=== PATIENT | female | born 1995 | race Caucasian/White ===

== ENCOUNTER 2023-10-21 11:02 | Outpatient (OUT) | payer MEDICAID, SELFPAY ==
[2023-10-21 12:23] LABS: HCG Quantitative 5 mIU/mL
== END 2023-10-21 11:03 | disposition home or self-care (01) ==
LOC: LAB 11:04
PROVIDERS: PCP Family Medicine; Visit Provider Obstetrics & Gynecology
DX: Z78.9 Other specified health status (principal)
CPT/HCPCS: 36415; 84702

== ENCOUNTER 2023-12-29 09:58 | Outpatient (OUT) | payer MEDICAID, SELFPAY ==
--- OUTSIDE RECORDS SUMMARY | 2023-12-29 10:04 | XMS_ITS | CCD ---
Author Name Unknown Address [address] [place] [address] Organization [facility] Care Team Providers Care Manager Transmission Name Role Phone AJAY, PALANI K Unavailable Unavailable AJAY, PALANI K Unavailable Unavailable AJAY, PALANI K Unavailable Unavailable AJAY, PALANI K Unavailable Unavailable AJAY, PALANI K Unavailable Unavailable AJAY, PALANI K Unavailable Unavailable TOURLAS, DANDRE Unavailable Unavailabl e AJAY, PALANI K Unavailable Unavailable AJAY, PALANI K Unavailable Unavailable TOURLAS, DANDRE Unavailable Unavailabl e TOURLAS, DANDRE Unavailable Unavailabl e MAYELA NAPIER Referring Unavailable Tourlas, Dandre Attending Unavailabl e Tourlas, Dandre Primary Care Unavailabl e Re Murphy Attending Unavailable Tourlas, Dandre Primary Care Unavailabl e Re Murphy Admitting Unavailable Tourlas, Dandre Attending Unavailabl e Tourlas, Dandre Primary Care Unavailabl e Re Murphy Admitting Unavailable Re Murphy Attending Unavailable Tourlas, Dandre Primary Care Unavailabl e Tourlas Dandre Attending Unavailabl e Tourlas, Dandre Primary Care Unavailabl e Tourlas, Dandre Admitting Unavailabl e Pedro Keller Admitting Unavailable Pedro Keller Attending Unavailable Tourlas, Dandre Primary Care Unavailabl e Tourlas Dandre Attending Unavailabl e Tourlas, Dandre Primary Care Unavailabl e Yandy Luque Attending Unavailable Tourlas, Dandre Primary Care Unavailabl e Yandy Luque Admitting Unavailable Yandy Luque Admitting Unavailable Yandy Luque Attending Unavailable Tourlas, Dandre Primary Care Unavailabl e Tourlas Dandre Attending Unavailabl e Tourlas, Dandre Primary Care Unavailabl e Tourlas, Dandre Admitting Unavailabl e Tourlas, Dandre Attending Unavailabl e Tourlas, Dandre Primary Care Unavailabl e Tourlas, Dandre Admitting Unavailabl e Tourlas, Dandre Attending Unavailabl e Tourlas, Dandre Primary Care Unavailabl e Tourlas, Dandre Attending Unavailabl e Tourlas, Dandre Primary Care Unavailabl e MD Katarzyna Castañeda Primary Care Provider DO [facility] Emergency Provider [phone] MADDY, DR COLÓN Primary Care Unavailable NISHA, DR LUGO Admitting Unavailable NISHA, DR LUGO Attending Unavailable NISHA, DR LUGO Consulting Unavailable BO, SHU Admitting Unavailable SHU SORIANO Attending Unavailable MADDY, DR COLÓN Primary Care Unavailable BO, SHU Consulting Unavailable Fouzia Maria Unavailable MD Katarzyna Castañeda Primary Care Provider DO Stephanie Edward Attending Provider MD Katarzyna Castañeda Primary Care Provider DO Stephanie Edward Attending Provider MD Katarzyna Castañeda Primary Care Provider [phone] DO Stephanie Edward Attending Provider [phone] DO Stephanie Edward Admit Provider MD [facility] Attending Provider [phone] Juice Johnson Unavailable MD Katarzyna Castañeda Primary Care Provider [phone] MD Juiec Johnson Attending Provider [phone] LUIS MACIAS Attending Unavailable MD Katarzyna Castañeda Primary Care Provider DO Larry Rankin Emergency Provider [phone] MD Rodriguez Nick Admit Provider MD Rodriguez Nick Attending Provider Katarzyna Castañeda Primary Care Unavailable Miguel Jalloh Attending Unavailab Rodriguez Gonsalez Admitting Unavailable Juice Johnson Attending Unavailable Juice Johnson Admitting Unavailable Katarzyna Castañeda Primary Care Unavailable Allergies Allergy Classification Reported Allergen(s) Allergy Type Date of Onset Reaction(s) Facility (1 source) No Known Medication Allergies; Translations: [No Known Medication Allergies] Propensity to adverse reactions to drug (disorder) [facility] Repository (8 sources) Sulfamethoxazole; Translations: [sulfamethoxazole] Drug Allergy 10-10-20 [facility] (8 sources) Trimethoprim; Translations: [trimethoprim] Drug Allergy 10-10-20 [facility] (1 source) Sulfamethoxazole / Trimethoprim Drug Allergy [facility] Repository (4 sources) Sulfamethoxazole / Trimethoprim Drug Allergy [employer] [facility] [employer] Other Medications Current Medications Medication Drug Class(es) Dates Sig (Normalized) Sig (Original) amphetamine aspartate 2.5 mg / amphetamine sulfate 2.5 mg / dextroamphetamine saccharate 2.5 mg / dextroamphetamine sulfate 2.5 mg oral tablet (3 sources) Central Nervous System Stimulant Start: 08-08-2023 take 10 mg by mouth once daily Dextroamphetamine-Am phetamine Active 10 MG PO Daily August 07, 2023 11:00pm cholecalciferol 0.025 mg oral tablet (1 source) Vitamin D Start: 12-11-2023 take 50 ug by mouth once daily Cholecalciferol (Vitamin D3) Active 50 MCG PO Daily December 11, 2023 12:00am doxycycline monohydrate 100 mg oral capsule (1 source) Tetracycline-cl ass Drug Start: 12-05-2021 take 1 capsule by mouth every twelve hours Doxycycline Monohydrate 100 MG 1 capsule Orally every 12 hrs for 10 days Nov, Active escitalopram 10 mg oral tablet (1 source) Serotonin Reuptake Inhibitor Start: 12-11-2023 take 10 mg by mouth once daily in the morning Escitalopram Oxalate Active 10 MG PO Every morning 15 December 11, 2023 12:00am levothyroxine sodium 0.1 mg oral tablet (8 sources) l-Thyroxine Start: 12-09-2023 take 100 ug by mouth once daily Levothyroxine Active 100 MCG PO Daily at 629December 09, 2023 12:00am Start: 11-06-2022 take 1 capsule by mo uth once daily Levothyroxine (Tirosint) 175 mcg capsule Active 175 MCG PO Daily at 629November 06, 2022 12:00am take 1 tablet by giuseppe th once daily in the morning Synthroid 137 MCG 1 tablet on an empty stomach in the morning Orally Once a day for 90 days Active Nasonex 50 MCG/ACT (1 source) Start: 12-05-2021 take 2 spray(s) nasa l route once daily Nasonex 50 MCG/ACT 2 sprays in each nostril Nasally Once a day for 30 day(s) Nov, Active (1 source) Active Completed/Discontinued Medications Medication Drug Class(es) Dates Sig (Normalized) Sig (Original) cephalexin 500 mg oral capsule (7 sources) Cephalosporin Antibacterial Start: 1 End: 2 take 500 mg by mouth twice daily Cephalexin Discontinued 500 MG PO Twice daily 26 05October 10, 2021 12:00am November 06, 2022 8:06pm dextroamphetamine sulfate 10 mg oral tablet (3 sources) Central Nervous System Stimulant take 1 tablet by mouth every twenty-four hours Dextroamphetamine Sulfate 10 MG 1 tablet in the morning Orally Once a day Not-Taking fluticasone propionate 0.05 mg/actuat metered dose nasal spray (4 sources) Corticosteroid Start: 1 take 1 spray(s) nasal route twice daily Fluticasone Propionate 50 MCG/ACT 1 spray in each nostril Nasally Twice a day for 14 days Oct, Not-Taking HYDROmorphone hydrochloride 2 mg oral tablet (4 sources) Opioid Agonist Start: 2 End: 3 take 1 tablet by mouth every six hours Hydromorphone (Dilaudid) 2 mg tablet Discontinued 2 MG PO Q6H 11 06November 09, 2022 August 08, 2023 10:58am ibuprofen 600 mg oral tablet (4 sources) Nonsteroidal Anti-inflammatory Drug Start: 2 End: 3 take 600 mg by mouth every six hours Ibuprofen Discontinued 600 MG PO Q6H 30 November 09, 2022 12:00am August 08, 2023 10:58am Dwsjwvvc-Nlf-Nh-Fa (4 sources) Start: End: 3 take 1 tablet by mouth once daily Cegvlmsy-Wyy-Ei-Fa Discontinued 1 TAB PO Daily November 06, 2022 12:00am August 08, 2023 10:58am Start: 11-06-2022 End: 08-08-2023 take 1 tablet by mouth once daily Ptciilaq-Sqq-Xf-Fa Discontinued 1 TAB PO Daily November 06, 2022 1:00am August 08, 2023 11:58am Start: 11-06-2022 take 1 tablet by giuseppe th once daily Nbhoqzxe-Yka-Ty-Fa Active 1 TAB PO Daily November 06, 2022 12:00am Problems Active Problems Problem Classification Problem Date Documented Da te Episodic/Chronic Anxiety disorders (3 sources) Generalized anxiety disorder; Translations: [Generalized anxiety disorder] Onset: 12-09-2023 12-09-2023 Chronic Attention-deficit, conduct, and disruptive behavior disorders (1 source) Attention deficit hyperactivity disorder; Translations: [Attention-deficit hyperactivity disorder, unspecified type] 12-09-2023 Chronic Attention-deficit, conduct, and disruptive behavior disorders (2 sources) Attention-deficit hyperactivity disorder, unspecified type; Translations: [Attention deficit disorder with hyperactivity] Onset: 12-09-2023 12-08-2023 Chronic Complications of surgical procedures or medical care (4 sources) Postoperative hypothyroidism; Translations: [Postprocedural hypothyroidism] Chronic Complications of surgical procedures or medical care (7 sources) Wound dehiscence; Translations: [Disruption of external operation (surgical) wound, not elsewhere classified, initial encounter] 10-10-2021 Episodic Miscellaneous mental health disorders (1 source) depression; Translations: [ depression] Onset: 12-09-2023 Episodic Mood disorders (5 sources) Depressive disorder; Translations: [Depression] Onset: 12-09-2023 12-08-2023 Chronic Mood disorders (1 source) Mood disorders; Translations: [Depression, unspecified] Onset: 12-09-2023 Nutritional deficiencies (4 sources) Vitamin D deficiency; Translations: [Vitamin D deficiency, unspecified] Chronic Other female genital disorders (3 sources) Abnormal uterine and vaginal bleeding, unspecified; Translations: [ABNORMAL UTERINE VAGINAL BLEED UNS] Onset: 03-02-2022 Chronic Other gastrointestinal disorders (3 sources) Celiac disease; Translations: [Celiac disease] Chronic Other gastrointestinal disorders (2 sources) Celiac disease Chronic Other gastrointestinal disorders (3 sources) Constipation; Translations: [Constipation, unspecified] Episodic Other gastrointestinal disorders (3 sources) Loose stool; Translations: [Other fecal abnormalities] Episodic Other gastrointestinal disorders (2 sources) Constipation, unspecified Episodic Other nutritional; endocrine; and metabolic disorders (4 sources) Overweight; Translations: [Overweight] Episodic Other and delivery including normal (1 source) Encounter for supervision of normal , unspecified, first trimester; Translations: [ENC SUP NORMAL PREG UNS FIRST TRI] Onset: 03-03-2022 Episodic Other skin disorders (1 source) Localized swelling, mass and lump, neck; Translations: [Localized swelling, mass and lump, neck] Onset: 01-14-2019 Episodic Other upper respiratory infections (1 source) Chronic sinusitis, unspecified; Translations: [CHRONIC SINUSITIS UNSPECIFIED] Onset: 11-25-2021 Chronic Residual codes; unclassified (1 source) History of uterine scar from previous surgery; Translations: [Other postprocedural status] 11-09-2022 Episodic Unclassified (3 sources) CONTACT W/AND (SUSP) EXPOS COVID-19; Translations: [CONTACT W/AND (SUSP) EXPOS COVID-19] Onset: 11-25-2021 Unclassified (1 source) COUGH, UNSPECIFIED; Translations: [COUGH, UNSPECIFIED] Onset: 11-25-2021 Past or Other Problems Problem Classification Problem Date Documented Da te Episodic/Chronic Abdominal pain (2 sources) Epigastric pain; Translations: [Epigastric pain] Onset: 07-10-2017 Episodic Immunizations and screening for infectious disease (1 source) Contact with and (suspected) exposure to other viral communicable diseases Onset: 12-05-2021 Resolved: 12-05-2021 Episodic Other gastrointestinal disorders (3 sources) Other fecal abnormalities; Translations: [Other fecal abnormalities] Onset: 08-08-2023 Episodic Other upper respiratory disease (1 source) Nasal congestion; Translations: [NASAL CONGESTION] Onset: 11-25-2021 Episodic Other upper respiratory infections (1 source) Acute maxillary sinusitis, unspecified Onset: 12-05-2021 Resolved: 12-05-2021 Episodic Unclassified (1 source) CONTACT W/AND (SUSP) EXPOS COVID-19; Translations: [CONTACT W/AND (SUSP) EXPOS COVID-19] Onset: 11-19-2021 Results Test Name Value Interpretation Reference Range Facility Dipstick and Microscopicon 0 12-09-2023 Appearance (U) Clear Normal Clear [facility] Comment on above: Order Comment: Name Collection Type:: Clean-Voided Midstream Performed By: #### U HCG, ADDONUAPLUS, URDS #### [facility] [address] [place] [address] Bacteria,Urine None Seen Normal None Seen [facility] Comment on above: Order Comment: Name Collection Type:: Clean-Voided Midstream Performed By: #### U HCG, ADDONUAPLUS, URDS #### [facility] [address] [place] [address] Bilirubin,Urine Negative Normal Negative [facility] Comment on above: Order Comment: Name Collection Type:: Clean-Voided Midstream Performed By: #### U HCG, ADDONUAPLUS, URDS #### [facility] [address] [place] [address] [place] Color (U) Yellow Normal Yellow [facility] Comment on above: Order Comment: Name Collection Type:: Clean-Voided Midstream Performed By: #### U HCG, ADDONUAPLUS, URDS #### [facility] [address] [place] [address] [place] Glucose Ql (U) Normal Normal Normal [facility] Comment on above: Order Comment: Name Collection Type:: Clean-Voided Midstream Performed By: #### U HCG, ADDONUAPLUS, URDS #### [facility] [address] [place] [address] [place] Hyaline Casts,Urine 0-8 Normal 0-8 [facility] Comment on above: Order Comment: Name Collection Type:: Clean-Voided Midstream Performed By: #### U HCG, ADDONUAPLUS, URDS #### [place] [address] [place] Ketones Ql (U) 1+ High Negative [facility] Comment on above: Order Comment: Name Collection Type:: Clean-Voided Midstream Performed By: #### U HCG, ADDONUAPLUS, URDS #### [facility] [address] [place] [address] Leukocyte esterase Test strip Ql (U) Negative Normal Negative [facility] Comment on above: Order Comment: Name Collection Type:: Clean-Voided Midstream Performed By: #### U HCG, ADDONUAPLUS, URDS #### [facility] [address] [place] [address] Nitrite,Urine Negative Normal Negative [facility] Comment on above: Order Comment: Name Collection Type:: Clean-Voided Midstream Performed By: #### U HCG, ADDONUAPLUS, URDS #### [facility] [address] [place] [address] Occult Blood,Urine 2+ High Negative [facility] Comment on above: Order Comment: Name Collection Type:: Clean-Voided Midstream Performed By: #### U HCG, ADDONUAPLUS, URDS #### [facility] [address] [place] [address] pH (U) 6.0 [pH] Normal 5.0-9.0 [facility] Comment on above: Order Comment: Name Collection Type:: Clean-Voided Midstream Performed By: #### U HCG, ADDONUAPLUS, URDS #### [facility] [address] [place] [address] Protein,Urine Negative Normal Negative [facility] Comment on above: Order Comment: Name Collection Type:: Clean-Voided Midstream Performed By: #### U HCG, ADDONUAPLUS, URDS #### [facility] [address] [place] [address] [place] RBC,Urine 5-9 High 0-4 [facility] Comment on above: Order Comment: Name Collection Type:: Clean-Voided Midstream Performed By: #### U HCG, ADDONUAPLUS, URDS #### [facility] [address] [place] [address] [place] Specificy Alpha,Urine 1.022 Normal 1.001-1.030 [facility] Comment on above: Order Comment: Name Collection Type:: Clean-Voided Midstream Performed By: #### U HCG, ADDONUAPLUS, URDS #### [address] Squamous Epithelial Cell,Urine 0-1 Normal 0-2 [facility] Comment on above: Order Comment: Name Collection Type:: Clean-Voided Midstream Performed By: #### U HCG, ADDONUAPLUS, URDS #### [address] Urobilinogen,Urine Normal Normal Normal [facility] Comment on above: Order Comment: Name Collection Type:: Clean-Voided Midstream Performed By: #### U HCG, ADDONUAPLUS, URDS #### [address] WBC LM.HPF (Urine sed) [#/Area] 0 /[HPF] Normal 0-4 [facility] Comment on above: Order Comment: Name Collection Type:: Clean-Voided Midstream Performed By: #### U HCG, ADDONUAPLUS, URDS #### [address] Drug Screen,Urineon 12-09-19 24 Amphetamine Screen,Urine Positive High Negative [facility] Comment on above: Performed By: #### U HCG, ADDONUAPLUS, URDS #### [address] Barbiturate Screen,Urine Negative Normal Negative [facility] Comment on above: Performed By: #### U HCG, ADDONUAPLUS, URDS #### [address] Benzodiazepines Screen,Urine Negative Normal Negative [facility] Comment on above: Performed By: #### U HCG, ADDONUAPLUS, URDS #### [address] Cannabinoid Screen,Urine Negative Normal Negative [facility] Comment on above: Result Comment: Thes e are unconfirmed results and should not be used for legal purposes. Drug Cut-Off Concentration: AMPH 1000 ng/mL KAMRYN 200 ng/mL MIRELA 200 ng/mL COCM 300 ng/mL OP 300 ng/mL PCP 25 ng/mL THC 20 ng/mL PERFORMED BY: [place] [address] PATHOLOGIST FISCAL OFFICER REHAN MARISCAL M.D. Performed By: #### U HCG, ADDONUAPLUS, URDS #### [facility] [address] [place] [address] Cocaine Screen,Urine Negative Normal Negative [facility] Comment on above: Performed By: #### U HCG, ADDONUAPLUS, URDS #### [facility] [address] [place] [address] Opiate Screen,Urine Negative Normal Negative [facility] Comment on above: Performed By: #### U HCG, ADDONUAPLUS, URDS #### [facility] [address] [place] [address] Phencyclidine Screen,Urine Negative Normal Negative [facility] Comment on above: Performed By: #### U HCG, ADDONUAPLUS, URDS #### [facility] [address] [place] [address] ECG 12 lead ECGon 12-09-2023 ECG 12 lead ECG [facility] [place] [address] [place] [address] Electrocardiograph Report Signed Patient: Jen Santamaria MR#: [id number] : 1995 Acct:[id number] Age/Sex: 28 / F ADM Date: 12/08/23 Loc: Room: [address] [place] [address] Type: ADM IN Attending Dr: Rodriguez Nick MD Ordering Provider: Rodriguez Nick MD Date of Service: 12/09/23 ECG/ECG 12 lead ECG: use of antipsychotics Copies to: Test Reason : Blood Pressure : / mmHG Vent. Rate : 096 BPM Atrial Rate : 096 BPM P-R Int : 164 ms QRS Dur : 096 ms QT Int : 350 ms P-R-T Axes : 071 085 056 degrees QTc Int : 442 ms Normal sinus rhythm Septal infarct , age undetermined Abnormal ECG No previous ECGs available Confirmed by Frannie Todd ([id number]) on 12/09/2023 11:36:04 AM Referred By: Electronically Signed By:Frannie Todd Transcribed By: MUS Signed By Devin Beard MD 12/09/[address] [facility] HCG,Urineon 12-09-2023 Beta HCG ( test) Ql (U) Negative Normal [facility] Comment on above: Order Comment: Name Collection Type:: Clean-Voided Midstream Result Comment: PERF ORMED BY: [place] [address] PATHOLOGIST FISCAL OFFICER REHAN MARISCAL M.D. Performed By: #### U HCG, ADDONUAPLUS, URDS #### [facility] [address] [place] [address] Lipid Panelon 12-09-2023 Cholesterol [Mass/Vol] 170 mg/dL Normal 140-200 [facility] Comment on above: Result Comment: Chol less than 200 mg/dl low risk Chol 201-239 mg/dl borderline risk Chol 240 mg/dl and greater high risk Performed By: #### U HCG, ADDONUAPLUS, URDS #### [facility] [address] [place] [address] Cholesterol in HDL [Mass/Vol] 54 mg/dL Normal 23-92 [facility] Comment on above: Result Comment: HDL CHOL ATP-III CLASSIFICATION Cardiovascular Risk HDL > or equal to 60 mg/dL LOW HDL < 40 mg/dL HIGH Performed By: #### U HCG, ADDONUAPLUS, URDS #### [facility] [address] Cholesterol.total/Chol esterol in HDL [Mass ratio] 3.1 {ratio} Normal <5.0 [facility] Comment on above: Performed By: #### U HCG, ADDONUAPLUS, URDS #### [facility] [address] [place] [address] [place] LDL Cholesterol,Calculated 102 mg/dL High 0-100 [facility] Comment on above: Result Comment: LDL ATP III CLASSIFICATION LDL less than 100 mg/dL Optimal LDL 100-129 mg/dL Near or above optimal LDL 130-159 mg/dL Borderline high LDL 160-189 mg/dL High LDL greater than 189 mg/dL Very high Performed By: #### U HCG, ADDONUAPLUS, URDS #### [facility] [address] Triglyceride w/Reflex 71 mg/dL Normal 0-149 [facility] Comment on above: Result Comment: TRIG ATP III CLASSIFICATION TRIG less than 150 mg/dL Normal TRIG 150-199 mg/dL Borderline high TRIG 200-500 mg/dL High TRIG greater than 500 mg/dL Very high Standard traceable to the Center for Disease Conrtrol and Prevention (CDC) test method. Performed By: #### U HCG, ADDONUAPLUS, URDS #### [facility] [address] VLDL CHOLESTEROL 14 mg/dL Normal [facility] Comment on above: Performed By: #### U HCG, ADDONUAPLUS, URDS #### [facility] [address] Thyroid Stim Hormone w/Rflxo n 12-09-2023 Thyroid Stim Hormone w/Rflx 1.67 u[iU]/mL Normal 0.45-5.33 [facility] Comment on above: Performed By: #### U HCG, ADDONUAPLUS, URDS #### [facility] [address] Vitamin D 25 Hydroxy Totalon 12-09-2023 Vitamin D 25 Hydroxy Total 25.6 ng/mL Low 30-100 [facility] Comment on above: Result Comment: JAXON MIN D STATUS 25(OH)VITAMIN D RANGE (ng/mL) Deficient <20 Insufficient 20 to <30 Sufficient 30 to 100 Reference: Yesenia MF,Deangelo DUKES, Jeison WHYTE, et al. Evaluation,treatment, and prevention of vitamin D deficiency; an Endocrine Society clinical practice guideline. JCEM. 2010; 96(7):1911-30. PERFORMED BY: [place] [address] PATHOLOGIST FISCAL OFFICER REHAN MARISCAL M.D. Performed By: #### U HCG, ADDONUAPLUS, URDS #### [address] Alanine aminotransferase [En zymatic activity/volume] in Serum or PlasmaOrdered By: Larry Rankin on 12-08-2023 ALT [Catalytic activity/Vol] 12 U/L 7-52 [facility] Albumin [Mass/volume] in Ser um or Plasma by Bromocresol green (BCG) dye binding methoOrdered By: Larry Rankin on 12-08-2023 Albumin BCG dye [Mass/Vol] 4.6 g/dL 3.5-5.7 [facility] Alkaline phosphatase [Enzyma tic activity/volume] in Serum or PlasmaOrdered By: Larry Rankin on 12-08-2023 ALP [Catalytic activity/Vol] 59 U/L 34-104 [facility] Amphetamine Screen Ql (U)Ord ered By: Larry Rankin on 12-08-2023 Amphetamines Ql (U) Positive Negative [facility] Aspartate aminotransferase [ Enzymatic activity/volume] in Serum or PlasmaOrdered By: Larry Rankin on 12-08-2023 AST [Catalytic activity/Vol] 19 U/L 13-39 [facility] Automated erythrocytes count in urine sediment (number/area)Ordered By: Larry Rankin on 12-08-2023 RBC Auto (Urine sed) [#/Area] 5-9 [HPF] 0-4 [facility] Automated leukocytes count i n urine sediment (number/area)Ordered By: Larry Rankin on 12-08-2023 WBC Auto (Urine sed) [#/Area] 0-1 [HPF] 0-4 [facility] Barbiturates [Presence] in U rine by Screen methodOrdered By: Larry Rankin on 12-08-2023 Barbiturates Screen Ql (U) Negative Negative [facility] Basophils Auto (Bld) [#/Vol] Ordered By: Larry Rankin on 12-08-2023 Basophils (Bld) [#/Vol] 0.1 10*3/uL 0.0-0.2 [facility] Basophils/100 WBC Auto (Bld) Ordered By: Larry Rankin on 12-08-2023 Basophils/100 WBC (Bld) 0.7 % . [facility] Benzodiazepines Screen Ql (U )Ordered By: Larry Rankin on 12-08-2023 Benzodiazepines Ql (U) Negative Negative [facility] Benzoylecgonine [Presence] i n Urine by Screen methodOrdered By: Larry Rankin on 12-08-2023 Benzoylecgonine Screen Ql (U) Negative Negative [facility] Bilirubin Test strip Ql (U)O rdered By: Larry Rankin on 12-08-2023 Bilirubin Ql (U) Negative Negative [facility] Bilirubin.total [Mass/volume ] in Serum or PlasmaOrdered By: Larry Rankin on 12-08-2023 Bilirubin [Mass/Vol] 0.4 mg/dL 0.3-1.0 [facility] Calcium [Mass/volume] in Ser um or PlasmaOrdered By: Larry Rankin on 12-08-2023 Calcium [Mass/Vol] 9.8 mg/dL 8.6-10.3 [facility] Cannabinoids [Presence] in U rine by Screen methodOrdered By: Larry Rankin on 12-08-2023 Cannabinoids Screen Ql (U) Negative Negative [facility] Comment on above: These are unconfirme d results and should not be used for legal purposes. Drug Cut-Off Concentration: AMPH 1000 ng/mL KAMRYN 200 ng/mL MIRELA 200 ng/mL COCM 300 ng/mL OP 300 ng/mL PCP 25 ng/mL THC 20 ng/mL Carbon dioxide, total [Moles /volume] in Serum or PlasmaOrdered By: Larry Rankin on 12-08-2023 CO2 [Moles/Vol] 24.0 mmol/L 21.0-31.0 [facility] Chloride [Moles/volume] in S ridge or PlasmaOrdered By: Larry Rankin on 12-08-2023 Chloride [Moles/Vol] 106 mmol/L 98-107 [facility] Color Auto (U)Ordered By: Chuck Rankin on 12-08-2023 Color (U) Yellow Yellow [facility] Complete Blood Count Auto Di ffon 12-08-2023 Basophils (Bld) [#/Vol] 0.1 10*3/uL Normal 0.0-0.2 [facility] Comment on above: Result Comment: PERF ORMED BY: [place] [address] PATHOLOGIST FISCAL OFFICER REHAN MARISCAL M.D. Performed By: #### U HCG, ADDONUAPLUS, URDS #### [facility] [address] [place] [address] Basophils/100 WBC (Bld) 0.7 % Normal . [facility] Comment on above: Performed By: #### U HCG, ADDONUAPLUS, URDS #### [facility] [address] [place] [address] Eosinophils (Bld) [#/Vol] 0.2 10*3/uL Normal 0.0-0.45 [facility] Comment on above: Performed By: #### U HCG, ADDONUAPLUS, URDS #### [facility] [address] [place] [address] Eosinophils/100 WBC (Bld) 2.2 % Normal . [facility] Comment on above: Performed By: #### U HCG, ADDONUAPLUS, URDS #### [facility] [address] [place] [address] Erythrocyte distribution width (RBC) [Ratio] 14.5 % Normal 11.9-15.3 [facility] Comment on above: Performed By: #### U HCG, ADDONUAPLUS, URDS #### [facility] [address] [place] [address] Hematocrit (Bld) [Volume fraction] 40.7 % Normal 34.0-46.4 [facility] Comment on above: Performed By: #### U HCG, ADDONUAPLUS, URDS #### [facility] [address] [place] [address] Hemoglobin (Bld) [Mass/Vol] 13.9 g/dL Normal 11.8-15.4 [facility] Comment on above: Performed By: #### U HCG, ADDONUAPLUS, URDS #### [address] Lymphocytes (Bld) [#/Vol] 2.7 10*3/uL Normal 1.00-4.8 [facility] Comment on above: Performed By: #### U HCG, ADDONUAPLUS, URDS #### [address] Lymphocytes/100 WBC (Bld) 36.8 % Normal . [facility] Comment on above: Performed By: #### U HCG, ADDONUAPLUS, URDS #### [address] MCH (RBC) [Entitic mass] 30.3 pg Normal 24.7-34.3 [facility] Comment on above: Performed By: #### U HCG, ADDONUAPLUS, URDS #### [address] MCV (RBC) [Entitic vol] 88.6 fL Normal 80-100 [facility] Comment on above: Performed By: #### U HCG, ADDONUAPLUS, URDS #### [address] Mean Corpuscular HGB Conc 34.2 g/dL Normal 32.0-35.0 [facility] Comment on above: Performed By: #### U HCG, ADDONUAPLUS, URDS #### [address] Monocytes (Bld) [#/Vol] 0.5 10*3/uL Normal 0.0-0.8 [facility] Comment on above: Performed By: #### U HCG, ADDONUAPLUS, URDS #### [address] Monocytes/100 WBC (Bld) 16.63 % Normal 0.00-20.00 [facility] Comment on above: Performed By: #### U HCG, ADDONUAPLUS, URDS #### [facility] [address] [place] [address] [place] Monocytes/100 WBC (Bld) 6.4 % Normal . [facility] Comment on above: Performed By: #### U HCG, ADDONUAPLUS, URDS #### [facility] [address] Neutrophils (Bld) [#/Vol] 4.0 10*3/uL Normal 1.8-7.7 [facility] Comment on above: Performed By: #### U HCG, ADDONUAPLUS, URDS #### [facility] [address] [place] [address] Neutrophils/100 WBC (Bld) 53.9 % Normal . [facility] Comment on above: Performed By: #### U HCG, ADDONUAPLUS, URDS #### [facility] [address] [place] [address] NRBC% 0.1 /100{WBC} Normal 0-0.5 [facility] Comment on above: Performed By: #### U HCG, ADDONUAPLUS, URDS #### [facility] [address] [place] [address] Platelet mean volume (Bld) [Entitic vol] 7.4 fL Normal 6.3-10.7 [facility] Comment on above: Performed By: #### U HCG, ADDONUAPLUS, URDS #### [facility] [address] [place] [address] [place] Platelets (Bld) [#/Vol] 384 10*3/uL Normal 150-450 [facility] Comment on above: Performed By: #### U HCG, ADDONUAPLUS, URDS #### [facility] [address] [place] [address] [place] RBC (Bld) [#/Vol] 4.59 10*6/uL Normal 3.60-5.00 [facility] Comment on above: Performed By: #### U HCG, ADDONUAPLUS, URDS #### [facility] [address] [place] [address] [place] WBC (Bld) [#/Vol] 7.4 10*3/uL Normal 3.8-11.6 [facility] Comment on above: Performed By: #### U HCG, ADDONUAPLUS, URDS #### [facility] [address] Comprehensive Metabolic Pane chris 12-08-2023 Albumin [Mass/Vol] 4.6 g/dL Normal 3.5-5.7 [facility] Comment on above: Performed By: #### U HCG, ADDONUAPLUS, URDS #### [facility] [address] Albumin/Globulin [Mass ratio] 1.5 {ratio} Normal [facility] Comment on above: Performed By: #### U HCG, ADDONUAPLUS, URDS #### [facility] [address] ALP [Catalytic activity/Vol] 59 U/L Normal 34-104 [facility] Comment on above: Performed By: #### U HCG, ADDONUAPLUS, URDS #### [facility] [address] [place] [address] ALT [Catalytic activity/Vol] 12 U/L Normal 7-52 [facility] Comment on above: Performed By: #### U HCG, ADDONUAPLUS, URDS #### [facility] [address] [place] [address] Anion gap [Moles/Vol] 11.7 mmol/L Normal 6.0-15.0 [facility] Comment on above: Performed By: #### U HCG, ADDONUAPLUS, URDS #### [facility] [address] [place] [address] AST [Catalytic activity/Vol] 19 U/L Normal 13-39 [facility] Comment on above: Performed By: #### U HCG, ADDONUAPLUS, URDS #### [facility] [address] Bilirubin [Mass/Vol] 0.4 mg/dL Normal 0.3-1.0 [facility] Comment on above: Performed By: #### U HCG, ADDONUAPLUS, URDS #### [facility] [address] [place] [address] [place] Calcium [Mass/Vol] 9.8 mg/dL Normal 8.6-10.3 [facility] Comment on above: Performed By: #### U HCG, ADDONUAPLUS, URDS #### [facility] [address] [place] [address] [place] Chloride [Moles/Vol] 106 mmol/L Normal 98-107 [facility] Comment on above: Performed By: #### U HCG, ADDONUAPLUS, URDS #### [facility] [address] CO2 [Moles/Vol] 24.0 mmol/L Normal 21.0-31.0 [facility] Comment on above: Performed By: #### U HCG, ADDONUAPLUS, URDS #### [facility] [address] Creatinine [Mass/Vol] 0.82 mg/dL Normal 0.60-1.20 [facility] Comment on above: Performed By: #### U HCG, ADDONUAPLUS, URDS #### [facility] [address] [place] [address] [place] Creatinine Clr Calc Pharmacy 90.10 [facility] Comment on above: Result Comment: PERF ORMED BY: [place] [address] PATHOLOGIST FISCAL OFFICER REHAN MARISCAL M.D. Performed By: #### U HCG, ADDONUAPLUS, URDS #### [facility] [address] [place] [address] [place] GFR/1.73 sq M.predicted MDRD (S/P/Bld) [Vol rate/Area] mL/min/{1.73_m2} [facility] Comment on above: Performed By: #### U HCG, ADDONUAPLUS, URDS #### [facility] [address] [place] [address] [place] Globulin (S) [Mass/Vol] 3.1 g/dL [facility] Comment on above: Performed By: #### U HCG, ADDONUAPLUS, URDS #### [facility] [address] [place] [address] [place] Glucose [Mass/Vol] 79 mg/dL Normal 70-100 [facility] Comment on above: Result Comment: [place] Glucose Reference Range is dependent on time and content of last meal. Glucose of more than 200 mg/dL in a nonstressed, ambulatory subject supports the diagnosis of Diabetes Mellitus. ADA recommended reference range Performed By: #### U HCG, ADDONUAPLUS, URDS #### [facility] [address] [place] [address] [place] Potassium [Moles/Vol] 3.7 mmol/L Normal 3.5-5.1 [facility] Comment on above: Performed By: #### U HCG, ADDONUAPLUS, URDS #### [facility] [address] [place] [address] [place] Protein [Mass/Vol] 7.7 g/dL Normal 6.4-8.9 [facility] Comment on above: Performed By: #### U HCG, ADDONUAPLUS, URDS #### [facility] [address] [place] [address] [place] Sodium [Moles/Vol] 138 mmol/L Normal 136-145 [facility] Comment on above: Performed By: #### U HCG, ADDONUAPLUS, URDS #### [facility] [address] [place] [address] [place] Urea nitrogen [Mass/Vol] 8 mg/dL Normal 7-25 [facility] Comment on above: Performed By: #### U HCG, ADDONUAPLUS, URDS #### [facility] [address] [place] [address] [place] Creatinine [Mass/volume] in Serum or PlasmaOrdered By: Larry Rankin on 12-08-2023 Creatinine [Mass/Vol] 0.82 mg/dL 0.60-1.20 [facility] Eosinophils Auto (Bld) [#/Vo l]Ordered By: Larry Rankin on 12-08-2023 Eosinophils (Bld) [#/Vol] 0.2 10*3/uL 0.0-0.45 [facility] Eosinophils/100 WBC Auto (Bl d)Ordered By: Larry Rankin on 12-08-2023 Eosinophils/100 WBC (Bld) 2.2 % . [facility] Erythrocyte distribution wid th Auto (RBC) [Ratio]Ordered By: Larry Rankin on 12-08-2023 Erythrocyte distribution width (RBC) [Ratio] 14.5 % 11.9-15.3 [facility] Ethanol [Mass/volume] in Ser um or PlasmaOrdered By: Larry Rankin on 12-08-2023 Ethanol [Mass/Vol] mg/dL [facility] Ethanol [Mass/Vol] TNP [facility] Comment on above: Test not performed Ethyl Alcohol Profileon 11-14 Ethanol [Mass/Vol] mg/dL Normal [facility] Comment on above: Performed By: #### U HCG, ADDONUAPLUS, URDS #### [facility] [address] Percent Ethanol Not performed Normal [facility] Comment on above: Result Comment: PERF ORMED BY: [place] [address] PATHOLOGIST FISCAL OFFICER REHAN MARISCAL M.D. Performed By: #### U HCG, ADDONUAPLUS, URDS #### [facility] [address] Globulin Calc (S) [Mass/Vol] Ordered By: Larry Rankin on 12-08-2023 Globulin (S) [Mass/Vol] 3.1 g/dL [facility] Glucose [Mass/volume] in Ser um or PlasmaOrdered By: Larry Rankin on 12-08-2023 Glucose [Mass/Vol] 79 mg/dL 70-100 [facility] Comment on above: ADA recommended refe rence rangeRandom Glucose Reference Range is dependent on time and content of last meal. Glucose of more than 200 mg/dL in a nonstressed, ambulatory subject supports the diagnosis of Diabetes Mellitus. HCG ( test) IA.rapi d Ql (U)Ordered By: Larry Rankin on 12-08-2023 HCG ( test) Ql (U) Negative [facility] Hematocrit Auto (Bld) [Volum e fraction]Ordered By: Larry Rankin on 12-08-2023 Hematocrit (Bld) [Volume fraction] 40.7 % 34.0-46.4 [facility] Hemoglobin [Mass/volume] in BloodOrdered By: Larry Rankin on 12-08-2023 Hemoglobin (Bld) [Mass/Vol] 13.9 g/dL 11.8-15.4 [facility] Ketones Auto test strip (U) [Mass/Vol]Ordered By: Larry Rankin on 12-08-2023 Ketones (U) [Mass/Vol] 1+ Negative [facility] - UrinalysisOrder ed By: Larry Rankin on 12-08-2023 Hyaline casts LM Ql (Urine sed) 0-8 [LPF] 0-8 [facility] Leukocytes [#/volume] correc chema for nucleated erythrocytes in Blood by Automated counOrdered By: Larry Rankin on 12-08-2023 WBC corrected for nucl RBC Auto (Bld) [#/Vol] 7.4 10*3/uL 3.8-11.6 [facility] Lymphocytes Auto (Bld) [#/Vo l]Ordered By: Larry Rankin on 12-08-2023 Lymphocytes (Bld) [#/Vol] 2.7 10*3/uL 1.00-4.8 [facility] Lymphocytes/100 WBC Auto (Bl d)Ordered By: Larry Rankin on 12-08-2023 Lymphocytes/100 WBC (Bld) 36.8 % . [facility] MCH Auto (RBC) [Entitic mass ]Ordered By: Larry Rankin on 12-08-2023 MCH (RBC) [Entitic mass] 30.3 pg 24.7-34.3 [facility] MCHC Auto (RBC) [Mass/Vol]Or dered By: Larry Rankin on 12-08-2023 MCHC (RBC) [Mass/Vol] 34.2 g/dL 32.0-35.0 [facility] MCV Auto (RBC) [Entitic vol] Ordered By: Larry Rankin on 12-08-2023 MCV (RBC) [Entitic vol] 88.6 fL 80-100 [facility] Monocyte distribution width [Entitic volume] in Blood by AutomatedOrdered By: Larry Rankin on 12-08-2023 Monocyte distribution width Auto (Bld) [Entitic vol] 16.63 % 0.00-20.00 [facility] Monocytes Auto (Bld) [#/Vol] Ordered By: Larry Rankin on 12-08-2023 Monocytes (Bld) [#/Vol] 0.5 10*3/uL 0.0-0.8 [facility] Monocytes/100 WBC Auto (Bld) Ordered By: Larry Rankin on 12-08-2023 Monocytes/100 WBC (Bld) 6.4 % . [facility] Neutrophils Auto (Bld) [#/Vo l]Ordered By: Larry Rankin on 12-08-2023 Neutrophils (Bld) [#/Vol] 4.0 10*3/uL 1.8-7.7 [facility] Neutrophils/100 WBC Auto (Bl d)Ordered By: Larry Rankin on 12-08-2023 Neutrophils/100 WBC (Bld) 53.9 % . [facility] Nitrite Test strip Ql (U)Ord ered By: Larry Rankin on 12-08-2023 Nitrite Ql (U) Negative Negative [facility] No Panel InformationOrdered By: Larry Rankin on 12-08-2023 Estimated GFR (CKD-EPI) > 60.0 mL/Min [facility] Creatinine Clearance (Chem 90.10 [facility] Nucleated erythrocytes [Pres ence] in Blood by Automated countOrdered By: Larry Rankin on 12-08-2023 Nucleated RBC Auto Ql (Bld) 0.1 /100{WBC} 0-0.5 [facility] Opiates [Presence] in Urine by Screen methodOrdered By: Larry Rankin on 12-08-2023 Opiates Screen Ql (U) Negative Negative [facility] Phencyclidine Screen Ql (U)O rdered By: Larry Rankin on 12-08-2023 Phencyclidine Ql (U) Negative Negative [facility] Platelet mean volume Auto (B ld) [Entitic vol]Ordered By: Larry Rankin on 12-08-2023 Platelet mean volume (Bld) [Entitic vol] 7.4 fL 6.3-10.7 [facility] Platelets Auto (Bld) [#/Vol] Ordered By: Larry Rankin on 12-08-2023 Platelets (Bld) [#/Vol] 384 10*3/uL 150-450 [facility] Potassium [Moles/volume] in Serum or PlasmaOrdered By: Larry Rankni on 12-08-2023 Potassium [Moles/Vol] 3.7 mmol/L 3.5-5.1 [facility] Protein Auto test strip (U) [Mass/Vol]Ordered By: Larry Rankin on 12-08-2023 Protein (U) [Mass/Vol] Negative Negative Fi [facility] Protein [Mass/volume] in Ser um or PlasmaOrdered By: Larry Rankin on 12-08-2023 Protein [Mass/Vol] 7.7 g/dL 6.4-8.9 [facility] RBC Auto (Bld) [#/Vol]Ordere d By: Larry Rankin on 12-08-2023 RBC (Bld) [#/Vol] 4.59 10*6/uL 3.60-5.00 [facility] Serum or plasma albumin/glob ulin mass ratioOrdered By: Larry Rankin on 12-08-2023 Albumin/Globulin [Mass ratio] 1.5 {ratio} [facility] Serum or plasma anion gap de terminationOrdered By: Larry Rankin on 12-08-2023 Anion gap [Moles/Vol] 11.7 mmol/L 6.0-15.0 [facility] Sodium [Moles/volume] in Ser um or PlasmaOrdered By: Larry Rankin on 12-08-2023 Sodium [Moles/Vol] 138 mmol/L 136-145 [facility] Specific gravity Auto test s trip (U) [Rel density]Ordered By: Larry Rankin on 12-08-2023 Specific gravity (U) [Rel density] 1.022 1.001-1.030 [facility] Squamous epithelial cells de tection in urine sediment by light microscopyOrdered By: Larry Rankin on 12-08-2023 Epithelial cells.squamous LM Ql (Urine sed) 0-1 [HPF] 0-2 [facility] Urea nitrogen [Mass/volume] in Serum or PlasmaOrdered By: Larry Rankin on 12-08-2023 Urea nitrogen [Mass/Vol] 8 mg/dL 7-25 [facility] Urine bacteria detection by automated methodOrdered By: Larry Rankin on 12-08-2023 Bacteria Auto Ql (U) None seen None Seen [facility] Urine clarity by refractomet ry automatedOrdered By: Larry Rankin on 12-08-2023 Clarity Refractometry automated (U) Clear Clear [facility] Urine glucose measurement by automated test strip (mass/volume)Ordered By: Larry Rankin on 12-08-2023 Glucose Auto test strip (U) [Mass/Vol] Normal mg/dL Normal [facility] Urine hemoglobin detection b y automated test stripOrdered By: Larry Rankin on 12-08-2023 Hemoglobin Auto test strip Ql (U) 2+ Negative [facility] Urine leukocyte esterase det ection by automated test stripOrdered By: Larry Rankin on 12-08-2023 Leukocyte esterase Auto test strip Ql (U) Negative Negative [facility] Urobilinogen Auto test strip (U) [Mass/Vol]Ordered By: Larry Rankin on 12-08-2023 Urobilinogen (U) [Mass/Vol] Normal mg/dL Normal [facility] WBC Auto (Bld) [#/Vol]Ordere d By: Larry Rankin on 12-08-2023 WBC (Bld) [#/Vol] 7.4 10*3/uL 3.8-11.6 [facility] pH Auto test strip (U)Ordere d By: Larry Rankin on 12-08-2023 pH (U) 6.0 [pH] 5.0-9.0 [facility] Celiacon 08-08-2023 Deamidated Gliadin Abs, IgA 18 Normal 0-19 [facility] Comment on above: Result Comment: Nega tive 0 - 19 Weak Positive 20 - 30 Moderate to Strong Positive >30 Performed By: #### C ELIAC GEN, CELIAC #### [facility] , #### CMP, TSH3, CBC #### [facility] [address] Deamidated Gliadin Abs, IgG 4 Normal 0-19 [facility] Comment on above: Result Comment: Nega tive 0 - 19 Weak Positive 20 - 30 Moderate to Strong Positive >30 Performed By: #### C ELIAC GEN, CELIAC #### [facility] , #### CMP, TSH3, CBC #### [facility] [address] [place] [address] Endomysial Antibody IgA Negative Normal Negative [facility] Comment on above: Performed By: #### C ELIAC GEN, CELIAC #### [facility] , #### CMP, TSH3, CBC #### [facility] [address] [place] [address] [place] Immunoglobulin A, Qn, Serum 289 mg/dL Normal 87-352 [facility] Comment on above: Result Comment: Perf ormed at: - [facility] [place] [id number] Biomedical Specialist: Zelalem Hatch PhD, Phone: [phone] Performed By: #### C ELIAC GEN, CELIAC #### [facility] , #### CMP, TSH3, CBC #### [facility] [address] [place] [address] T-Transglutaminase (tTG) IgA 3 Normal 0-3 [facility] Comment on above: Result Comment: Nega tive 0 - 3 Weak Positive 4 - 10 Positive >10 Tissue Transglutaminase (tTG) has been identified as the endomysial antigen. Studies have demonstr- ated that endomysial IgA antibodies have over 99% specificity for gluten sensitive enteropathy. Performed By: #### C ELIAC GEN, CELIAC #### [facility] , #### CMP, TSH3, CBC #### [facility] [address] T-Transglutaminase (tTG) IgG 3 Normal 0-5 [facility] Comment on above: Result Comment: Nega tive 0 - 5 Weak Positive 6 - 9 Positive >9 Performed By: #### C ELIAC GEN, CELIAC #### [facility] , #### CMP, TSH3, CBC #### [facility] [address] Celiac Disease Genetics HLA DQon 08-08-2023 CDDQ2 Additional Information Normal . [facility] Comment on above: Result Comment: Refe rences: 1. Dain HANNAH and Malvin Mcmahan. Celiac Disease. N Eng J Med 2007; 357:1836-8184. 2. Mita F, Kim B, Hitesh M et al. HLA-DQ and risk gradient for celiac disease. Hum Immunol 2009; 70:55-59. 3. Talia MM, Darrell TC, Kimberly FM et al. Stratifying risk for celiac disease in a large at-risk [facility] population by using HLA alleles. Clin Gastroenterol Hepatol 2009; 7:966-971. 4. Nash ELLSWORTH and Jeremiah BA. (2005). Celiac Disease Genetics: Current Concepts and Practical Applications. Clin Gastroenterol and Hepat 3:843-851. 5. Torin CL, Ady DO, Dain HANNAH, et al. Celiac Disease. In: Will RA, Siddhartha TC, Aidan CR, Maria M K, editors. [employer]), [facility] [place], May 15, 2008:1-27. http://www.ncbi.nlm.nih.gov/bookshelf/br.fcgi?book=genepart=harry iac PMID [id number] (PubMed) 6. Mark Zuniga. Emerging concepts in celiac disease. Curr Opin Pediatr 2004;16:552-559. Performed at: [address] [place] [id number] Biomedical Specialist: Cynthia Kurtz PhD, Phone: [phone] PERFORMED BY: [facility] [address] [facility] [place] [address] PATHOLOGIST FISCAL OFFICER REHAN MARISCAL M.D. Performed By: #### C ELIAC GEN, CELIAC #### [facility] , #### CMP, TSH3, CBC #### [address] Comment: Normal . [facility] Comment on above: Result Comment: This test was performed using Polymerase Chain Reaction (PCR) and Sequence Specific Oligonucleotide Probes (SSOP) ([employer]) technique. Sequence Based Typing (SBT) may be used as a supplemental method when necessary. If you have questions, please call HLA customer service at or email at [email or web address]. Performed By: #### C ELIAC GEN, CELIAC #### [facility] , #### CMP, TSH3, CBC #### [address] Dq2 (Dqa1 0501/0505,Dqb1 02Xx) Positive Normal . [facility] Comment on above: Performed By: #### C ELIAC GEN, CELIAC #### [facility] , #### CMP, TSH3, CBC #### [address] Dq8 (Dqa1 03Xx, Dqb1 0302) Positive Normal . [facility] Comment on above: Result Comment: Elvira sanders Results: DQB1*02:EEMARLENA,03:EGYSB DQA1*03:EERAMIRO,05:EEMXY Code Translation: EEMXY 05:11/17:15N/05:18:19:23/:27/05:33 /05:35/05:38/05:40/05:41/05:47/05:49/:52 /05:54Q/05:55/:56/05:57/05:61 CHANDA 03:11/15:04/15:1203:15/:18/:22/:25 /:27/:30/03:36 EECHINTAND 02:11/14:03/02:04/02:05/02:07/02:08/02:09 :1302:14:15:16:17:18N :19:03/01:04/01:23:24:25::28:29:30:31:32:3302:34 /02:3502:36:37:38:3902:4002:41 02:4202:43:4402:4502:4602:4702:49 /02:52/02:53Q/02:5502:5602:58N/02:59 /02:60/02:6102:63/02:64/02:66/02:67N /02:68/02:69/02:70/02:72/02:73/02:74/02:76 /02:77/02:78/02:79/02:83/02:85/02:86/02:87 /02:88/02:90/02:91/02:92/02:93/02:96N /02:98/02:99/02:100/02:101/02:102/02:103 /02:104/02:105/02:106/02:107/02:108/02:109 /02:111/02:112/02:114/02:115/02:118/02:119 /02:123/02:125/02:128/02:129N/02:130 /02:132N/02:133/02:134N/02:135/02:136 /02:140/02:144/02:148/02:149/02:151/02:152 /02:154/02:155/02:157/02:158/02:159/02:160 /02:163N/02:164/02:168/02:169/02:170 /02:173/02:174/02:177N/02:178/02:181 /02:182/02:184/02:185/02:186/02:188/02:189 /02:190/02:191/02:192/02:193/02:195/02:196 /02:197/02:198/02:202 EGYSB 03:02/03:07/03:32/03:37/03:40/03:41/03:62 /03:63/03:64/03:66N/03:68/03:70/03:81 /03:85/03:90N/03:106/03:110/03:141/03:146 /03:153/03:155/03:161/03:174/03:175/03:178 /03:179/03:185/03:189/03:190/03:199/03:203 /03:204/03:205/03:211/03:213N/03:214 /03:220/03:223/03:224/03:229/03:233 /03:237N/03:239/03:240/03:245/03:247 /03:251/03:261/03:265/03:269N/03:273 /03:274/03:278/03:279/03:287/03:289/03:295 /03:296/03:298/03:299/03:300/03:301/03:308 /03:310N/03:315/03:320/03:321/03:322 /03:323/03:324/03:333/03:334N/03:337 /03:339N/03:343/03:344/03:345/03:348 /03:349/03:352/03:359/03:362/03:364/03:367 /03:368/03:369/03:379/03:383/03:386/03:392 /03:403N/03:409/03:410/03:412/03:415 /03:416/03:422N/03:429/03:433/03:437 /03:440N/03:441/03:442/03:444/03:446 /:452/:456/03:457/03:459/03:462/03:463 /03:464/03:466/03:471/03:479/03:481/03:484 /03:490/03:493 The patient is positive for both DQ2 and DQ8. Celiac Disease risk from the HLA DQA/DQB genotype is approximately 1:7 (14.3%) Allele interpretation for all loci based on IMGT/HLA database version 3.49.0 HLA Lab CLIA ID Number [id number] Greater than 95% of celiac patients are positive for either DQ2 or DQ8 (John, (1993) Gastroenterology [phone]). However these antigens may also be present in patients who do not have Celiac disease. Performed By: #### C ELIAC GEN, CELIAC #### [facility] , #### CMP, TSH3, CBC #### [address] Complete Blood Count Auto Di ffon 08-08-2023 Basophils (Bld) [#/Vol] 0.0 10*3/uL Normal 0.0-0.2 [facility] Comment on above: Result Comment: PERF ORMED BY: [place] [address] PATHOLOGIST FISCAL OFFICER REHAN MARISCAL M.D. Performed By: #### C ELIAC GEN, CELIAC #### [facility] , #### CMP, TSH3, CBC #### [facility] [address] [place] [address] Basophils/100 WBC (Bld) 0.6 % Normal . [facility] Comment on above: Performed By: #### C ELIAC GEN, CELIAC #### [facility] , #### CMP, TSH3, CBC #### [address] Eosinophils (Bld) [#/Vol] 0.1 10*3/uL Normal 0.0-0.45 [facility] Comment on above: Performed By: #### C ELIAC GEN, CELIAC #### [facility] , #### CMP, TSH3, CBC #### [address] Eosinophils/100 WBC (Bld) 1.5 % Normal . [facility] Comment on above: Performed By: #### C ELIAC GEN, CELIAC #### [facility] , #### CMP, TSH3, CBC #### [address] Erythrocyte distribution width (RBC) [Ratio] 14.6 % Normal 11.9-15.3 [facility] Comment on above: Performed By: #### C ELIAC GEN, CELIAC #### [facility] , #### CMP, TSH3, CBC #### [address] Hematocrit (Bld) [Volume fraction] 42.6 % Normal 34.0-46.4 [facility] Comment on above: Performed By: #### C ELIAC GEN, CELIAC #### [facility] , #### CMP, TSH3, CBC #### [address] Hemoglobin (Bld) [Mass/Vol] 14.2 g/dL Normal 11.8-15.4 [facility] Comment on above: Performed By: #### C ELIAC GEN, CELIAC #### [facility] , #### CMP, TSH3, CBC #### [address] Lymphocytes (Bld) [#/Vol] 2.1 10*3/uL Normal 1.00-4.8 [facility] Comment on above: Performed By: #### C ELIAC GEN, CELIAC #### [facility] , #### CMP, TSH3, CBC #### [place] [address] [place] Lymphocytes/100 WBC (Bld) 34.7 % Normal . [facility] Comment on above: Performed By: #### C ELIAC GEN, CELIAC #### [facility] , #### CMP, TSH3, CBC #### [address] MCH (RBC) [Entitic mass] 29.1 pg Normal 24.7-34.3 [facility] Comment on above: Performed By: #### C ELIAC GEN, CELIAC #### [facility] , #### CMP, TSH3, CBC #### [address] MCV (RBC) [Entitic vol] 87.1 fL Normal 80-100 [facility] Comment on above: Performed By: #### C ELIAC GEN, CELIAC #### [facility] , #### CMP, TSH3, CBC #### [address] Mean Corpuscular HGB Conc 33.4 g/dL Normal 32.0-35.0 [facility] Comment on above: Performed By: #### C ELIAC GEN, CELIAC #### [facility] , #### CMP, TSH3, CBC #### [address] Monocytes (Bld) [#/Vol] 0.5 10*3/uL Normal 0.0-0.8 [facility] Comment on above: Performed By: #### C ELIAC GEN, CELIAC #### [facility] , #### CMP, TSH3, CBC #### [address] Monocytes/100 WBC (Bld) 8.1 % Normal . [facility] Comment on above: Performed By: #### C ELIAC GEN, CELIAC #### [facility] , #### CMP, TSH3, CBC #### [address] [address] [place] Neutrophils (Bld) [#/Vol] 3.3 10*3/uL Normal 1.8-7.7 [facility] Comment on above: Performed By: #### C ELIAC GEN, CELIAC #### [facility] , #### CMP, TSH3, CBC #### [facility] [address] [place] [address] [place] Neutrophils/100 WBC (Bld) 55.1 % Normal . [facility] Comment on above: Performed By: #### C ELIAC GEN, CELIAC #### [facility] , #### CMP, TSH3, CBC #### [address] NRBC% 0.1 /100{WBC} Normal 0-0.5 [facility] Comment on above: Performed By: #### C ELIAC GEN, CELIAC #### [facility] , #### CMP, TSH3, CBC #### [address] Platelet mean volume (Bld) [Entitic vol] 7.1 fL Normal 6.3-10.7 [facility] Comment on above: Performed By: #### C ELIAC GEN, CELIAC #### [facility] , #### CMP, TSH3, CBC #### [facility] [address] [place] [address] [place] Platelets (Bld) [#/Vol] 326 10*3/uL Normal 150-450 [facility] Comment on above: Performed By: #### C ELIAC GEN, CELIAC #### [facility] , #### CMP, TSH3, CBC #### [facility] [address] [place] [address] [place] RBC (Bld) [#/Vol] 4.89 10*6/uL Normal 3.60-5.00 [facility] Comment on above: Performed By: #### C ELIAC GEN, CELIAC #### [facility] , #### CMP, TSH3, CBC #### [facility] [address] [place] [address] WBC (Bld) [#/Vol] 5.9 10*3/uL Normal 3.8-11.6 [facility] Comment on above: Performed By: #### C ELIAC GEN, CELIAC #### [facility] , #### CMP, TSH3, CBC #### [address] Comprehensive Metabolic Pane chris 08-08-2023 Albumin [Mass/Vol] 4.3 g/dL Normal 3.5-5.7 [facility] Comment on above: Performed By: #### C ELIAC GEN, CELIAC #### [facility] , #### CMP, TSH3, CBC #### [address] Albumin/Globulin [Mass ratio] 1.3 {ratio} Normal [facility] Comment on above: Performed By: #### C ELIAC GEN, CELIAC #### [facility] , #### CMP, TSH3, CBC #### [address] ALP [Catalytic activity/Vol] 81 U/L Normal 34-104 [facility] Comment on above: Performed By: #### C ELIAC GEN, CELIAC #### [facility] , #### CMP, TSH3, CBC #### [address] ALT [Catalytic activity/Vol] 11 U/L Normal 7-52 [facility] Comment on above: Performed By: #### C ELIAC GEN, CELIAC #### [facility] , #### CMP, TSH3, CBC #### [address] Anion gap [Moles/Vol] 10.2 mmol/L Normal 6.0-15.0 [facility] Comment on above: Performed By: #### C ELIAC GEN, CELIAC #### [facility] , #### CMP, TSH3, CBC #### [facility] [address] AST [Catalytic activity/Vol] 16 U/L Normal 13-39 [facility] Comment on above: Performed By: #### C ELIAC GEN, CELIAC #### [facility] , #### CMP, TSH3, CBC #### [facility] [address] Bilirubin [Mass/Vol] 0.6 mg/dL Normal 0.3-1.0 [facility] Comment on above: Performed By: #### C ELIAC GEN, CELIAC #### [facility] , #### CMP, TSH3, CBC #### [facility] [address] Calcium [Mass/Vol] 9.3 mg/dL Normal 8.6-10.3 [facility] Comment on above: Performed By: #### C ELIAC GEN, CELIAC #### [facility] , #### CMP, TSH3, CBC #### [facility] [address] [place] [address] [place] Chloride [Moles/Vol] 106 mmol/L Normal 98-107 [facility] Comment on above: Performed By: #### C ELIAC GEN, CELIAC #### [facility] , #### CMP, TSH3, CBC #### [facility] [address] [place] [address] [place] CO2 [Moles/Vol] 25.6 mmol/L Normal 21.0-31.0 [facility] Comment on above: Performed By: #### C ELIAC GEN, CELIAC #### [facility] , #### CMP, TSH3, CBC #### [facility] [address] [place] [address] [place] Creatinine [Mass/Vol] 0.73 mg/dL Normal 0.60-1.20 [facility] Comment on above: Performed By: #### C ELIAC GEN, CELIAC #### [facility] , #### CMP, TSH3, CBC #### [facility] [address] [place] [address] [place] Creatinine Clr Calc Pharmacy 103.85 [facility] Comment on above: Performed By: #### C ELIAC GEN, CELIAC #### [facility] , #### CMP, TSH3, CBC #### [facility] [address] [place] [address] [place] GFR/1.73 sq M.predicted MDRD (S/P/Bld) [Vol rate/Area] mL/min/{1.73_m2} [facility] Comment on above: Performed By: #### C ELIAC GEN, CELIAC #### [facility] , #### CMP, TSH3, CBC #### [facility] [address] Globulin (S) [Mass/Vol] 3.3 g/dL [facility] Comment on above: Performed By: #### C ELIAC GEN, CELIAC #### [facility] , #### CMP, TSH3, CBC #### [facility] [address] Glucose [Mass/Vol] 80 mg/dL Normal 70-100 [facility] Comment on above: Result Comment: [facility] Glucose Reference Range is dependent on time and content of last meal. Glucose of more than 200 mg/dL in a nonstressed, ambulatory subject supports the diagnosis of Diabetes Mellitus. ADA recommended reference range Performed By: #### C ELIAC GEN, CELIAC #### [facility] , #### CMP, TSH3, CBC #### [facility] [address] [place] [address] [place] Potassium [Moles/Vol] 3.8 mmol/L Normal 3.5-5.1 [facility] Comment on above: Performed By: #### C ELIAC GEN, CELIAC #### [facility] , #### CMP, TSH3, CBC #### [facility] [address] [place] [address] Protein [Mass/Vol] 7.6 g/dL Normal 6.4-8.9 [facility] Comment on above: Performed By: #### C ELIAC GEN, CELIAC #### [facility] , #### CMP, TSH3, CBC #### [address] Sodium [Moles/Vol] 138 mmol/L Normal 136-145 [facility] Comment on above: Performed By: #### C ELIAC GEN, CELIAC #### [facility] , #### CMP, TSH3, CBC #### [facility] [address] [place] [address] Urea nitrogen [Mass/Vol] 10 mg/dL Normal 7-25 [facility] Comment on above: Performed By: #### C ELIAC GEN, CELIAC #### [facility] , #### CMP, TSH3, CBC #### [address] HCG ( test) [place].rapi d Ql (U)Ordered By: Juice Johnson on 08-08-2023 HCG ( test) Ql (U) Negative [facility] HCG,Urineon 08-08-2023 Beta HCG ( test) Ql (U) Negative Normal [facility] Comment on above: Result Comment: PERF ORMED BY: [place] [address] PATHOLOGIST FISCAL OFFICER REHAN MARISCAL M.D. Performed By: #### U HCG, ADDONUAPLUS, URDS #### [place] [address] [place] Chris 08-08-2023 L ---- Specimen: [id number] Received: 08/08/23 Status: TAMELA Fam Num: [id number] Spec Type: Surgical Subm Dr: Juice Johnson MD Tissues: A Small Intestine - Biopsy/Polyp (SMALL BOWEL BX) Procedures: HE/2, Gross/Micro L4 Age/ Patient Sex Location Account Attending Physician Jen Santamaria 27/F [id number] Juice Johnson MD SPEC NUM: [id number] RECD: 08/08/23 STATUS: TAMELA FAM NUM: [id number] ROSA: 08/08/23- [facility] DR: Juice Johnson MD ENTERED: 08/08/23 [facility] DR: SPEC TYPE: Surgical DEPT: S ORDERED: HE/2, Gross/Micro L4 ORDERED: HE2, Gross/Micro L4 Pathological Diagnosis Small bowel biopsy: - Small bowel mucosa with some noted villous structures in both fragments without erosion, any significant stromal chronic inflammation, or any significant lymphocytic exocytosis observable, therefore also no obvious feature or effect of gluten hypersensitivity observed or suspected Clinical Information Celiac, rule out celiac Gross Description Received in formalin labeled with the patient's name, date of and small bowel biopsy are two navarro tissues averaging 0.5 x 0.2 x 0.2 cm. Entirely submitted in one cassette labeled A1. Microscopic Description Two H E slides reviewed. The microscopic examination confirms the diagnosis. Specimen: [id number] Received: 08/08/23 Status: TAMELA Fam Num: [id number] Spec Type: Surgical Subm Dr: Juice Johnson MD Tissues: A Small Intestine - Biopsy/Polyp (SMALL BOWEL BX) Procedures: /2, Gross/Micro L4 Patient: Jen Santamaria [id number] (Continued) Specimen: Received: 08/08/23 (Continued) Signed (signature on file) Arlene Hernandez MD 08/10/23 1353 Specimen: Received: 08/08/23 Status: TAMELA Harrissara Num: [id number] Spec Type: Surgical Subm Dr: Juice Johnson MD Tissues: A Small Intestine - Biopsy/Polyp (SMALL BOWEL BX) Procedures: HE/2, Gross/Micro L4 Patient: Jen Santamaria [id number] (Continued) Specimen: Received: 08/08/23 (Continued) CPT Codes 72951 Specimen: [id number] Received: 08/08/23 Status: TAMELA [place] Num: [id number] Spec Type: Surgical Subm Dr: Juice Johnson MD Tissues: A Small Intestine - Biopsy/Polyp (SMALL BOWEL BX) Procedures: Tom JAIMES/Thuan L4 Patient: Jen Santamaria [id number] (Continued) Signed (signature on file) Arlene Hernandez MD 08/10/23 0545 [facility] Thyroid Stimulating Hormoneo n 08-08-2023 TSH Qn 0.01 m[IU]/L Low 0.45-5.33 [facility] Comment on above: Result Comment: PERF ORMED BY: [facility] [address] [place] [address] PATHOLOGIST FISCAL OFFICER REHAN MARISCAL M.D. Performed By: #### C ELIAC GEN, CELIAC #### [facility] , #### CMP, TSH3, CBC #### [address] Basophils Auto (Bld) [#/Vol] Ordered By: Stephanie Edward on 11-08-2022 Basophils (Bld) [#/Vol] 0.0 10*3/uL 0.0-0.2 [facility] Basophils/100 WBC Auto (Bld) Ordered By: Stephanie Edward on 11-08-2022 Basophils/100 WBC (Bld) 0.1 % . [facility] Eosinophils Auto (Bld) [#/Vo l]Ordered By: Stephanie Edward on 11-08-2022 Eosinophils (Bld) [#/Vol] 0.0 10*3/uL 0.0-0.45 [facility] Eosinophils/100 WBC Auto (Bl d)Ordered By: Stephanie Edward on 11-08-2022 Eosinophils/100 WBC (Bld) 0.1 % . [facility] Erythrocyte distribution wid th Auto (RBC) [Ratio]Ordered By: Stephanie Edward on 11-08-2022 Erythrocyte distribution width (RBC) [Ratio] 14.8 % 11.9-15.3 [facility] Hematocrit Auto (Bld) [Volum e fraction]Ordered By: Stephanie Edward on 11-08-2022 Hematocrit (Bld) [Volume fraction] 24.3 % 34.0-46.4 [facility] Comment on above: Delta: 34.3 on 11/06-2014 Hemoglobin [Mass/volume] in BloodOrdered By: Stephanie Edward on 11-08-2022 Hemoglobin (Bld) [Mass/Vol] 8.2 g/dL 11.8-15.4 [facility] Leukocytes [#/volume] correc chema for nucleated erythrocytes in Blood by Automated counOrdered By: Stephanie Edward on 11-08-2022 WBC corrected for nucl RBC Auto (Bld) [#/Vol] 14.2 10*3/uL 3.8-11.6 [facility] Lymphocytes Auto (Bld) [#/Vo l]Ordered By: Stephanie Edward on 11-08-2022 Lymphocytes (Bld) [#/Vol] 2.5 10*3/uL 1.00-4.8 [facility] Lymphocytes/100 WBC Auto (Bl d)Ordered By: Stephanie Edward on 11-08-2022 Lymphocytes/100 WBC (Bld) 17.8 % . [facility] MCH Auto (RBC) [Entitic mass ]Ordered By: Stephanie Edward on 11-08-2022 MCH (RBC) [Entitic mass] 29.8 pg 24.7-34.3 [facility] MCHC Auto (RBC) [Mass/Vol]Or dered By: Stephanie Edward on 11-08-2022 MCHC (RBC) [Mass/Vol] 33.5 g/dL 32.0-35.0 [facility] MCV Auto (RBC) [Entitic vol] Ordered By: Stephanie Edward on 11-08-2022 MCV (RBC) [Entitic vol] 89.0 fL 80-100 [facility] Monocytes Auto (Bld) [#/Vol] Ordered By: Stephanie Edward on 11-08-2022 Monocytes (Bld) [#/Vol] 0.5 10*3/uL 0.0-0.8 [facility] Monocytes/100 WBC Auto (Bld) Ordered By: Stephanie Edward on 11-08-2022 Monocytes/100 WBC (Bld) 3.6 % . [facility] Neutrophils Auto (Bld) [#/Vo l]Ordered By: Stephanie Edward on 11-08-2022 Neutrophils (Bld) [#/Vol] 11.1 10*3/uL 1.8-7.7 [facility] Neutrophils/100 WBC Auto (Bl d)Ordered By: Stephanie Edward on 11-08-2022 Neutrophils/100 WBC (Bld) 78.4 % . [facility] Nucleated erythrocytes [Pres ence] in Blood by Automated countOrdered By: Stephanie Edward on 11-08-2022 Nucleated RBC Auto Ql (Bld) 0.0 /100{WBC} 0-0.5 [facility] Platelet mean volume Auto (B ld) [Entitic vol]Ordered By: Stephanie Edward on 11-08-2022 Platelet mean volume (Bld) [Entitic vol] 8.0 fL 6.3-10.7 [facility] Platelets Auto (Bld) [#/Vol] Ordered By: Stephanie Edward on 11-08-2022 Platelets (Bld) [#/Vol] 217 10*3/uL 150-450 [facility] RBC Auto (Bld) [#/Vol]Ordere d By: Stephanie Edward on 11-08-2022 RBC (Bld) [#/Vol] 2.73 10*6/uL 3.60-5.00 [facility] WBC Auto (Bld) [#/Vol]Ordere d By: Stephanie Edward on 11-08-2022 WBC (Bld) [#/Vol] 14.2 10*3/uL 3.8-11.6 [facility] Amphetamine Screen Ql (U)Ord ered By: Stephanie Edward on 11-06-2022 Amphetamines Ql (U) Negative Negative [facility] Automated erythrocytes count in urine sediment (number/area)Ordered By: Stephanie Edward on 11-06-2022 RBC Auto (Urine sed) [#/Area] 5-9 [HPF] 0-4 [facility] Automated leukocytes count i n urine sediment (number/area)Ordered By: Stephanie Edward on 11-06-2022 WBC Auto (Urine sed) [#/Area] 5-9 [HPF] 0-4 [facility] Barbiturates [Presence] in U rineOrdered By: Stephanie Edward on 11-06-2022 Barbiturates Ql (U) Negative Negative [facility] Benzodiazepines [Presence] i n UrineOrdered By: Stephanie Edward on 11-06-2022 Benzodiazepines Ql (U) Negative Negative [facility] Bilirubin Test strip Ql (U)O rdered By: Stephanie Edward on 11-06-2022 Bilirubin Ql (U) Negative Negative [facility] Color Auto (U)Ordered By: Adelaida Edward on 11-06-2022 Color (U) Yellow Yellow [facility] Ketones Auto test strip (U) [Mass/Vol]Ordered By: Stephanie Edward on 11-06-2022 Ketones (U) [Mass/Vol] Negative Negative [facility] - Drug toxicology Ordered By: Stephanie Edward on 11-06-2022 Opiates Ql (U) Negative Negative [facility] - UrinalysisOrder ed By: Stephanie Edward on 11-06-2022 Hyaline casts LM Ql (Urine sed) 0-8 [LPF] 0-8 [facility] Nitrite Test strip Ql (U)Ord ered By: Stephanie Edward on 11-06-2022 Nitrite Ql (U) Negative Negative [facility] Phencyclidine Screen Ql (U)O rdered By: Stephanie Edward on 11-06-2022 Phencyclidine Ql (U) Negative Negative [facility] Comment on above: These are unconfirme d results and should not be used for legal purposes. Drug Cut-Off Concentration: AMPH 1000 ng/mL KAMRYN 200 ng/mL MIRELA 200 ng/mL COCM 300 ng/mL OP 300 ng/mL PCP 25 ng/mL Protein Auto test strip (U) [Mass/Vol]Ordered By: Stephanie Edward on 11-06-2022 Protein (U) [Mass/Vol] Negative Negative [facility] Reagin Ab [Presence] in Seru m by RPROrdered By: Stephanie Edward on 11-06-2022 Reagin Ab RPR Ql (S) Non-Reactive Non Reactive [facility] Comment on above: Performed at: [address] [id number] Director: Zelalem Hatch PhD, Phone: [phone] Specific gravity Auto test s trip (U) [Rel density]Ordered By: Stephanie Edward on 11-06-2022 Specific gravity (U) [Rel density] 1.017 1.001-1.030 [facility] Squamous epithelial cells de tection in urine sediment by light microscopyOrdered By: Stephanie Edward on 11-06-2022 Epithelial cells.squamous LM Ql (Urine sed) 3-4 [HPF] 0-2 [facility] Urine bacteria detection by automated methodOrdered By: Stephanie Edward on 11-06-2022 Bacteria Auto Ql (U) 1+ None Seen [facility] Urine clarity by refractomet ry automatedOrdered By: Stephanie Edward on 11-06-2022 Clarity Refractometry automated (U) Clear Clear [facility] Urine cocaine detectionOrder ed By: Stephanie Edward on 11-06-2022 Cocaine Ql (U) Negative Negative [facility] Urine glucose measurement by automated test strip (mass/volume)Ordered By: Stephanie Edward on 11-06-2022 Glucose Auto test strip (U) [Mass/Vol] Normal mg/dL Normal [facility] Urine hemoglobin detection b y automated test stripOrdered By: Stephanie Edward on 11-06-2022 Hemoglobin Auto test strip Ql (U) Trace Negative [facility] Urine leukocyte esterase det ection by automated test stripOrdered By: Stephanie Edward on 11-06-2022 Leukocyte esterase Auto test strip Ql (U) Negative Negative [facility] Urobilinogen Auto test strip (U) [Mass/Vol]Ordered By: Stephanie Edward on 11-06-2022 Urobilinogen (U) [Mass/Vol] Normal mg/dL Normal [facility] pH Auto test strip (U)Ordere d By: Stephanie Edward on 11-06-2022 pH (U) 6.5 [pH] 5.0-9.0 [facility] B Streptococcus cultur eOrdered By: Stephanie Edward on 10-04-2022 S. agalactiae Org specific cx Ql (Unsp spec) [facility] Serum or plasma glucose tole katelyn 3 hours panelOrdered By: Stephanie Edward on 08-11-2022 Glucose tolerance 3 hours panel See comment [facility] Comment on above: FASTING 88 Col: 07/15 08/04 0830 1HR GLU 157 Col: 08/11/22 1022 2HR GLU 125 Col: 08/11/22 1123 3HR GLU 133 Col: 08/11/22 1225 Free T4on 04-21-2022 Free T4 [Mass/Vol] 1.01 ng/dL Normal 0.80-1.80 [facility] Comment on above: Performed By: #### T SH reflex FT4, FT4 #### [facility] [address] [place], [place] [id number] TSH w/ Reflex to Free T4on 0 04-21-2022 FT4 reflex Free T4 Normal [facility] Comment on above: Performed By: #### T SH reflex FT4, FT4 #### [facility] [address] [place], [place] [id number] TSH 31.780 uIU/mL High 0.400-4.500 [facility] Specialist Comment on above: Performed By: #### T SH reflex FT4, FT4 #### [facility] [address] [place], [place] [id number] CBC AUTO DIFFon 03-02-2022 BASO # 0.0 103/ul Normal 0.0-0.1 [facility] Comment on above: Performed By: #### C BC #### [facility] [address] [place] [address] Dr. Briana Hernandez Basophils/100 WBC (Bld) 0.2 % Normal 0.2-2.0 [facility] Comment on above: Performed By: #### C BC #### [facility] [address] [place] [address] Dr. Briana Hernandez EO # 0.0 103/ul Normal 0.0-0.7 [facility] Comment on above: Performed By: #### C BC #### [facility] [address] [address] [address] Briana Hernandez Eosinophils/100 WBC (Bld) 0.5 % Critically low 0.9-7.0 [facility] Comment on above: Performed By: #### C BC #### [facility] [address] [address] [address] Briana Hernandez Erythrocyte distribution width (RBC) [Ratio] 13.3 % Normal 11.0-15.0 [facility] Comment on above: Performed By: #### C BC #### [facility] [address] [place] [address] Dr. Briana Hernandez Hematocrit (Bld) [Volume fraction] 37.4 % Normal 36.0-48.0 [facility] Comment on above: Performed By: #### C BC #### [facility] [address] [place] [address] Dr. Briana Hernandez Hemoglobin (Bld) [Mass/Vol] 12.6 g/dL Normal 12.0-16.0 [facility] Comment on above: Performed By: #### C BC #### [facility] [address] [place] [address] Dr. Briana Hernandez IG # 0.02 10e3/ul Normal 0.00-0.03 [facility] Comment on above: Performed By: #### C BC #### [facility] [address] [place] [address] Dr. Briana Hernandez IG % 0.2 % Normal 0.0-0.5 [facility] Comment on above: Performed By: #### C BC #### [facility] [address] [place] [address] Dr. Briana Hernandez LYMPH # 1.6 103/ul Normal 1.2-3.8 [facility] Comment on above: Performed By: #### C BC #### [facility] [address] [place] [address] Dr. Brinaa Hernandez Lymphocytes/100 WBC (Bld) 19.3 % Critically low 20.5-60.0 [facility] Comment on above: Performed By: #### C BC #### [facility] [address] [place] [address] Dr. Briana Hernandez MANUAL DIFF REQ NO Normal [facility] Comment on above: Performed By: #### C BC #### [facility] [address] [place] [address] Dr. Briana Hernandez MCH (RBC) [Entitic mass] 31.0 pg Normal 26.7-34.0 [facility] Comment on above: Performed By: #### C BC #### [facility] [address] [place] [address] Dr. Briana Hernandez MCHC (RBC) [Mass/Vol] 33.7 g/dL Normal 29.9-35.2 [facility] Comment on above: Performed By: #### C BC #### [facility] [address] [place] [address] Dr. Briana Hernandez MCV (RBC) [Entitic vol] 91.9 fL Normal 81.0-99.0 [facility] Comment on above: Performed By: #### C BC #### [facility] [address] [place] [address] Dr. Briana Hernandez MONO # 0.6 103/ul Normal 0.3-0.8 [facility] Comment on above: Performed By: #### C BC #### [facility] [address] [place] [address] Dr. Briana Hernandez Monocytes/100 WBC (Bld) 6.8 % Normal 1.7-12.0 [facility] Comment on above: Performed By: #### C BC #### [facility] [address] [place] [address] Dr. Briana Hernandez NEUT # 5.9 103/ul Normal 1.4-6.5 [facility] Comment on above: Performed By: #### C BC #### [facility] [address] [place] [address] Dr. Briana Hernandez Neutrophils/100 WBC (Bld) 73.0 % Normal 43.0-75.0 [facility] Comment on above: Performed By: #### C BC #### [facility] [address] [place] [address] Dr. Briana Hernandez Platelet mean volume (Bld) [Entitic vol] 8.9 fL Critically low 9.5-13.5 [facility] Comment on above: Performed By: #### C BC #### [facility] [address] [place] [address] Dr. Briana Hernandez PLT 331 103/ul Normal 150-450 [facility] Comment on above: Performed By: #### C BC #### [facility] [address] [address] [address] Briana Hernandez RBC 4.07 106/ul Critically low 4.20-5.40 [facility] Comment on above: Performed By: #### C BC #### [facility] [address] [address] [address] Briana Hernandez WBC 8.0 103/ul Normal 4.0-11.0 [facility] Comment on above: Performed By: #### C BC #### [facility] [address] [address] [address] Briana Hernandez PREG QUANT HCGon 03-02-2022 HCG QUANT 577 mIU/mL Normal [facility] Comment on above: Performed By: #### P REGQNT #### [facility] [address] [address] [address] Briana Hernandez HCG RANGE SEE BELOW Normal [facility] Comment on above: Result Comment: 5-50 0-1 WEEK 40-300 1-2 WEEKS 100-1,000 2-3 WEEKS 500-6,000 3-4 WEEKS 5,000-200,000 1-2 MONTHS 10,000-100,000 2-3 MONTHS 3,000-50,000 2ND TRIMESTER 1,000-50,000 3RD TRIMESTER Performed By: #### P REGQNT #### [facility] [address] [address] [address] Briana Hernandez COVID Quick Testingon 2021 Result Negative [facility] Other Covid-19 PCR (CVDTB)on SARS-CoV-2 (COVID-19) RNA NELY+probe Ql (Unsp spec) Not detected Normal NOT DETECTED [facility] Comment on above: Result Comment: This test is not yet approved or cleared by the [place] FDA. When there are no FDA-approved or cleared tests available, and other criteria are met, FDA can make tests available under an emergency access mechanism called an Emergency Use Authorization (EUA). The EUA for this test is supported by the Forging Operator of Health and Human Service's (HHS's) declaration that circumstances exist to justify the emergency use of in vitro diagnostics for the detection and/or diagnosis of the virus that causes COVID-19. This EUA will remain in effect (meaning this test can be used) for the duration of the COVID-19 declaration justifying emergency of IVDs, unless it is terminated or revoked by FDA (after which the test may no longer be used). When diagnostic testing is negative, the possibility of a false negative should be considered in the context of a patient's recent exposures and the presence of clinical signs and symptoms consistent with SARS-CoV-2. Performed By: #### C [facility] #### [facility] [address] [place] [address] Dr. Briana Hernandez OBSOLETEon 10-22-2021 OBSOLETE Refill (ENDMED) -------- JEN SANTAMARIA ([id number]) 1995 F Date Time Provider Department 10/22/21 MAYELA NAPIER During your visit today, we recorded the following information about you: Gricel Amor MA 10/22/2021 10:41 AM Signed Requester: Pharmacy Last Visit in Endocrinology: Provider name: Mayela Napier DO , Date 12/25/2018 Next Scheduled Appt in Endo: Visit date not found Last Refill: 11/17/2020 Number of Refills given: 0 Pending Prescriptions Disp Refills TIROSINT 175 MCG CAPSULE 30 capsule 11 Sig: TAKE 1 CAPSULE BY MOUTH EVERY DAY JULIUS: Yes Please review and advise. 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 - L-Norgest and E Estradiol-E Estrad (CAMRESE) 0.15 mg-30 mcg (84)/10 mcg (7) 3MPk Take by mouth. Problem List As Of Date 10/22/2021 Noted Resolved Postablative hypothyroidism [E89.0] 04/17/2017 Bloating [R14.0] 04/17/2017 Celiac disease [K90.0] 07/31/2017 Encounter Status:Closed by GRICEL AMOR MA on 10/22/21 Normal [facility] US THYROID/PARATHYROIDon US THYROID/PARATHYROID * * *Final Report * * * DATE OF EXAM: Jan 14 2019 8:26AM MDU 1048 - US THYROID/PARATHYROID / PROCEDURE REASON: R22.1-Neck swelling * * * * Physician Interpretation * * * * THYROID ULTRASOUND CLINICAL HISTORY: Neck swelling, history of Graves' disease COMPARISON: None. TECHNIQUE: Sonography and Doppler imaging of the thyroid was performed. Images were obtained and stored in a permanent archive. RESULT: RIGHT LOBE: Size: 0.5x 0.7x 2.6 cm Echotexture: Homogeneous Nodules: No discrete nodule is demonstrated. LEFT LOBE: Size: 0.4x 0.8x 2.5 cm Echotexture: Homogeneous Nodules: No discrete nodule is demonstrated. ISTHMUS: AP diameter: 1 mm Nodules: None. IMPRESSION: Small thyroid gland bilaterally. No discrete thyroid nodule is demonstrated. Director [employer] Medical Affairs: PSCB Transcribe Date/Time: Jan 14 2019 8:36A Dictated by : NAJMA NAVARRO MD This examination was interpreted and the report reviewed and electronically signed by: NAJMA NAVARRO MD on Jan 14 2019 4:08PM EST [id number] Normal [facility] Miscellaneouson 11-26-19 Status See Ref Lab Report Normal [facility] Comment on above: Performed By: #### 1 [id number] #### [place] [address] Status See Ref Lab Report Normal [facility] Comment on above: Performed By: #### 1 [id number] #### ADDISON [employer] Out[employer] Subsection [address] [place] [address] Auto Diffon 11-22-2018 Basophils #/vol (Bld) 0.0 E3/mcL Normal 0.0-0.2 [facility] Comment on above: Order Comment: Order Added by Discern Expert. Performed By: #### 2 [id number] #### ADDISON RemHemo [address] [place] [address] Basophils/100 WBC (Bld) 0.5 % Normal 0.0-2.0 [facility] Comment on above: Order Comment: Order Added by Discern Expert. Performed By: #### 2 [id number] #### ADDISON RemHemo [address] [place] [address] Eos Absolute 0.0 E3/mcL Normal 0.0-0.7 [facility] Comment on above: Order Comment: Order Added by Discern Expert. Performed By: #### 2 [id number] #### ADDISON RemHemo [address] [place] [address] Eosinophils/100 WBC (Bld) 0.8 % Normal 0.0-11.0 [facility] Comment on above: Order Comment: Order Added by Discern Expert. Performed By: #### 2 [id number] #### ADDISON RemHemo [address] [place] [address] Lymphocytes #/vol (Bld) 1.6 E3/mcL Normal 1.2-3.4 [facility] Comment on above: Order Comment: Order Added by Discern Expert. Performed By: #### 2 [id number] #### ADDISON RemHemo [address] [place] [address] Lymphocytes/100 WBC (Bld) 24.7 % Normal 20.0-55.0 [facility] Comment on above: Order Comment: Order Added by Discern Expert. Performed By: #### 2 [id number] #### ADDISON RemHemo [address] [place] [address] [place] Absolute 0.3 E3/mcL Normal 0.0-0.7 [facility] Comment on above: Order Comment: Order Added by Discern Expert. Performed By: #### 2 [id number] #### ADDISON RemHemo [address] [place] [address] Monocytes/100 WBC (Bld) 4.9 % Normal 0.0-10.0 [facility] Comment on above: Order Comment: Order Added by Discern Expert. Performed By: #### 2 [id number] #### ADDISON SmithHemo [address] [place] [address] Neutro Absolute 4.4 E3/mcL Normal 1.4-6.5 [facility] Comment on above: Order Comment: Order Added by Discern Expert. Performed By: #### 2 [id number] #### ADDISON RemHemo [address] [place] [address] Neutro Auto 69.1 % Normal 37.0-75.0 [facility] Comment on above: Order Comment: Order Added by Discern Expert. Performed By: #### 2 775102 #### ADDISON SmithHemo [address] [place] [address] CBC w/ Auto Diffon 9 Erythrocyte distribution width Ratio (RBC) 14.1 % Normal 11.5-14.5 [facility] Comment on above: Performed By: #### 2 488167 #### ADDISON SmithHemo [address] [place] [address] Hematocrit Volume Fraction (Bld) 40.0 % Normal 36.0-48.0 [facility] Comment on above: Performed By: #### 2 588000 #### ADDISON SmithHemo [address] [place] [address] Hemoglobin mass conc (Bld) 13.2 g/dL Normal 12.0-16.0 [facility] Comment on above: Performed By: #### 2 [id number] #### ADDISON RemHemo [address] [place] [address] MCH Entitic mass (RBC) 30.8 pg Normal 27.0-31.0 [facility] Comment on above: Performed By: #### 2 206229 #### ADDISON RemHemo [address] [place] [address] MCHC mass conc (RBC) 33.0 g/dL Normal 33.0-37.[address] [facility] Comment on above: Performed By: #### 2 839687 #### ADDISON RemHemo [address] [place] [address] MCV Entitic volume (RBC) 93.3 fL Normal 78.0-100.0 [facility] Comment on above: Performed By: #### 2 479524 #### ADDISON RemHemo [address] [place] [address] Platelet mean volume Entitic volume (Bld) 7.8 fL Normal 7.4-11.0 [facility] Comment on above: Performed By: #### 2 973050 #### ADDISON RemHemo [address] [place] [address] Platelets #/vol (Bld) 368 E3/mcL Normal 130-400 [facility] Comment on above: Performed By: #### 2 [id number] #### ADDISON RemHemo [address] [place] [address] RBC #/vol (Bld) 4.28 E6/mcL Normal 3.90-5.40 [facility] Comment on above: Performed By: #### 2 203699 #### ADDISON RemHemo [address] [place] [address] WBC #/vol (Bld) 6.3 E3/mcL Normal 3.6-11.0 [facility] Comment on above: Performed By: #### 2 291294 #### ADDISON RemHemo [address] [place] [address] CMPon 11-22-2018 Albumin mass conc 4.2 g/dL Normal 3.4-5.0 [facility] Comment on above: Performed By: #### 2 202517 #### ADDISON [employer] [address] [place] [address] Albumin/Globulin mass ratio 1.4 {ratio} Normal 1.1-1.9 [facility] Comment on above: Performed By: #### 2 706892 #### ADDISON Datalink [facility] [place] [address] Alk Phos 53 Int._Unit/L Normal 33-110 [facility] Comment on above: Performed By: #### 2 692262 #### ADDISON Datalink [address] [place] [address] ALT enzyme act/vol 15 Int._Unit/L Normal 7-45 [facility] Comment on above: Performed By: #### 2 611381 #### ADDISON [employer] [address] [place] [address] Anion gap molar conc 13 mmol/L Normal 10-[address] [facility] Comment on above: Performed By: #### 2 844833 #### ADDISON [employer] [address] [place] [address] AST enzyme act/vol 19 Int._Unit/L Normal 9-39 [facility] Comment on above: Performed By: #### 2 748672 #### ADDISON [employer] [address] [place] [address] Bili Total 0.40 mg/dL Normal 0.00-1.20 [facility] Comment on above: Performed By: #### 2 116065 #### ADDISON [employer] [address] [place] [address] Calcium mass conc 10.1 mg/dL Normal 8.6-10.3 [facility] Comment on above: Performed By: #### 2 163743 #### ADDISON [employer] [address] [place] [address] Chloride molar conc 106 mmol/L Normal 98-107 [facility] Comment on above: Performed By: #### 2 007480 #### ADDISON [employer] [address] [place] [address] CO2 molar conc 23.0 mmol/L Normal 21.0-32.0 [facility] Comment on above: Performed By: #### 2 907042 #### ADDISON [employer] [address] [place] [address] Creatinine mass conc 1.0 mg/dL Normal 0.5-1.[address] [facility] Comment on above: Performed By: #### 2 531655 #### ADDISON [employer] [address] [place] [address] Globulin mass conc (S) 3.0 g/dL Normal 2.0-4.0 [facility] Comment on above: Performed By: #### 2 204882 #### ADDISON [employer] [address] [place] [address] Glucose mass conc 80 mg/dL Normal 70-99 [facility] Comment on above: Performed By: #### 2 812975 #### ADDISON [employer] [address] [place] [address] Potassium molar conc 3.9 mmol/L Normal 3.5-5.[address] [facility] Comment on above: Performed By: #### 2 673555 #### ADDISON [employer] [address] [place] [address] Protein mass conc 7.2 g/dL Normal 6.4-8.2 [facility] Comment on above: Performed By: #### 2 520403 #### ADDISON [employer] [address] [place], [place] [address] Sodium molar conc 138 mmol/L Normal 136-145 [facility] Comment on above: Performed By: #### 2 629885 #### ADDISON [employer] [address] [place] [address] Urea nitrogen mass conc 14 mg/dL Normal 6-23 [facility] Comment on above: Performed By: #### 2 112916 #### ADDISON [employer] [address] [place] [address] Urea nitrogen/Creatinine mass ratio 14.0 ratio Normal 5.4-30.0 [facility] Comment on above: Performed By: #### 2 836100 #### ADDISON [employer] [address] [place] [address] Free T3on 11-22-2018 T3 free mass conc 2.6 pg/mL Normal 2.5-3.9 [facility] Comment on above: Performed By: #### 1 [id number] #### ADDISON [employer] Subsection [address] [place] [address] Free T4on 11-22-2018 T4 free mass conc 0.64 ng/dL Normal 0.58-1.64 [facility] Comment on above: Performed By: #### 1 [id number] #### ADDISON [employer] Subsection [address] [place] [address] Lab Miscellaneouson 11-22-19 19 Test Name LC [id number] Normal [facility] Comment on above: Performed By: #### 1 [id number] #### ADDISON Send Outs Subsection [facility] [place] [address] Test Name LC [id number] Normal [facility] Comment on above: Performed By: #### 1 [id number] #### ADDISON Send Outs Subsection [facility] [place] [address] TSHon 11-22-2018 Thyrotropin Qn 199.00 mcIU/mL High 0.30-5.60 [facility] Comment on above: Performed By: #### 1 [id number] #### ADDISON Send Out[employer] Subsection [address] [place], [place] [address] eGFRon 11-22-2018 GFR/1.73 sq M predicted among non-blacks MDRD vol rate/area (S/P/Bld) mL/min/{1.73_m2} Normal [facility] Comment on above: Order Comment: Order added by Discern Expert. Performed By: #### 1 [id number] #### ADDISON [employer] [address] [place] [address] Auto Diffon 08-31-2018 Basophils #/vol (Bld) 0.1 E3/mcL Normal 0.0-0.2 [facility] Comment on above: Order Comment: Order Added by Discern Expert. Performed By: #### 2 485911 #### ADDISON RemHemo [address] [place], [place] [address] Basophils/100 WBC (Bld) 1.0 % Normal 0.0-2.0 [facility] Comment on above: Order Comment: Order Added by Discern Expert. Performed By: #### 2 635585 #### ADDISON RemHemo [address] [place] [address] Eos Absolute 0.1 E3/mcL Normal 0.0-0.7 [facility] Comment on above: Order Comment: Order Added by Discern Expert. Performed By: #### 2 978548 #### ADDISON RemHemo [address] [place], [place] [address] Eosinophils/100 WBC (Bld) 1.6 % Normal 0.0-11.0 [facility] Comment on above: Order Comment: Order Added by Discern Expert. Performed By: #### 2 358003 #### ADDISON RemHemo [address] [place] [address] Lymphocytes #/vol (Bld) 1.8 E3/mcL Normal 1.2-3.4 [facility] Comment on above: Order Comment: Order Added by Discern Expert. Performed By: #### 2 483591 #### ADDISON RemHemo [address] [place] [address] Lymphocytes/100 WBC (Bld) 32.2 % Normal 20.0-55.0 [facility] Comment on above: Order Comment: Order Added by Discern Expert. Performed By: #### 2 264760 #### ADDISON RemHemo [address] [place] [address] [place] Absolute 0.4 E3/mcL Normal 0.0-0.7 [facility] Comment on above: Order Comment: Order Added by Discern Expert. Performed By: #### 2 183931 #### ADDISON RemHemo [address] [place] [address] Monocytes/100 WBC (Bld) 7.0 % Normal 0.0-10.0 [facility] Comment on above: Order Comment: Order Added by Discern Expert. Performed By: #### 2 704440 #### ADDISON RemHemo [address] [place] [address] Neutro Absolute 3.2 E3/mcL Normal 1.4-6.5 [facility] Comment on above: Order Comment: Order Added by Discern Expert. Performed By: #### 2 736018 #### ADDISON RemHemo [address] [place] [address] Neutro Auto 58.2 % Normal 37.0-75.0 [facility] Comment on above: Order Comment: Order Added by Discern Expert. Performed By: #### 2 866217 #### ADDISON RemHemo [address] [place] [address] CBC w/ Auto Diffon 8 Erythrocyte distribution width Ratio (RBC) 14.2 % Normal 11.5-14.5 [facility] Comment on above: Performed By: #### 2 067618 #### ADDISON RemHemo [address] [place] [address] Hematocrit Volume Fraction (Bld) 41.2 % Normal 36.0-48.0 [facility] Comment on above: Performed By: #### 2 028119 #### ADDISON SmithHemo [address] [place] [address] Hemoglobin mass conc (Bld) 13.8 g/dL Normal 12.0-16.0 [facility] Comment on above: Performed By: #### 2 251165 #### ADDISON SmithHemo [address] [address] MCH Entitic mass (RBC) 31.6 pg High 27.0-31.0 [facility] Comment on above: Performed By: #### 2 571004 #### ADDISON SmithHemo [address] [address] MCHC mass conc (RBC) 33.4 g/dL Normal 33.0-37.[address] [facility] Comment on above: Performed By: #### 2 252197 #### ADDISON SmithHemo [facility] [address] MCV Entitic volume (RBC) 94.6 fL Normal 78.0-100.0 [facility] Comment on above: Performed By: #### 2 358133 #### ADDISON SmithHemo [address] [place] [address] Platelet mean volume Entitic volume (Bld) 7.6 fL Normal 7.4-11.0 [facility] Comment on above: Performed By: #### 2 955880 #### ADDISON RemHemo [address] [place] [address] Platelets #/vol (Bld) 334 E3/mcL Normal 130-400 [facility] Comment on above: Performed By: #### 2 342021 #### ADDISON RemHemo [address] [place] [address] RBC #/vol (Bld) 4.36 E6/mcL Normal 3.90-5.40 [facility] Comment on above: Performed By: #### 2 995391 #### ADDISON RemHemo [address] [place] [address] WBC #/vol (Bld) 5.6 E3/mcL Normal 3.6-11.0 [facility] Comment on above: Performed By: #### 2 487723 #### ADDISON RemHemo [address] [address] TSHon 08-31-2018 Thyrotropin Qn 82.00 mIU/m High 0.30-5.60 [facility] Comment on above: Performed By: #### 2 443921 #### ADDISON [employer]ink [address] [place], [place] [address] Lab Miscellaneouson 08-01-20 18 Status See Ref Lab Report Normal [facility] Comment on above: Performed By: #### 1 [id number] #### ADDISON Send Out[employer] Subsection [address] [place] [address] Lab Miscellaneouson 07-27-20 18 Test Name allergen Normal [facility] Comment on above: Performed By: #### 1 [id number] #### ADDISON Send Out[employer] Subsection [address] [place] [address] IGP W/hpv Rfx [id number] 03-16 Diagnosis: See Ref Lab Report Normal [facility] Comment on above: Performed By: #### 1 [id number] #### ADDISON Send Out[employer] Subsection [address] [place] [address] Chlamydia GC by PCRon 2017 Chlamydia by PCR. Not Detected Normal Not Detected [facility] Comment on above: Result Comment: Xper t CT/NG Assay performance has not been evaluated in patients less than 14 years of age. Performed By: #### 3 [id number] #### ADDISON Shankar Micro SubSection , Gonorrhoeae by PCR Not Detected Normal Not Detected [facility] Comment on above: Result Comment: Xper t CT/NG Assay performance has not been evaluated in patients less than 14 years of age. Performed By: #### 3 [id number] #### ADDISON Sykesc Micro SubSection , Pathology ([facility])on 03-12-2018 Pathology ([facility]) FINAL GYNECOLOGIC CYTOLOGY [id number] ADEQUACYSatisfactory for Evaluation. Endocervical cells/transformation zone componentpresent.GENERAL CATEGORIZATIONNegative for Intraepithelial Lesion or MalignancyCLINICAL HISTORYComment: No LMP provided.SPECIMEN(A) SCREENING CERVICAL/ENDOCERVICAL THIN PREP VIALPerformed at [facility], [address], [place] [address]Nkybnugd by: Signed Out by: ORLIN TALLEY, Cylinder Machine Operator Reported: 03/15/2018 Normal [facility] Comment on above: Performed By: #### G YN ####[facility] [address] [place] [address] US ABDOMEN COMPLETEon 2016 US ABDOMEN COMPLETE EXAMINATION: Abdomin al ultrasound.CLINICAL INFORMATION: Epigastric pain.COMPARISON: None.FINDINGS: The pancreas is within normal limits. The tail is not completely visualized due to overlying bowel gas.The liver is suboptimally visualized due to sonographic windows. Within the limitations, no focal liver abnormality is noted.The gallbladder is normal in appearance, without evidence of stones or sludge. There is no gallbladder wall thickening or pericholecystic fluid. No sonographic Zheng sign was noted. The common duct is within normal limits measuring 0.2 cm in diameter. The right kidney measures 10.5 x 4.5 x 4.4 cm. The left kidney measures 10.2 x 3.9 x 3.5 cm. No hydronephrosis is present. The superior aspect of the left kidney is not well-visualized.The spleen is within normal limits, measuring up to 10.2 cm.The aorta and IVC are patent to the extent that they are visualized.IMPRESSION: No focal abnormality identified in the abdomen. Limited visualization of the liver and left kidney as above. Normal [facility] *RFLX-O+John 07-14-2017 RESULT 1 Comment Normal [facility] Comment on above: Result Comment: No o va, cysts, or parasites seen.PERFORMED AT [facility] Performed By: #### L OP ####Testing performed at [facility] [place], [place] [address]Fmfrxgv performed at [facility] [place] [address]#### ZOP ####Testing performed at [facility] [place] [address] OVA+PARASITESon 07-14-2017 OVA+PARASITES Final report Normal [facility] Comment on above: Result Comment: (NOT E)These results were obtained using wet preparation(s) and trichromestained smear. This test does not include testing forCryptosporidium parvum, Cyclospora, or Microsporidia.PERFORMED AT [facility] Performed By: #### L OP ####Testing performed at [address] [address]Rvhuden performed at [address] [place] [address]#### ZOP ####Testing performed at [address] [place] [address] Addendumon 07-10-2017 [facility] NOTES Normal [facility] Anes Post-opon 07-10-2017 [facility] NOTES Normal [facility] Anes Pre-opon 07-10-2017 [facility] NOTES Normal [facility] NURSING NOTEon 07-10-2017 [facility] NOTES Normal [facility] [place] NURSINGon 07-10-2017 [facility] NOTES Normal [facility] HIM CAC NOTES Normal [facility] CAC NOTES Normal [facility] OVA+PARASITESon 07-10-2017 SPECIMEN DESCRIPTION STOOL Normal [facility] Comment on above: Performed By: #### L OP ####Testing performed at [address] [address]Qryxngi performed at [address] [place] [address]#### ZOP ####Testing performed at [address] [place] [address] CBCon 06-26-2017 Basophils/100 WBC Auto (Bld) 4 % High 0.0-2.0 [facility] Comment on above: Performed By: #### A CBC, ESR ####Testing performed at [address] [address] BLAST 3 % Normal [facility] Comment on above: Performed By: #### A CBC, ESR ####Testing performed at [address] [place] [address] DTYPE AUTO DIFF Normal [facility] Comment on above: Performed By: #### A CBC, ESR ####Testing performed at [address] [address] Lymphocytes/100 leukocytes 29 % Normal 20.0-55.0 [facility] Comment on above: Performed By: #### A CBC, ESR ####Testing performed at [address] [address] Monocytes/100 leukocytes 3 % Normal 0.0-10.0 [facility] Comment on above: Performed By: #### A CBC, ESR ####Testing performed at [address] [address] Neutrophils/100 leukocytes 61 % Normal 37.0-75.0 [facility] Comment on above: Performed By: #### A CBC, ESR ####Testing performed at [address] [address] Erythrocyte distribution width Auto Ratio (RBC) 13.5 % Normal 11.5-14.5 [facility] Comment on above: Performed By: #### A CBC, ESR ####Testing performed at [address] [address] Erythrocytes (RBC) 4.45 /cmm Normal 4.0-5.4 [facility] Comment on above: Performed By: #### A CBC, ESR ####Testing performed at [address] [address] Hematocrit (HCT) 40.2 % Normal 36.0-48.0 [facility] Comment on above: Performed By: #### A CBC, ESR ####Testing performed at [address] [address] Hemoglobin mass conc (Bld) 13.4 g/dL Normal 12.0-16.0 [facility] Comment on above: Performed By: #### A CBC, ESR ####Testing performed at [address] [address] MCH 30.2 pg Normal 26.0-35.0 [facility] Comment on above: Performed By: #### A CBC, ESR ####Testing performed at [address] [address] MCHC mass conc (RBC) 33.4 g/dL Normal 27.0-37.0 [facility] Comment on above: Performed By: #### A CBC, ESR ####Testing performed at [address] [address] MCV 90.3 fL Normal 80.0-100.0 [facility] Comment on above: Performed By: #### A CBC, ESR ####Testing performed at [address] [address] Platelet mean volume (PMV) 6.8 fL Low 7.4-11.0 [facility] Comment on above: Performed By: #### A CBC, ESR ####Testing performed at [address] [address] Platelets 323 /cmm Normal 130.0-400.0 [facility] Comment on above: Performed By: #### A CBC, ESR ####Testing performed at [address] [address] WBC (Leukocytes) 6.0 /cmm Normal 3.6-11.0 [facility] Comment on above: Performed By: #### A CBC, ESR ####Testing performed at [address] [address] ESRon 06-26-2017 Erythrocyte sedimentation rate 11 mm/h Normal 0-20 [facility] Comment on above: Performed By: #### A CBC, ESR ####Testing performed at [address] [address] Vital Signs Date Time Vital Sign Value Performing Clinician Facility 12-11-2023 09:00-0500 Body weight 70.3 kg [facility] 12-11-2023 07:30-0500 Body temperature 97.3 [degF] [facility] 12-11-2023 07:30-0500 Diastolic blood pressure 70 mm[Hg] [facility] 12-11-2023 07:30-0500 Heart rate 69 /min [facility] 12-11-2023 07:30-0500 Respiratory rate 18 /min [facility] 12-11-2023 07:30-0500 SaO2% (BldA) [Mass fraction] 98 % [facility] 12-11-2023 07:30-0500 Systolic blood pressure 104 mm[Hg] [facility] 12-09-2023 01:13-0500 Body height 147.32 cm [facility] 12-08-2023 21:40-0500 Body height 147.32 cm MD Katarzyna Castañeda Work Phone: [facility] 12-08-2023 21:40-0500 Body temperature 98.1 [degF] MD Katarzyna Castañeda Work Phone: [facility] 12-08-2023 21:40-0500 Body weight 70.2 kg MD Katarzyna Castañeda Work Phone: [facility] 12-08-2023 21:40-0500 Diastolic blood pressure 85 mm[Hg] MD Katarzyna Castañeda Work Phone: [facility] 12-08-2023 21:40-0500 Heart rate 110 /min MD Katarzyna Castañeda Work Phone: [facility] 12-08-2023 21:40-0500 Respiratory rate 18 /min MD Katarzyna Castañeda Work Phone: [facility] 12-08-2023 21:40-0500 SaO2% (BldA) [Mass fraction] 97 % MD Katarzyna Castañeda Work Phone: [facility] 12-08-2023 21:40-0500 Systolic blood pressure 121 mm[Hg] MD Katarzyna Castañeda Work Phone: [facility] 10-19-2023 14:30-0500 Body height 147.32 cm Juice Johnson Other [facility] [employer] Other 10-19-2023 14:30-0500 Body mass index (BMI) [Ratio] 34 kg/m2 Juice Johnson Other [facility] [employer] Other 10-19-2023 14:30-0500 Body weight 73.8 kg Juice Johnson Other [facility] [employer] Other 10-19-2023 14:30-0500 Diastolic blood pressure 83 mm[Hg] Juice Johnson Other [facility] Other 10-19-2023 14:30-0500 Systolic blood pressure 134 mm[Hg] Juice Ditty Other [facility] Other 08-08-2023 13:17-0400 Diastolic blood pressure 67 mm[Hg] MD Katarzyna Castañeda Work Phone: [facility] 08-08-2023 13:17-0400 Heart rate 90 /min MD Katarzyna Castañeda Work Phone: [facility] 08-08-2023 13:17-0400 Respiratory rate 16 /min MD Katarzyna Castañeda Work Phone: [facility] 08-08-2023 13:17-0400 SaO2% (BldA) [Mass fraction] 95 % MD Katarzyna Castañeda Work Phone: [facility] 08-08-2023 13:17-0400 Systolic blood pressure 109 mm[Hg] MD Katarzyna Castañeda Work Phone: [facility] 08-08-2023 11:56-0400 Body height 149.86 cm MD Katarzyna Castañeda Work Phone: [facility] 08-08-2023 11:56-0400 Body temperature 98.2 [degF] MD Katarzyna Castañeda Work Phone: [facility] 08-08-2023 11:56-0400 Body weight 72.57 kg MD Katarzyna Castañeda Work Phone: [facility] 07-11-2023 09:15-0400 Body height 147.32 cm Juice Johnson Other [facility] Other 07-11-2023 09:15-0400 Body mass index (BMI) [Ratio] 31.97 kg/m2 Juice Johnson Other [facility] [employer] Other 07-11-2023 09:15-0400 Body weight 69.4 kg Juice Johnson Other [facility] [employer] Other 07-11-2023 09:15-0400 Diastolic blood pressure 81 mm[Hg] Juice Johnson Other [facility] [employer] Other 07-11-2023 09:15-0400 Systolic blood pressure 124 mm[Hg] Juice Johnson Other [facility] [employer] Other 11-09-2022 16:00-0500 Body temperature 98.2 [degF] MD Katarzyna Castañeda Work Phone: [facility] 11-09-2022 16:00-0500 Diastolic blood pressure 84 mm[Hg] MD Katarzyna Castañeda Work Phone: [facility] 11-09-2022 16:00-0500 Heart rate 83 /min MD Katarzyna Castañeda Work Phone: [facility] 11-09-2022 16:00-0500 Respiratory rate 16 /min MD Katarzyna Castañeda Work Phone: [facility] 11-09-2022 16:00-0500 SaO2% (BldA) [Mass fraction] 99 % MD Katarzyna Castañeda Work Phone: [facility] 11-09-2022 16:00-0500 Systolic blood pressure 138 mm[Hg] MD Katarzyna Castañeda Work Phone: [facility] 11-06-2022 20:07-0500 Body height 147.32 cm MD Katarzyna Castañeda Work Phone: [facility] 11-06-2022 20:07-0500 Body weight 83.91 kg MD Katarzyna Castañeda Work Phone: [facility] 12-05-2021 14:30-0500 Body height 147.32 cm Fouzia Maria Other [facility] Other 12-05-2021 14:30-0500 Body mass index (BMI) [Ratio] 30.3 kg/m2 Fouzia Maria Other [facility] Other 12-05-2021 14:30-0500 Body temperature 97.6 [degF] Fouzia Maria Other [facility] Other 12-05-2021 14:30-0500 Body weight 65.77 kg Fouzia Maria Other [facility] Other 12-05-2021 14:30-0500 Respiratory rate 18 /min Fouzia Maria Other [facility] Other 12-05-2021 14:30-0500 SaO2% (BldA) [Mass fraction] 99 % Fouzia Maria Other [facility] Other 10-10-2021 22:06-0500 Body height 147.32 cm MD Katarzyna Castañeda Work Phone: [facility] 10-10-2021 22:06-0500 Body mass index (BMI) [Ratio] 33 kg/m2 MD Katarzyna Castañeda Work Phone: [facility] 10-10-2021 22:06-0500 Body temperature 98.5 [degF] MD Katarzyna Castañeda Work Phone: [facility] 10-10-2021 22:06-0500 Body weight 71.6 kg MD Katarzyna Castañeda Work Phone: [facility] 10-10-2021 22:06-0500 Diastolic blood pressure 69 mm[Hg] MD Katarzyna Castañeda Work Phone: [facility] 10-10-2021 22:06-0500 Heart rate 99 /min MD Katarzyna Castañeda Work Phone: [facility] 10-10-2021 22:06-0500 Respiratory rate 18 /min MD Katarzyna Castañeda Work Phone: [facility] 10-10-2021 22:06-0500 SaO2% (BldA) [Mass fraction] 97 % MD Katarzyna Castañeda Work Phone: [facility] 10-10-2021 22:06-0500 Systolic blood pressure 137 mm[Hg] MD Katarzyna Castañeda Work Phone: [facility] Encounters Encounter Date Encounter Type Care Provider Facility Start: 12-09-2023 End: 12-11-2023 Evaluation and management of inpatient Katarzyna Castañeda Facility:[facility] Start: 12-08-2023 Evaluation and management of inpatient MD Katarzyna Castañeda Work Phone: [facility] Work Phone: Start: 12-08-2023 [facility] Work Phone: Start: 10-19-2023 End: 10-19-2023 ambulatory Juice Johnson Other [facility] Other Start: 10-19-2023 Patient encounter procedure Juice Johnson [facility] Start: 10-19-2023 End: 10-19-2023 Patient encounter procedure MD Katarzyna Castañeda Work Phone: [facility] Work Phone: Start: 10-09-2023 End: 10-09-2023 ambulatory LUIS MACIAS Not Available Start: 08-17-2023 End: 08-17-2023 ambulatory Juice Johnson Other [facility] Other Start: 08-17-2023 Telephone encounter Juice OSBORNE [facility] Start: 08-08-2023 End: 08-08-2023 ambulatory Juice Johnson Facility:[facility] Start: 08-08-2023 End: 08-08-2023 Admission to same day surgery center MD Katarzyna Castañeda Work Phone: [facility] Work Phone: Start: 08-08-2023 End: 08-08-2023 ambulatory MD Katarzyna Castañeda Work Phone: [facility] Work Phone: Start: 07-11-2023 End: 07-11-2023 ambulatory Juice Bateslitoallyssa Other [facility] [employer] Other Start: 07-11-2023 [facility] visit new patient Juice SKINNER [facility] Start: 11-11-2022 End: 11-11-2022 ambulatory MD Katarzyna Castañeda Work Phone: [facility] Work Phone: Start: 11-11-2022 End: 11-11-2022 Patient encounter procedure MD Katarzyna Castañeda Work Phone: [facility]- [facility] Work Phone: Start: 11-06-2022 End: 11-09-2022 Evaluation and management of inpatient MD Katarzyna Castañeda Work Phone: [facility] [place] Work Phone: Start: 10-04-2022 End: 10-04-2022 ambulatory MD Katarzyna Castañeda Work Phone: [facility] Work Phone: Start: 10-04-2022 End: 10-04-2022 Departed Referred MD Katarzyna Castañeda Work Phone: [facility] [place] Start: 08-11-2022 End: 08-11-2022 ambulatory MD Katarzyna Castañeda Work Phone: [facility] Work Phone: Start: 08-11-2022 End: 08-11-2022 Patient encounter procedure MD Katarzyna Castañeda Work Phone: [facility] [place] Start: 03-02-2022 End: 03-02-[address] KATARZYNA CASTAÑEDA Facility:[facility] Start: 12-05-2021 End: 12-05-2021 ambulatory Fouzia Maria Other [facility] Other Start: 12-05-2021 Office outpatient visit 15 minutes Fouzia Maria [facility] Start: 11-19-2021 End: 11-19-2021 ambulatory SHU SORIANO Facility:[facility] Start: 10-10-2021 End: 10-10-2021 Emergency department patient visit MD Katarzyna Castañeda Work Phone: [facility] Start: 01-31-2019 Patient encounter procedure Dandre Tourlas Facility:[facility] Start: 01-14-2019 Patient encounter procedure [facility] Start: 11-22-2018 End: 11-23-2018 Patient encounter procedure Dandre Tourlas Facility:[facility] Start: 11-22-2018 Patient encounter procedure Facility:[id number] Start: 08-31-2018 End: 09-01-2018 Patient encounter procedure Yandy Luque Facility:[facility] Start: 08-31-2018 End: 09-01-2018 Patient encounter procedure Yandy L Ene Facility:[facility] Start: 08-31-2018 Patient encounter procedure Facility:[id number] Start: 08-30-2018 Patient encounter procedure Dandre Tourlas Facility:[facility] Start: 08-28-2018 End: 08-28-2018 Patient encounter procedure Dandre Tourlas Facility:[facility] Start: 07-27-2018 End: 07-28-2018 Patient encounter procedure Pedro Keller Facility:[facility] Start: 07-27-2018 Patient encounter procedure Facility:[id number] Start: 07-19-2018 End: 07-20-2018 Patient encounter procedure Dandre Travis Facility:[facility] Start: 03-12-2018 End: 03-13-2018 Patient encounter procedure Re Murphy Facility:[facility] Start: 02-26-2018 End: 02-27-2018 Patient encounter procedure Dandre Robles Facility:[facility] Start: 08-09-2017 Ambulatory PALANI Rocio AJAY [facility] Start: 07-11-2017 Ambulatory DANDRE DANIELLAS [facility] Start: 07-10-2017 Ambulatory PALANI K AJAY [facility] Start: 07-10-2017 End: 07-10-2017 Ambulatory PALANI Rocio AJAY [facility] Start: 06-26-2017 Ambulatory PALANI K AJAY [facility] Procedures Date Procedure Procedure Detail Performing Clinician Start: 08-08-2023 Esophagogastroduodenoscopy MD Katarzyna Castañeda Work Phone: Start: 10-04-2022 Streptococcus agalactiae culture MD Tania Castañeda Work Phone: H/O: section Status pos t section MD Katarzyna Castañeda Work Phone: Plan of Treatment Date Care Activity Detail Author Start: 12-11-2023 [facility] Start: 12-08-[address] [facility] Start: 08-08-2023 End: 08-08-2023 [facility] Start: 11-09-2022 [facility] Start: 11-08-2022 [facility] Start: 11-07-[address] [facility] Start: 11-06-[address] [facility] Albumin/Globulin ratio [facility] Anion gap measurement [facility] Basophils [#/volume] in Blood by Automated count [facility] Basophils/100 leukoc ytes in Blood by Automated count [facility] Endomysial antibody IgA level [facility] Eosinophils [#/volum e] in Blood [facility] Eosinophils/100 leuk ocytes in Blood by Automated count [facility] Erythrocyte distribu tion width [Ratio] by Automated count [facility] Erythrocytes [#/volu me] in Blood [facility] Gliadin peptide IgA Ab [Units/volume] in Serum [facility] Gliadin peptide IgG Ab [Units/volume] in Serum [facility] Globulin [Mass/volum e] in Serum [facility] Group B Streptococcu s Culture Group B Streptococcus Culture [facility] Hematocrit [Volume Fraction] of Blood [facility] Hemoglobin [Mass/vol ume] in Blood [facility] HLA DQ antigen typing [facility] IgA [Mass/volume] in Serum or Plasma [facility] Leukocytes [#/volume ] corrected for nucleated erythrocytes in Blood by Automated coun [facility] Leukocytes [#/volume ] in Blood [facility] Lymphocytes [#/volum e] in Blood by Automated count [facility] Lymphocytes/100 leuk ocytes in Blood by Automated count [facility] MCH [Entitic mass] b y Automated count [facility] MCHC [Mass/volume] b y Automated count [facility] MCV [Entitic volume] by Automated count [facility] Monocytes [#/volume] in Blood by Automated count [facility] Monocytes/100 leukoc ytes in Blood by Automated count [facility] Neutrophils [#/volum e] in Blood by Automated count [facility] Neutrophils/100 leuk ocytes in Blood by Automated count [facility] Nucleated erythrocyt es [Presence] in Blood by Automated count [facility] Patient Education [facility] Work Phone: Patient referral [facility] Platelet mean volume [Entitic volume] in Blood by Automated count [facility] Platelets [#/volume] in Blood [facility] Tissue transglutamin ase IgA Ab [Units/volume] in Serum [facility] Tissue transglutamin ase IgG Ab [Units/volume] in Serum [facility] Immunizations Immunization Date Immunization Notes Care Provider Fa cility 11-09-2022 tetanus toxoid, redu chet diphtheria toxoid, and acellular pertussis vaccine, adsorbed MD Katarzyna Castañeda Work Phone: [facility] Payers Date Payer Category Payer Self-pay [id number] 2023 Medicaid [id number] 2017 Unknown 1996 Unknown [id number] 2.16. [id number] 1996 Unknown [id number] 2.16. 840.1.653221.3.579.2.356 1996 Unknown [id number] 2.16. 840.1.337826.3.579.2.356 1996 Unknown [id number] 2.16.84 0.1.935012.3.579.2.717 1996 Unknown [id number] 2.16.84 0.1.170820.3.579.2. 1996 Unknown [id number] 2.16.84 0.1.727395.3.579.2. 1996 Unknown [id number] 2.16.84 0.1.707666.3.579.2. 1996 Unknown [id number] 2.16.84 0.1.259828.3.579.2.7 1996 Unknown [id number] 2.16.84 0.1.746162.3.579.2. 1996 Unknown [id number] 2.16.84 0.1.432382.3.579.2. 1996 Unknown [id number] 2.16.84 0.1.219579.3.579.2. 1996 Unknown [id number] 2.16.84 0.1.286479.3.579.2. 1996 Unknown [id number] 2.16.84 0.1.157980.3.579.2. 1996 Unknown [id number] 2.16.84 0.1.634896.3.579.2.717 1996 Unknown [id number] 2.16.84 0.1.732770.3.579.2.717 1996 Unknown [id number] 2.16.84 0.1.743101.3.579.2.717 1996 Unknown [id number] 2.16.84 0.1.632742.3.579.2.593 1996 Unknown [id number] 2.16.84 0.1.433698.3.579.2.593 1996 Unknown [id number] 2.16.840 .1.559437.3.579.2.1259 1959 Unknown [id number] Unknown [id number] 2.16.8 40.1.648415.3.579.2.531 Unknown [id number] 2.16.8 40.1.025753.3.579.2.531 Social History Date Type Detail Facility Start: 10-10-2021 End: 12-09-2023 Tobacco smoking status NHIS Never smoked tobacco (finding) [facility] Start: 1995 Sex Assigned At Female F [facility] Sex Assigned At Sex Assigned At Bir th [facility] [employer] Other Goals Date Patient Goal Desired Activity /State Functional Status Date Assessment Result Facility 11-09-2022 Functional status Patient at Baseline [facility] Work Phone: Mental Status Date Assessment Result Facility 11-09-2022 Cognitive function Cognitive Sta tus Patient at Baseline [facility] Work Phone: Clinical Notes 12-05-2021 to 12-11-2023 Note Date & Type Note Facility 12-11-2023 Hospital Discharg e instructions Additional Instructions Important Contact Information You can call [facility] Health at [phone] any time day or night if you have emergent questions or question regarding discharge instructions. If at any time you are feeling an increase in your psychiatric symptoms, call your physician or behavioral healthcare provider. If any time you have thoughts of harming yourself or others contact one of the following: Call 8-8 (available 05/06) Crisis Text Line (available 05/06) text 4HOPE to [phone] [facility] Hope Line (available 8 a.m. Midnight) call [phone] ([phone]) [facility] Work Phone: 10-19-2023 Evaluation note Encounter Date Diagnosis Assessment Notes Oct, Loose stools (ICD-10 - R19.5) Pt is still having loose stools. Oct, Constipation (ICD-10 - K59.00) Pt is still dealing with constipation . Oct, Celiac disease (ICD-10 - K90.0) Pt RTO in 3 months [facility] Other [facility]* Encounter Date Diagnosis Assessment Notes Treatment Notes Treatment Clinical Notes Jun, Loose stools (ICD-10 - R19.5) patient has been having loose stools to liquid stools for several months. Will Jun, Constipation (ICD-10 - K59.00) Jun, Celiac disease (ICD-10 - K90.0) Patient was diagnosed about 6 years ago with EGD. Has maintained a gluten free diet since then. [facility] Other 12-26-2022 History general Narrative - Reported* Type Description Date Medical History graves disease Medical History celiac disease Surgical History breast reduction Surgical History C section 11/07/22 Hospitalization History HYPOTHROIDISM [facility] [employer] Other 01-23-2022 Evaluation note* Encounter Date Diagnosis Assessment Notes Treatment Notes Treatment Clinical Notes Nov, Contact with and (suspected) exposure to other viral communicable diseases (ICD-10 - Z20.828) covid test neg, see above tx plan. Nov, Acute non-recurrent maxillary sinusitis (ICD-10 - J01.00) Pt is to take abx as prescribed with food. Use nasal spray as directed. Push fluids and rest. Pt denied work note today. Pt is to take otc antipyretic prn for fever and aches. Pt is to take otc cough suppressant prn for cough. Pt is to be re-evaluated after tx if sx worsen or don''t improve by pcp or UC. Pt is to call the office with any questions or concerns regarding dx and tx. Pt understood and agreed to tx plan. Nov, Other Additional time spent conducting pre-visit phone call, screening for symptoms, instructions on social distancing, application and removal of PPE, and cleaning of examination room, equipment and supplies was preformed. Patient education given for testing methodology and results. Patient care instructions given in writting by [facility] Care At Home document. [facility] [employer] Other Evaluation noteNo assessment information available [facility] Diagnosis Onset Date Resolution Status Status post section acute [facility] Work Phone: [facility] [employer] Other Evaluation note* Diagnosis Onset Date Resolution Status Depression acute [facility] Work Phone: Evaluation note* Diagnosis Onset Date Resolution Status ADHD acute Depression acute Generalized anxiety disorder acute [facility] Work Phone: History general Narrative - Reported* Type Description Date Medical History graves disease Surgical History breast reduction Hospitalization History HYPOTHROIDISM [facility] [employer] Other Hospital Discharge instructions Additional Instructions Please call your plastic surgeon tomorrow for follow-up appointment Take the antibiotics as prescribed to cover for any potential infection Return for fevers, discharge, bleeding from your wound, redness, nausea or [facility] Dis[facility] instructions Additional Instructions DISCHARGE INSTRUCTIONS FOR UPPER ENDOSCOPY WHAT TO EXPECT: - You may feel full, gassy or cramping after your procedure. In some cases, this may be from a few hours to a day. Walking may help relieve the discomfort. - Your throat may feel sore today from the scope that the doctor passed through your throat to visualize your stomach. Take a throat lozenge or suck on ice to ease the discomfort. - You may notice some streaks of blood in your sputum if the doctor has taken a biopsy. - You should begin to recover from anesthesia within 1 hour of the procedure, however may feel groggy for the next 24 hours. DO's AND DON'Ts: - Call your doctor right away if you have a hard abdomen, severe pain, vomiting or if you cough up large amounts of blood. - Call your doctor if you develop any rashes, hives or difficulty breathing. - If you take 81 mg aspirin for your heart it is safe to resume this medication. - If you take other blood thinner medications your doctor will instruct you when these can safely be resumed. - Do NOT drive for 24 hours. - Do NOT operate machinery such as power tools, [employer] mowers, snow blowers, sewing machines, etc. for 24 hours. - Avoid alcoholic beverages and drugs for allergies, nerves, or sleep. - Do NOT stay alone. Do NOT leave your child unattended. - Do NOT make important personal or business decisions or sign any legal documents. - Eat solid foods and drink liquids in smaller amounts than usual until normal appetite returns. If you should experience an upset stomach, liquids high in sugar content (soda, Richard-Aid, non-acid juices) are recommended. - Do NOT smoke. - Do take it easy today. You need not stay in bed, but avoid strenuous activities such as jogging or working out. FOLLOW UP & RECOMMENDATIONS: -GI office will contact you regarding your pathology results and your follow-up appointment -Notify the doctor if you have any problems. -Follow up with PCP. -Office number [phone].[facility] Work Phone: Summary Purpose Family History No Family History Records Found Relationship Condition Age at Onset Recorded Date/T sanaz brother Diabetes mellitus Unknown grandchild Malignant neoplasm Unknown Advance Directives No Advanced Directives Records Found Advance Directive Response Recorded Date/ Time Advance Directives No September 10:19pm Advance Directive Response Recorded Date/ Time Advance Directives No September 11:19pm Chief Complaint and Reason for Visit Chief Complaint incision open Chief Complaint z3a.27 o99.810 Chief Complaint z3a.27 o99.810 35 weeks gestation of ; screenin Chief Complaint Z3A.35 Z36.85 IUP (Intrauterine ) z39.1 Reason for Visit Status post cable lacer Complaint Celiac Disease Chief Complaint Follow Up After Egd MHP Reason for Visit Depression Chief Complaint Follow Up After Egd [facility]HP Reason for Visit ADHD Depression Generalized anxiety disorder Additional Source Comments INFORMATION SOURCE (unrecogn ized section and content) DATE CREATED AUTHOR 05/03/2018 [facility] DATE CREATED AUTHOR AUTHOR'S ORGANIZ ATION 05/08/2018 [facility] DATE CREATED AUTHOR AUTHOR'S ORGANIZ ATION 05/09/2018 [facility] DATE CREATED AUTHOR AUTHOR'S ORGANIZ ATION 11/27/2018 [facility] DATE CREATED AUTHOR AUTHOR'S ORGANIZ ATION 01/16/2019 [facility] DATE CREATED AUTHOR AUTHOR'S ORGANIZ ATION 02/01/2019 [facility] DATE CREATED AUTHOR AUTHOR'S ORGANIZ ATION 12/14/2021 [facility] DATE CREATED AUTHOR AUTHOR'S ORGANIZ ATION 03/08/2022 [facility] DATE CREATED AUTHOR AUTHOR'S ORGANIZ ATION 04/22/2022 [facility] DATE CREATED AUTHOR AUTHOR'S ORGANIZ ATION 10/09/2023 [facility] DATE CREATED AUTHOR AUTHOR'S ORGANIZ ATION 12/20/2023 [facility] Goals (unrecognized section and content) Goals may be documented in a n alternate sectionNo InformationGoals may be documented in an alternate sectionGoals may be documented in an alternate sectionNo InformationNo InformationNo InformationGoals may be documented in an alternate sectionGoals may be documented in an alternate section REASON FOR VISIT (unrecogniz ed section and content) #19 WHITE BUICK - NASAL NIESHA ESTION, COUGHCELIAC DISEASETHYROIDfollow up after EGD Care Teams (unrecognized sec tion and content) Team Status: Inactive Member Role Status Nikolay Castañeda MD Primary Care Provider Active Stephanie Edward DO Attending Provider Active Team Status: Active Member Role Status Nikolay Castañeda MD Primary Care Provider Active Team Status: Inactive Member Role Status Nikolay Castañeda MD Primary Care Provider Active Trisha Cm MD Attending Provider Active Team Status: Inactive Member Role Status Nikolay Castañeda MD Primary Care Provider Active Stephanie Edward DO Admit Provider, Attending Provide r Active Team Status: Inactive Member Role Status Nikolay Castañeda MD Primary Care Provider Active Juice Johnson MD Attending Provider Active Team Status: Inactive Member Role Status Dates Juice Johnson MD Attending Provider Active S tart: October 19, 2023 End: October 19, 2023 Team Status: Active Member Role Status Dates Katarzyna Castañeda MD Primary Care Provider Active S tart: December 08, 2023 Larry Rankin DO Emergency Provider Active Sta rt: December 08, 2023 Rodriguez Nick MD Admit Provider, Atte nding Provider Active Start: December 08, 2023 Team Status: Active Member Role Status Dates Katarzyna Castañeda MD Primary Care Provider Active S tart: December 08, 2023 Larry Rankin , Emergency Provider Active Sta rt: December 08, 2023 Rodriguez Nick MD Admit Provider, Atte nding Provider, Other Provider Active Start: December 08, 2023 FOR RECORDS PERTAINING TO PATIENTS WHO ARE OR HAVE BEEN ENROLLED IN A CHEMICAL DEPENDENCY/SUBSTANCEABUSE PROGRAM, SOME INFORMATION MAY BE OMITTED. This clinical summary was aggregated from multiple sources. Caution should be exercised in using it in the provision of clinical care. This summary normalizes information from multiple sources, and as a consequence, information in this document may materially change the coding, format and clinical context of patient data. In addition, data may be omitted in some cases. CLINICAL DECISIONS SHOULD BE BASED ON THE PRIMARY CLINICAL RECORDS. [facility] [employer] provides no warranty or guarantee of the accuracy or completeness of information in this document.
[2023-12-29 11:31] LABS: Basophils Percent Auto 0.6 % (0.2-2.0); Eosinophils Absolute Auto 0.2 10^3/uL (0.0-0.7); Eosinophils Percent Auto 3.3 % (0.9-7.0); Hematocrit 42.5 % (36.0-48.0); Hemoglobin 13.9 g/dL (12.0-16.0); Immature Granulocytes Abs Auto 0.01 10^3/uL (0.00-0.03); Immature Granulocytes Pct Auto 0.2 % (0.0-0.5); Lymphocytes Absolute Auto 1.7 10^3/uL (1.2-3.8); Lymphocytes Percent Auto 32.8 % (20.5-60.0); Mean Corpuscular HGB Conc 32.7 g/dL (29.9-35.2); Mean Corpuscular Hemoglobin 29.6 pg (26.7-34.0); Mean Corpuscular Volume 90.6 fL (81.0-99.0); Mean Platelet Volume 9.8 fL (9.5-13.5); Monocytes Absolute Auto 0.4 10^3/uL (0.3-0.8); Monocytes Percent Auto 8.1 % (1.7-12.0); Neutrophils Absolute Auto 2.9 10^3/uL (1.4-6.5); Platelet Count 354 10^3/uL (150-450); Red Blood Count 4.69 10^6/uL (4.20-5.40); Red Cell Distribution Width 13.5 % (11.0-15.0); White Blood Count 5.2 10^3/uL (4.0-11.0)
[2023-12-29 11:45] LABS: INR 0.95; Prothrombin Time 10.1 sec (9.0-11.6)
[2023-12-29 11:52] LABS: Estimated Average Glucose 100 mg/dL; Glycohemoglobin A1C 5.1 % (4.5-6.2)
[2023-12-29 13:21] LABS: Alanine Aminotransferase 17 U/L (14-59); Alkaline Phosphatase 73 U/L (46-116); Anion Gap 14.3; Aspartate Amino Transferase 15 U/L (15-37); BUN Creatinine Ratio 16.9; Bilirubin Direct 0.1 mg/dL (0.0-0.2); Bilirubin Total 0.6 mg/dL (0.2-1.0); Calcium 9.7 mg/dL (8.5-10.1); Carbon Dioxide 25.8 mmol/L (21.0-32.0); Chloride 101 mmol/L (98-107); Chol HDL Ratio 2.6; Cholesterol 211 mg/dL (<=200); Estimated GFR (African America >60 (>=60); Estimated GFR (Non-African Ame >60 (>=60); Globulin 4.2 g/dL; Glucose 99 mg/dL (74-106); HDL Cholesterol 80 mg/dL (40-60); Potassium 4.1 mmol/L (3.5-5.1); Sodium 137 mmol/L (136-145); Thyroid Stimulating Hormone 0.085 uIU/mL (0.358-3.740); Total Protein 8.2 g/dL (6.4-8.2); Triglycerides 64 mg/dL (<=150); VLDL CHOLESTEROL 12.8 mg/dL
== END 2023-12-29 09:59 | disposition home or self-care (01) ==
LOC: LAB 10:00
PROVIDERS: PCP Family Medicine
DX: E55.9 Vitamin D deficiency, unspecified (principal)
CPT/HCPCS: 36415; 80053; 80061; 82248; 82306; 83036; 84443; 85025; 85610

== ENCOUNTER 2024-02-04 17:05 | Emergency (ER) | payer MEDICAID, SELFPAY ==
[2024-02-04 17:09] VITALS: BP 144/85; PULSE 119; RESP 16; TEMP 36.4; O2SAT 98; BMI 29.3
--- OUTSIDE RECORDS SUMMARY | 2024-02-04 17:12 | XMS_ITS | CCD ---
Author Organization [facility] Care Team Providers Care Office Manager Receptionist Name Role Phone AJAY, PALANI K Unavailable Unavailable AJAY, PALANI K Unavailable Unavailable AJAY, PALANI K Unavailable Unavailable AJAY, PALANI K Unavailable Unavailable AJAY, PALANI K Unavailable Unavailable AJAY, PALANI K Unavailable Unavailable TOURLAS, DANDRE Unavailable Unavailabl e AJAY, PALANI K Unavailable Unavailable AJAY, PALANI K Unavailable Unavailable TOURLAS, DANDRE Unavailable Unavailabl e TOURLAS, DANDRE Unavailable Unavailabl e MAYELA NAPIER Referring Unavailable Touresther Dandre Attending Unavailabl e Tourlas, Dandre Primary Care Unavailabl e Re Murphy Attending Unavailable Tourlas, Dandre Primary Care Unavailabl e Re Murphy Admitting Unavailable Tourlas Dandre Attending Unavailabl e Tourlas, Dandre Primary Care Unavailabl e Re Murphy Admitting Unavailable Re Murphy Attending Unavailable Tourlas, Dandre Primary Care Unavailabl e Travis Dandre Attending Unavailabl e Tourlas, Dandre Primary Care Unavailabl e Travis Dandre Admitting Unavailabl e Pedro Keller Admitting Unavailable Pedro Keller Attending Unavailable Tourlas, Dandre Primary Care Unavailabl e Mayank Roblesstantinos Attending Unavailabl e Tourlas, Dandre Primary Care Unavailabl e Yandy Luque Attending Unavailable Tourlas, Dandre Primary Care Unavailabl e Yandy Luque Admitting Unavailable Yandy Luque Admitting Unavailable Yandy Luque Attending Unavailable Tourlas, Dandre Primary Care Unavailabl e Travis Dandre Attending Unavailabl e Tourlas, Dandre Primary Care Unavailabl e Pallavilas, Dandre Admitting Unavailabl e Tourlas, Dandre Attending Unavailabl e Tourlas, Dandre Primary Care Unavailabl e Tourlas, Dandre Admitting Unavailabl e Tourlas, Dandre Attending Unavailabl e Tourlas, Dandre Primary Care Unavailabl e Tourlas, Dandre Attending Unavailabl e Tourlas, Dandre Primary Care Unavailabl e MD Katarzyna Castañeda Primary Care Provider DO Tal Soto Emergency Provider DR KATARZYNA CASTAÑEDA Primary Care Unavailable NISHA, DR LUGO Admitting Unavailable NISHA, DR LUGO Attending Unavailable NISHA, DR LUGO Consulting Unavailable SHU SORIANO Admitting Unavailable SHU SORIANO Attending Unavailable MADDY, DR COLÓN Primary Care Unavailable SHU SORIANO Consulting Unavailable Fouzia Maria Unavailable MD Katarzyna Castañeda Primary Care Provider DO Stephanie Edward Attending Provider MD Katarzyna Castañeda Primary Care Provider [phone] DO Stephanie Edward Attending Provider [phone] MD Katarzyna Castañeda Primary Care Provider [phone] DO Stephanie Edward Attending Provider DO Stephanie Edward Admit Provider MD Toi [facility] Attending Provider [phone] Juice Johnson Unavailable MD Katarzyna Castañeda Primary Care Provider MD Juice Johnson Attending Provider [phone] LUIS MACIAS Attending Unavailable MD Katarzyna Castañeda Primary Care Provider DO Larry Rankin Emergency Provider MD Rodriguez Nick Admit Provider MD Rodriguez Nick Attending Provider Katarzyna Castañeda Primary Care Unavailable Rodriguez Nick Admitting Unavailable Miguel Jalloh Attending UnavailJuice Sam Admitting Unavailable Juice Johnson Attending Unavailable Katarzyna Castañeda Primary Care Unavailable Miguel Jalloh Admitting Unavailab Miguel Sawant Attending Unavailab Katarzyna Kunz Primary Care Unavailable Allergies Allergy Classification Reported Allergen(s) Allergy Type Date of Onset Reaction(s) Facility (1 source) No Known Medication Allergies; Translations: [No Known Medication Allergies] Propensity to adverse reactions to drug (disorder) [facility]ository (8 sources) Sulfamethoxazole; Translations: [sulfamethoxazole] Drug Allergy 10-10-20 [facility] (8 sources) Trimethoprim; Translations: [trimethoprim] Drug Allergy 10-10-20 [facility] (1 source) Sulfamethoxazole / Trimethoprim Drug Allergy [facility] Repository (4 sources) Sulfamethoxazole / Trimethoprim Drug Allergy [employer] Other Medications Current Medications Medication Drug Class(es) [...] 09, 2022 12:00am August 08, 2023 10:58am Upcjljus-Icf-Fd-Fa (4 sources) Start: 2 End: 3 take 1 tablet by mouth once daily Xcaiopwo-Fid-Pb-Fa Discontinued 1 TAB PO Daily November 06, 2022 12:00am August 08, 2023 10:58am Start: 11-06-2022 End: 08-08-2023 take 1 tablet by mouth once daily Aabjjpqz-Dmi-Ga-Fa Discontinued 1 TAB PO Daily November 06, 2022 1:00am August 08, 2023 11:58am Start: 11-06-2022 take 1 tablet by giuseppe th once daily Xjgrbpln-Efj-Rf-Fa Active 1 TAB PO Daily November 06, [...] By: #### U HCG, ADDONUAPLUS, URDS #### [facility] [address] [place] [address] [place] Bacteria,Urine None Seen Normal None Seen [facility] Comment on above: Order Comment: Name Collection Type:: Clean-Voided Midstream Performed By: #### U HCG, ADDONUAPLUS, URDS #### [facility] [address] [place] [address] [place] Bilirubin,Urine Negative Normal Negative [facility] Comment on above: Order Comment: Name Collection Type:: Clean-Voided Midstream Performed By: #### U HCG, ADDONUAPLUS, URDS #### [facility] [address] [place] [address] [place] Color (U) Yellow Normal Yellow [facility] Comment on above: Order Comment: Name Collection Type:: Clean-Voided Midstream Performed By: #### U HCG, ADDONUAPLUS, URDS #### [facility] [address] [place] [address] [place] Glucose Ql (U) Normal Normal Normal [facility] Comment on above: Order Comment: Name Collection Type:: Clean-Voided Midstream Performed By: #### U HCG, ADDONUAPLUS, URDS #### [facility] [address] [place] [address] [place] Hyaline Casts,Urine 0-8 Normal 0-8 [facility] Comment on above: Order Comment: Name Collection Type:: Clean-Voided Midstream Performed By: #### U HCG, ADDONUAPLUS, URDS #### [facility] [address] [place] [address] Ketones Ql (U) 1+ High Negative [facility] Comment on above: Order Comment: Name Collection Type:: Clean-Voided Midstream Performed By: #### U HCG, ADDONUAPLUS, URDS #### [facility] [address] [place] [address] Leukocyte esterase Test strip Ql (U) Negative Normal Negative [facility] Comment on above: Order Comment: Name Collection Type:: Clean-Voided Midstream Performed By: #### U HCG, ADDONUAPLUS, URDS #### [facility] [address] [place] [address] Nitrite,Urine Negative Normal Negative [facility] Comment on above: Order Comment: Name Collection Type:: Clean-Voided Midstream Performed By: #### U HCG, ADDONUAPLUS, URDS #### [facility] [address] [place] [address] Occult Blood,Urine 2+ High Negative [facility] Comment on above: Order Comment: Name Collection Type:: Clean-Voided Midstream Performed By: #### U HCG, ADDONUAPLUS, URDS #### [facility] [address] [place] [address] pH (U) 6.0 [pH] Normal 5.0-9.0 [facility] Comment on above: Order Comment: Name Collection Type:: Clean-Voided Midstream Performed By: #### U HCG, ADDONUAPLUS, URDS #### [facility] [address] [place] [address] Protein,Urine Negative Normal Negative [facility] Comment on above: Order Comment: Name Collection Type:: Clean-Voided Midstream Performed By: #### U HCG, ADDONUAPLUS, URDS #### [facility] [address] [place] [address] [place] RBC,Urine 5-9 High 0-4 [facility] Comment on above: Order Comment: Name Collection Type:: Clean-Voided Midstream Performed By: #### U HCG, ADDONUAPLUS, URDS #### [address] [place],Urine 1.022 Normal 1.001-1.030 [facility] Comment on above: Order Comment: Name Collection Type:: Clean-Voided Midstream Performed By: #### U HCG, ADDONUAPLUS, URDS #### [address] Squamous Epithelial Cell,Urine 0-1 Normal 0-2 [facility] Comment on above: Order Comment: Name Collection Type:: Clean-Voided Midstream Performed By: #### U HCG, ADDONUAPLUS, URDS #### [address] Urobilinogen,Urine Normal Normal Normal [facility] Comment on above: Order Comment: Name Collection Type:: Clean-Voided Midstream Performed By: #### U HCG, ADDONUAPLUS, URDS #### [address] WBC LM.HPF (Urine sed) [#/Area] 0 /[HPF] Normal 0-4 [facility] Comment on above: Order Comment: Name Collection Type:: Clean-Voided Midstream Performed By: #### U HCG, ADDONUAPLUS, URDS #### [address] Drug Screen,Urineon 12-09-19 Amphetamine Screen,Urine Positive High Negative [facility] Comment on above: Performed By: #### U HCG, ADDONUAPLUS, URDS #### [address] Barbiturate Screen,Urine Negative Normal Negative [facility] Comment on above: Performed By: #### U HCG, ADDONUAPLUS, URDS #### [address] Benzodiazepines Screen,Urine Negative Normal Negative [facility] Comment on above: Performed By: #### U HCG, ADDONUAPLUS, URDS #### [address] Cannabinoid Screen,Urine Negative Normal Negative [facility] Comment on above: Result Comment: Thes e are unconfirmed results and should not be used for legal purposes. Drug Cut-Off Concentration: AMPH 1000 ng/mL KAMRYN 200 ng/mL MIRELA 200 ng/mL COCM 300 ng/mL OP 300 ng/mL PCP 25 ng/mL THC 20 ng/mL PERFORMED BY: [place] [address] PATHOLOGIST [employer] LOCKSTITCH REHAN MARISCAL M.D. Performed By: #### U HCG, ADDONUAPLUS, URDS #### [facility] [address] [place] [address] [place] Cocaine Screen,Urine Negative Normal Negative [facility] Comment on above: Performed By: #### U HCG, ADDONUAPLUS, URDS #### [facility] [address] [place] [address] [place] Opiate Screen,Urine Negative Normal Negative [facility] Comment on above: Performed By: #### U HCG, ADDONUAPLUS, URDS #### [facility] [address] [place] [address] [place] Phencyclidine Screen,Urine Negative Normal Negative [facility] Comment on above: Performed By: #### U HCG, ADDONUAPLUS, URDS #### [facility] [address] [place] [address] [place] ECG 12 lead ECGon 12-09-2023 ECG 12 lead ECG [facility] [place] [address] [place] [address] Electrocardiograph Report Signed Patient: Jen Santamaria MR#: [id number] : 1995 Acct:[id number] Age/Sex: 28 / F ADM Date: 12/08/23 Loc: Room: [address] [place] [address] Type: DIS IN Attending Dr: Miguel Jalloh MD Ordering Provider: Rodriguez Nick MD Date [...] previous ECGs available Confirmed by Frannie Todd ([id number]) on 12/09/2023 11:36:04 AM Referred By: Electronically Signed By:Frannie Todd REVISED DOCUMENT/01/03/2024/cha (corrected prov sig) Transcribed By: MUS Signed By Frannie Todd MD [address] [facility] HCG,Urineon 12-09-2023 Beta HCG ( test) Ql (U) Negative [facility] Comment on above: Order Comment: Name Collection Type:: Clean-Voided Midstream Result Comment: PERF ORMED BY: [place] [address] PATHOLOGIST [employer] LOCKSTITCH REHAN MARISCAL M.D. Performed By: #### U HCG, ADDONUAPLUS, URDS #### [facility] [address] [place] [id number] [facility] Lipid Panelon 12-09-2023 Cholesterol [Mass/Vol] 170 mg/dL Normal 140-200 [facility] Comment on above: Result Comment: Chol less than 200 mg/dl low risk Chol 201-239 mg/dl borderline risk Chol 240 mg/dl and greater high risk Performed By: #### U HCG, ADDONUAPLUS, URDS #### [facility] [address] [place], [place] [id number] [place] Cholesterol in HDL [Mass/Vol] 54 mg/dL Normal 23-92 [facility] Comment on above: Result Comment: HDL CHOL ATP-III CLASSIFICATION Cardiovascular Risk HDL > or equal to 60 mg/dL LOW HDL < 40 mg/dL HIGH Performed By: #### U HCG, ADDONUAPLUS, URDS #### [facility] [address] [place] [id number] [facility] Cholesterol.total/Chol esterol in HDL [Mass ratio] 3.1 {ratio} Normal <5.0 [facility] Comment on above: Performed By: #### U HCG, ADDONUAPLUS, URDS #### [facility] [address] LDL Cholesterol,Calculated 102 mg/dL High 0-100 [facility] Comment on above: Result Comment: LDL ATP III CLASSIFICATION LDL less than 100 mg/dL Optimal LDL 100-129 mg/dL Near or above optimal LDL 130-159 mg/dL Borderline high LDL 160-189 mg/dL High LDL greater than 189 mg/dL Very high Performed By: #### U HCG, ADDONUAPLUS, URDS #### [facility] [address] Triglyceride w/Reflex 71 mg/dL Normal 0-149 [facility] Comment on above: Result Comment: TRIG ATP III CLASSIFICATION TRIG less than 150 mg/dL Normal TRIG 150-199 mg/dL Borderline high TRIG 200-500 mg/dL High TRIG greater than 500 mg/dL Very high Standard traceable to the Center for Disease Conrtrol and Prevention (CDC) test method. Performed By: #### U HCG, ADDONUAPLUS, URDS #### [facility] [address] [place] [address] VLDL CHOLESTEROL 14 mg/dL Normal [facility] Comment on above: Performed By: #### U HCG, QUINNONUAPLUS, URDS #### [facility] [address] [place] [address] Thyroid Stim Hormone w/Rflxo n 12-09-2023 Thyroid Stim Hormone w/Rflx 1.67 u[iU]/mL Normal 0.45-5.33 [facility] Comment on above: Performed By: #### U HCG, ADDONUAPLUS, URDS #### [facility] [address] [place] [address] Vitamin D 25 Hydroxy Totalon 12-09-2023 Vitamin D 25 Hydroxy Total 25.6 ng/mL Low 30-100 [facility] Comment on above: Result Comment: JAXON MIN D STATUS 25(OH)VITAMIN D RANGE (ng/mL) Deficient <20 Insufficient 20 to <30 Sufficient 30 to 100 Reference: Yesenia MF,Deangelo NC, Jeison WHYTE, et al. Evaluation,treatment, and prevention of vitamin D deficiency; an Endocrine Society clinical practice guideline. JCEM. 2010; 96(7):1911-30. PERFORMED BY: [facility] [address] [place] [address] PATHOLOGIST [employer] LOCKSTITCH REHAN MARISCAL M.D. Performed By: #### U HCG, ADDONUAPLUS, URDS #### [facility] [address] [place], [place] [id number] [facility] Alanine aminotransferase [En zymatic activity/volume] in Serum [...] on 12-08-2023 Amphetamines Ql (U) Positive Negative [facility] Aspartate aminotransferase [ Enzymatic activity/volume] in Serum [...] on 12-08-2023 Benzodiazepines Ql (U) Negative Negative [facility] Benzoylecgonine [Presence] i n Urine by Screen methodOrdered By: Larry Rankin on 12-08-2023 Benzoylecgonine Screen Ql (U) Negative Negative [facility] Bilirubin Test strip Ql (U)O rdered By: Larry Rankin on 12-08-2023 Bilirubin Ql (U) Negative Negative [facility] Bilirubin.total [Mass/volume ] in Serum or PlasmaOrdered By: Larry Rankin on 12-08-2023 Bilirubin [Mass/Vol] 0.4 mg/dL 0.3-1.0 [facility] Calcium [Mass/volume] in Ser um or PlasmaOrdered By: Larry Rankin on 12-08-2023 Calcium [Mass/Vol] 9.8 mg/dL 8.6-10.3 [facility] Cannabinoids [Presence] in U rine by Screen [...] on 12-08-2023 CO2 [Moles/Vol] 24.0 mmol/L 21.0-31.0 [facility] Chloride [Moles/volume] in S ridge or PlasmaOrdered By: Larry Rankin on 01-26-2024 Chloride [Moles/Vol] 106 mmol/L 98-107 [facility] Color Auto (U)Ordered By: Chuck Hoffmanzi on 12-08-2023 Color (U) Yellow Yellow [facility] Complete Blood Count Auto Di ffon 12-08-2023 Basophils (Bld) [#/Vol] 0.1 10*3/uL Normal 0.0-0.2 [facility] Comment on above: Result Comment: PERF ORMED BY: [place] [address] PATHOLOGIST [employer]OCKST[employer] REHAN MARISCAL M.D. Performed By: #### U HCG, ADDONUAPLUS, URDS #### [address] Basophils/100 WBC (Bld) 0.7 % Normal . [facility] Comment on above: Performed By: #### U HCG, ADDONUAPLUS, URDS #### [facility] [address] [place] [address] Eosinophils (Bld) [#/Vol] 0.2 10*3/uL Normal 0.0-0.45 [facility] Comment on above: Performed By: #### U HCG, ADDONUAPLUS, URDS #### [address] Eosinophils/100 WBC (Bld) 2.2 % Normal . [facility] Comment on above: Performed By: #### U HCG, ADDONUAPLUS, URDS #### [facility] [address] [place] [address] Erythrocyte distribution width (RBC) [Ratio] 14.5 % Normal 11.9-15.3 [facility] Comment on above: Performed By: #### U HCG, ADDONUAPLUS, URDS #### [facility] [address] [place] [address] Hematocrit (Bld) [Volume fraction] 40.7 % Normal 34.0-46.4 [facility] Comment on above: Performed By: #### U HCG, ADDONUAPLUS, URDS #### [place] [address] [place] Hemoglobin (Bld) [Mass/Vol] 13.9 g/dL Normal 11.8-15.4 [facility] Comment on above: Performed By: #### U HCG, ADDONUAPLUS, URDS #### [facility] [address] Lymphocytes (Bld) [#/Vol] 2.7 10*3/uL Normal 1.00-4.8 [facility] Comment on above: Performed By: #### U HCG, ADDONUAPLUS, URDS #### [facility] [address] [place] [address] Lymphocytes/100 WBC (Bld) 36.8 % Normal . [facility] Comment on above: Performed By: #### U HCG, ADDONUAPLUS, URDS #### [facility] [address] [place] [address] MCH (RBC) [Entitic mass] 30.3 pg Normal 24.7-34.3 [facility] Comment on above: Performed By: #### U HCG, ADDONUAPLUS, URDS #### [address] MCV (RBC) [Entitic vol] 88.6 fL Normal 80-100 [facility] Comment on above: Performed By: #### U HCG, ADDONUAPLUS, URDS #### [facility] [address] [place] [address] Mean Corpuscular HGB Conc 34.2 g/dL Normal 32.0-35.0 [facility] Comment on above: Performed By: #### U HCG, ADDONUAPLUS, URDS #### [facility] [address] [place] [address] [place] Monocytes (Bld) [#/Vol] 0.5 10*3/uL Normal 0.0-0.8 [facility] Comment on above: Performed By: #### U HCG, ADDONUAPLUS, URDS #### [facility] [address] [place] [address] [place] Monocytes/100 WBC (Bld) 16.63 % Normal 0.00-20.00 [facility] Comment on above: Performed By: #### U HCG, ADDONUAPLUS, URDS #### [facility] [address] [place] [address] Monocytes/100 WBC (Bld) 6.4 % Normal . [facility] Comment on above: Performed By: #### U HCG, ADDONUAPLUS, URDS #### [facility] [address] [place] [address] Neutrophils (Bld) [#/Vol] 4.0 10*3/uL Normal 1.8-7.7 [facility] Comment on above: Performed By: #### U HCG, ADDONUAPLUS, URDS #### [address] Neutrophils/100 WBC (Bld) 53.9 % Normal . [facility] Comment on above: Performed By: #### U HCG, ADDONUAPLUS, URDS #### [facility] [address] [place] [address] NRBC% 0.1 /100{WBC} Normal 0-0.5 [facility] Comment on above: Performed By: #### U HCG, ADDONUAPLUS, URDS #### [address] Platelet mean volume (Bld) [Entitic vol] 7.4 fL Normal 6.3-10.7 [facility] Comment on above: Performed By: #### U HCG, ADDONUAPLUS, URDS #### [address] Platelets (Bld) [#/Vol] 384 10*3/uL Normal 150-450 [facility] Comment on above: Performed By: #### U HCG, ADDONUAPLUS, URDS #### [facility] [address] [place] [address] RBC (Bld) [#/Vol] 4.59 10*6/uL Normal 3.60-5.00 [facility] Comment on above: Performed By: #### U HCG, ADDONUAPLUS, URDS #### [facility] [address] WBC (Bld) [#/Vol] 7.4 10*3/uL Normal 3.8-11.6 [facility] Comment on above: Performed By: #### U HCG, ADDONUAPLUS, URDS #### [facility] [address] [place] [address] Comprehensive Metabolic Pane becca 12-08-2023 Albumin [Mass/Vol] 4.6 g/dL Normal 3.5-5.7 [facility] Comment on above: Performed By: #### U HCG, ADDONUAPLUS, URDS #### [facility] [address] [place] [address] Albumin/Globulin [Mass ratio] 1.5 {ratio} Normal [facility] Comment on above: Performed By: #### U HCG, ADDONUAPLUS, URDS #### [facility] [address] [place] [address] ALP [Catalytic activity/Vol] 59 U/L Normal 34-104 [facility] Comment on above: Performed By: #### U HCG, ADDONUAPLUS, URDS #### [facility] [address] [place] [address] ALT [Catalytic activity/Vol] 12 U/L Normal 7-52 [facility] Comment on above: Performed By: #### U HCG, ADDONUAPLUS, URDS #### [facility] [address] [place] [address] Anion gap [Moles/Vol] 11.7 mmol/L Normal 6.0-15.0 [facility] Comment on above: Performed By: #### U HCG, ADDONUAPLUS, URDS #### [facility] [address] [place] [address] AST [Catalytic activity/Vol] 19 U/L Normal 13-39 [facility] Comment on above: Performed By: #### U HCG, ADDONUAPLUS, URDS #### [facility] [address] [place] [address] Bilirubin [Mass/Vol] 0.4 mg/dL Normal 0.3-1.0 [facility] Comment on above: Performed By: #### U HCG, ADDONUAPLUS, URDS #### [facility] [address] [place] [address] Calcium [Mass/Vol] 9.8 mg/dL Normal 8.6-10.3 [facility] Comment on above: Performed By: #### U HCG, ADDONUAPLUS, URDS #### [address] Chloride [Moles/Vol] 106 mmol/L Normal 98-107 [facility] Comment on above: Performed By: #### U HCG, ADDONUAPLUS, URDS #### [address] CO2 [Moles/Vol] 24.0 mmol/L Normal 21.0-31.0 [facility] Comment on above: Performed By: #### U HCG, ADDONUAPLUS, URDS #### [address] Creatinine [Mass/Vol] 0.82 mg/dL Normal 0.60-1.20 [facility] Comment on above: Performed By: #### U HCG, ADDONUAPLUS, URDS #### [address] Creatinine Clr Calc Pharmacy 90.10 [facility] Comment on above: Result Comment: PERF ORMED BY: [place] [address] PATHOLOGIST [employer]OCKSTITCH REHAN MARISCAL M.D. Performed By: #### U HCG, ADDONUAPLUS, URDS #### [place] [address] [place] GFR/1.73 sq M.predicted MDRD (S/P/Bld) [Vol rate/Area] mL/min/{1.73_m2} [facility] Comment on above: Performed By: #### U HCG, ADDONUAPLUS, URDS #### [address] [place] [address] [place] Globulin (S) [Mass/Vol] 3.1 g/dL Normal [facility] Comment on above: Performed By: #### U HCGQUINNONREID URDS #### [facility] [address] [place] [address] [place] Glucose [Mass/Vol] 79 mg/dL Normal 70-100 [facility] Comment on above: Result Comment: [place] Glucose Reference Range is dependent on time and content of last meal. Glucose of more than 200 mg/dL in a nonstressed, ambulatory subject supports the diagnosis of Diabetes Mellitus. ADA recommended reference range Performed By: #### U HCGQUINNONREID URDS #### [facility] [address] Potassium [Moles/Vol] 3.7 mmol/L Normal 3.5-5.1 [facility] Comment on above: Performed By: #### U HCGQUINNONREID URDS #### [facility] [address] Protein [Mass/Vol] 7.7 g/dL Normal 6.4-8.9 [facility] Comment on above: Performed By: #### U HCGQUINNONREID URDS #### [facility] [address] [place] [address] [place] Sodium [Moles/Vol] 138 mmol/L Normal 136-145 [facility] Comment on above: Performed By: #### U HCGQUINNONUACHELSIE URDS #### [facility] [address] [place] [address] [place] Urea nitrogen [Mass/Vol] 8 mg/dL Normal 7-25 [facility] Comment on above: Performed By: #### U HCG ADDONUAPLUS URDS #### [facility] [address] [place] [address] [place] Creatinine [Mass/volume] in Serum or PlasmaOrdered By: Larry Rankin on 12-08-2023 Creatinine [Mass/Vol] 0.82 mg/dL 0.60-1.20 [facility] Eosinophils Auto (Bld) [#/Vo l]Ordered By: Larry [...] Larry Rankin on 12-08-2023 Ethanol [Mass/Vol] mg/dL [facility] [facility] Ethanol [Mass/Vol] TNP [facility] Comment on above: Test not performed Ethyl Alcohol Profileon 11-14 Ethanol [Mass/Vol] mg/dL Normal [facility] Comment on above: Performed By: #### U HCG, ADDONUAPLUS, URDS #### [facility] [address] Percent Ethanol Not performed Normal [facility] Comment on above: Result Comment: PERF ORMED BY: [address] [place] [address] PATHOLOGIST COLLAR CLOSER LOCKSTITCH REHAN MARISCAL M.D. Performed By: #### U HCG, ADDONUAPLUS, URDS #### [facility] [address] [place] [address] [place] Globulin Calc (S) [Mass/Vol] Ordered By: Larry Rankin on 12-08-2023 Globulin (S) [Mass/Vol] 3.1 g/dL [facility] Glucose [Mass/volume] in Ser um or PlasmaOrdered By: Larry Rankin on 12-08-2023 Glucose [Mass/Vol] 79 mg/dL 70-100 [facility] Comment on above: ADA recommended refe rence [...] on 12-08-2023 Ketones (U) [Mass/Vol] 1+ Negative [facility] Laboratory - UrinalysisOrder ed By: Larry Rankin on 12-08-2023 Hyaline casts LM Ql (Urine sed) 0-8 [LPF] 0-8 [facility] Leukocytes [#/volume] correc chema for nucleated erythrocytes in Blood by Automated counOrdered By: Larry Rankin on 12-08-2023 WBC corrected for nucl RBC Auto (Bld) [#/Vol] 7.4 10*3/uL 3.8-11.6 [facility] Lymphocytes Auto (Bld) [#/Vo l]Ordered By: Larry aRnkin on 12-08-2023 Lymphocytes (Bld) [#/Vol] 2.7 10*3/uL [...] 12-08-2023 MCHC (RBC) [Mass/Vol] 34.2 g/dL 32.0-35.0 [facility] MCV Auto (RBC) [Entitic vol] Ordered By: [...] 12-08-2023 Opiates Screen Ql (U) Negative Negative [facility] Phencyclidine Screen Ql (U)O rdered By: Larry Rankin on 12-08-2023 Phencyclidine Ql (U) Negative Negative [facility] Platelet mean volume Auto (B ld) [Entitic vol]Ordered By: Larry Rankin on 12-08-2023 Platelet mean volume (Bld) [Entitic vol] 7.4 fL 6.3-10.7 [facility] Platelets Auto (Bld) [#/Vol] Ordered By: Larry Rankin on 12-08-2023 Platelets (Bld) [#/Vol] 384 10*3/uL 150-450 [facility] Potassium [Moles/volume] in Serum or PlasmaOrdered By: Larry Rankin on 12-08-2023 Potassium [Moles/Vol] 3.7 mmol/L 3.5-5.1 [facility] Protein Auto test strip (U) [Mass/Vol]Ordered By: Larry Rankin on 12-08-2023 Protein (U) [Mass/Vol] Negative Negative [facility] Protein [Mass/volume] in Ser um or PlasmaOrdered By: Larry Rankin on 12-08-2023 Protein [Mass/Vol] 7.7 g/dL 6.4-8.9 [facility] RBC Auto (Bld) [#/Vol]Ordere d By: Larry Rankin on 12-08-2023 RBC (Bld) [#/Vol] 4.59 10*6/uL 3.60-5.00 [facility] Serum or plasma albumin/glob ulin mass ratioOrdered By: Larry Rankin on 12-08-2023 Albumin/Globulin [Mass ratio] 1.5 {ratio} [facility] Serum or plasma anion gap de terminationOrdered By: Larry Rankin on 12-08-2023 Anion gap [Moles/Vol] 11.7 mmol/L 6.0-15.0 [facility] Sodium [Moles/volume] in Ser um or PlasmaOrdered By: Larry Rankin on 12-08-2023 Sodium [Moles/Vol] 138 mmol/L 136-145 [facility] Specific gravity Auto test s trip (U) [...] Auto Ql (U) None seen None Seen [facility] Urine clarity by refractomet ry automatedOrdered By: [...] 12-08-2023 WBC (Bld) [#/Vol] 7.4 10*3/uL 3.8-11.6 [facility] pH Auto test strip (U)Ordere d [...] [facility] , #### CMP, TSH3, CBC #### [facility] [address] [place] [address] [place] Deamidated Gliadin Abs, IgG 4 Normal 0-19 [facility] Comment on above: Result Comment: Nega tive 0 - 19 Weak Positive 20 - 30 Moderate to Strong Positive >30 Performed By: #### C ELIAC GEN, CELIAC #### [facility] , #### CMP, TSH3, CBC #### [facility] [address] [place] [address] [place] Endomysial Antibody IgA Negative Normal Negative [facility] Comment on above: Performed By: #### C ELIAC GEN, CELIAC #### [facility] , #### CMP, TSH3, CBC #### [facility] [address] [place] [address] [place] Immunoglobulin A, Qn, Serum 289 mg/dL Normal 87-352 [facility] Comment on above: Result Comment: Perf ormed at: - [facility] [place] [id number] Pest Control Worker Helper: Zelalem Hatch PhD, Phone: [phone] Performed By: #### C ELIAC GEN, CELIAC #### [facility] , #### CMP, TSH3, CBC #### [facility] [address] [place] [address] [place] T-Transglutaminase (tTG) IgA 3 Normal 0-3 St. [...] [facility] , #### CMP, TSH3, CBC #### [facility] [address] T-Transglutaminase (tTG) IgG 3 Normal 0-5 [facility] Comment on above: Result Comment: Nega tive 0 - 5 Weak Positive 6 - 9 Positive >9 Performed By: #### C ELIAC GEN, CELIAC #### [facility] , #### CMP, TSH3, CBC #### [facility] [address] Celiac Disease Genetics HLA DQon 08-08-2023 CDDQ2 Additional Information Normal . [facility] Comment on above: Result Comment: Refe rences: 1. Dain HANNAH and Malvin Mcmahan. Celiac Disease. N Eng J Med 2007; 357:8332-1695. 2. Megiorni F, Alvarez B, Bonarileyo M et al. HLA-DQ and risk gradient for celiac disease. Hum Immunol 2009; 70:55-59. 3. Talia MM, Darrell TC, Kimberly FM et al. Stratifying risk for celiac disease in a large at-risk [facility] population by using HLA alleles. Clin Gastroenterol Hepatol 2009; 7:966-971. 4. Nash ELLSWORTH and Jeremiah BA. (2005). Celiac Disease Genetics: Current Concepts and Practical Applications. Clin Gastroenterol and Hepat 3:843-851. 5. Torin CL, Ady DO, Dain HANNAH, et al. Celiac Disease. In: Will RA, Siddhartha TC, Aidan CR, Maria M K, editors. [employer]), [facility], [place], May 15, 2008:1-27. http://www.ncbi.nlm.nih.gov/lucio/br.fcgi?book=genepart=harry iac PMID 28629006 (PubMed) 6. Mark Zuniga. Emerging concepts in celiac disease. Curr Opin Pediatr 2004;16:552-559. Performed at: [address] [place] [id number] Pest Control Worker Helper: Cynthia Kurtz PhD, Phone: [phone] PERFORMED BY: [place] [address] PATHOLOGIST COLLAR CLOSER LOCKSTITCH REHAN MARISCAL M.D. Performed By: #### C ELIAC GEN, CELIAC #### [facility] , #### CMP, TSH3, CBC #### [address] Comment: Normal . [facility] Comment on above: Result Comment: This test was performed using Polymerase Chain Reaction (PCR) and Sequence Specific Oligonucleotide Probes (SSOP) (Not iT) technique. Sequence Based Typing (SBT) may be used as a supplemental method when necessary. If you have questions, please call HLA [employer] service at or email at [email or web address]. Performed By: #### C ELIAC GEN, CELIAC #### [facility] , #### CMP, TSH3, CBC #### [address] Dq2 (Dqa1 0501/0505,Dqb1 02Xx) Positive Normal . [facility] Comment on above: Performed By: #### C ELIAC GEN, CELIAC #### [facility] , #### CMP, TSH3, CBC #### [address] Dq8 (Dqa1 03Xx, Dqb1 0302) Positive Normal . [facility] Comment on above: Result Comment: Elvira sanders Results: DQB1*02:EESDD,03:EGYSB DQA1*03:EENWN,05:EEMXY Code Translation: EEMXY 05:11/17:/:18:19:23:27:33 :35/05:38/05:40/05:41:47/:49/:52 /05:54Q/05:55:56:5705:61 EENWN 03:11/15:04/15:10/15:15/03:18/03:2203:25 03:27N/03:30/03:36 EESDD 02:0102:0302:0402:03/14:05/14:06/14::26/12:14:15:16:17:18N /02:19:03/01:04/01:05/01:06/01:07/01::10/01::::32:33:34 :35:36:37:38:3902:40:41 :42:43:44:4502:4602:4702:49 02:5202:53Q/02:55/02:56/02:58N/02:59 /02:60/02:6102:6302:6402:66/02:67N /02:68/02:69/02:70/02:72/02:73/02:74/02:76 /02:77/02:78/02:79/02:83/02:85/02:86/02:87 /02:88/02:90/02:91/02:92/02:93/02:96N /02:98/02:99/02:100/02:101/02:102/02:103 /02:104/02:105/02:106/02:107/02:108/02:109 /02:111/02:112/02:114/02:115/02:118/02:119 /02:123/02:125/02:128/02:129N/02:130 /02:132N/02:133/02:134N/02:135/02:136 /02:140/02:144/02:148/02:149/02:151/02:152 /02:154/02:155/02:157/02:158/02:159/02:160 /02:163N/02:164/02:168/02:169/02:170 /02:173/02:174/02:177N/02:178/02:181 /02:182/02:184/02:185/02:186/02:188/02:189 /02:190/02:191/02:192/02:193/02:195/02:196 /02:197/02:198/02:202 EGYSB 03:02/03:07/03:32/03:37/03:40/03:41/03:62 /03:63/03:64/03:66N/03:68/03:70/03:81 /03:85/03:90N/03:106/03:110/03:141/03:146 /03:153/03:155/03:161/03:174/03:175/03:178 /03:179/03:185/03:189/03:190/03:199/03:203 /03:204/03:205/03:211/03:213N/03:214 /03:220/03:223/03:224/03:229/03:233 /03:237N/03:239/03:240/03:245/03:247 /03:251/03:261/03:265/03:269N/03:273 /03:274/03:278/03:279/03:287/03:289/03:295 /03:296/03:298/03:299/03:300/03:301/03:308 /03:310N/03:315/03:320/03:321/03:322 /03:323/03:324/03:333/03:334N/03:337 /03:339N/03:343/03:344/03:345/03:348 /03:349/03:352/03:359/03:362/03:364/03:367 /03:368/03:369/03:379/03:383/03:386/03:392 /03:403N/03:409/03:410/03:412/03:415 /03:416/03:422N/03:429/03:433/03:437 /03:440N/03:441/03:442/03:444/03:446 /03:452/03:456/03:457/03:459/03:462/03:463 /03:464/03:466/03:471/03:479/03:481/03:484 /03:490/03:493 The patient is positive for both DQ2 and DQ8. Celiac Disease risk from the HLA DQA/DQB genotype is approximately 1:7 (14.3%) Allele interpretation for all loci based on IMGT/HLA database version 3.49.0 HLA Lab CLIA ID Number [id number] Greater than 95% of celiac patients are positive for either DQ2 or DQ8 (Nash and Sahra, (1993) Gastroenterology 105:910-922). However these antigens may also be present in patients who do not have Celiac disease. Performed By: #### C ELIAC GEN, CELIAC #### [facility] , #### CMP, TSH3, CBC #### [address] Complete Blood Count Auto Di ffon 08-08-2023 Basophils (Bld) [#/Vol] 0.0 10*3/uL Normal 0.0-0.2 [facility] Comment on above: Result Comment: PERF ORMED BY: [place] [address] PATHOLOGIST COLLAR CLOSER LOCKSTITCH REHAN MARISCAL M.D. Performed By: #### C ELIAC GEN, CELIAC #### [facility] , #### CMP, TSH3, CBC #### [place] [address] [place] Basophils/100 WBC (Bld) 0.6 % Normal . [facility] Comment on above: Performed By: #### C ELIAC GEN, CELIAC #### [facility] , #### CMP, TSH3, CBC #### [place] [address] [place] Eosinophils (Bld) [#/Vol] 0.1 10*3/uL Normal 0.0-0.45 [facility] Comment on above: Performed By: #### C ELIAC GEN, CELIAC #### [facility] , #### CMP, TSH3, CBC #### [address] Eosinophils/100 WBC (Bld) 1.5 % Normal . [facility] Comment on above: Performed By: #### C ELIAC GEN, CELIAC #### [facility] , #### CMP, TSH3, CBC #### [address] Erythrocyte distribution width (RBC) [Ratio] 14.6 % Normal 11.9-15.3 [facility] Comment on above: Performed By: #### C ELIAC GEN, CELIAC #### [facility] , #### CMP, TSH3, CBC #### [address] Hematocrit (Bld) [Volume fraction] 42.6 % Normal 34.0-46.4 [facility] Comment on above: Performed By: #### C ELIAC GEN, CELIAC #### [facility] , #### CMP, TSH3, CBC #### [address] Hemoglobin (Bld) [Mass/Vol] 14.2 g/dL Normal 11.8-15.4 [facility] Comment on above: Performed By: #### C ELIAC GEN, CELIAC #### [facility] , #### CMP, TSH3, CBC #### [address] Lymphocytes (Bld) [#/Vol] 2.1 10*3/uL Normal 1.00-4.8 [facility] Comment on above: Performed By: #### C ELIAC GEN, CELIAC #### [facility] , #### CMP, TSH3, CBC #### [address] Lymphocytes/100 WBC (Bld) 34.7 % Normal . [facility] Comment on above: Performed By: #### C ELIAC GEN, CELIAC #### [facility] , #### CMP, TSH3, CBC #### [address] MCH (RBC) [Entitic mass] 29.1 pg Normal 24.7-34.3 [facility] Comment on above: Performed By: #### C ELIAC GEN, CELIAC #### [facility] , #### CMP, TSH3, CBC #### [address] MCV (RBC) [Entitic vol] 87.1 fL Normal 80-100 [facility] Comment on above: Performed By: #### C ELIAC GEN, CELIAC #### [facility] , #### CMP, TSH3, CBC #### [address] Mean Corpuscular HGB Conc 33.4 g/dL Normal 32.0-35.0 [facility] Comment on above: Performed By: #### C ELIAC GEN, CELIAC #### [facility] , #### CMP, TSH3, CBC #### [address] Monocytes (Bld) [#/Vol] 0.5 10*3/uL Normal 0.0-0.8 [facility] Comment on above: Performed By: #### C ELIAC GEN, CELIAC #### [facility] , #### CMP, TSH3, CBC #### [address] Monocytes/100 WBC (Bld) 8.1 % Normal . [facility] Comment on above: Performed By: #### C ELIAC GEN, CELIAC #### [facility] , #### CMP, TSH3, CBC #### [place] [address] [place] Neutrophils (Bld) [#/Vol] 3.3 10*3/uL Normal 1.8-7.7 [facility] Comment on above: Performed By: #### C ELIAC GEN, CELIAC #### [facility] , #### CMP, TSH3, CBC #### [address] Neutrophils/100 WBC (Bld) 55.1 % Normal . [facility] Comment on above: Performed By: #### C ELIAC GEN, CELIAC #### [facility] , #### CMP, TSH3, CBC #### [address] NRBC% 0.1 /100{WBC} Normal 0-0.5 [facility] Comment on above: Performed By: #### C ELIAC GEN, CELIAC #### [facility] , #### CMP, TSH3, CBC #### [address] Platelet mean volume (Bld) [Entitic vol] 7.1 fL Normal 6.3-10.7 [facility] Comment on above: Performed By: #### C ELIAC GEN, CELIAC #### [facility] , #### CMP, TSH3, CBC #### [place] [address] [place] Platelets (Bld) [#/Vol] 326 10*3/uL Normal 150-450 [facility] Comment on above: Performed By: #### C ELIAC GEN, CELIAC #### [facility] , #### CMP, TSH3, CBC #### [place] [address] [place] RBC (Bld) [#/Vol] 4.89 10*6/uL Normal 3.60-5.00 [facility] Comment on above: Performed By: #### C ELIAC GEN, CELIAC #### [facility] , #### CMP, TSH3, CBC #### [facility] [address] WBC (Bld) [#/Vol] 5.9 10*3/uL Normal 3.8-11.6 [facility] Comment on above: Performed By: #### C ELIAC GEN, CELIAC #### [facility] , #### CMP, TSH3, CBC #### [address] Comprehensive Metabolic Pane becca 08-08-2023 Albumin [Mass/Vol] 4.3 g/dL Normal 3.5-5.7 [facility] Comment on above: Performed By: #### C ELIAC GEN, CELIAC #### [facility] , #### CMP, TSH3, CBC #### [address] Albumin/Globulin [Mass ratio] 1.3 {ratio} Normal [facility] Comment on above: Performed By: #### C ELIAC GEN, CELIAC #### [facility] , #### CMP, TSH3, CBC #### [facility] [address] [place] [address] ALP [Catalytic activity/Vol] 81 U/L Normal 34-104 [facility] Comment on above: Performed By: #### C ELIAC GEN, CELIAC #### [facility] , #### CMP, TSH3, CBC #### [facility] [address] [place] [address] ALT [Catalytic activity/Vol] 11 U/L Normal 7-52 [facility] Comment on above: Performed By: #### C ELIAC GEN, CELIAC #### [facility] , #### CMP, TSH3, CBC #### [facility] [address] Anion gap [Moles/Vol] 10.2 mmol/L Normal 6.0-15.0 [facility] Comment on above: Performed By: #### C ELIAC GEN, CELIAC #### [facility] , #### CMP, TSH3, CBC #### [facility] [address] AST [Catalytic activity/Vol] 16 U/L Normal 13-39 [facility] Comment on above: Performed By: #### C ELIAC GEN, CELIAC #### [facility] , #### CMP, TSH3, CBC #### [facility] [address] Bilirubin [Mass/Vol] 0.6 mg/dL Normal 0.3-1.0 [facility] Comment on above: Performed By: #### C ELIAC GEN, CELIAC #### [facility] , #### CMP, TSH3, CBC #### [address] Calcium [Mass/Vol] 9.3 mg/dL Normal 8.6-10.3 [facility] Comment on above: Performed By: #### C ELIAC GEN, CELIAC #### [facility] , #### CMP, TSH3, CBC #### [facility] [address] [place] [address] [place] Chloride [Moles/Vol] 106 mmol/L Normal 98-107 [facility] Comment on above: Performed By: #### C ELIAC GEN, CELIAC #### [facility] , #### CMP, TSH3, CBC #### [facility] [address] [place] [address] [place] CO2 [Moles/Vol] 25.6 mmol/L Normal 21.0-31.0 [facility] Comment on above: Performed By: #### C ELIAC GEN, CELIAC #### [facility] , #### CMP, TSH3, CBC #### [address] Creatinine [Mass/Vol] 0.73 mg/dL Normal 0.60-1.20 [facility] Comment on above: Performed By: #### C ELIAC GEN, CELIAC #### [facility] , #### CMP, TSH3, CBC #### [facility] [address] [place] [address] [place] Creatinine Clr Calc Pharmacy 103.85 [facility] Comment on above: Performed By: #### C ELIAC GEN, CELIAC #### [facility] , #### CMP, TSH3, CBC #### [place] [address] [place] GFR/1.73 sq M.predicted MDRD (S/P/Bld) [Vol rate/Area] mL/min/{1.73_m2} [facility] Comment on above: Performed By: #### C ELIAC GEN, CELIAC #### [facility] , #### CMP, TSH3, CBC #### [address] Globulin (S) [Mass/Vol] 3.3 g/dL [facility] Comment on above: Performed By: #### C ELIAC GEN, CELIAC #### [facility] , #### CMP, TSH3, CBC #### [address] Glucose [Mass/Vol] 80 mg/dL Normal 70-100 [facility] Comment on above: Result Comment: [place] Glucose Reference Range is dependent on time and content of last meal. Glucose of more than 200 mg/dL in a nonstressed, ambulatory subject supports the diagnosis of Diabetes Mellitus. ADA recommended reference range Performed By: #### C ELIAC GEN, CELIAC #### [facility] , #### CMP, TSH3, CBC #### [address] Potassium [Moles/Vol] 3.8 mmol/L Normal 3.5-5.1 [facility] Comment on above: Performed By: #### C ELIAC GEN, CELIAC #### [facility] , #### CMP, TSH3, CBC #### [address] Protein [Mass/Vol] 7.6 g/dL Normal 6.4-8.9 [facility] Comment on above: Performed By: #### C ELIAC GEN, CELIAC #### [facility] , #### CMP, TSH3, CBC #### [address] Sodium [Moles/Vol] 138 mmol/L Normal 136-145 [facility] Comment on above: Performed By: #### C ELIAC GEN, CELIAC #### [facility] , #### CMP, TSH3, CBC #### [address] Urea nitrogen [Mass/Vol] 10 mg/dL Normal 7-25 [facility] Comment on above: Performed By: #### C ELIAC GEN, CELIAC #### [facility] , #### CMP, TSH3, CBC #### [address] HCG ( test) [place].rapi d Ql (U)Ordered By: Juice Johnson on 08-08-2023 HCG ( test) Ql (U) Negative [facility] HCG,Urineon 08-08-2023 Beta HCG ( test) Ql (U) Negative Normal [facility] Comment on above: Result Comment: PERF ORMED BY: [place] [address] PATHOLOGIST COLLAR CLOSER LOCKSTITCH REHAN MARISCAL M.D. Performed By: #### U HCG, ADDONUAPLUS, URDS #### [address] [place] [address] [facility] 08-08-2023 L ---- Specimen: [id number] Received: 08/08/23 Status: TAMELA Fam Num: [id number] Spec Type: Surgical Subm Dr: Juice Johnson MD Tissues: A Small Intestine - Biopsy/Polyp (SMALL BOWEL BX) Procedures: RAMONITA/Mirella Gross/Micro L4 Age/ Patient Sex Location Account Attending Physician Jen Santamaria 27/F [id number] Juice Johnson MD SPEC NUM: [id number] RECD: 08/08/23 STATUS: TAMELA FAM NUM: [id number] ROSA: 08/08/23 DR: Juice Johnson MD ENTERED: 08/08/[address] [facility] [address]: SPEC TYPE: Surgical DEPT: S ORDERED: HE/2, Gross/Micro L4 ORDERED: HE/2, Gross/Micro L4 Pathological Diagnosis Small bowel biopsy: [...] The microscopic examination confirms the diagnosis. Specimen: [id number] Received: 08/08/23 Status: TAMELA Fam Num: [id number] Spec Type: Surgical Subm Dr: Juice Johnson MD Tissues: A Small Intestine - Biopsy/Polyp (SMALL BOWEL BX) Procedures: HE/2, Gross/Micro L4 Patient: Jen Santamaria [id number] (Continued) Specimen: Received: 08/08/23 (Continued) Signed (signature on file) Arlene Hernandez MD 08/10/23 1353 Specimen: Received: 08/08/23 Status: TAMELA Fam Num: [id number] Spec Type: Surgical Subm Dr: Juice Johnson MD Tissues: A Small Intestine - Biopsy/Polyp (SMALL BOWEL BX) Procedures: FIONA, Tom/Thuan L4 Patient: Jen Santamaria [id number] (Continued) Specimen: Received: 08/08/23 (Continued) CPT Codes 59863 Specimen: [id number] Received: 08/08/23 Status: TAMELA Fam Num: [id number] Spec Type: Surgical Subm Dr: Juice Johnson MD Tissues: A Small Intestine - Biopsy/Polyp (SMALL BOWEL BX) Procedures: RAMONITA/Mirella, Gross/Micro L4 Patient: Jen Santamaria [id number] (Continued) Signed (signature on file) Kavitha Hernandez MD 08/10/[address] [facility] Thyroid Stimulating Hormoneo n 08-08-2023 TSH Qn 0.01 m[IU]/L Low 0.45-5.33 [facility] Comment on above: Result Comment: PERF ORMED BY: [facility] [address] [place] [address] PATHOLOGIST COLLAR CLOSER LOCKSTITCH REHAN MARISCAL M.D. Performed By: #### C ELIAC GEN, CELIAC #### [facility] , #### CMP, TSH3, CBC #### [facility] [address] Basophils Auto (Bld) [#/Vol] Ordered By: [...] 11-08-2022 MCHC (RBC) [Mass/Vol] 33.5 g/dL 32.0-35.0 [facility] MCV Auto (RBC) [Entitic vol] Ordered By: [...] 11-08-2022 RBC (Bld) [#/Vol] 2.73 10*6/uL 3.60-5.00 [facility] WBC Auto (Bld) [#/Vol]Ordere d By: Stephanie Edward on 11-08-2022 WBC (Bld) [#/Vol] 14.2 10*3/uL 3.8-11.6 [facility] Amphetamine Screen Ql (U)Ord ered By: Stephanie Edward on 11-06-2022 Amphetamines Ql (U) Negative Negative [facility] Automated erythrocytes count in urine sediment (number/area)Ordered By: Stephanie Edward on 11-06-2022 RBC Auto (Urine sed) [#/Area] 5-9 [HPF] 0-4 [facility] Automated leukocytes count i n urine sediment (number/area)Ordered By: Stephanie Edward on 11-06-2022 WBC Auto (Urine sed) [#/Area] 5-9 [HPF] 0-4 [facility] Barbiturates [Presence] in U rineOrdered By: Stephanie Edward on 11-06-2022 Barbiturates Ql (U) Negative Negative [facility] Benzodiazepines [Presence] i n UrineOrdered By: Stephanie Edward on 11-06-2022 Benzodiazepines Ql (U) Negative Negative [facility] Bilirubin Test strip Ql (U)O rdered By: Stephanie Edward on 11-06-2022 Bilirubin Ql (U) Negative Negative [facility] Color Auto (U)Ordered By: Adelaida heidibeto Edward on 11-06-2022 Color (U) Yellow Yellow [facility] Ketones Auto test strip (U) [Mass/Vol]Ordered By: Stephanie Edward on 11-06-2022 Ketones (U) [Mass/Vol] Negative Negative [facility] Laboratory - Drug toxicology Ordered By: Stephanie [...] on 11-06-2022 Phencyclidine Ql (U) Negative Negative [facility] Comment on above: These are unconfirme d results and should not be used for legal purposes. Drug Cut-Off Concentration: AMPH 1000 ng/mL KAMRYN 200 ng/mL MIRELA 200 ng/mL COCM 300 ng/mL OP 300 ng/mL PCP 25 ng/mL Protein Auto test strip (U) [Mass/Vol]Ordered By: Stephanie Edward on 11-06-2022 Protein (U) [Mass/Vol] Negative Negative [facility] Reagin Ab [Presence] in Seru m by RPROrdered By: Stephanie Edward on 11-06-2022 Reagin Ab RPR Ql (S) Non-Reactive Non Reactive [facility] Comment on above: Performed at: [address] [id number] Director: Zelalem Hatch PhD, Phone: [phone] Specific gravity Auto test s trip (U) [...] Bacteria Auto Ql (U) 1+ None Seen [facility] Urine clarity by refractomet ry automatedOrdered By: [...] Free T4 [Mass/Vol] 1.01 ng/dL Normal 0.80-1.80 [facility] [employer] Comment on above: Performed By: #### T SH reflex FT4, FT4 #### [facility] [address] [place], [place] [id number] TSH w/ Reflex to Free T4on 0 04-21-2022 FT4 reflex Free T4 Normal [facility] Comment on above: Performed By: #### T SH reflex FT4, FT4 #### [facility] [address], [place] [id number] TSH 31.780 uIU/mL High 0.400-4.500 [facility] Specialist Comment on above: Performed By: #### T SH reflex FT4, FT4 #### [facility] [address], [place] [id number] CBC AUTO DIFFon 03-02-2022 BASO # 0.0 103/ul Normal 0.0-0.1 [facility] Comment on above: Performed By: #### C BC #### [facility] [address] [address] [address] Briana Hernandez Basophils/100 WBC (Bld) 0.2 % Normal 0.2-2.0 [facility] Comment on above: Performed By: #### C BC #### [facility] [address] [address] [address] Briana Hernandez EO # 0.0 103/ul Normal 0.0-0.7 [facility] Comment on above: Performed By: #### C BC #### [facility] [address] [address] [address] Briana Hernandez Eosinophils/100 WBC (Bld) 0.5 % Critically low 0.9-7.0 [facility] Comment on above: Performed By: #### C BC #### [facility] [address] [place] [address] Dr. Briana Hernandez Erythrocyte distribution width (RBC) [Ratio] 13.3 % Normal 11.0-15.0 [facility] Comment on above: Performed By: #### C BC #### [facility] [address] [place] [address] Dr. Briana Hernandez Hematocrit (Bld) [Volume fraction] 37.4 % Normal 36.0-48.0 [facility] Comment on above: Performed By: #### C BC #### [facility] [address] [place] [address] Dr. Briana Hernandez Hemoglobin (Bld) [Mass/Vol] 12.6 g/dL Normal 12.0-16.0 [facility] Comment on above: Performed By: #### C BC #### [facility] [address] [place] [address] Dr. Briana Hernandez IG # 0.02 10e3/ul Normal 0.00-0.03 [facility] Comment on above: Performed By: #### C BC #### [facility] [address] [place] [address] Dr. Briana Hernandez IG % 0.2 % Normal 0.0-0.5 [facility] Comment on above: Performed By: #### C BC #### [facility] [address] [place] [address] Dr. Briana Hernandez LYMPH # 1.6 103/ul Normal 1.2-3.8 [facility] Comment on above: Performed By: #### C BC #### [facility] [address] [place] [address] Dr. Briana Hernandez Lymphocytes/100 WBC (Bld) 19.3 % Critically low 20.5-60.0 [facility] Comment on above: Performed By: #### C BC #### [facility] [address] [place] [address] Dr. Briana Hernandez MANUAL DIFF REQ NO Normal [facility] Comment on above: Performed By: #### C BC #### [facility] [address] [place] [address] Dr. Briana Hernandez MCH (RBC) [Entitic mass] 31.0 pg Normal 26.7-34.0 [facility] Comment on above: Performed By: #### C BC #### [facility] [address] [place] [address] Dr. Briana Hernandez MCHC (RBC) [Mass/Vol] 33.7 g/dL Normal 29.9-35.2 [facility] Comment on above: Performed By: #### C BC #### [facility] [address] [place] [address] Dr. Briana Hernandez MCV (RBC) [Entitic vol] 91.9 fL Normal 81.0-99.0 [facility] Comment on above: Performed By: #### C BC #### [facility] [address] [place] [address] Dr. Briana Hernandez MONO # 0.6 103/ul Normal 0.3-0.8 [facility] Comment on above: Performed By: #### C BC #### [facility] [address] [place] [address] Dr. Briana Hernandez Monocytes/100 WBC (Bld) 6.8 % Normal 1.7-12.0 [facility] Comment on above: Performed By: #### C BC #### [facility] [address] [place] [address] Dr. Briana Hernandez NEUT # 5.9 103/ul Normal 1.4-6.5 [facility] Comment on above: Performed By: #### C BC #### [facility] [address] [place] [address] Dr. Briana Hernandez Neutrophils/100 WBC (Bld) 73.0 % Normal 43.0-75.0 [facility] Comment on above: Performed By: #### C BC #### [facility] [address] [place] [address] Dr. Briana Hernandez Platelet mean volume (Bld) [Entitic vol] 8.9 fL Critically low 9.5-13.5 [facility] Comment on above: Performed By: #### C BC #### [facility] [id number] Briana Hernandez PLT 331 103/ul Normal 150-450 [facility] Comment on above: Performed By: #### C BC #### [facility] [id number] Briana Hernandez RBC 4.07 106/ul Critically low 4.20-5.40 [facility] Comment on above: Performed By: #### C BC #### [facility] [address] [address] [address] Briana Hernandez WBC 8.0 103/ul Normal 4.0-11.0 [facility] Comment on above: Performed By: #### C BC #### [facility] [address] [place] [address] Dr. Briana Hernandez PREG QUANT HCGon 03-02-2022 HCG QUANT 577 mIU/mL Normal [facility] Comment on above: Performed By: #### P REGQNT #### [facility] [address] [place] [address] Dr. Briana Hernandez HCG RANGE SEE BELOW Normal [facility] Comment on above: Result Comment: 5-50 0-1 WEEK 40-300 1-2 WEEKS 100-1,000 2-3 WEEKS 500-6,000 3-4 WEEKS 5,000-200,000 1-2 MONTHS 10,000-100,000 2-3 MONTHS 3,000-50,000 2ND TRIMESTER 1,000-50,000 3RD TRIMESTER Performed By: #### P REGQNT #### [facility] [address] [place] [address] Dr. Briana Hernandez COVID Quick Testingon 2021 Result Negative [facility] Other Covid-19 PCR ([facility])on SARS-CoV-2 (COVID-19) RNA NELY+probe Ql (Unsp spec) Not detected Normal NOT DETECTED [facility] Comment on above: Result Comment: This test is not yet approved or cleared by the [place] FDA. When there are no FDA-approved or cleared tests available, and other criteria are met, FDA can make tests available under an emergency access mechanism called an Emergency Use Authorization (EUA). The EUA for this test is supported by the [place] of Health and Human Service's (HHS's) declaration [...] consistent with SARS-CoV-2. Performed By: #### C VDTB #### [facility] [address] [place] [address] Dr. Briana HERRERAOLETEon 10-22-2021 OBSOLETE Refill (ENDMED) -------- JEN SANTAMARIA ([id number]) 1995 F Date Time Provider Department 10/22/21 [...] Upset Date Reviewed: 11/29/2019 Reviewed by: Loree (Rn) TRAVON Payan - Fully Assessed Reason for [...] by GRICEL AMOR MA on 10/22/21 Normal [facility] US THYROID/PARATHYROIDon US THYROID/PARATHYROID * * *Final [...] bilaterally. No discrete thyroid nodule is demonstrated. Furnace Brazer: PSCB Transcribe Date/Time: Jan 14 2019 8:36A Dictated by : NAJMA NAVARRO MD This examination was interpreted and the report reviewed and electronically signed by: NAJMA NAVARRO MD on Jan 14 2019 4:08PM EST [id number] Normal [facility] Lab Miscellaneouson 11-26-19 Status See Ref Lab Report Normal [facility] Comment on above: Performed By: #### 1 [id number] #### ADDISON Send Outs Subsection [address] [place] [address] Status See Ref Lab Report Normal [facility] Comment on above: Performed By: #### 1 [id number] #### [facility] Send Outs Subsection [address] [place] [address] Auto Diffon 11-22-2018 Basophils #/vol (Bld) 0.0 E3/mcL Normal 0.0-0.2 [facility] Comment on above: Order Comment: Order Added by Discern Expert. Performed By: #### 2 [id number] #### AD[facility]ON Rem[employer]emo [address] [place] [address] Basophils/100 WBC (Bld) 0.5 % Normal 0.0-2.0 [facility] Comment on above: Order Comment: Order Added by Discern Expert. Performed By: #### 2 [id number] #### AD[facility]ON RemHemo [address] [place] [address] Eos Absolute 0.0 E3/mcL Normal 0.0-0.7 [facility] Comment on above: Order Comment: Order Added by Discern Expert. Performed By: #### 2 [id number] #### [facility] RemHemo [address] [place] [address] Eosinophils/100 WBC (Bld) 0.8 % Normal 0.0-11.0 [facility] Comment on above: Order Comment: Order Added by Discern Expert. Performed By: #### 2 [id number] #### ADDISON RemHemo [facility] [place] [address] Lymphocytes #/vol (Bld) 1.6 E3/mcL Normal 1.2-3.4 [facility] Comment on above: Order Comment: Order Added by Discern Expert. Performed By: #### 2 [id number] #### ADDISON RemHemo [address] [place] [address] Lymphocytes/100 WBC (Bld) 24.7 % Normal 20.0-55.0 [facility] Comment on above: Order Comment: Order Added by Discern Expert. Performed By: #### 2 [id number] #### ADDISON RemHemo [address] [place] [address] Kimble Absolute 0.3 E3/mcL Normal 0.0-0.7 [facility] Comment on above: Order Comment: Order Added by Discern Expert. Performed By: #### 2 [id number] #### ADDISON SmithHemo [address] [place] [address] Monocytes/100 WBC (Bld) 4.9 % Normal 0.0-10.0 [facility] Comment on above: Order Comment: Order Added by Discern Expert. Performed By: #### 2 [id number] #### AD[facility]ON RemHemo [address] [id number] Neutro Absolute 4.4 E3/mcL Normal 1.4-6.5 [facility] Comment on above: Order Comment: Order Added by Discern Expert. Performed By: #### 2 [id number] #### ADDISON SmithHemo [address] [place] [address] Neutro Auto 69.1 % Normal 37.0-75.0 [facility] Comment on above: Order Comment: Order Added by Discern Expert. Performed By: #### 2 [id number] #### ADDISON SmithHemo [address] [place] [address]16 CBC w/ Auto Diffon 9 Erythrocyte distribution width Ratio (RBC) 14.1 % Normal 11.5-14.5 [facility] Comment on above: Performed By: #### 2 [id number] #### ADDISON SmithHemo [address] [place] [address] 16292 Hematocrit Volume Fraction (Bld) 40.0 % Normal 36.0-48.0 [facility] Comment on above: Performed By: #### 2 [id number] #### AD[facility]ON RemHemo [address] [place] [address] Hemoglobin mass conc (Bld) 13.2 g/dL Normal 12.0-16.0 [facility] Comment on above: Performed By: #### 2 [id number] #### ADDISON RemHemo [address] [place] [address] MCH Entitic mass (RBC) 30.8 pg Normal 27.0-31.0 [facility] Comment on above: Performed By: #### 2 [id number] #### ADDISON SmithHemo [address] [id number] MCHC mass conc (RBC) 33.0 g/dL Normal 33.0-37.0 [facility] Comment on above: Performed By: #### 2 484388 #### ADIDSON SmithHemo [facility] [phone] MCV Entitic volume (RBC) 93.3 fL Normal 78.0-100.0 [facility] Comment on above: Performed By: #### 2 [id number] #### ADDISON SmithHemo [address] [place], [place] [address] Platelet mean volume Entitic volume (Bld) 7.8 fL Normal 7.4-11.0 [facility] Comment on above: Performed By: #### 2 [id number] #### ADDISONMarya SmithHemo [address] [place], [place] [address] Platelets #/vol (Bld) 368 E3/mcL Normal 130-400 [facility] Comment on above: Performed By: #### 2 [id number] #### ADDISONMarya SmithHemo [address] [place], [place] [address] RBC #/vol (Bld) 4.28 E6/mcL Normal 3.90-5.40 [facility] Comment on above: Performed By: #### 2 135295 #### ADDISONMarya SmithHemo [address] [place], [place] [address] WBC #/vol (Bld) 6.3 E3/mcL Normal 3.6-11.0 [facility] Comment on above: Performed By: #### 2 [id number] #### ADDISON SmithHemo [address] [place], [place] [address] CMPon 11-22-2018 Albumin mass conc 4.2 g/dL Normal 3.4-5.0 [facility] Comment on above: Performed By: #### 2 [id number] #### ADDISON [employer] [address] [place], [place] [address] Albumin/Globulin mass ratio 1.4 {ratio} Normal 1.1-1.9 [facility] Comment on above: Performed By: #### 2 [id number] #### AD[facility]ON [employer] [address] [place] [address] Alk Phos 53 Int._Unit/L Normal 33-110 [facility] Comment on above: Performed By: #### 2 650342 #### AD[facility]ON [employer] [address] [place] [address] 98595 ALT enzyme act/vol 15 Int._Unit/L Normal 7-45 [facility] Comment on above: Performed By: #### 2 167227 #### [facility]ON [employer] [address] [place] [address]99[address] Anion gap molar conc 13 mmol/L Normal 10-20 [facility] Comment on above: Performed By: #### 2 909131 #### [facility]ON [employer] [address] [place] [address] 39129 AST enzyme act/vol 19 Int._Unit/L Normal 9-39 [facility] Comment on above: Performed By: #### 2 [id number] #### [facility] [employer] [address] [place] [address] 06324 Bili Total 0.40 mg/dL Normal 0.00-1.20 [facility] Comment on above: Performed By: #### 2 356629 #### [facility] [employer] [address] [place] [address] 13465 Calcium mass conc 10.1 mg/dL Normal 8.6-10.3 [facility] Comment on above: Performed By: #### 2 382540 #### [facility] [employer] [address] [place] [address] 51584 Chloride molar conc 106 mmol/L Normal 98-107 [facility] Comment on above: Performed By: #### 2 150460 #### [facility]ON [employer] [address] [place] [address] 72914 CO2 molar conc 23.0 mmol/L Normal 21.0-32.0 [facility] Comment on above: Performed By: #### 2 479110 #### [facility] [employer] [address] [place] [address] 84665 Creatinine mass conc 1.0 mg/dL Normal 0.5-1.1 [facility] Comment on above: Performed By: #### 2 [id number] #### [facility] [employer] [address] [place] [address] 30020 Globulin mass conc (S) 3.0 g/dL Normal 2.0-4.0 [facility] Comment on above: Performed By: #### 2 [id number] #### [facility] [employer] [address] [place] [address] 97051 Glucose mass conc 80 mg/dL Normal 70-99 [facility] Comment on above: Performed By: #### 2 122394 #### [facility] [employer] [address] [place] [address] 26134 Potassium molar conc 3.9 mmol/L Normal 3.5-5.3 [facility] Comment on above: Performed By: #### 2 780496 #### [facility] [employer] [address] [place], [place] [address] Protein mass conc 7.2 g/dL Normal 6.4-8.2 [facility] Comment on above: Performed By: #### 2 300132 #### [facility] [employer] [address] [place] [address] Sodium molar conc 138 mmol/L Normal 136-145 [facility] Comment on above: Performed By: #### 2 245571 #### [facility] [employer] [address] [place], [place] [address] Urea nitrogen mass conc 14 mg/dL Normal 6-23 [facility] Comment on above: Performed By: #### 2 132045 #### [facility] [employer] [address] [place] [address] Urea nitrogen/Creatinine mass ratio 14.0 ratio Normal 5.4-30.0 [facility] Comment on above: Performed By: #### 2 123132 #### [facility] [employer] [address] [place] [address] 99884 Free T3on 11-22-2018 T3 free mass conc 2.6 pg/mL Normal 2.5-3.9 [facility] Comment on above: Performed By: #### 1 [id number] #### AD[facility]ON [employer] [address] [place] [address] 69011 Free T4on 11-22-2018 T4 free mass conc 0.64 ng/dL Normal 0.58-1.64 [facility] Comment on above: Performed By: #### 1 [id number] #### AD[facility]ON Send Outs [employer]section [address] [place] [address] Lab Miscellaneouson 11-22-19 Test Name LC [id number] Normal [facility] Comment on above: Performed By: #### 1 [id number] #### [facility]ON [employer] [address] [place] [address] Test Name LC [id number] Normal [facility] Comment on above: Performed By: #### 1 [id number] #### [facility]ON [employer] [address] [place] [address] TSHon 11-22-2018 Thyrotropin Qn 199.00 mcIU/mL High 0.30-5.60 [facility] Comment on above: Performed By: #### 1 [id number] #### ADDISON [employer] [address] [place] [address] eGFRon 11-22-2018 GFR/1.73 sq M predicted among non-blacks MDRD vol rate/area (S/P/Bld) mL/min/{1.73_m2} Normal [facility] Comment on above: Order Comment: Order added by Discern Expert. Performed By: #### 1 [id number] #### ADDISON [employer] [address] [place] [address] Auto Diffon 08-31-2018 Basophils #/vol (Bld) 0.1 E3/mcL Normal 0.0-0.2 [facility] Comment on above: Order Comment: Order Added by Discern Expert. Performed By: #### 2 354389 #### ADDISON RemHemo [address] [place] [address] Basophils/100 WBC (Bld) 1.0 % Normal 0.0-2.0 [facility] Comment on above: Order Comment: Order Added by Discern Expert. Performed By: #### 2 [id number] #### ADDISON RemHemo [address] [place], [place] [address] Eos Absolute 0.1 E3/mcL Normal 0.0-0.7 [facility] Comment on above: Order Comment: Order Added by Discern Expert. Performed By: #### 2 278182 #### ADDISON RemHemo [address] [place], [place] [address] Eosinophils/100 WBC (Bld) 1.6 % Normal 0.0-11.0 [facility] Comment on above: Order Comment: Order Added by Discern Expert. Performed By: #### 2 [id number] #### ADDISON RemHemo [address] [place] [address] Lymphocytes #/vol (Bld) 1.8 E3/mcL Normal 1.2-3.4 [facility] Comment on above: Order Comment: Order Added by Discern Expert. Performed By: #### 2 269084 #### ADDISON SmithHemo [address] [place] [address] 09679 Lymphocytes/100 WBC (Bld) 32.2 % Normal 20.0-55.0 [facility] Comment on above: Order Comment: Order Added by Discern Expert. Performed By: #### 2 911005 #### ADDISON SmithHemo [address] [place] [address] Kimble Absolute 0.4 E3/mcL Normal 0.0-0.7 [facility] Comment on above: Order Comment: Order Added by Discern Expert. Performed By: #### 2 977726 #### ADDISON SmithHemo [address] [place] [address] 68460 Monocytes/100 WBC (Bld) 7.0 % Normal 0.0-10.0 [facility] Comment on above: Order Comment: Order Added by Discern Expert. Performed By: #### 2 810695 #### ADDISON SmithHemo [address] [place] [address] 74878 Neutro Absolute 3.2 E3/mcL Normal 1.4-6.5 [facility] Comment on above: Order Comment: Order Added by Discern Expert. Performed By: #### 2 511220 #### ADDISON RemHemo [address] [place] [address] 14544 Neutro Auto 58.2 % Normal 37.0-75.0 [facility] Comment on above: Order Comment: Order Added by Discern Expert. Performed By: #### 2 [id number] #### ADDISON RemHemo [address] [place] [address] CBC w/ Auto Diffon 201 8 Erythrocyte distribution width Ratio (RBC) 14.2 % Normal 11.5-14.5 [facility] Comment on above: Performed By: #### 2 074133 #### ADDISON RemHemo [address] [place] [address] Hematocrit Volume Fraction (Bld) 41.2 % Normal 36.0-48.0 [facility] Comment on above: Performed By: #### 2 922894 #### ADDISON RemHemo [address] [place] [address] Hemoglobin mass conc (Bld) 13.8 g/dL Normal 12.0-16.0 [facility] Comment on above: Performed By: #### 2 443577 #### ADDISON RemHemo [address] [place] [address] MCH Entitic mass (RBC) 31.6 pg High 27.0-31.0 [facility] Comment on above: Performed By: #### 2 288203 #### ADDISON RemHemo [address] [phone] MCHC mass conc (RBC) 33.4 g/dL Normal 33.0-37.0 [facility] Comment on above: Performed By: #### 2 317323 #### ADDISON RemHemo [address] [place] [address] MCV Entitic volume (RBC) 94.6 fL Normal 78.0-100.0 [facility] Comment on above: Performed By: #### 2 759504 #### ADDISON RemHemo [address] [place] [address] Platelet mean volume Entitic volume (Bld) 7.6 fL Normal 7.4-11.0 [facility] Comment on above: Performed By: #### 2 110300 #### ADDISON RemHemo [address] [place] [address] Platelets #/vol (Bld) 334 E3/mcL Normal 130-400 [facility] Comment on above: Performed By: #### 2 [id number] #### ADDISON RemHemo [address] [place] [address] RBC #/vol (Bld) 4.36 E6/mcL Normal 3.90-5.40 [facility] Comment on above: Performed By: #### 2 728815 #### ADDISON RemHemo [address] [place] [address] WBC #/vol (Bld) 5.6 E3/mcL Normal 3.6-11.0 [facility] Comment on above: Performed By: #### 2 511775 #### ADDISON RemHemo [address] [place] [address] TSHon 08-31-2018 Thyrotropin Qn 82.00 mIU/m High 0.30-5.60 [facility] Comment on above: Performed By: #### 2 [id number] #### ADDISON [employer] [address] [place] [address] Lab Miscellaneouson 08-01-20 18 Status See Ref Lab Report Normal [facility] Comment on above: Performed By: #### 1 [id number] #### ADDISON Send Outs [employer]section [address] [place] [address] Lab Miscellaneouson 07-27-20 18 Test Name allergen Normal [facility] Comment on above: Performed By: #### 1 [id number] #### ADDISON Send Outs [employer]section [address] [place] [address] IGP W/hpv Rfx [id number] 03-16 Diagnosis: See Ref Lab Report Normal [facility] Comment on above: Performed By: #### 1 [id number] #### ADDISON Send [employer]s [employer]section [address] [place] [address] Chlamydia GC by PCRon 2017 Chlamydia by PCR. Not Detected Normal Not Detected [facility] Comment on above: Result Comment: Xper t CT/NG Assay performance has not been evaluated in patients less than 14 years of age. Performed By: #### 3 [id number] #### ADDISON Misc Micro SubSection , Gonorrhoeae by PCR Not Detected Normal Not Detected [facility] Comment on above: Result Comment: Xper t CT/NG Assay performance has not been evaluated in patients less than 14 years of age. Performed By: #### 3 [id number] #### ADDISON Misc Micro SubSection , Pathology ([facility])on 03-12-2018 Pathology ([facility]) FINAL GYNECOLOGIC CYTOLOGY [id number] ADEQUACYSatisfactory for Evaluation. Endocervical cells/transformation zone componentpresent.GENERAL CATEGORIZATIONNegative for Intraepithelial Lesion or MalignancyCLINICAL HISTORYComment: No LMP provided.SPECIMEN(A) SCREENING CERVICAL/ENDOCERVICAL THIN PREP VIALPerformed at [facility], [address] [place], [place] [address]Mejtycid by: Signed Out by: ORLIN TALLEY [employer] Reported: 03/15/2018 Normal [facility] Comment on above: Performed By: #### G YN ####[facility] [address] [place] [address] US ABDOMEN COMPLETEon 2016 US ABDOMEN COMPLETE [...] liver and left kidney as above. Normal [facility] *RFLX-O+John 07-14-2017 RESULT [address] [facility] Comment on above: Result Comment: No o va, cysts, or parasites seen.PERFORMED AT [facility] Performed By: #### L OP ####Testing performed at [facility] [place], [place] [address]Jdpstap performed at [facility] [place] [address]#### ZOP ####Testing performed at [facility] [place] [address] OVA+PARASITESon 07-14-2017 OVA+PARASITES Final report Normal [facility] Comment on above: Result Comment: (NOT E)These results were obtained using wet preparation(s) and trichromestained smear. This test does not include testing forCryptosporidium parvum, Cyclospora, or Microsporidia.PERFORMED AT [facility] Performed By: #### L OP ####Testing performed at [address] [address]Rcafojr performed at [address] [address]#### ZOP ####Testing performed at [address] [place] [address] Addendumon 07-10-2017 [facility] NOTES Normal [facility] Anes Post-opon 07-10-2017 [facility] NOTES Normal [facility] Anes Pre-opon 07-10-2017 [facility] NOTES Normal [facility] NURSING NOTEon 07-10-[address] [facility] [place] NURSINGon 07-10-2017 [facility] NOTES Normal [facility] NOTES Normal [facility] NOTES Normal [facility] OVA+PARASITESon 07-10-2017 SPECIMEN DESCRIPTION STOOL Normal [facility] Comment on above: Performed By: #### L OP ####Testing performed at [address] [address]Nswnycc performed at [address] [place] [address]#### ZOP ####Testing performed at [address] [place] [address] CBCon 06-26-2017 Basophils/100 WBC Auto (Bld) 4 % High 0.0-2.0 [facility] Comment on above: Performed By: #### A CBC, ESR ####Testing performed at [address] [place] [address] BLAST 3 % Normal [facility] Comment on above: Performed By: #### A CBC, ESR ####Testing performed at [address] [address] DTYPE AUTO DIFF Normal [facility] Comment on above: Performed By: #### A CBC, ESR ####Testing performed at [address] [address] Lymphocytes/100 leukocytes 29 % Normal 20.0-55.0 [facility] Comment on above: Performed By: #### A CBC, ESR ####Testing performed at [address] [address] Monocytes/100 leukocytes 3 % Normal 0.0-10.0 [facility] Comment on above: Performed By: #### A CBC, ESR ####Testing performed at [address] [address] Neutrophils/100 leukocytes 61 % Normal 37.0-75.0 [facility] Comment on above: Performed By: #### A CBC, ESR ####Testing performed at [address] [address] Erythrocyte distribution width Auto Ratio (RBC) 13.5 % Normal 11.5-14.5 [facility] Comment on above: Performed By: #### A CBC, ESR ####Testing performed at [address] [address] Erythrocytes (RBC) 4.45 /cmm Normal 4.0-5.4 [facility] Comment on above: Performed By: #### A CBC, ESR ####Testing performed at [address] [address] Hematocrit (HCT) 40.2 % Normal 36.0-48.0 [facility] Comment on above: Performed By: #### A CBC, ESR ####Testing performed at [address] [address] Hemoglobin mass conc (Bld) 13.4 g/dL Normal 12.0-16.0 [facility] Comment on above: Performed By: #### A CBC, ESR ####Testing performed at [address] [address] MCH 30.2 pg Normal 26.0-35.0 [facility] Comment on above: Performed By: #### A CBC, ESR ####Testing performed at [address] [address] MCHC mass conc (RBC) 33.4 g/dL Normal 27.0-37.0 [facility] Comment on above: Performed By: #### A CBC, ESR ####Testing performed at [address] [address] MCV 90.3 fL Normal 80.0-100.0 [facility] Comment on above: Performed By: #### A CBC, ESR ####Testing performed at [address] [address] Platelet mean volume (PMV) 6.8 fL Low 7.4-11.0 [facility] Comment on above: Performed By: #### A CBC, ESR ####Testing performed at [address] [address] Platelets 323 /cmm Normal 130.0-400.0 [facility] Comment on above: Performed By: #### A CBC, ESR ####Testing performed at [address] [address] WBC (Leukocytes) 6.0 /cmm Normal 3.6-11.0 [facility] Comment on above: Performed By: #### A CBC, ESR ####Testing performed at [address] [address] ESRon 06-26-2017 Erythrocyte sedimentation rate 11 mm/h Normal 0-20 [facility] Comment on above: Performed By: #### A CBC, ESR ####Testing performed at [address] [address] Vital Signs Date Time Vital Sign Value Performing Clinician Facility 12-11-2023 09:00-0500 Body weight 70.3 kg [facility] 12-11-2023 07:30-0500 Body temperature 97.3 [degF] [facility] 12-11-2023 07:30-0500 Diastolic blood pressure 70 mm[Hg] [facility] 12-11-2023 07:30-0500 Heart rate 69 /min [facility] 12-11-2023 07:30-0500 Respiratory rate 18 /min [facility] 12-11-2023 07:30-0500 SaO2% (BldA) [Mass fraction] 98 % [facility] 12-11-2023 07:30-0500 Systolic blood pressure 104 mm[Hg] [facility] 12-09-2023 01:13-0500 Body height 147.32 cm [facility] 12-08-2023 21:40-0500 Body height 147.32 cm MD [...] Body height 147.32 cm Juice Johnson Other [facility] Other 10-19-2023 14:30-0500 Body mass index (BMI) [Ratio] 34 kg/m2 Juice Johnson Other [facility] Other 10-19-2023 14:30-0500 Body weight 73.8 kg Juice Johnson Other [facility] Other 10-19-2023 14:30-0500 Diastolic blood pressure 83 mm[Hg] Juice Johnson Other [facility] Other 10-19-2023 14:30-0500 Systolic blood pressure 134 mm[Hg] Juice Johnson Other [facility] Other 08-08-2023 13:17-0400 Diastolic blood pressure 67 [...] Body height 147.32 cm Juice Johnson Other [facility] Other 07-11-2023 09:15-0400 Body mass index (BMI) [Ratio] 31.97 kg/m2 Juice Johnson Other [facility] Other 07-11-2023 09:15-0400 Body weight 69.4 kg Juice Johnson Other [facility] Other 07-11-2023 09:15-0400 Diastolic blood pressure 81 mm[Hg] Juice Johnson Other [facility] Other 07-11-2023 09:15-0400 Systolic blood pressure 124 mm[Hg] Juice Johnson Other [facility] Other 11-09-2022 16:00-0500 Body temperature 98.2 [degF] [...] Body height 147.32 cm Fouzia Maria Other [facility] Other 12-05-2021 14:30-0500 Body mass index (BMI) [Ratio] 30.3 kg/m2 Fouzia Maria Other [facility] Other 12-05-2021 14:30-0500 Body temperature 97.6 [degF] Fouzia Maria Other [facility] Other 12-05-2021 14:30-0500 Body weight 65.77 kg Fouzia Maria Other [facility] Other 12-05-2021 14:30-0500 Respiratory rate 18 /min Fouzia Maria Other [facility] Other 12-05-2021 14:30-0500 SaO2% (BldA) [Mass fraction] 99 % Fouzia Maria Other [facility] Other 10-10-2021 22:06-0500 Body height 147.32 cm MD Katarzyna Castañeda Work Phone: [facility] 10-10-2021 22:06-0500 Body mass index (BMI) [Ratio] 33 kg/m2 MD Katarzyna Castañeda Work Phone: [facility] 10-10-2021 22:06-0500 Body temperature 98.5 [degF] MD Katarzyna Castañeda Work Phone: [facility] 10-10-2021 22:06-0500 Body weight 71.6 kg MD Katarzyna Castañeda Work Phone: [facility] 10-10-2021 22:06-0500 Diastolic blood pressure 69 mm[Hg] MD Katarzyna Castañeda Work Phone: [facility] 10-10-2021 22:06-0500 Heart rate 99 /min MD Katarzyna Castañeda Work Phone: [facility] 10-10-2021 22:06-0500 Respiratory rate 18 /min MD Katarzyna Castañeda Work Phone: [facility] 10-10-2021 22:06-0500 SaO2% (BldA) [Mass fraction] 97 % MD Katarzyna Castañeda Work Phone: [facility] 10-10-2021 22:06-0500 Systolic blood pressure 137 mm[Hg] MD Katarzyna Castañeda Work Phone: [facility] Encounters Encounter Date Encounter Type Care Provider Facility Start: 12-09-2023 End: 12-11-2023 Evaluation and management of inpatient Katarzyna Castañeda Facility:[facility] Start: 12-08-2023 Evaluation and management of inpatient MD Katarzyna Castañeda Work Phone: [address] Work Phone: Start: 12-08-2023 Non-patient / Non-visit [facility] Work Phone: Start: 12-08-2023 ambulatory Miguel Walker acility:[facility] Start: 10-19-2023 End: 10-19-2023 ambulatory Juice Johnson Other [facility] Other Start: 10-19-2023 Patient encounter procedure Juice Johnson [facility] Start: 10-19-2023 End: 10-19-2023 Patient encounter procedure MD Katarzyna Castañeda Work Phone: [facility] Work Phone: Start: 10-09-2023 End: 10-09-2023 ambulatory LUIS MACIAS Not Available Start: 08-17-2023 End: 08-17-2023 ambulatory Juice Johnson Other [facility] Other Start: 08-17-2023 Telephone encounter Juice Digera [facility] Start: 08-08-2023 End: 08-08-2023 ambulatory Juice Catrina Johnson Facility:[facility] Start: 08-08-2023 End: 08-08-2023 Admission to same day surgery center MD Katarzyna Castañeda Work Phone: [facility] Work Phone: Start: 08-08-2023 End: 08-08-2023 ambulatory MD Katarzyna Castañeda Work Phone: [facility] Work Phone: Start: 07-11-2023 End: 07-11-2023 ambulatory Juice Johnson Other [facility] Other Start: 07-11-2023 [facility] visit new patient Juice Johnson [facility] Start: 11-11-2022 End: 11-11-2022 ambulatory MD Katarzyna Castañeda Work Phone: [facility] Work Phone: Start: 11-11-2022 End: 11-11-2022 Patient encounter procedure MD Katarzyna Castañeda Work Phone: [facility]- [facility] Work Phone: Start: 11-06-2022 End: 11-09-2022 Evaluation and management of inpatient MD Katarzyna Castañeda Work Phone: [facility] Work Phone: Start: 10-04-2022 End: 10-04-2022 ambulatory MD Katarzyna Castañeda Work Phone: [facility] Work Phone: Start: 10-04-2022 End: 10-04-2022 Departed Referred MD Katarzyna Castañeda Work Phone: [facility] [place] Start: 08-11-2022 End: 08-11-2022 ambulatory MD Katarzyna Castañeda Work Phone: [facility] Work Phone: Start: 08-11-2022 End: 08-11-2022 Patient encounter procedure MD Katarzyna Castañeda Work Phone: [facility] [place] Start: 03-02-2022 End: 03-02-[address] KATARZYNA CASTAÑEDA Facility:[facility] Start: 12-05-2021 End: 12-05-2021 ambulatory Fouzia Maria Other [facility] Other Start: 12-05-2021 Office outpatient visit 15 minutes Fouzia Maria [facility] Start: 11-19-2021 End: 11-19-2021 ambulatory SHU SORIANO Facility:[facility] Start: 10-10-2021 End: 10-10-2021 Emergency department patient visit MD Katarzyna Castañeda Work Phone: [facility] Start: 01-31-2019 Patient encounter procedure Dandre Tourlas Facility:[facility] Start: 01-14-2019 Patient encounter procedure [facility] Start: 11-22-2018 End: 11-23-2018 Patient encounter procedure Dandre Tourlas Facility:[facility] Start: 11-22-2018 Patient encounter procedure Facility:[id number] Start: 08-31-2018 End: 09-01-2018 Patient encounter procedure Yandy Luque Facility:[facility] Start: 08-31-2018 End: 09-01-2018 Patient encounter procedure Yandy Luque Facility:[facility] Start: 08-31-2018 Patient encounter procedure Facility:[id number] Start: 08-30-2018 Patient encounter procedure Dandre Tourlas Facility:[facility] Start: 08-28-2018 End: 08-28-2018 Patient encounter procedure Dandre Tourlas Facility:[facility] Start: 07-27-2018 End: 07-28-2018 Patient encounter procedure Pedro Keller Facility:[facility] Start: 07-27-2018 Patient encounter procedure Facility:[id number] Start: 07-19-2018 End: 07-20-2018 Patient encounter procedure Dandre Tourlas Facility:[facility] Start: 03-12-2018 End: 03-13-2018 Patient encounter procedure Re Murphy Facility:[facility] Start: 02-26-2018 End: 02-27-2018 Patient encounter procedure Dandre Tourlas Facility:[facility] Start: 08-09-2017 Ambulatory [facility] Start: 07-11-2017 Ambulatory [facility] Start: 07-10-2017 Ambulatory [facility] Start: 07-10-2017 End: 07-10-2017 Ambulatory [facility] Start: 06-26-2017 Ambulatory [facility] Procedures Date Procedure Procedure Detail Performing Clinician [...] Hospital admission [facility] Albumin/Globulin ratio [facility] Anion gap measurement [facility] Basophils [#/volume] in Blood by Automated count [...] [facility] HLA DQ antigen typing [facility] IgA [Mass/volume] in Serum or Plasma St. [...] Automated count [facility] Patient Education [facility] Work Phone: Patient referral [facility] Platelet mean volume [Entitic volume] [...] Hospital Payers Date Payer Category Payer Self-pay [id number] 2023 Medicaid [id number] 2017 Unknown 1996 Unknown [id number] 2.16. [id number] 1996 Unknown [id number] 2.16. [id number] 1996 Unknown [id number] 2.16. 840.1.881481.3.579.2.356 1996 Unknown [id number] 2.16.84 0.1.736419.3.579.2.717 1996 Unknown [id number] 2.16.84 0.1.102368.3.579.2.7 1996 Unknown [id number] 2.16.84 0.1.071776.3.579.2.717 1996 Unknown [id number] 2.16.84 0.1.401776.3.579.2.717 1996 Unknown [id number] 2.16.84 0.1.252894.3.579.2.717 1996 Unknown [id number] 2.16.84 0.1.337424.3.579.2.717 1996 Unknown [id number] 2.16.84 0.1.991542.3.579.2.717 1996 Unknown [id number] 2.16.84 0.1.236873.3.579.2.717 1996 Unknown [id number] 2.16.84 0.1.496830.3.579.2.717 1996 Unknown [id number] 2.16.84 0.1.759105.3.579.2.717 1996 Unknown [id number] 2.16.84 0.1.599099.3.579.2.717 1996 Unknown [id number] 2.16.84 0.1.143397.3.579.2.717 1996 Unknown [id number] 2.16.84 0.1.196662.3.579.2.717 1996 Unknown [id number] 2.16.84 0.1.845885.3.579.2.593 1996 Unknown [id number] 2.16.84 0.1.055626.3.579.2.593 1996 Unknown [id number] 2.16.840 .1.389380.3.579.2.1259 1959 Unknown [id number] Unknown [id number] 2.16.8 40.1.105776.3.579.2.531 Unknown [id number] 2.16.8 40.1.703530.3.579.2.531 Unknown [id number] 2.16.8 40.1.987665.3.579.2.531 Social History Date Type Detail Facility Start: 10-10-2021 End: 12-09-2023 Tobacco smoking status NHIS Never smoked tobacco (finding) [facility] Start: 1995 Sex Assigned At Female F [facility] Sex Assigned At Sex Assigned At Bir th [place] [facility] Other Goals Date Patient Goal Desired Activity /State Functional Status Date Assessment Result Facility 11-09-2022 Functional status Patient at Baseline [facility] Work Phone: Mental Status Date Assessment Result Facility 11-09-2022 Cognitive function Cognitive Sta tus Patient at Baseline [facility] Work Phone: Clinical Notes 12-05-2021 to 12-11-2023 Note Date & Type Note Facility 12-11-2023 Hospital Discharg e instructions Additional Instructions Important Contact Information You can call [facility] at [phone] any time day or night if you have emergent questions or question regarding discharge instructions. If at any time you are feeling an increase in your psychiatric symptoms, call your physician or behavioral healthcare provider. If any time you have thoughts of harming yourself or others contact one of the following: Call 8 (available 05/06) Crisis Text Line (available 05/06) text 4HOPE to [phone] [facility] Hope Line (available 8 a.m. Midnight) call [phone] ([phone]) [facility] Work Phone: 10-19-2023 Evaluation note Encounter Date Diagnosis Assessment Notes Oct, Loose stools (ICD-10 - R19.5) Pt is still having loose stools. Oct, Constipation (ICD-10 - K59.00) Pt is still dealing with constipation . Oct, Celiac disease (ICD-10 - K90.0) Pt RTO in 3 months [facility] Other [facility] [...] maintained a gluten free diet since then. [facility] Other 12-26-2022 History general Narrative - Reported* Type Description Date Medical History graves disease Medical History celiac disease Surgical History breast reduction Surgical History C section 11/07/22 Hospitalization History HYPOTHROIDISM [facility] Other 01-23-2022 Evaluation note* Encounter Date Diagnosis [...] Patient care instructions given in writting by [facility] Care At Home document. [facility] Other Evaluation noteNo assessment information available [facility] Diagnosis Onset Date Resolution Status Status post section acute [facility] Work Phone: Evaluation noteNo InformationNort [facility] Other Evaluation note* Diagnosis Onset Date Resolution Status Depression acute [facility] Work Phone: Evaluation note* Diagnosis Onset Date Resolution Status ADHD acute Depression acute Generalized anxiety disorder [facility] Work Phone: History general Narrative - Reported* Type Description Date Medical History graves disease Surgical History breast reduction Hospitalization History HYPOTHROIDISM [facility] Other Hospital Discharge instructions Additional Instructions Please call your plastic surgeon tomorrow for follow-up appointment Take the antibiotics as prescribed to cover for any potential infection Return for fevers, discharge, bleeding from your wound, redness, nausea or vomiting[facility] instructions Additional Instructions DISCHARGE INSTRUCTIONS [...] NOT operate machinery such as power tools, [place] mowers, snow blowers, sewing machines, etc. for [...] problems. -Follow up with PCP. 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 Celiac Disease Chief Complaint Follow Up After Egd [facility] Reason for Visit Depression Chief Complaint Follow Up After Egd [facility] Reason for Visit ADHD Depression Generalized anxiety disorder Additional Source Comments INFORMATION SOURCE (unrecogn ized section and content) DATE CREATED AUTHOR 05/03/2018 [facility] DATE CREATED AUTHOR AUTHOR'S ORGANIZ ATION 05/08/2018 [facility] DATE CREATED AUTHOR AUTHOR'S ORGANIZ ATION 05/09/2018 [facility] DATE CREATED AUTHOR AUTHOR'S ORGANIZ ATION 11/27/2018 [facility] DATE CREATED AUTHOR AUTHOR'S ORGANIZ ATION 01/16/2019 [facility] DATE CREATED AUTHOR AUTHOR'S ORGANIZ ATION 02/01/2019 [facility] DATE CREATED AUTHOR AUTHOR'S ORGANIZ ATION 12/14/2021 [facility] DATE CREATED AUTHOR AUTHOR'S ORGANIZ ATION 03/08/2022 [facility] DATE CREATED AUTHOR AUTHOR'S ORGANIZ ATION 04/22/2022 [facility] d[facility] Special[facility] DATE CREATED AUTHOR AUTHOR'S ORGANIZ ATION 10/09/2023 [facility] d[facility] Specialists [facility] DATE CREATED AUTHOR AUTHOR'S ORGANIZ ATION 01/28/2024 [facility] Goals (unrecognized section and content) Goals may [...] content) Team Status: Inactive Member Role Status Dates Katarzyna Castañeda MD Primary Care Provider Active Stephanie Edward DO Attending Provider Active Team Status: Active Member Role Status Dates Katarzyna Castañeda MD Primary Care Provider Active Team Status: Inactive Member Role Status Dates Katarzyna Persaud Maddy , MD Primary Care Provider Active Trisha Cm MD Attending Provider Active Team Status: Inactive Member Role Status Nikolay Castañeda MD Primary Care Provider Active Stephanie Edward DO Admit Provider, Attending Provide r Active Team Status: Inactive Member Role Status Nikolay Castañeda MD Primary Care Provider Active Juice Johnson MD Attending Provider Active Team Status: Inactive Member Role Status Nikolay Johnson MD Attending Provider Active S tart: October 19, 2023 End: October 19, 2023 Team Status: Active Member Role Status Nikolya Castañeda MD Primary Care Provider Active S tart: December 08, 2023 Larry Rankin DO Emergency Provider Active Sta rt: December 08, 2023 Rodriguez Nick MD Admit Provider, Atte nding Provider Active Start: December 08, 2023 Team Status: Active Member Role Status Nikolay Castañeda MD Primary Care Provider Active S [...] BE BASED ON THE PRIMARY CLINICAL RECORDS. [facility] whoactually [facility]. provides no warranty or guarantee of the accuracy or completeness of information in this document.
--- NOTE | 2024-02-04 17:22 | ED_ITS ---
HPI - General Adult General Chief complaint: Abdominal Pain Stated complaint: ABDOMINAL PAIN Time Seen by Provider: 02/04/24 17:06 Source: patient Mode of arrival: walk-in History of Present Illness HPI narrative: Patient is a 28-year-old female presents to the ER with concerns of UTI, reports symptoms for 1 week of urgency frequency and burning with urination. Patient is A1 with a 8 to 9-week miscarriage approximately 2 months ago. She reports light bleeding since, has been sexually active since her miscarriage but denies dyspareunia. She denies any fever or vomiting. She has not taken any [id number] medications. Patient denies any abnormal vaginal discharge stating slight white discharge noted. She is actively preventing for recurrent . Patient appears in no distress. Notes that her heart rate typically runs at 90 bpm. She has not yet had a normal menstrual cycle since her miscarriage. Denies diarrhea, chest pain or shortness of breath. pelvic pain is low and mild. Related Data Previous Rx's ?Medication ?Instructions ?Recorded doxycycline hyclate 100 mg capsule 100 mg PO BID 10 days #20 caps 02/04/24 ibuprofen 600 mg tablet 600 mg PO TID PRN pain #30 tabs 02/04/24 Allergies Allergy/AdvReac Type Severity Reaction Status Date / Time sulfamethoxazole AdvReac Hives Verified 02/04/24 17:14 [From Bactrim] trimethoprim [From Bactrim] AdvReac Hives Verified 02/04/24 17:14 Review of Systems ROS Constitutional Denies: fever, chills or change in weight Eyes Denies: change in vision Ears, nose, mouth, and throat Reports: throat pain (+ post nasal drainage. ) and post nasal drip; Denies: neck pain or throat swelling Cardiovascular Denies: chest pain, palpitations or edema Respiratory Denies: shortness of breath or cough Gastrointestinal Denies: abdominal pain, nausea, vomiting, change in bowel habits or blood in stool Genitourinary Reports: painful urination, urinary frequency, urinary urgency, blood in urine, pelvic pain and vaginal discharge (white/ yellow pt feels is normal); Denies: pain during intercourse Musculoskeletal Denies: back pain, neck pain or extremity pain Integumentary/Breast Denies: rash, itching or redness Neurological Denies: headache Psychiatric Denies: anxiety or mood swings Endocrine Denies: excessive urination Exam Narrative Exam Narrative: Nurses notes and vital signs reviewed and patient is not hypoxic. General: The patient appears well and in no apparent distress. Patient is resting comfortably on cart. Skin: Warm, dry, no pallor noted. Head: Normocephalic, atraumatic Neck: Supple, trachea mid-line, no tenderness, no lymphadenopathy Eye: Pupils are equal, round and reactive to light, EOMI Ears, Nose, Mouth, and Throat: TM are clear, normal light reflex, oral mucosa is moist, no posterior oropharynx erythema or hypertrophy, Positive postnasal drip noteduvula is mid-line Cardiovascular: Regular Rate and Rhythm Respiratory: Patient is in no distress, no accessory muscle use, lungs are clear to auscultation, no wheezing, rales or rhonchi. Chest Wall: no tenderness Back: non-tender, no CVA tenderness, Denies low back pain. Musculoskeletal: normal ROM, no tenderness, no swelling GI: Normal bowel sounds, no tenderness to palpation, no masses appreciated. No rebound, guarding, or rigidity noted. Mild- mod suprapubic tenderness noted Pelvic Exam: TRAVON Magana at bedside: Minimal drainage from cervical os, trace bleeding. + Cervical motion tenderness and left adenxal tenderness. no external lesions or external drainage Neurological: A&O x4 Psychiatric: Cooperative Constitutional Vital Signs, click to edit/add: Last Vital Signs Temp 97.5 F L 02/04/24 17:09 Pulse 119 H 02/04/24 17:09 Resp 16 02/04/24 17:09 BP 144/85 H 02/04/24 17:09 Pulse Ox 98 02/04/24 17:09 O2 Del Method Room Air 02/04/24 17:09 Course Vital Signs Vital signs: Vital Signs Temperature 97.5 F L 02/04/24 17:09 Pulse Rate 119 H 02/04/24 17:09 Respiratory Rate 16 02/04/24 17:09 Blood Pressure 144/85 H 02/04/24 17:09 Pulse Oximetry 98 02/04/24 17:09 Oxygen Delivery Method Room Air 02/04/24 17:09 Temperature 97.5 F L 02/04/24 17:09 Pulse Rate 119 H 02/04/24 17:09 Respiratory Rate 16 02/04/24 17:09 Blood Pressure 144/85 H 02/04/24 17:09 Pulse Oximetry 98 02/04/24 17:09 Oxygen Delivery Method Room Air 02/04/24 17:09 Medical Decision Making MDM Narrative Medical decision making narrative: Patient does not appear ill, notes symptoms of UTI for the past week, presenting today with development of lower pelvic pain. Abdomen appears nonsurgical, urinalysis obtained. Patient has no fever or CVA tenderness. OBGYN is Dr. Urbina. >Urine test was negative, urinalysis without evidence of infection, patient remains tachycardic with observation, we discussed her pelvic pain on exam and recommend a pelvic exam in light of her negative urinalysis, patient feels she would be very low risk for potential sexually transmitted disease, with risk stratification discussed at bedside. Patient consenting to vaginal exam for further evaluation Laboratory studies unremarkable, Ultrasound without evidence of torsion or retained products of conception, we discussed her moderate to significant cervical motion tenderness and recommend empiric antibiotics pending cultures. Patient agreeable, will follow-up with her CL[facility]ICAL SAF[facility]Y SPECIALIST in 2 to 3 days for reevaluation may return to the ER if symptoms worsen or new symptoms develop. Patient aware that we are treating for likely PID which is mild as she does not have leukocytosis or shift. Vital signs rechecked improved, pt anxious about Pending cultures. Lab Data Lab results reviewed: Yes I reviewed the patient's lab results Labs: Lab Results 02/04/24 02/04/24 Range/Units 17:20 18:13 WBC 8.0 (4.0-11.0) 10^3/uL RBC 4.39 (4.20-5.40) 10^6/uL Hgb 13.2 (12.0-16.0) g/dL Hct 40.5 (36.0-48.0) % MCV 92.3 (81.0-99.0) fL MCH 30.1 (26.7-34.0) pg MCHC 32.6 (29.9-35.2) g/dL RDW 14.3 (11.0-15.0) % Plt Count 401 (150-450) 10^3/uL MPV 8.7 L (9.5-13.5) fL Neut % (Auto) 53.6 (43.0-75.0) % Lymph % (Auto) 31.8 (20.5-60.0) % [place] % (Auto) 9.7 (1.7-12.0) % Eos % (Auto) 3.6 (0.9-7.0) % Baso % (Auto) 0.9 (0.2-2.0) % Neut # (Auto) 4.3 (1.4-6.5) 10^3/uL Lymph # (Auto) 2.5 (1.2-3.8) 10^3/uL [place] # (Auto) 0.8 (0.3-0.8) 10^3/uL Eos # (Auto) 0.3 (0.0-0.7) 10^3/uL Baso # (Auto) 0.1 (0.0-0.1) 10^3/uL Abs Immat Gran (auto) 0.03 (0.00-0.03) 10^3/uL Imm/Tot Granulo (auto) 0.4 (0.0-0.5) % Sodium 138 (136-145) mmol/L Potassium 3.9 (3.5-5.1) mmol/L Chloride 102 (98-107) mmol/L Carbon Dioxide 25.6 (21.0-32.0) mmol/L Anion Gap 14.3 BUN 10.0 (7.0-18.0) mg/dL Creatinine 0.86 (0.55-1.02) mg/dL Est GFR ( Amer) >60 (>=60) Est GFR (Non-Af Amer) >60 (>=60) BUN/Creatinine Ratio 11.6 Glucose 101 (74-106) mg/dL Lactate 1.2 (0.4-2.0) mmol/L Calcium 9.3 (8.5-10.1) mg/dL Total Bilirubin 0.3 (0.2-1.0) mg/dL AST 15 (15-37) U/L ALT 16 (14-59) U/L Alkaline Phosphatase 81 (46-116) U/L Total Protein 7.4 (6.4-8.2) g/dL Albumin 3.6 (3.4-5.0) g/dL Globulin 3.8 g/dL Albumin/Globulin Ratio 0.9 Lipase 28.0 (16.0-77.0) U/L Urine Color Yellow (YELLOW) Urine Clarity Clear (CLEAR) Urine pH 5.5 (5.0-9.0) Ur Specific [place] 1.025 (1.005-1.025) Urine Protein Negative (NEG/TRACE) mg/dL Urine Glucose (UA) Negative (NEGATIVE) mg/dL Urine Ketones Negative (NEGATIVE) mg/dL Urine Occult Blood Negative (NEGATIVE) Urine Nitrite Negative (NEGATIVE) Urine Bilirubin Negative (NEGATIVE) Urine Urobilinogen 0.2 (0.2-1.0) EU/dL Ur Leukocyte Esterase Negative (NEGATIVE) Urine HCG, Qual Negative (NEGATIVE) Imaging Data US pelvis: Radiologist's impression: ITS Impressions Transvaginal US 02/04/24 18:22 IMPRESSION: 1. Normal morphology of the uterus and endometrial cavity, no sign of retained products of conception 2. Subcentimeter nabothian paracervical cyst 3. Normal right ovarian sonographic morphology 4. Mild enlarged left ovarian volume with increased number of subcentimeter peripherally distributed follicles. Polycystic ovarian morphology is a consideration in the appropriate clinical setting. 5. No sonographic sign of adnexal torsion 6. Mild pelvic free fluid in the cul-de-sac and adjacent the left ovary. Electronically authenticated by: NICK WRIGHT Date: 02/04/2024 19:46 Single Organ Ultrasound 02/04/24 19:02 IMPRESSION: 1. Normal morphology of the uterus and endometrial cavity, no sign of retained products of conception 2. Subcentimeter nabothian paracervical cyst 3. Normal right ovarian sonographic morphology 4. Mild enlarged left ovarian volume with increased number of subcentimeter peripherally distributed follicles. Polycystic ovarian morphology is a consideration in the appropriate clinical setting. 5. No sonographic sign of adnexal torsion 6. Mild pelvic free fluid in the cul-de-sac and adjacent the left ovary. Electronically authenticated by: NICK WRIGHT Date: 02/04/2024 19:46 Discharge Plan Discharge Stand Alone Forms: Portal Instructions Chief Complaint: Abdominal Pain Clinical Impression: Vaginal discharge, Pelvic pain, Dysuria Patient Disposition: Home, Self-Care Time of Disposition Decision: 19:52 Condition: Good Prescriptions / Home Meds: New doxycycline hyclate 100 mg capsule 100 mg PO BID 10 Days Qty: 20 0RF ibuprofen 600 mg tablet 600 mg PO TID PRN (Reason: pain) Qty: 30 0RF Print Language: [place]an Instructions: Pelvic Pain (ED), Vaginal Discharge (ED) Additional Instructions: No intercourse ( sex) pending antibiotic treatment completion and culture results (gonorrhea/ chylamdia pending, vaginal culture pending) - Do not drink alcohol with antibiotic. Contact Dr. Urbina's office for follow up in 2-3 days ( return to ER if symptoms worsen) Referrals: SILVIA URBINA [Physician] - As soon as possible KATARZYNA CASTAÑEDA [Primary Care Provider] - 1 week
[2024-02-04 17:31] LABS: Bilirubin Urine NEGATIVE (NEGATIVE); Blood Urine NEGATIVE (NEGATIVE); Clarity Urine CLEAR (CLEAR); Color Urine YELLOW (YELLOW); Glucose Urine UA NEGATIVE (NEGATIVE); Ketones Urine NEGATIVE (NEGATIVE); Leukocyte Esterase Urine NEGATIVE (NEGATIVE); Nitrite Urine NEGATIVE (NEGATIVE); Protein Urine NEGATIVE (NEG/TRACE); Specific Gravity Urine 1.025 (1.005-1.025); Urobilinogen Urine 0.2 EU/dL (0.2-1.0); pH Urine 5.5 (5.0-9.0)
[2024-02-04 17:32] LABS: HCG Qualitative Urine* NEGATIVE (NEGATIVE)
[2024-02-04 17:33] LABS: Urine Microscopic Indicated NO
--- NOTE | 2024-02-04 18:22 | US_ITS ---
The [address] [address] Patient Name: TRE SANTAMARIA MRN: [id number] date: 1995 Sex: F Assigned Patient Location: ER Current Patient Location: ER Accession/Order Number: [id number] Exam Date: 02/04/2024 19:05 Report Date: 02/04/2024 19:46 At the request of: SCOT HURST Procedure: US pelvis transvaginal PROCEDURE: US vas organ single comp, US pelvis transvaginal, 02/04/2024 7:05 PM EDT CLINICAL INDICATIONS: Pelvic pain for 5 days, evaluation for adnexal torsion, retained products of conception, prior section 2 para 1 AB 1 COMPARISON: None TECHNIQUE: Transvaginal pelvic sonogram, grayscale color and spectral vascular evaluation. FINDINGS: Uterus: 8.8 x 5.5 x 4.4 cm. Endometrial echo complex 0.6 cm. Subcentimeter nabothian paracervical cysts are seen. There is normal uterine sonographic morphology. Focal abnormality is not evident. Right ovary: 3.1 x 1.6 x 1.7 cm, volume 4 mL. Subcentimeter follicles identified, normal sonographic morphology. Left ovary: 3.6 x 2.7 x 2.2 cm, volume 11 mL. Increased number of subcentimeter follicles identified, mild peripheral distribution. DUPLEX PELVIC VASCULATURE: There is intact flow within the ovarian tissue bilaterally by color-flow assessment. Arterial and venous spectral tracing is identified from within. Right resistive index 0.48, left 0.55. There is mild pelvic free fluid in the cul-de-sac and adjacent to the left ovary. US/US pelvis transvaginal IMPRESSION: 1. Normal morphology of the uterus and endometrial cavity, no sign of retained products of conception 2. Subcentimeter nabothian paracervical cyst 3. Normal right ovarian sonographic morphology 4. Mild enlarged left ovarian volume with increased number of subcentimeter peripherally distributed follicles. Polycystic ovarian morphology is a consideration in the appropriate clinical setting. 5. No sonographic sign of adnexal torsion 6. Mild pelvic free fluid in the cul-de-sac and adjacent the left ovary. Electronically authenticated by: NICK WRIGHT Date: 02/04/2024 19:46
[2024-02-04 18:25] LABS: Basophils Absolute Auto 0.1 10^3/uL (0.0-0.1); Basophils Percent Auto 0.9 % (0.2-2.0); Eosinophils Absolute Auto 0.3 10^3/uL (0.0-0.7); Eosinophils Percent Auto 3.6 % (0.9-7.0); Hematocrit 40.5 % (36.0-48.0); Hemoglobin 13.2 g/dL (12.0-16.0); Immature Granulocytes Abs Auto 0.03 10^3/uL (0.00-0.03); Immature Granulocytes Pct Auto 0.4 % (0.0-0.5); Lymphocytes Absolute Auto 2.5 10^3/uL (1.2-3.8); Lymphocytes Percent Auto 31.8 % (20.5-60.0); Mean Corpuscular HGB Conc 32.6 g/dL (29.9-35.2); Mean Corpuscular Hemoglobin 30.1 pg (26.7-34.0); Mean Corpuscular Volume 92.3 fL (81.0-99.0); Mean Platelet Volume 8.7 fL (9.5-13.5); Monocytes Absolute Auto 0.8 10^3/uL (0.3-0.8); Monocytes Percent Auto 9.7 % (1.7-12.0); Neutrophils Absolute Auto 4.3 10^3/uL (1.4-6.5); Neutrophils Percent Auto 53.6 % (43.0-75.0); Platelet Count 401 10^3/uL (150-450); Red Blood Count 4.39 10^6/uL (4.20-5.40); Red Cell Distribution Width 14.3 % (11.0-15.0)
[2024-02-04] MEDS: 0.9 % SODIUM CHLORIDE 1,000 ML 999 ML IV (18:40)
[2024-02-04] MEDS: KETOROLAC TROMETHAMINE 30 MG/ML VIAL IVP (18:40)
[2024-02-04] MEDS: ACETAMINOPHEN 500 MG TABLET 1000 MG PO (18:40)
[2024-02-04 18:43] LABS: Alanine Aminotransferase 16 U/L (14-59); Albumin Globulin Ratio 0.9; Albumin Level 3.6 g/dL (3.4-5.0); Alkaline Phosphatase 81 U/L (46-116); Anion Gap 14.3; Aspartate Amino Transferase 15 U/L (15-37); BUN Creatinine Ratio 11.6; Bilirubin Total 0.3 mg/dL (0.2-1.0); Calcium 9.3 mg/dL (8.5-10.1); Carbon Dioxide 25.6 mmol/L (21.0-32.0); Chloride 102 mmol/L (98-107); Estimated GFR (African America >60 (>=60); Estimated GFR (Non-African Ame >60 (>=60); Globulin 3.8 g/dL; Glucose 101 mg/dL (74-106); Potassium 3.9 mmol/L (3.5-5.1); Sodium 138 mmol/L (136-145); Total Protein 7.4 g/dL (6.4-8.2)
[2024-02-04 18:47] LABS: Lactate/Lactic Acid 1.2 mmol/L (0.4-2.0)
--- NOTE | 2024-02-04 18:53 | PC.NURSE ---
1830 - THIS RN AND OTHER RN ASSISTED PA WITH VAGINAL EXAM AT THIS TIME. VAGINAL SWABS OBTAINED. PT C/O A LOT OF PAIN DURING EXAM. ASSISTED BACK IN BED, WARM BLANKET GIVEN.
--- NOTE | 2024-02-04 19:02 | US_ITS ---
[address] [address] Patient Name: TRE SANTAMARIA MRN: [id number] date: 1995 Sex: F Assigned Patient Location: ER Current Patient Location: ER Accession/Order Number: [id number] Exam Date: 02/04/2024 19:05 Report Date: 02/04/2024 19:46 At the request of: FELISHA MENARD Procedure: US vas organ single comp PROCEDURE: US vas organ single comp, US pelvis transvaginal, 02/04/2024 7:05 PM EDT CLINICAL INDICATIONS: Pelvic pain for 5 days, evaluation for adnexal torsion, retained products of conception, prior section 2 para 1 AB 1 COMPARISON: None TECHNIQUE: Transvaginal pelvic sonogram, grayscale color and spectral vascular evaluation. FINDINGS: Uterus: 8.8 x 5.5 x 4.4 cm. Endometrial echo complex 0.6 cm. Subcentimeter nabothian paracervical cysts are seen. There is normal uterine sonographic morphology. Focal abnormality is not evident. Right ovary: 3.1 x 1.6 x 1.7 cm, volume 4 mL. Subcentimeter follicles identified, normal sonographic morphology. Left ovary: 3.6 x 2.7 x 2.2 cm, volume 11 mL. Increased number of subcentimeter follicles identified, mild peripheral distribution. DUPLEX PELVIC VASCULATURE: There is intact flow within the ovarian tissue bilaterally by color-flow assessment. Arterial and venous spectral tracing is identified from within. Right resistive index 0.48, left 0.55. There is mild pelvic free fluid in the cul-de-sac and adjacent to the left ovary. US/US vas organ single comp IMPRESSION: 1. Normal morphology of the uterus and endometrial cavity, no sign of retained products of conception 2. Subcentimeter nabothian paracervical cyst 3. Normal right ovarian sonographic morphology 4. Mild enlarged left ovarian volume with increased number of subcentimeter peripherally distributed follicles. Polycystic ovarian morphology is a consideration in the appropriate clinical setting. 5. No sonographic sign of adnexal torsion 6. Mild pelvic free fluid in the cul-de-sac and adjacent the left ovary. Electronically authenticated by: NICK WRIGHT Date: 02/04/2024 19:46
[2024-02-04] MEDS: CEFTRIAXONE 1,000 MG in 0.9 % SODIUM CHLORIDE 50 ML 100 MG IV (19:58)
[2024-02-04] MEDS: DOXYCYCLINE MONOHYDRATE 100 MG CAPSULE PO (19:59)
[2024-02-04] MEDS: METRONIDAZOLE 250 MG TABLET 2000 MG PO (20:00)
[2024-02-04 20:03] VITALS: BP 131/90; PULSE 114; RESP 18; O2SAT 99
[2024-02-04 20:26] VITALS: PULSE 110
[2024-02-07 06:11] LABS: Neisseria gonorrhoeae, NAA Negative (Negative)
== END 2024-02-04 20:29 | disposition home or self-care (01) ==
PROVIDERS: Personal Emergency Response Attendant; Emergency Provider Emergency Medicine; PCP Family Medicine
DX: R10.9 Unspecified abdominal pain (principal); R30.0 Dysuria; N89.8 Other specified noninflammatory disorders of vagina
CPT/HCPCS: 36415; 76830; 80053; 81003; 83605; 83690; 84703; 85025; 87070; 87150; 87186; 87210; 87491; 87591; 93975; 96374; 96375; 99285

== ENCOUNTER 2024-09-16 13:29 | Outpatient (OUT) | payer MEDICAID, SELFPAY ==
--- NOTE | 2024-09-16 13:40 | XR_ITS ---
[address] [address] Patient Name: TRE SANTAMARIA MRN: [id number] date: 1995 Sex: F Assigned Patient Location: [facility] Current Patient Location: Accession/Order Number: [id number] Exam Date: 09/16/2024 13:45 Report Date: 09/17/2024 15:11 At the request of: LUIS MACIAS Procedure: XR knee RT 3V PROCEDURE: XR knee RT 3V COMPARISON: None. HISTORY: Acute Pain Of Right Knee FINDINGS: BONES:No fracture, acute abnormality, or significant arthropathy. SOFT TISSUES:Negative. No visible soft tissue swelling. EFFUSION:None visible. OTHER: Negative. XR/XR knee RT 3V IMPRESSION: No acute abnormality Electronically authenticated by: MARCY SANDERS Date: 09/17/2024 15:11
== END 2024-09-16 13:30 | disposition home or self-care (01) ==
LOC: RAD 13:30
PROVIDERS: PCP Family Medicine; Visit Provider Physician Assistant
DX: M25.561 Pain in right knee (principal)
CPT/HCPCS: 73562

== ENCOUNTER 2024-10-25 08:39 | Outpatient (OUT) | payer MEDICAID, SELFPAY ==
--- NOTE | 2024-10-25 08:47 | MR_ITS ---
[place] [id number] Patient Name: TRE SANTAMARIA MRN: [id number] date: 1995 Sex: F Assigned Patient Location: MRI Current Patient Location: MRI Accession/Order Number: [id number] Exam Date: 10/25/2024 08:53 Report Date: 10/26/2024 15:45 At the request of: LUIS MACIAS Procedure: MR knee RT wo con EXAM: MR knee RT wo con HISTORY: Acute internal derangement of right knee anterior right knee pain after injury 09/14/2024. Pain inferior to the patella after wrestling. COMPARISON: Right knee x-rays 09/16/2024. TECHNIQUE: Multiplanar multisequence MRI of the knee was performed without contrast. This included axial STIR, coronal and sagittal PD fat-sat, sagittal T2 and sagittal T1 imaging. FINDINGS: MENISCI: The menisci appear intact. No parameniscal cyst is seen. LIGAMENTS: The cruciate and collateral ligaments appear intact. TENDONS: Full-thickness tear of the proximal ACL. PCL and collateral ligaments are intact. TIBIOFEMORAL JOINT: Articular cartilage appears intact. No osteochondral lesion is seen. PATELLOFEMORAL JOINT: Low-grade chondral loss at the trochlear groove. The patella is normally located in the trochlear groove. The tibial tubercle to trochlear groove interval appears within normal limits. SOFT TISSUES: Small knee joint effusion. Popliteal cyst measures 5 x 3 mm. The visualized musculature appears of normal signal intensity. BONES: Incomplete fracture along the posterior lateral aspect of the lateral tibial plateau measuring 1.7 x 1.1 cm, transverse x AP dimension with mild adjacent bone marrow edema. Mild osteochondral impaction at the lateral femoral sulcus. MR/MR knee RT wo con IMPRESSION: 1. Acute/subacute stress fracture along the posterior lateral aspect of the lateral tibial plateau measuring up to 1.7 cm, with mild osteochondral impaction at the lateral femoral sulcus related to full-thickness ACL tear. 2. Intact menisci. PCL and collateral ligaments are intact. 3. Mild chondral loss at the trochlear groove. Electronically authenticated by: SCOT ALBERT Date: 10/26/2024 15:45
--- OUTSIDE RECORDS SUMMARY | 2024-10-25 08:48 | XMS_ITS | CCD ---
Author Organization [facility] Care Team Providers Care 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 Name Role Phone AJAY, PALANI K Unavailable [...] Unavailable Tourlas, Dandre Primary Care Unavailabl e Tourlas, Dandre Attending Unavailabl e Tourlas, Dandre Primary Care Unavailabl e Tourlas, Dandre Admitting Unavailabl e Pedro Keller Admitting Unavailable Pedro Keller Attending Unavailable Tourlas, Dandre Primary Care Unavailabl e Tourlas, Dandre Attending Unavailabl e Tourlas, Dandre Primary Care Unavailabl e Yandy Luque Attending Unavailable Tourlas, Dandre Primary Care Unavailabl e Yandy Luque Admitting Unavailable Yandy Luque Admitting Unavailable Yandy Luque Attending Unavailable Tourlas, Dandre Primary Care Unavailabl e Tourlas, [...] Care Provider DO [place] Emergency Provider MADDY, DR COLÓN Primary Care Unavailable NISHA, DR LUGO Admitting Unavailable NISHA, DR LUGO Attending Unavailable NISHA, DR LUGO Consulting Unavailable BO, SHU Admitting Unavailable BO, SHU Attending Unavailable MADDY, DR COLÓN Primary Care Unavailable SHU SORIANO Consulting Unavailable Fouzia Maria Unavailable MD Katarzyna Castañeda Primary Care Provider DO Stephanie Edward Attending Provider [phone] MD Katarzyna Castañeda Primary Care Provider DO Stephanie Edward Attending Provider MD Katarzyna Castañeda Primary Care Provider [phone] DO Stephanie Edward Attending Provider DO Stephanie Edward Admit Provider [phone] MD To[facility] Attending Provider Juice Johnson Unavailable MD Katarzyna Castañeda Primary Care Provider MD Juice Johnson Attending Provider MD Katarzyna Castañeda Primary Care Provider DO Larry Rankin Emergency Provider MD Rodriguez Nick Admit Provider [phone] MD Rodriguez Nick Attending Provider [phone] MD Katarzyna Castañeda Primary Care Provider [phone] DO Larry Rankin Emergency Provider MD Miguel Jalloh Attending Provider [phone] MD Sandoval Rodriguez Admit Provider [phone] REDDY HENRY Primary Care Physician Devin Jimenez Attending Unavailable Katarzyna Castañeda MD Primary Care Provider Abelardo Bolanos MD Unavailable [phone] Miguel Jalloh Attending Unavailab le RenoKatarzyna montgomery Primary Care Unavailable Rodriguez Nick Admitting Unavailable Miguel Jalloh Attending Unavailab soraya MaddyKatarzyna montgomery Primary Care Unavailable Miguel Jalloh Admitting Unavailab le HEMFELICITAS CHEW Attending Unavailable RINKES, STEPHANIE E Attending Unavailable RINKES, STEPHANIE E Attending Unavailable RINKES, STEPHANIE E Referring Unavailable HEMMERFELICITAS Attending Unavailable RINKES, STEPHANIE E Attending Unavailable RINKES, STEPHANIE E Referring Unavailable RAMBASEK, JOHANNA E Attending Unavailable RINKES, STEPHANIE E Referring Unavailable RINKES, STEPHANIE E Attending Unavailable RINKES, STEPHANIE E Referring Unavailable HEMFELICITAS CHEW Attending Unavailable HEMFELICITAS CHEW Attending Unavailable HEMFELICITAS CHEW Attending Unavailable Allergies Allergy Classification Reported Allergen(s) Allergy Type Date of Onset Reaction(s) Facility (1 source) No Known Medication Allergies; Translations: [No Known Medication Allergies] Propensity to adverse reactions to drug (disorder) [facility] Repository (9 sources) Sulfamethoxazole; Translations: [sulfamethoxazole] Drug Allergy 10-10-20 21 Rash, Rash, [facility] (15 sources) Trimethoprim; Translations: [trimethoprim] Drug Allergy 10-10-20 21 Rash, Rash, [facility] (1 source) Sulfamethoxazole / Trimethoprim Drug Allergy [facility] Repository (11 sources) Sulfamethoxazole / Trimethoprim; Translations: [sulfamethoxazole-t rimethoprim] Drug Allergy 06-19-20 23 hives, Weal (disorder) [facility] (6 sources) Escitalopram Drug Allergy 01-09-20 24 Other [facility] (6 sources) WHEAT DEXTRIN Drug Allergy 10-09-20 19 GI intolerance [facility] (6 sources) Shellfish-Derived Products Drug Intolerance 10-09-20 19 [facility] Medications Current Medications Medication Drug Class(es) Dates Sig (Normalized) Sig (Original) amoxicillin 875 mg / clavulanate 125 mg oral tablet (1 source) Penicillin-class Antibacterial Start: 03-09-2024 take 1 tablet by mouth twice daily Amoxicillin-Pot Clavulanate Active 1 TAB PO Twice daily March 09, 2024 12:00am 24 hr amphetamine aspartate 5 mg / amphetamine sulfate 5 mg / dextroamphetamine saccharate 5 mg / dextroamphetamine sulfate 5 mg extended release oral capsule (14 sources) Central Nervous System Stimulant Start: 06-21-2024 End: 09-23-2024 take 1 capsule by mouth every twenty-four hours in the morning amphetamine-dextro amphetamine XR (Adderall XR) 20 MG 24 hr capsule Indications: Attention deficit hyperactivity disorder (ADHD), combined type (CMS/HCC) Take 1 capsule (20 mg) by mouth in the morning. Do not crush or chew. . 30 capsule 09/23/2024 Active Start: 05-15-2024 take 1 capsule by mo uth once daily in the morning amphetamine-dextroamphetamine 20 mg Cap- ER 20 mg = 1 cap(s), Oral, qAM, Refills(s) 0 Start Date: 05/15/24 Status: Ordered Start: 01-18-2024 take 1 tablet by giuseppe th once daily Dextroamphetamine-Amphetamine (Adderall) 20 mg tablet Active 20 MG PO Daily January 18, 2024 1:00am Start: 08-08-2023 End: 01-18-2024 take 10 mg by mouth once daily Dextroamphetamine-Amphetamine Discontinu ed 10 MG PO Daily August 08, 2023 12:00am January 18, 2024 3:39pm bacillus coagulans [id number] unt / inulin 250 mg oral capsule (6 sources) take 1 capsule by mouth once daily Bacillus Coagulans-Inulin (Probiotic) 1-250 BILLION-MG capsule Take 1 capsule by mouth Daily Active cholecalciferol 0.125 mg oral tablet (8 sources) Vitamin D Start: take 1 tablet by mouth once daily cholecalciferol (D3-5) 5,000 Units tablet Indications: Vitamin D deficiency Take 1 tablet (5,000 Units) by mouth Daily 100 tablet 3 06/24/2024 Active Start: 12-11-2023 take 50 ug by mouth once daily Cholecalciferol (Vitamin D3) Active 50 MCG PO Daily 60 December 11, 2023 1:00am diclofenac sodium 0.01 mg/mg topical gel (5 sources) Nonsteroidal Anti-inflammatory Drug Start: 09-23-2024 diclofenac sodium (Voltaren Arthritis Pain) 1 % gel Indications: Patellar tendonitis of right knee Apply 4 g topically 4 (four) times a day as needed for pain 50 g 2 09/23/2024 Active doxycycline monohydrate 100 mg oral capsule (1 source) Tetracycline-class Drug Start: 12-05-2021 take 1 capsule by mouth every twelve hours Doxycycline Monohydrate 100 MG 1 capsule Orally every 12 hrs for 10 days Nov, Active fluticasone propionate 0.05 mg/actuat metered dose nasal spray (5 sources) Corticosteroid Start: 03-09-2024 take 1 spray(s) nasal route once daily Fluticasone Propionate Active 2 SPRAY INTRANASAL Daily March 09, 2024 12:00am administer into each nostril Start: 10-20-2021 take 1 spray(s) nasa l route twice daily Fluticasone Propionate 50 MCG/ACT 1 spray in each nostril Nasally Twice a day for 14 days Oct, Not-Taking folic acid 0.4 mg oral tablet (6 sources) Start: 06-24-2024 take 1 tablet by mouth once daily folic acid (Folvite) 400 MCG tablet Indications: Folate deficiency Take 1 tablet (0.4 mg) by mouth Daily 100 tablet 3 06/24/2024 Active levonorgestrel 0.248989 mg/hr intrauterine system (6 sources) Progestin, Progestin-containi ng Intrauterine Device Levonorgestrel (Liletta, 52 MG,) 20.1 MCG/DAY intrauterine device by Intrauterine route Active levothyroxine sodium 0.1 mg oral tablet (16 sources) l-Thyroxine Start: 05-15-2024 take 1 tablet by mouth once daily levothyroxine 100 mcg (0.1 mg) Tab 100 mcg = 1 tab(s), Oral, Daily, Refills(s) 0 Start Date: 05/15/24 Status: Ordered Start: 11-16-2023 End: 11-15-2024 take 1 tablet by mouth before mealtime levothyroxine (Synthroid, Levoxyl) 100 MCG tablet Indications: Hypothyroidism, unspecified type (CMS/HCC) TAKE 1 TABLET (100 MCG) BY MOUTH IN THE MORNING. TAKE BEFORE MEALS. 100 tablet 3 11/16/2023 11/15/2024 Active Start: 11-06-2022 take 1 capsule by mo [facility] once daily Levothyroxine (Tirosint) 175 mcg capsule Active 175 MCG PO Daily at 629November 06, 2022 12:00am take 1 tablet by giuseppe once daily in the morning Synthroid 137 MCG 1 tablet on an empty stomach in the morning Orally Once a day for 90 days Active methylPREDNISolone 4 mg oral tablet (1 source) Corticosteroid Start: 03-09-2024 take 1 tablet by mouth once Methylprednisolone (Medrol (Pop)) 4 mg tablets,dose pack Active 0 PO per package directions March 09, 2024 12:00am PO PER PKG DIR for 6 days Nasonex 50 MCG/ACT (1 source) Start: 12-05-2021 take 2 spray(s) nasal route once daily Nasonex 50 MCG/ACT 2 sprays in each nostril Nasally Once a day for 30 day(s) Nov, Active predniSONE 10 mg oral tablet (2 sources) Start: 09-23-2024 End: 10-01-2024 take 1 tablet by mouth three times daily, then take 1 tablet by mouth twice daily, then take 1 tablet by mouth once daily predniSONE (Deltasone) 10 MG tablet Indications: Patellar tendonitis of right knee Take 1 tablet (10 mg) by mouth 3 (three) times a day for 3 days, THEN 1 tablet (10 mg) 2 (two) times a day for 3 days, THEN 1 tablet (10 mg) Daily for 3 days. 18 tablet 09/23/2024 10/01/2024 Active (1 source) Active traZODone hydrochloride 100 mg oral tablet (6 sources) Serotonin Reuptake Inhibitor Start: 01-03-2024 traZODone (Desyrel) 100 MG tablet Take 100 mg by mouth as needed at bedtime 01/03/2024 Active 24 hr venlafaxine 75 mg extended release oral capsule (8 sources) Serotonin and Norepinephrine Reuptake Inhibitor Start: 01-18-2024 take 75 mg by mouth once daily Venlafaxine Active 75 MG PO Daily January 18, 2024 1:00am Start: 01-03-2024 take 1 capsule by [facility] once daily venlafaxine XR (Effexor XR) 75 MG 24 hr capsule TAKE 1 CAPSULE BY MOUTH ONCE A DAY AFTER 7 DAYS OF 37.5 MG 01/03/2024 Active Zofran ODT 8 mg Tab-Dis (1 source) Start: 05-15-2024 take 1 tablet by mouth every eight hours Zofran ODT 8 mg Tab-Dis 8 mg = 1 tab(s), Oral, q8hr, # 10 tab(s), Refills(s) 0, Pharmacy: [facility]/pharmacy #[id number], 147, cm, 05/15/24 15:50:00 EDT, Height/Length Dosing, 68.6, kg, 05/15/24 15:50:00 EDT, Weight Dosing Start Date: 05/15/24 Status: Ordered Completed/Discontinued Medications Medication Drug Class(es) Dates Sig (Normalized) Sig (Original) cephalexin 500 mg oral capsule (10 sources) Cephalosporin Antibacterial Start: 09-11-2024 End: 09-23-2024 cephalexin (Keflex) 500 MG capsule Indications: Dysuria Take 1 capsule (500 mg) by mouth in the morning and 1 capsule (500 mg) at noon and 1 capsule (500 mg) in the evening and 1 capsule (500 mg) before bedtime. Do all this for 7 days. 28 capsule 09/11/2024 09/23/2024 Discontinued (Therapy completed) Start: 10-10-2021 End: 11-06-2022 take 500 mg by mouth twice daily Cephalexin Discontinued 500 MG PO Twice daily 26 05October 10, 2021 1:00am November 06, 2022 9:06pm dextroamphetamine sulfate 10 mg oral tablet (3 sources) Central Nervous System Stimulant take 1 tablet by mouth every twenty-four hours Dextroamphetamine Sulfate 10 MG 1 tablet in the morning Orally Once a day Not-Taking escitalopram 10 mg oral tablet (2 sources) Serotonin Reuptake Inhibitor Start: 2023 End: 2023 take 10 mg by mouth once daily in the morning Escitalopram Oxalate Discontinued 10 MG PO Every morning 15 December 11, 2023 1:00am January 18, 2024 3:37pm HYDROmorphone hydrochloride 2 mg oral tablet (5 sources) Opioid Agonist Start: 2021 End: 2022 take 1 tablet by mouth every six hours Hydromorphone (Dilaudid) 2 mg tablet Discontinued 2 MG PO Q6H 30 November 09, 2022 August 08, 2023 11:58am ibuprofen 600 mg oral tablet (5 sources) Nonsteroidal Anti-inflammatory Drug Start: 2021 End: 2022 take 600 mg by mouth every six hours Ibuprofen Discontinued 600 MG PO Q6H November 09, 2022 1:00am August 08, 2023 11:58am [place]-3 Fatty Acids (Fish Oil) 1000 MG capsule delayed-release (2 sources) End: 2023 take 1 capsule by mouth once daily [place]-3 Fatty Acids (Fish Oil) 1000 MG capsule delayed-release Take 1,000 mg by mouth Daily 09/23/2024 Discontinued Syitqnzd-Xcd-Yc-Fa (5 sources) Start: 2021 End: 2022 take 1 tablet by mouth once daily Folpvvgf-Yxk-Tn-Fa Discontinued 1 TAB PO Daily November 06, 2022 12:00am August 08, 2023 10:58am Start: 11-06-2022 End: 08-08-2023 take 1 tablet by mouth once daily Qgbysfhi-Vpi-Te-Fa Discontinued 1 TAB PO Daily November 06, 2022 1:00am August 08, 2023 11:58am Start: 11-06-2022 take 1 tablet by giuseppe th once daily Xhumpjio-Jde-Uy-Fa Active 1 TAB PO Daily November 06, 2022 12:00am Problems Active Problems Problem Classification Problem Date Documented Da te Episodic/Chronic Anxiety disorders (11 sources) Generalized anxiety disorder; Translations: [Generalized anxiety disorder] Onset: 12-08-2023 12-09-2023 Chronic Attention-deficit, conduct, and disruptive behavior disorders (2 sources) Attention deficit hyperactivity disorder; Translations: [Attention-deficit hyperactivity disorder, unspecified type] 12-09-2023 Chronic Attention-deficit, conduct, and disruptive behavior disorders (3 sources) Attention-deficit hyperactivity disorder, unspecified type; Translations: [Attention deficit disorder with hyperactivity] Onset: 12-08-2023 12-08-2023 Chronic Attention-deficit, conduct, and disruptive behavior disorders (10 sources) Attention deficit hyperactivity disorder, combined type; Translations: [Attention-deficit hyperactivity disorder, combined type] Onset: 06-20-2023 06-20-2023 Chronic Complications of surgical procedures or medical care (12 sources) Postoperative hypothyroidism; Translations: [Postprocedural hypothyroidism] Onset: 04-17-2017 06-20-2023 Chronic Disorders of lipid metabolism (6 sources) Raised low density lipoprotein cholesterol; Translations: [Pure hypercholesterolemia , unspecified] Onset: 01-09-2024 01-09-2024 Chronic Gastritis and duodenitis (1 source) Gastritis; Translations: [Gastritis, unspecified, without bleeding] Onset: 05-15-2024 Episodic Joint disorders and dislocations; trauma-related (4 sources) Derangement of right knee; Translations: [Unspecified internal derangement of right knee] 10-15-2024 Chronic Menstrual disorders (6 sources) Disorder of menstruation; Translations: [Irregular menstruation, unspecified] Onset: 06-19-2023 06-19-2023 Chronic Mood disorders (13 sources) Depressive disorder; Translations: [Depression] Onset: 12-08-2023 12-08-2023 Chronic Mood disorders (1 source) Mood disorders; Translations: [Depression, unspecified] Onset: 12-08-2023 Nutritional deficiencies (10 sources) Vitamin D deficiency; Translations: [Vitamin D deficiency, unspecified] Onset: 06-24-2024 06-24-2024 Chronic Other connective tissue disease (2 sources) Tendonitis of right patellar tendon; Translations: [Patellar tendinitis, right knee] 09-23-2024 Episodic Other female genital disorders (3 sources) Abnormal uterine and vaginal bleeding, unspecified; Translations: [ABNORMAL UTERINE VAGINAL BLEED UNS] Onset: 03-02-2022 Chronic Other gastrointestinal disorders (10 sources) Celiac disease; Translations: [Celiac disease] Onset: 06-19-2023 01-18-2024 Chronic Other gastrointestinal disorders (3 sources) Celiac disease; Translations: [Celiac disease] Chronic Other gastrointestinal disorders (3 sources) Constipation; Translations: [Constipation, unspecified] Episodic Other gastrointestinal disorders (3 sources) Loose stool; Translations: [Other fecal abnormalities] Episodic Other gastrointestinal disorders (2 sources) Other fecal abnormalities Episodic Other gastrointestinal disorders (2 sources) Constipation, unspecified Episodic Other non-traumatic joint disorders (2 sources) Pain in right knee; Translations: [Pain in joint, lower leg] 09-23-2024 Episodic Other non-traumatic joint disorders (4 sources) Instability of joint of right knee; Translations: [Other instability, right knee] 10-15-2024 Episodic Other nutritional; endocrine; and metabolic disorders (6 sources) Obesity; Translations: [Class 1 obesity with serious comorbidity and body mass index (BMI) of 32.0 to 32.9 in adult] Onset: 01-09-2024 06-21-2024 Chronic Other nutritional; endocrine; and metabolic disorders (4 sources) Overweight; Translations: [Overweight] Episodic Other and delivery including normal (1 source) Encounter for supervision of normal , unspecified, first trimester; Translations: [ENC SUP NORMAL PREG UNS FIRST TRI] Onset: 03-03-2022 Episodic Other skin disorders (1 source) Localized swelling, mass and lump, neck; Translations: [Localized swelling, mass and lump, neck] Onset: 01-14-2019 Episodic Residual codes; unclassified (1 source) History of uterine scar from previous surgery; Translations: [Other postprocedural status] 11-09-2022 Episodic Thyroid disorders (12 sources) Graves' disease; Translations: [Thyrotoxicosis with diffuse goiter without thyrotoxic crisis or storm] Onset: 06-19-2023 Resolved: 10-09-2023 06-19-2023 Chronic Unclassified (3 sources) CONTACT W/AND (SUSP) EXPOS COVID-19; Translations: [CONTACT W/AND (SUSP) EXPOS COVID-19] Onset: 11-25-2021 Unclassified (1 source) COUGH, UNSPECIFIED; Translations: [COUGH, UNSPECIFIED] Onset: 11-25-2021 Past or Other Problems Problem Classification Problem Date Documented Da te Episodic/Chronic Abdominal pain (2 sources) Epigastric pain; Translations: [Epigastric pain] Onset: Episodic Cancer of cervix (6 sources) Cervical atypism; Translations: [Atypical squamous cells of undetermined significance on cytologic smear of cervix (ASC-US)] Onset: 3 06-19-2023 Episodic Complications of surgical procedures or medical care (14 sources) Wound dehiscence; Translations: [Disruption of external operation (surgical) wound, not elsewhere classified, initial encounter] Onset: 4 Resolved: 4 10-10-2021 Episodic Immunizations and screening for infectious disease (1 source) Contact with and (suspected) exposure to other viral communicable diseases Onset: 2 Resolved: 2 Episodic Miscellaneous mental health disorders (1 source) depression; Translations: [ depression] Onset: 4 Episodic Nonmalignant breast conditions (6 sources) Large breast; Translations: [Hypertrophy of breast] Onset: 9 06-20-2023 Episodic Nutritional deficiencies (6 sources) Folic acid deficiency; Translations: [Deficiency of other specified B group vitamins] Onset: 4 06-24-2024 Episodic Other gastrointestinal disorders (6 sources) Abdominal bloating; Translations: [Abdominal distension (gaseous)] Onset: 7 Resolved: 3 06-20-2023 Episodic Other upper respiratory disease (1 source) Nasal congestion; Translations: [NASAL CONGESTION] Onset: 2 Episodic Other upper respiratory infections (8 sources) Chronic sinusitis, unspecified; Translations: [Unspecified sinusitis (chronic)] Onset: 2 Resolved: 3 03-09-2024 Chronic Other upper respiratory infections (1 source) Acute maxillary sinusitis, unspecified Onset: 2 Resolved: 2 Episodic Sexually transmitted infections (not HIV or hepatitis) (6 sources) Human papillomavirus deoxyribonucleic acid test positive, high risk on cervical specimen; Translations: [Cervical high risk human papillomavirus (HPV) DNA test positive] Onset: 3 06-19-2023 Episodic Spondylosis; intervertebral disc disorders; other back problems (6 sources) Chronic back pain ; Translations: [Dorsalgia, unspecified] Onset: 9 06-20-2023 Episodic Unclassified (1 source) CONTACT W/AND (SUSP) EXPOS COVID-19; Translations: [CONTACT W/AND (SUSP) EXPOS COVID-19] Onset: 2 Results Test Name Value Interpretation Reference Range Facility Ambulatory Visit Summaryon 0 05-15-2024 Ambulatory Visit Summary Ambulatory Visit Summary JEN SANTAMARIA :1995 Visit Date:05/15/2024 Ambulatory Visit Instructions Your Diagnosis Viral gastritis Your Care Team Attending Physician - Barbara MONROY, Devin Chan Primary Care Physician - REDDY EHNRY This Is Your Medications List amphetamine-dextroamphet amine (amphetamine-dextroamphe tamine 20 mg Cap-ER) levothyroxine (levothyroxine 100 mcg (0.1 mg) Tab) venlafaxine (venlafaxine 75 mg Cap-ER) Discharge Vitals Temperature (Tympanic) 36.8 ?C Heart Rate (Peripheral) 96 Blood Pressure 118/82 Height 147 cm Height 58 in Weight 68.6 kg Weight 150.92 lb BMI 31.75 Medications What How Much When Instructions Unchanged amphetamine-dextroamphet amine (amphetamine-dextroamphe tamine 20 mg Cap-ER) 1 Capsules By Mouth Once a day (in the morning) Unchanged levothyroxine (levothyroxine 100 mcg (0.1 mg) Tab) 1 Tablets By Mouth Every day Unchanged venlafaxine (venlafaxine 75 mg Cap-ER) 1 Capsules By Mouth Every day Allergies Bactrim (Hives) Patient Survey You may receive a survey via text or e-mail asking about your office visit. Please share your experience with us by completing your survey. We appreciate your feedback and thank you for choosing us for your care. Normal [facility] Family Medicine Office/Clini c Noteon 05-15-2024 Family Medicine Office/Clinic Note Family Medicine Office/Clinic Note Chief Complaint Flu-Like Symptoms HPI Staff 28 year old female present for Stomach pain: Onset: 1 week Location: Lower abdomen Duration: 1 week Characteristics: Dull, cramping Aggravated by: Eating Relieved by: None Diarrhea: Yes Vomiting/Nausea: Yes OTC: nausea, anti-diarrhea Pt states that her boyfriend and room-mate both had the same symptoms but theirs only lasts 1-3 days History of Present Illness Reviewed and agree with above documented HPI by coroner/medical examiner. Patient is a 28-year-old female who presents with abdominal pain in the lower abdomen that she describes as dull and cramping. She also complains of nausea, vomiting, diarrhea, chills at night. She states that at the beginning her symptoms were boyfriend roommate had similar symptoms but their symptoms have resolved. She denies exposure to C. difficile or recent antibiotic use. She states no knowledge of having eaten uncooked/not fully cooked food. She denies eating spicy food or greasy food. She denies any noticeable blood in her diarrhea and describes it as watery and brown not black. She has used antidiarrheal and antinausea medicine. Patient has allergy to Bactrim. Review of Systems PHQ Score Initial Depression Screen Score: 0 SCORE Physical Exam Vitals & Measurements T: 36.8 ?C(Tympanic) HR: 96(Peripheral) BP: 118/82 SpO2: 96% HT: 58 in HT: 147 cm WT: 68.6 kg WT: 150.92 lb BMI: 31.75 General: Well developed, well nourished, in no acute distress, does not appear ill or septic Eyes: Pupils equal, round, and reactive to light. Conjunctivae and sclerae normal, and extraocular movements intact Ears: No deformity or lesion of external ear. Canals and TM appear normal bilaterally. TM?s intact, not inflamed, with normal light reflex. Hearing grossly normal to conversational speech Nose: No deformity, discharge, inflammation, or lesions Mouth: Moist mucous membranes. Uvula is midline. No acute tonsillar erythema edema or exudate. No signs of peritonsillar abscess. No trismus or drooling. Neck: no adenopathy Lungs: Normal respiratory effort and clear to auscultation Cardio: regular rate and rhythm, no murmur Abdomen: Soft, non-distended, tender in bilateral upper quadrants Musculoskeletal: No deformity or scoliosis noted. Normal range of motion. Joints normal. No erythema, edema, effusion, or ecchymosis Extremity: No clubbing, cyanosis, edema, or deformity, with normal ROM in both upper and lower bilateral extremities Neurologic: Grossly normal Skin: No rashes, ulcerations, or suspicious lesions Mental Status: Alert and oriented x3. Normal speech and thought content, normal mood and affect Assessment/Plan 1. Viral gastritis (K29.70: Gastritis, unspecified, without bleeding) Discussed exam and history are consistent with viral illness possibly gastritis. Advised of typical duration. Discussed antibiotics unfortunately do not treat viral illnesses, it will take time to run course- usually 7-14 days. Fluids/rest encouraged, as needed Tylenol/ibuprofen for any pain. May use Zofran for symptomatic treatment. Spoke about BRAT (banana, rice, applesauce, and toast) diet. for next few days. Follow up with PCP if not improving over next 5 days or significantly worsening symptoms. Patient and/or parent verbalized understanding of treatment plan. Ordered: ondansetron, 8 mg = 1 tab(s), Oral, q8hr, # 10 tab(s), Refills(s) 0, Pharmacy: [facility]/pharmacy #[id number], 147, cm, 05/15/24 15:50:00 EDT, Height/Length Dosing, 68.6, kg, 05/15/24 15:50:00 EDT, Weight Dosing Portions of this record may have been created with voice recognition artificial intelligence software, specifically [employer], [employer] and or [employer]. Occasional wrong-word or `[id number]? substitutions may have occurred due to the inherent limitations of voice recognition and artificial intelligence software. Follow-up No qualifying data available Patient Education Gastritis, Adult, [id number] Problem List/Past Medical History Ongoing No qualifying data Historical No qualifying data Medications amphetamine-dextroamphet amine 20 mg Cap-ER, 20 mg= 1 cap(s), Oral, qAM levothyroxine 100 mcg (0.1 mg) Tab, 100 mcg= 1 tab(s), Oral, Daily venlafaxine 75 mg Cap-ER, 75 mg= 1 cap(s), Oral, Daily Zofran ODT 8 mg Tab-Dis, 8 mg= 1 tab(s), Oral, q8hr Allergies Bactrim (Hives) Social History Tobacco Never (less than 100 in lifetime) Tobacco Use:. Never Smokeless Tobacco Use:., 05/15/2024 Family History Diabetes mellitus type 1: Brother. Immunizations Vaccine Date Status diphtheria/pertussis, acel/tetanus adult 11/09/2022 Recorded poliovirus vaccine, inactivated 07/08/2002 Recorded measles/mumps/rubella virus vaccine 07/08/2002 Recorded DTaP, unspecified formulation 07/08/2002 Recorded measles/mumps/rubella virus vaccine 03/06/1998 Recorded Hib, unspecified formulation 03/06/1998 Recorded DTaP, unspecified form (more content not included)... Normal [facility] Comment on above: Result Comment: Elec tronically Signed By: Barbara MONROY, Devin Yancey\Date and Time Signed: 05/15/24 16:12 EDT Cholesterol [Mass/volume] in Serum or PlasmaOrdered By: Rodriguez Nick on 12-09-2023 Cholesterol [Mass/Vol] 170 mg/dL Normal 140-200 [facility] Comment on above: Chol less than 200 m g/dl low riskChol 201-239 mg/dl borderline riskChol 240 mg/dl and greater high risk Result Comment: Chol less than 200 mg/dl low risk Chol 201-239 mg/dl borderline risk Chol 240 mg/dl and greater high risk Performed By: #### L IPID, TSH3 wRFLX, [id number] #### [address] Cholesterol in LDL Calc [Mas s/Vol]Ordered By: Rodriguez Nick on 12-09-2023 Cholesterol in LDL [Mass/Vol] 102 mg/dL 0-[address] [facility] Comment on above: LDL ATP III CLASSIFI CATIONLDL less than 100 mg/dL OptimalLDL 100-129 mg/dL Near or above optimalLDL 130-159 mg/dL Borderline highLDL 160-189 mg/dL HighLDL greater than 189 mg/dL Very high Cholesterol in VLDL Calc [Ma ss/Vol]Ordered By: Rodriguez Nick on 12-09-2023 Cholesterol in VLDL [Mass/Vol] 14 mg/dL [facility] ECG 12 lead ECGon 12-09-2023 ECG 12 lead ECG [facility] [address] [place] [address] [place] [address] Electrocardiograph Report Signed Patient: Jen Santamaria MR#: [id number] : 1995 Acct:[id number] Age/Sex: 28 / F ADM Date: 12/08/23 Loc: Room: 7O9279-8 Type: DIS IN Attending Dr: Miguel Jalloh [...] previous ECGs available Confirmed by Frannie Todd ([id number]) on 12/09/2023 11:36:04 AM Referred By: Electronically Signed By:Frannie Todd REVISED DOCUMENT/01/03/2024/ (corrected prov sig) Transcribed By: MUS Signed By Frannie Todd MD 4 0011 Normal [facility] Lipid Panelon 12-09-2023 LDL Cholesterol,Calculated 102 mg/dL High 0-100 [facility] Comment on above: Result Comment: LDL ATP III CLASSIFICATION LDL less than 100 mg/dL Optimal LDL 100-129 mg/dL Near or above optimal LDL 130-159 mg/dL Borderline high LDL 160-189 mg/dL High LDL greater than 189 mg/dL Very high Performed By: #### L IPID, TSH3 wRFLX, [id number] #### [address] Triglyceride w/Reflex 71 mg/dL Normal 0-149 [facility] Comment on above: Result Comment: TRIG ATP III CLASSIFICATION TRIG less than 150 mg/dL Normal TRIG 150-199 mg/dL Borderline high TRIG 200-500 mg/dL High TRIG greater than 500 mg/dL Very high Standard traceable to the Center for Disease Conrtrol and Prevention (CDC) test method. Performed By: #### L IPID, TSH3 wRFLX, [id number] #### [facility] [address] [place] [id number] [facility] VLDL CHOLESTEROL 14 mg/dL Normal [facility] Comment on above: Performed By: #### L IPID, TSH3 wRFLX, [id number] #### [facility] [address] Serum or plasma high density lipoprotein (HDL) cholesterol measurementOrdered By: Rodriguez Nick on 12-09-2023 Cholesterol in HDL [Mass/Vol] 54 mg/dL Normal 23-[address] [facility] Comment on above: HDL CHOL ATP-III CLA SSIFICATION Cardiovascular RiskHDL > or equal to 60 mg/dL LOWHDL < 40 mg/dL HIGH Result Comment: HDL CHOL ATP-III CLASSIFICATION Cardiovascular Risk HDL > or equal to 60 mg/dL LOW HDL < 40 mg/dL HIGH Performed By: #### L IPID, TSH3 wRFLX, [id number] #### [facility] [address] [place] [address] Serum or plasma total choles terol/high density lipoprotein (HDL) cholesterol mass ratOrdered By: Rodriguez Nick on 12-09-2023 Cholesterol.total/Chol esterol in HDL [Mass ratio] 3.1 {ratio} Normal <5.[address] [facility] Comment on above: Performed By: #### L IPID, TSH3 wRFLX, [id number] #### [facility] [address] [place] [address] Thyroid Stim Hormone w/Rflxo n 12-09-2023 Thyroid Stim Hormone w/Rflx 1.67 u[iU]/mL Normal 0.45-5.33 [facility] Comment on above: Performed By: #### L IPID, TSH3 wRFLX, [id number] #### [facility] [address] [place] [address] Thyrotropin [Units/volume] i n Serum or PlasmaOrdered By: Rodriguez Nick on 12-09-2023 TSH Qn 1.67 m[IU]/L 0.45-5.[address] [facility] Triglyceride [Mass/volume] i n Serum or PlasmaOrdered By: Rodriguez Nick on 12-09-2023 Triglyceride [Mass/Vol] 71 mg/dL 0-[address] [facility] Comment on above: TRIG ATP III CLASSIF ICATIONTRIG less than 150 mg/dL NormalTRIG 150-199 mg/dL Borderline highTRIG 200-500 mg/dL High TRIG greater than 500 mg/dL Very highStandard traceable to the Center for Disease Conrtrol and Prevention (CDC) test method. Vitamin D 25 Hydroxy Totalon 12-09-2023 Vitamin D 25 Hydroxy Total 25.6 ng/mL Low 30-100 [facility] Comment on above: Result Comment: JAXON MIN D STATUS 25(OH)VITAMIN D RANGE (ng/mL) Deficient <20 Insufficient 20 to <30 Sufficient 30 to 100 Reference: Deangelo Srivastava, Jeison WHYTE, et al. Evaluation,treatment, and prevention of vitamin D deficiency; an Endocrine Society clinical practice guideline. JCEM. 2010; 96(7):1911-. PERFORMED BY: [place] [address] PATHOLOGIST [employer]ER REHAN MARISCAL M.D. Performed By: #### L IPID, TSH3 wRFLX, [id number] #### [facility] [address] Vitamin D+Metabolites [Mass/ volume] in Serum or PlasmaOrdered By: Rodriguez Nick on 12-09-2023 Vitamin D+Metabolites [Mass/Vol] 25.6 ng/mL 30-[address] [facility] Comment on above: VITAMIN D STATUS 25( OH)VITAMIN D RANGE (ng/mL) Deficient <20 Insufficient 20 to <30Sufficient 30 to 100Reference: Deangelo Srivastava, Jeison WHYTE, et al. Evaluation,treatment, and prevention of vitamin D deficiency; an Endocrine Society clinical practice guideline. JCEM. 2010; 96(7):1911-30. Alanine aminotransferase [En zymatic activity/volume] in Serum or PlasmaOrdered By: Larry Rankin on 12-08-2023 ALT [Catalytic activity/Vol] 12 U/L Normal 7-[address] [facility] Comment on above: Performed By: #### C MP, CBC, ETOH #### [facility] [address] [place] [id number] [facility] Albumin [Mass/volume] in Ser um or Plasma by Bromocresol green (BCG) dye binding methoOrdered By: Larry Rankin on 12-08-2023 Albumin BCG dye [Mass/Vol] 4.6 g/dL 3.5-5.[address] [facility] Alkaline phosphatase [Enzyma tic activity/volume] in Serum or PlasmaOrdered By: Larry Rankin on 12-08-2023 ALP [Catalytic activity/Vol] 59 U/L Normal 34-[address] [facility] Comment on above: Performed By: #### C MP, CBC, ETOH #### [address] Amphetamine Screen Ql (U)Ord ered By: Larry Rankin on 12-08-2023 Amphetamines Ql (U) Positive Negative [facility] Aspartate aminotransferase [ Enzymatic activity/volume] in Serum or PlasmaOrdered By: Larry Rankin on 12-08-2023 AST [Catalytic activity/Vol] 19 U/L Normal 13-[address] [facility] Comment on above: Performed By: #### C MP, CBC, ETOH #### [address] Automated basophil %Ordered By: Larry Rankin on 12-08-2023 Basophils/100 WBC (Bld) 0.7 % Normal . [facility] Comment on above: Performed By: #### C MP, CBC, ETOH #### [address] Automated basophil countOrde red By: Larry Rankin on 12-08-2023 Basophils (Bld) [#/Vol] 0.1 10*3/uL Normal 0.0-0.[address] [facility] Comment on above: Result Comment: PERF ORMED BY: [place] [address] PATHOLOGIST [employer] REHAN MARISCAL M.D. Performed By: #### C MP, CBC, ETOH #### [address] Automated blood monocyte cou ntOrdered By: Larry Rankin on 12-08-2023 Monocytes (Bld) [#/Vol] 0.5 10*3/uL Normal 0.0-0.[address] [facility] Comment on above: Performed By: #### C MP, CBC, ETOH #### [address] Automated eosinophil %Ordere d By: Larry Rankin on 12-08-2023 Eosinophils/100 WBC (Bld) 2.2 % Normal . [facility] Comment on above: Performed By: #### C MP, CBC, ETOH #### [address] Automated eosinophil countOr dered By: Larry Rankin on 12-08-2023 Eosinophils (Bld) [#/Vol] 0.2 10*3/uL Normal 0.0-0.[address] [facility] Comment on above: Performed By: #### C MP, CBC, ETOH #### [address] Automated erythrocytes count in urine sediment (number/area)Ordered By: Larry Rankin on 12-08-2023 RBC Auto (Urine sed) [#/Area] 5-9 [HPF] 0-[address] [facility] Automated leukocytes count i n urine sediment (number/area)Ordered By: Larry Rankin on 12-08-2023 WBC Auto (Urine sed) [#/Area] 0-1 [HPF] 0-[address] [facility] Automated monocyte %Ordered By: Larry Rankin on 12-08-2023 Monocytes/100 WBC (Bld) 6.4 % Normal . [facility] Comment on above: Performed By: #### C MP, CBC, ETOH #### [address] Automated neutrophil %Ordere d By: Larry Rankin on 12-08-2023 Neutrophils/100 WBC (Bld) 53.9 % Normal . [facility] Comment on above: Performed By: #### C MP, CBC, ETOH #### [address] Automated urine color determ inationOrdered By: Larry Rankin on 12-08-2023 Color (U) Yellow Normal Yellow [facility] Comment on above: Order Comment: Name Collection Type:: Clean-Voided Midstream Performed By: #### A DDONUAPLUS, URDS, UHCG #### [facility] [address] [place] [address] [place] Barbiturates [Presence] in U rine by Screen methodOrdered By: Larry Rankin on 12-08-2023 Barbiturates Screen Ql (U) Negative Negative [facility] Benzodiazepines Screen Ql (U )Ordered By: Larry Rankin on 12-08-2023 Benzodiazepines Ql (U) Negative Negative [facility] Benzoylecgonine [Presence] i n Urine by Screen methodOrdered By: Larry Rankin on 12-08-2023 Benzoylecgonine Screen Ql (U) Negative Negative [facility] Bilirubin Test strip Ql (U)O rdered By: Larry Rankin on 12-08-2023 Bilirubin Ql (U) Negative Negative [facility] Bilirubin.total [Mass/volume ] in Serum or PlasmaOrdered By: Larry Rankin on 12-08-2023 Bilirubin [Mass/Vol] 0.4 mg/dL Normal 0.3-1.0 [facility] Comment on above: Performed By: #### C MP, CBC, ETOH #### [facility] [address] Calcium [Mass/volume] in Ser um or PlasmaOrdered By: Larry Rankin on 12-08-2023 Calcium [Mass/Vol] 9.8 mg/dL Normal 8.6-10.3 [facility] Comment on above: Performed By: #### C MP, CBC, ETOH #### [facility] [address] [place] [address] [place] Cannabinoids [Presence] in U rine by Screen methodOrdered By: Larry Rankin on 12-08-2023 Cannabinoids Screen Ql (U) Negative Negative [facility] Comment on above: These are unconfirme d results and should not be used for legal purposes. Drug Cut-Off Concentration: AMPH 1000 ng/mL KAMRYN 200 ng/mL MIRELA 200 ng/mL COCM 300 ng/mL OP 300 ng/mL PCP 25 ng/mL THC 20 ng/mL Carbon dioxide, total [Moles /volume] in Serum or PlasmaOrdered By: Larry Rankin on 12-08-2023 CO2 [Moles/Vol] 24.0 mmol/L Normal 21.0-31.0 [facility] Comment on above: Performed By: #### C MP, CBC, ETOH #### [address] Chloride [Moles/volume] in S ridge or PlasmaOrdered By: Larry Rankin on 12-08-2023 Chloride [Moles/Vol] 106 mmol/L Normal 98-107 [facility] Comment on above: Performed By: #### C MP, CBC, ETOH #### [address] Complete Blood Count Auto Di ffon 12-08-2023 Mean Corpuscular HGB Conc 34.2 g/dL Normal 32.0-35.0 [facility] Comment on above: Performed By: #### C MP, CBC, ETOH #### [address] Monocytes/100 WBC (Bld) 16.63 % Normal 0.00-20.00 [facility] Comment on above: Performed By: #### C MP, CBC, ETOH #### [address] NRBC% 0.1 /100{WBC} Normal 0-0.5 [facility] Comment on above: Performed By: #### C MP, CBC, ETOH #### [address] Comprehensive Metabolic Pane becca 12-08-2023 Albumin [Mass/Vol] 4.6 g/dL Normal 3.5-5.7 [facility] Comment on above: Performed By: #### C MP, CBC, ETOH #### [address] Creatinine Clr Calc Pharmacy 90.10 Normal [facility] Comment on above: Result Comment: PERF ORMED BY: [place] [address] PATHOLOGIST [employer] REHAN MARISCAL M.D. Performed By: #### C MP, CBC, ETOH #### [place] [address] [place] GFR/1.73 sq M.predicted MDRD (S/P/Bld) [Vol rate/Area] mL/min/{1.73_m2} Normal [facility] Comment on above: Performed By: #### C MP, CBC, ETOH #### [address] Creatinine [Mass/volume] in Serum or PlasmaOrdered By: Larry Rankin on 12-08-2023 Creatinine [Mass/Vol] 0.82 mg/dL Normal 0.60-1.20 [facility] Comment on above: Performed By: #### C MP, CBC, ETOH #### [place] [address] [place] Dipstick and Microscopicon 0 12-08-2023 Appearance (U) Clear Normal Clear [facility] Comment on above: Order Comment: Name Collection Type:: Clean-Voided Midstream Performed By: #### A DDONUAPLUS, URDS, UHCG #### [place] [address] [place] Bacteria,Urine None Seen Normal None Seen [facility] Comment on above: Order Comment: Name Collection Type:: Clean-Voided Midstream Performed By: #### A DDONUAPLUS, URDS, UHCG #### [place] [address] [place] Bilirubin,Urine Negative Normal Negative [facility] Comment on above: Order Comment: Name Collection Type:: Clean-Voided Midstream Performed By: #### A DDONUAPLUS, URDS, UHCG #### [place] [address] [place] Glucose Ql (U) Normal Normal Normal [facility] Comment on above: Order Comment: Name Collection Type:: Clean-Voided Midstream Performed By: #### A DDONUAPLUS, URDS, UHCG #### [place] [address] [place] Hyaline Casts,Urine 0-8 Normal 0-8 [facility] Comment on above: Order Comment: Name Collection Type:: Clean-Voided Midstream Performed By: #### A DDONUAPLUS, URDS, UHCG #### [address] Ketones Ql (U) 1+ High Negative [facility] Comment on above: Order Comment: Name Collection Type:: Clean-Voided Midstream Performed By: #### A DDONUAPLUS, URDS, UHCG #### [address] Leukocyte esterase Test strip Ql (U) Negative Normal Negative [facility] Comment on above: Order Comment: Name Collection Type:: Clean-Voided Midstream Performed By: #### A DDONUAPLUS, URDS, UHCG #### [place] [address] [place] Nitrite,Urine Negative Normal Negative [facility] Comment on above: Order Comment: Name Collection Type:: Clean-Voided Midstream Performed By: #### A DDONUAPLUS, URDS, UHCG #### [place] [address] [place] Occult Blood,Urine 2+ High Negative [facility] Comment on above: Order Comment: Name Collection Type:: Clean-Voided Midstream Performed By: #### A DDONUAPLUS, URDS, UHCG #### [place] [address] [place] Protein,Urine Negative Normal Negative [facility] Comment on above: Order Comment: Name Collection Type:: Clean-Voided Midstream Performed By: #### A DDONUAPLUS, URDS, UHCG #### [place] [address] [place] RBC,Urine 5-9 High 0-4 [facility] Comment on above: Order Comment: Name Collection Type:: Clean-Voided Midstream Performed By: #### A DDONUAPLUS, URDS, UHCG #### [address] Specificy [place],Urine 1.022 Normal 1.001-1.030 [facility] Comment on above: Order Comment: Name Collection Type:: Clean-Voided Midstream Performed By: #### A DDONUAPLUS, URDS, UHCG #### [address] Squamous Epithelial Cell,Urine 0-1 Normal 0-2 [facility] Comment on above: Order Comment: Name Collection Type:: Clean-Voided Midstream Performed By: #### A DDONUAPLUS, URDS, UHCG #### [address] Urobilinogen,Urine Normal Normal Normal [facility] Comment on above: Order Comment: Name Collection Type:: Clean-Voided Midstream Performed By: #### A DDONUAPLUS, URDS, UHCG #### [address] WBC LM.HPF (Urine sed) [#/Area] 0 /[HPF] Normal 0-4 [facility] Comment on above: Order Comment: Name Collection Type:: Clean-Voided Midstream Performed By: #### A DDONUAPLUS, URDS, UHCG #### [address] Drug Screen,Urineon 12-08-19 24 Amphetamine Screen,Urine Positive High Negative [facility] Comment on above: Performed By: #### A DDONUAPLUS, URDS, UHCG #### [address] Barbiturate Screen,Urine Negative Normal Negative [facility] Comment on above: Performed By: #### A DDONUAPLUS, URDS, UHCG #### [address] Benzodiazepines Screen,Urine Negative Normal Negative [facility] Comment on above: Performed By: #### A DDONUAPLUS, URDS, UHCG #### [address] Cannabinoid Screen,Urine Negative Normal Negative [facility] Comment on above: Result Comment: Thes e are unconfirmed results and should not be used for legal purposes. Drug Cut-Off Concentration: AMPH 1000 ng/mL KAMRYN 200 ng/mL MIRELA 200 ng/mL COCM 300 ng/mL OP 300 ng/mL PCP 25 ng/mL THC 20 ng/mL PERFORMED BY: [place] [address] PATHOLOGIST [employer]ER REHAN MARISCAL M.D. Performed By: #### A DDONUAPLUS, URDS, UHCG #### [address] Cocaine Screen,Urine Negative Normal Negative [facility] Comment on above: Performed By: #### A DDONUAPLUS, URDS, UHCG #### [address] Opiate Screen,Urine Negative Normal Negative [facility] Comment on above: Performed By: #### A DDONUAPLUS, URDS, UHCG #### [address] Phencyclidine Screen,Urine Negative Normal Negative [facility] Comment on above: Performed By: #### A DDONUAPLUS, URDS, UHCG #### [address] Erythrocyte distribution wid th [Ratio] by Automated countOrdered By: Larry Rankin on 12-08-2023 Erythrocyte distribution width (RBC) [Ratio] 14.5 % Normal 11.9-15.[address] [facility] Comment on above: Performed By: #### C MP, CBC, ETOH #### [address] Erythrocytes [#/volume] in B lood by Automated countOrdered By: Larry Rankin on 12-08-2023 RBC (Bld) [#/Vol] 4.59 10*6/uL Normal 3.60-5.00 [facility] Comment on above: Performed By: #### C MP, CBC, ETOH #### [facility] [address] Ethanol [Mass/volume] in Ser um or PlasmaOrdered By: Larry Rankin on 12-08-2023 Ethanol [Mass/Vol] mg/dL Normal [facility] Comment on above: Performed By: #### C MP, CBC, ETOH #### [facility] [address] Ethanol [Mass/Vol] TNP [facility] Comment on above: Test not performed Ethyl Alcohol Profileon 11-14 Percent Ethanol Not performed Normal [facility] Comment on above: Result Comment: PERF ORMED BY: [place] [address] PATHOLOGIST G[employer] REHAN MARISCAL M.D. Performed By: #### C MP, CBC, ETOH #### [facility] [address] Glucose [Mass/volume] in Ser um or PlasmaOrdered By: Larry Rankin on 12-08-2023 Glucose [Mass/Vol] 79 mg/dL Normal 70-100 [facility] Comment on above: ADA recommended refe rence rangeRandom Glucose Reference Range is dependent on time and content of last meal. Glucose of more than 200 mg/dL in a nonstressed, ambulatory subject supports the diagnosis of Diabetes Mellitus. Result Comment: [place] om Glucose Reference Range is dependent on time and content of last meal. Glucose of more than 200 mg/dL in a nonstressed, ambulatory subject supports the diagnosis of Diabetes Mellitus. ADA recommended reference range Performed By: #### C MP, CBC, ETOH #### [facility] [address] HCG ( test) IAriddhi d Ql (U)Ordered By: Larry Rankin on 12-08-2023 HCG ( test) Ql (U) Negative [facility] HCG,Urineon 12-08-2023 Beta HCG ( test) Ql (U) Negative Normal [facility] Comment on above: Order Comment: Name Collection Type:: Clean-Voided Midstream Result Comment: PERF ORMED BY: [place] [address] PATHOLOGIST G[employer] REHAN MARISCAL M.D. Performed By: #### A DDONUAPLUS, URDS, UHCG #### [address] Hematocrit [Volume Fraction] of Blood by Automated countOrdered By: Larry Rankin on 12-08-2023 Hematocrit (Bld) [Volume fraction] 40.7 % Normal 34.0-46.[address] [facility] Comment on above: Performed By: #### C MP, CBC, ETOH #### [address] Hemoglobin [Mass/volume] in BloodOrdered By: Larry Rankin on 12-08-2023 Hemoglobin (Bld) [Mass/Vol] 13.9 g/dL Normal 11.8-15.[address] [facility] Comment on above: Performed By: #### C MP, CBC, ETOH #### [address] Ketones Auto test strip (U) [Mass/Vol]Ordered By: Larry Rankin on 12-08-2023 Ketones (U) [Mass/Vol] 1+ Negative [facility] - UrinalysisOrder ed By: Larry Rankin on 12-08-2023 Hyaline casts LM Ql (Urine sed) 0-8 [LPF] 0-[address] [facility] Leukocytes [#/volume] correc chema for nucleated erythrocytes in Blood by Automated counOrdered By: Larry Rankin on 12-08-2023 WBC corrected for nucl RBC Auto (Bld) [#/Vol] 7.4 10*3/uL 3.8-11.[address] [facility] Leukocytes [#/volume] in Blo od by Automated countOrdered By: Larry Rankin on 12-08-2023 WBC (Bld) [#/Vol] 7.4 10*3/uL Normal 3.8-11.6 [facility] Comment on above: Performed By: #### C MP, CBC, ETOH #### [address] Lymphocytes [#/volume] in Bl ood by Automated countOrdered By: Larry Rankin on 12-08-2023 Lymphocytes (Bld) [#/Vol] 2.7 10*3/uL Normal 1.00-4.[address] [facility] Comment on above: Performed By: #### C MP, CBC, ETOH #### [address] Lymphocytes/100 leukocytes i n Blood by Automated countOrdered By: Larry Rankin on 12-08-2023 Lymphocytes/100 WBC (Bld) 36.8 % Normal . [facility] Comment on above: Performed By: #### C MP, CBC, ETOH #### [address] MCH [Entitic mass] by Automa chema countOrdered By: Larry Rankin on 12-08-2023 MCH (RBC) [Entitic mass] 30.3 pg Normal 24.7-34.[address] [facility] Comment on above: Performed By: #### C MP, CBC, ETOH #### [address] MCHC Auto (RBC) [Mass/Vol]Or dered By: Larry Rankin on 12-08-2023 MCHC (RBC) [Mass/Vol] 34.2 g/dL 32.0-35.0 [facility] MCV [Entitic volume] by Auto mated countOrdered By: Larry Rankin on 12-08-2023 MCV (RBC) [Entitic vol] 88.6 fL Normal 80-[address] [facility] Comment on above: Performed By: #### C MP, CBC, ETOH #### [address] Monocyte distribution width [Entitic volume] in Blood by AutomatedOrdered By: Larry Rankin on 12-08-2023 Monocyte distribution width Auto (Bld) [Entitic vol] 16.63 % 0.00-20.[address] [facility] Neutrophils [#/volume] in Bl ood by Automated countOrdered By: Larry Rankin on 12-08-2023 Neutrophils (Bld) [#/Vol] 4.0 10*3/uL Normal 1.8-7.[address] [facility] Comment on above: Performed By: #### C MP, CBC, ETOH #### [facility] [address] Nitrite Test strip Ql (U)Ord ered By: Larry Rankin on 12-08-2023 Nitrite Ql (U) Negative Negative [facility] No Panel InformationOrdered By: Larry Rankin on 12-08-2023 Estimated GFR (CKD-EPI) > 60.0 mL/Min [facility] Creatinine Clearance (Chem 90.[address] [facility] Nucleated erythrocytes [Pres ence] in Blood by Automated countOrdered By: Larry Rankin on 12-08-2023 Nucleated RBC Auto Ql (Bld) 0.1 /100{WBC} 0-0.[address] [facility] Opiates [Presence] in Urine by Screen methodOrdered By: Larry Rankin on 12-08-2023 Opiates Screen Ql (U) Negative Negative [facility] Phencyclidine Screen Ql (U)O rdered By: Larry Rankin on 12-08-2023 Phencyclidine Ql (U) Negative Negative [facility] Platelet mean volume [Entiti c volume] in Blood by Automated countOrdered By: Larry Rankin on 12-08-2023 Platelet mean volume (Bld) [Entitic vol] 7.4 fL Normal 6.3-10.[address] [facility] Comment on above: Performed By: #### C MP, CBC, ETOH #### [facility] [address] [place] [address] [place] Platelets [#/volume] in Bloo d by Automated countOrdered By: Larry Rankin on 12-08-2023 Platelets (Bld) [#/Vol] 384 10*3/uL Normal 150-[address] [facility] Comment on above: Performed By: #### C MP, CBC, ETOH #### [facility] [address] [place] [address] [place] Potassium [Moles/volume] in Serum or PlasmaOrdered By: Larry Rankin on 12-08-2023 Potassium [Moles/Vol] 3.7 mmol/L Normal 3.5-5.1 [facility] Comment on above: Performed By: #### C MP, CBC, ETOH #### [address] Protein Auto test strip (U) [Mass/Vol]Ordered By: Larry Rankin on 12-08-2023 Protein (U) [Mass/Vol] Negative Negative [facility] Protein [Mass/volume] in Ser um or PlasmaOrdered By: Larry Rankin on 12-08-2023 Protein [Mass/Vol] 7.7 g/dL Normal 6.4-8.9 [facility] Comment on above: Performed By: #### C MP, CBC, ETOH #### [address] Serum globulin measurement b y calculation (mass/volume)Ordered By: Larry Rankin on 12-08-2023 Globulin (S) [Mass/Vol] 3.1 g/dL [facility] Comment on above: Performed By: #### C MP, CBC, ETOH #### [facility] [address] [place] [address] Serum or plasma albumin/glob ulin mass ratioOrdered By: Larry Rankin on 12-08-2023 Albumin/Globulin [Mass ratio] 1.5 {ratio} [facility] Comment on above: Performed By: #### C MP, CBC, ETOH #### [address] Serum or plasma anion gap de terminationOrdered By: Larry Rankin on 12-08-2023 Anion gap [Moles/Vol] 11.7 mmol/L Normal 6.0-15.0 [facility] Comment on above: Performed By: #### C MP, CBC, ETOH #### [address] Sodium [Moles/volume] in Ser um or PlasmaOrdered By: Larry Rankin on 12-08-2023 Sodium [Moles/Vol] 138 mmol/L Normal 136-145 [facility] Comment on above: Performed By: #### C MP, CBC, ETOH #### [facility] [address] [place] [address] Specific gravity Auto test s trip (U) [Rel density]Ordered By: Larry Rankin on 12-08-2023 Specific gravity (U) [Rel density] 1.022 1.001-1.[address] [facility] Squamous epithelial cells de tection in urine sediment by light microscopyOrdered By: Larry Rankin on 12-08-2023 Epithelial cells.squamous LM Ql (Urine sed) 0-1 [HPF] 0-[address] [facility] Urea nitrogen [Mass/volume] in Serum or PlasmaOrdered By: Larry Rankin on 12-08-2023 Urea nitrogen [Mass/Vol] 8 mg/dL Normal 7-[address] [facility] Comment on above: Performed By: #### C MP, CBC, ETOH #### [facility] [address] [place] [address] Urine bacteria detection by automated methodOrdered By: Larry Rankin on 12-08-2023 Bacteria Auto Ql (U) None seen None Seen [facility] Urine clarity by refractomet ry automatedOrdered By: Larry Rankin on 12-08-2023 Clarity Refractometry automated (U) Clear Clear [facility] Urine glucose measurement by automated test strip (mass/volume)Ordered By: Larry Rankin on 12-08-2023 Glucose Auto test strip (U) [Mass/Vol] Normal mg/dL Normal [facility] Urine hemoglobin detection b y automated test stripOrdered By: Larry Rankin on 12-08-2023 Hemoglobin Auto test strip Ql (U) 2+ Negative [facility] Urine leukocyte esterase det ection by automated test stripOrdered By: Larry Rankin on 12-08-2023 Leukocyte esterase Auto test strip Ql (U) Negative Negative [facility] Urine pH measurement by auto mated test stripOrdered By: Larry Rankin on 12-08-2023 pH (U) 6.0 [pH] Normal 5.0-9.[address] [facility] Comment on above: Order Comment: Name Collection Type:: Clean-Voided Midstream Performed By: #### A DDONUAPLUS, URDS, [facility] #### [facility] [address] Urobilinogen Auto test strip (U) [Mass/Vol]Ordered By: Larry Rankin on 12-08-2023 Urobilinogen (U) [Mass/Vol] Normal mg/dL Normal [facility] HCG ( test) IA.rapi d Ql (U)Ordered By: Juice Johnson on 08-08-2023 HCG ( test) Ql (U) Negative [facility] Basophils Auto (Bld) [#/Vol] Ordered By: Stephanie Edward on 11-08-2022 Basophils (Bld) [#/Vol] 0.0 10*3/uL 0.0-0.[address] [facility] Basophils/100 WBC Auto (Bld) Ordered By: Stephanie Edward on 11-08-2022 Basophils/100 WBC (Bld) 0.1 % . [facility] Eosinophils Auto (Bld) [#/Vo l]Ordered By: Stephanie Edward on 11-08-2022 Eosinophils (Bld) [#/Vol] 0.0 10*3/uL 0.0-0.[address] [facility] Eosinophils/100 WBC Auto (Bl d)Ordered By: Stephanie Edward on 11-08-2022 Eosinophils/100 WBC (Bld) 0.1 % . [facility] Erythrocyte distribution wid th Auto (RBC) [Ratio]Ordered By: Stephanie Edward on 11-08-2022 Erythrocyte distribution width (RBC) [Ratio] 14.8 % 11.9-15.[address] [facility] Hematocrit Auto (Bld) [Volum e fraction]Ordered By: Stephanie Edward on 11-08-2022 Hematocrit (Bld) [Volume fraction] 24.3 % 34.0-46.[address] [facility] Comment on above: Delta: 34.3 on 11/06-2014 Hemoglobin [Mass/volume] in BloodOrdered By: Stephanie Edward on 11-08-2022 Hemoglobin (Bld) [Mass/Vol] 8.2 g/dL 11.8-15.[address] [facility] Leukocytes [#/volume] correc chema for nucleated erythrocytes in Blood by Automated counOrdered By: Stephanie Edward on 11-08-2022 WBC corrected for nucl RBC Auto (Bld) [#/Vol] 14.2 10*3/uL 3.8-11.[address] [facility] Lymphocytes Auto (Bld) [#/Vo l]Ordered By: Stephanie Edward on 11-08-2022 Lymphocytes (Bld) [#/Vol] 2.5 10*3/uL 1.00-4.[address] [facility] Lymphocytes/100 WBC Auto (Bl d)Ordered By: Stephanie Edward on 11-08-2022 Lymphocytes/100 WBC (Bld) 17.8 % . [facility] MCH Auto (RBC) [Entitic mass ]Ordered By: Stephanie Edward on 11-08-2022 MCH (RBC) [Entitic mass] 29.8 pg 24.7-34.[address] [facility] MCHC Auto (RBC) [Mass/Vol]Or dered By: Stephanie Edward on 11-08-2022 MCHC (RBC) [Mass/Vol] 33.5 g/dL 32.0-35.0 [facility] MCV Auto (RBC) [Entitic vol] Ordered By: Stephanie Edward on 11-08-2022 MCV (RBC) [Entitic vol] 89.0 fL 80-[address] [facility] Monocytes Auto (Bld) [#/Vol] Ordered By: Stephanie Edward on 11-08-2022 Monocytes (Bld) [#/Vol] 0.5 10*3/uL 0.0-0.[address] [facility] Monocytes/100 WBC Auto (Bld) Ordered By: Stephanie Edward on 11-08-2022 Monocytes/100 WBC (Bld) 3.6 % . [facility] Neutrophils Auto (Bld) [#/Vo l]Ordered By: Stephanie Edward on 11-08-2022 Neutrophils (Bld) [#/Vol] 11.1 10*3/uL 1.8-7.[address] [facility] Neutrophils/100 WBC Auto (Bl d)Ordered By: Stephanie Edward on 11-08-2022 Neutrophils/100 WBC (Bld) 78.4 % . [facility] Nucleated erythrocytes [Pres ence] in Blood by Automated countOrdered By: Stephanie Edward on 11-08-2022 Nucleated RBC Auto Ql (Bld) 0.0 /100{WBC} 0-0.[address] [facility] Platelet mean volume Auto (B ld) [Entitic vol]Ordered By: Stephanie Edward on 11-08-2022 Platelet mean volume (Bld) [Entitic vol] 8.0 fL 6.3-10.[address] [facility] Platelets Auto (Bld) [#/Vol] Ordered By: Stephanie Edward on 11-08-2022 Platelets (Bld) [#/Vol] 217 10*3/uL 150-[address] [facility] RBC Auto (Bld) [#/Vol]Ordere d By: Stephanie Edward on 11-08-2022 RBC (Bld) [#/Vol] 2.73 10*6/uL 3.60-5.00 [facility] WBC Auto (Bld) [#/Vol]Ordere d By: Stephanie Edward on 11-08-2022 WBC (Bld) [#/Vol] 14.2 10*3/uL 3.8-11.6 [facility] Amphetamine Screen Ql (U)Ord ered By: Stephanie Edward on 11-06-2022 Amphetamines Ql (U) Negative Negative [facility] Automated erythrocytes count in urine sediment (number/area)Ordered By: Stephanie Edward on 11-06-2022 RBC Auto (Urine sed) [#/Area] 5-9 [HPF] 0-[address] [facility] Automated leukocytes count i n urine sediment (number/area)Ordered By: Stephanie Edward on 11-06-2022 WBC Auto (Urine sed) [#/Area] 5-9 [HPF] 0-[address] [facility] Barbiturates [Presence] in U rineOrdered By: Stephanie Edward on 11-06-2022 Barbiturates Ql (U) Negative Negative [facility] Benzodiazepines [Presence] i n UrineOrdered By: Stephanie Edward on 11-06-2022 Benzodiazepines Ql (U) Negative Negative [facility] Bilirubin Test strip Ql (U)O rdered By: Stephanie Edward on 11-06-2022 Bilirubin Ql (U) Negative Negative [facility] Color Auto (U)Ordered By: Adelaida aaronbriseyda Edward on 11-06-2022 Color (U) Yellow Yellow [facility] Ketones Auto test strip (U) [Mass/Vol]Ordered By: Stephanie Edward on 11-06-2022 Ketones (U) [Mass/Vol] Negative Negative [facility] - Drug toxicology Ordered By: Stephanie Edward on 11-06-2022 Opiates Ql (U) Negative Negative [facility] - UrinalysisOrder ed By: Stephanie Edward on 11-06-2022 Hyaline casts LM Ql (Urine sed) 0-8 [LPF] 0-[address] [facility] Nitrite Test strip Ql (U)Ord ered By: Stephanie Edward on 11-06-2022 Nitrite Ql (U) Negative Negative [facility] Phencyclidine Screen Ql (U)O rdered By: Stephanie Edward on 11-06-2022 Phencyclidine Ql (U) Negative Negative [facility] Comment on above: These are unconfirme d results and should not be used for legal purposes. Drug Cut-Off Concentration: AMPH 1000 ng/mL KAMRYN 200 ng/mL MIRELA 200 ng/mL COCM 300 ng/mL OP 300 ng/mL PCP 25 ng/mL Protein Auto test strip (U) [Mass/Vol]Ordered By: Stephanie Edward on 11-06-2022 Protein (U) [Mass/Vol] Negative Negative [facility] Reagin Ab [Presence] in Seru m by RPROrdered By: Stephanie Edward on 11-06-2022 Reagin Ab RPR Ql (S) Non-Reactive Non Reactive [facility] Comment on above: Performed at: [address] [id number] Director: Zelalem Hatch PhD, Phone: [phone] Specific gravity Auto test s trip (U) [Rel density]Ordered By: Stephanie Edward on 11-06-2022 Specific gravity (U) [Rel density] 1.017 1.001-1.[address] [facility] Squamous epithelial cells de tection in urine sediment by light microscopyOrdered By: Stephanie Edward on 11-06-2022 Epithelial cells.squamous LM Ql (Urine sed) 3-4 [HPF] 0-[address] [facility] Urine bacteria detection by automated methodOrdered By: Stephanie Edward on 11-06-2022 Bacteria Auto Ql (U) 1+ None Seen [facility] Urine clarity by refractomet ry automatedOrdered By: Stephanie Edward on 11-06-2022 Clarity Refractometry automated (U) Clear Clear [facility] Urine cocaine detectionOrder ed By: Stephanie Edward on 11-06-2022 Cocaine Ql (U) Negative Negative [facility] Urine glucose measurement by automated test strip (mass/volume)Ordered By: Stephanie Edward on 11-06-2022 Glucose Auto test strip (U) [Mass/Vol] Normal mg/dL Normal [facility] Urine hemoglobin detection b y automated test stripOrdered By: Stephanie Edward on 11-06-2022 Hemoglobin Auto test strip Ql (U) Trace Negative [facility] Urine leukocyte esterase det ection by automated test stripOrdered By: Stephanie Edward on 11-06-2022 Leukocyte esterase Auto test strip Ql (U) Negative Negative [facility] Urobilinogen Auto test strip (U) [Mass/Vol]Ordered By: Stephanie Edward on 11-06-2022 Urobilinogen (U) [Mass/Vol] Normal mg/dL Normal [facility] pH Auto test strip (U)Ordere d By: Stephanie Edward on 11-06-2022 pH (U) 6.5 [pH] 5.0-9.[address] [facility] Group B Streptococcus cultur eOrdered By: Stephanie Edward on 10-04-2022 S. agalactiae Org specific cx Ql (Unsp spec) [facility] Serum or plasma glucose tole katelyn 3 hours panelOrdered By: Stephanie Edward on 08-11-2022 Glucose tolerance 3 hours panel See comment [facility] Comment on above: FASTING 88 Col: 07/15 08/04 0830 1HR GLU 157 Col: 08/11/22 1022 2HR GLU 125 Col: 08/11/22 1123 3HR GLU 133 Col: 08/11/22 1225 Free T4on 04-21-2022 Free T4 [Mass/Vol] 1.01 ng/dL Normal 0.80-1.[address] [facility] Comment on above: Performed By: #### T SH reflex FT4, FT4 #### [facility] [address] [place], [place] [id number] TSH w/ Reflex to Free T4on 0 04-21-2022 FT4 reflex Free T4 Normal [facility] Comment on above: Performed By: #### T SH reflex FT4, FT4 #### [facility] [address] [place], [place] [id number] TSH 31.780 uIU/mL High 0.400-4.500 [facility] Comment on above: Performed By: #### T SH reflex FT4, FT4 #### [facility] [address] [place], [place] [id number] CBC AUTO DIFFon 03-02-2022 BASO # 0.0 103/ul Normal 0.0-0.1 [facility] Comment on above: Performed By: #### C BC #### [facility] [address] [address] [address] Briana Hernandez Basophils/100 WBC (Bld) 0.2 % Normal 0.2-2.0 [facility] Comment on above: Performed By: #### C BC #### [facility] [address] [address] [address] Briana Hernandez EO # 0.0 103/ul Normal 0.0-0.7 [facility] Comment on above: Performed By: #### C BC #### [facility] [address] [address] [address] Briana Hernandez Eosinophils/100 WBC (Bld) 0.5 % Critically low 0.9-7.0 [facility] Comment on above: Performed By: #### C BC #### [facility] [address] [place] [address] Dr. Briana Hernandez Erythrocyte distribution width (RBC) [Ratio] 13.3 % Normal 11.0-15.0 [facility] Comment on above: Performed By: #### C BC #### [facility] [address] [place] [address] Dr. Briana Hernandez Hematocrit (Bld) [Volume fraction] 37.4 % Normal 36.0-48.0 [facility] Comment on above: Performed By: #### C BC #### [facility] [address] [place] [address] Dr. Briana Hernandez Hemoglobin (Bld) [Mass/Vol] 12.6 g/dL Normal 12.0-16.0 [facility] Comment on above: Performed By: #### C BC #### [facility] [address] [place] [address] Dr. Briana Hernandez IG # 0.02 10e3/ul Normal 0.00-0.03 [facility] Comment on above: Performed By: #### C BC #### [facility] [address] [place] [address] Dr. Briana Hernandez IG % 0.2 % Normal 0.0-0.5 [facility] Comment on above: Performed By: #### C BC #### [facility] [address] [place] [address] Dr. Briana Hernandez LYMPH # 1.6 103/ul Normal 1.2-3.8 [facility] Comment on above: Performed By: #### C BC #### [facility] [address] [place] [address] Dr. Briana Hernandez Lymphocytes/100 WBC (Bld) 19.3 % Critically low 20.5-60.0 [facility] Comment on above: Performed By: #### C BC #### [facility] [address] [place] [address] Dr. Briana Hernandez MANUAL DIFF REQ NO Normal [facility] Comment on above: Performed By: #### C BC #### [facility] [address] [place] [address] Dr. Briana Hernandez MCH (RBC) [Entitic mass] 31.0 pg Normal 26.7-34.0 [facility] Comment on above: Performed By: #### C BC #### [facility] [address] [place] [address] Dr. Briana Hernandez MCHC (RBC) [Mass/Vol] 33.7 g/dL Normal 29.9-35.2 [facility] Comment on above: Performed By: #### C BC #### [facility] [address] [place] [address] Dr. Briana Hernandez MCV (RBC) [Entitic vol] 91.9 fL Normal 81.0-99.0 [facility] Comment on above: Performed By: #### C BC #### [facility] [address] [place] [address] Dr. Briana Hernandez MONO # 0.6 103/ul Normal 0.3-0.8 [facility] Comment on above: Performed By: #### C BC #### [facility] [address] [place] [address] Dr. Briana Hernandez Monocytes/100 WBC (Bld) 6.8 % Normal 1.7-12.0 [facility] Comment on above: Performed By: #### C BC #### [facility] [address] [place] [address] Dr. Briana Hernandez NEUT # 5.9 103/ul Normal 1.4-6.5 [facility] Comment on above: Performed By: #### C BC #### [facility] [address] [place] [address] Dr. Briana Hernandez Neutrophils/100 WBC (Bld) 73.0 % Normal 43.0-75.0 [facility] Comment on above: Performed By: #### C BC #### [facility] [address] [place] [address] Dr. Briana Hernandez Platelet mean volume (Bld) [Entitic vol] 8.9 fL Critically low 9.5-13.5 [facility] Comment on above: Performed By: #### C BC #### [facility] [address] [address] [address] Briana Hernandez PLT 331 103/ul Normal 150-450 [facility] Comment on above: Performed By: #### C BC #### [facility] [id number] Briana Hernandez RBC 4.07 106/ul Critically low 4.20-5.40 [facility] Comment on above: Performed By: #### C BC #### [facility] [address] [address] [address] Briana Hernandez WBC 8.0 103/ul Normal 4.0-11.0 [facility] Comment on above: Performed By: #### C BC #### [facility] [address] [place] [address] Dr. Briana Hernandez PREG QUANT HCGon 03-02-2022 HCG QUANT 577 mIU/mL Normal [facility] Comment on above: Performed By: #### P REGQNT #### [facility] [address] [place] [address] Dr. Briana Hernandez HCG RANGE SEE BELOW Normal [facility] Comment on above: Result Comment: 5-50 0-1 WEEK 40-300 1-2 WEEKS 100-1,000 2-3 WEEKS 500-6,000 3-4 WEEKS 5,000-200,000 1-2 MONTHS 10,000-100,000 2-3 MONTHS 3,000-50,000 2ND TRIMESTER 1,000-50,000 3RD TRIMESTER Performed By: #### P REGQNT #### [facility] [address] [place] [address] Dr. Briana Hernandez COVID Quick Testingon 2021 Result Negative [employer] Other Covid-19 PCR ([facility])on SARS-CoV-2 (COVID-19) RNA NELY+probe Ql (Unsp spec) Not detected Normal NOT DETECTED [facility] Comment on above: Result Comment: This test is not yet approved or cleared by the [place] FDA. When there are no FDA-approved or cleared tests available, and other criteria are met, FDA can make tests available under an emergency access mechanism called an Emergency Use Authorization (EUA). The EUA for this test is supported by the Cream Separator Operator of Health and Human Service's (HHS's) [...] consistent with SARS-CoV-2. Performed By: #### C [facility] #### [facility] [address] [place] [address] Dr. Briana Hernandez OBSOLETEon 10-22-2021 OBSOLETE Refill (ENDMED) -------- JEN SANTAMARIA ([id number]) 1995 F Date Time Provider Department 10/22/21 [...] AMOR MA on 10/22/21 Normal [facility] US THYROID/PARATHYROIDon US THYROID/PARATHYROID * * *Final Report * * * DATE OF EXAM: Jan 14 2019 8:26AM U [id number] - US THYROID/PARATHYROID / PROCEDURE REASON: [...] bilaterally. No discrete thyroid nodule is demonstrated. Sifting Operator: PSCB Transcribe Date/Time: Jan 14 2019 8:36A Dictated by : NAJMA NAVARRO MD This examination was interpreted and the report reviewed and electronically signed by: NAJMA NAVARRO MD on Jan 14 2019 4:08PM EST [id number] Normal [facility] Miscellaneouson 11-26-19 Status See Ref Lab Report Normal [facility] Comment on above: Performed By: #### 1 [id number] #### [facility] [employer] [facility] [address] [place] [address] Status See Ref Lab Report Normal [facility] Comment on above: Performed By: #### 1 [id number] #### [facility] [employer] [facility] [address] [place] [address] Auto Diffon 11-22-2018 Basophils #/vol (Bld) 0.0 E3/mcL Normal 0.0-0.2 [facility] Comment on above: Order Comment: Order Added by Discern Expert. Performed By: #### 2 [id number] #### [facility] [address] [place] [address] Basophils/100 WBC (Bld) 0.5 % Normal 0.0-2.0 [facility] Comment on above: Order Comment: Order Added by Discern Expert. Performed By: #### 2 [id number] #### [facility] [employer] [address] [place] [address] Eos Absolute 0.0 E3/mcL Normal 0.0-0.7 [facility] Comment on above: Order Comment: Order Added by Discern Expert. Performed By: #### 2 [id number] #### [facility] [address] [place] [address] Eosinophils/100 WBC (Bld) 0.8 % Normal 0.0-11.0 [facility] Comment on above: Order Comment: Order Added by Discern Expert. Performed By: #### 2 [id number] #### [facility] [address] [place] [address] Lymphocytes #/vol (Bld) 1.6 E3/mcL Normal 1.2-3.4 [facility] Comment on above: Order Comment: Order Added by Discern Expert. Performed By: #### 2 [id number] #### [facility] [address] [place] [address] Lymphocytes/100 WBC (Bld) 24.7 % Normal 20.0-55.0 [facility] Comment on above: Order Comment: Order Added by Discern Expert. Performed By: #### 2 [id number] #### [facility] [address] [place] [address] Luna Absolute 0.3 E3/mcL Normal 0.0-0.7 [facility] Comment on above: Order Comment: Order Added by Discern Expert. Performed By: #### 2 [id number] #### ADDISON [facility] [address] [id number] Monocytes/100 WBC (Bld) 4.9 % Normal 0.0-10.0 [facility] Comment on above: Order Comment: Order Added by Discern Expert. Performed By: #### 2 [id number] #### AD[facility]ON [facility] [address] [place], [place] [id number] Neutro Absolute 4.4 E3/mcL Normal 1.4-6.5 [facility] Comment on above: Order Comment: Order Added by Discern Expert. Performed By: #### 2 [id number] #### AD[facility]ON [facility] [address] [place] [address] Neutro Auto 69.1 % Normal 37.0-75.0 [facility] Comment on above: Order Comment: Order Added by Discern Expert. Performed By: #### 2 [id number] #### ADDISON Smith[facility] [id number] CBC w/ Auto Diffon 9 Erythrocyte distribution width Ratio (RBC) 14.1 % Normal 11.5-14.5 [facility] Comment on above: Performed By: #### 2 [id number] #### ADDISON Smith[facility] [address] [place], [place] [id number] Hematocrit Volume Fraction (Bld) 40.0 % Normal 36.0-48.0 [facility] Comment on above: Performed By: #### 2 [id number] #### ADDISON Sarah[facility]emo [facility] [id number] Hemoglobin mass conc (Bld) 13.2 g/dL Normal 12.0-16.0 [facility] Comment on above: Performed By: #### 2 [id number] #### ADDISON SmithHemo [address] [place] [address] MCH Entitic mass (RBC) 30.8 pg Normal 27.0-31.0 [facility] Comment on above: Performed By: #### 2 [id number] #### ADDISON SarahHemo [address] [place] [id number] MCHC mass conc (RBC) 33.0 g/dL Normal 33.0-37.0 [facility] Comment on above: Performed By: #### 2 [id number] #### ADDISONMarya SmithHemo [facility] [place] [phone] MCV Entitic volume (RBC) 93.3 fL Normal 78.0-100.0 [facility] Comment on above: Performed By: #### 2 [id number] #### ADDISONMarya SmithHemo [address] [place], [place] [address] Platelet mean volume Entitic volume (Bld) 7.8 fL Normal 7.4-11.0 [facility] Comment on above: Performed By: #### 2 [id number] #### ADDISONMarya SmithHemo [address] [place] [address] Platelets #/vol (Bld) 368 E3/mcL Normal 130-400 [facility] Comment on above: Performed By: #### 2 [id number] #### ADDISONMarya SmithHemo [address] [place] [address] RBC #/vol (Bld) 4.28 E6/mcL Normal 3.90-5.40 [facility] Comment on above: Performed By: #### 2 150101 #### ADDISONMarya SmithHemo [address] [place], [place] [address] WBC #/vol (Bld) 6.3 E3/mcL Normal 3.6-11.0 [facility] Comment on above: Performed By: #### 2 826510 #### ADDISONMarya SmithHemo [address] [place], [place] [address] CMPon 11-22-2018 Albumin mass conc 4.2 g/dL Normal 3.4-5.[address] [facility] Comment on above: Performed By: #### 2 [id number] #### ADDISON [employer] [address] [place], [place] [address] Albumin/Globulin mass ratio 1.4 {ratio} Normal 1.1-1.9 [facility] Comment on above: Performed By: #### 2 [id number] #### ADDISON [employer] [address] [place], [place] [address] Alk Phos 53 Int._Unit/L Normal 33-110 [facility] Comment on above: Performed By: #### 2 [id number] #### ADDISON [employer] [address] [place] [address] 13703 ALT enzyme act/vol 15 Int._Unit/L Normal 7-45 [facility] Comment on above: Performed By: #### 2 847321 #### ADDISON [employer] [address] [place] [address] Anion gap molar conc 13 mmol/L Normal 10-20 [facility] Comment on above: Performed By: #### 2 [id number] #### ADDISON [employer] [address] [place] [address] 91764 AST enzyme act/vol 19 Int._Unit/L Normal 9-39 [facility] Comment on above: Performed By: #### 2 [id number] #### [facility] [employer] [address] [place] [address]326 Bili Total 0.40 mg/dL Normal 0.00-1.20 [facility] Comment on above: Performed By: #### 2 [id number] #### [facility] [employer] [address] [place] [address]34 Calcium mass conc 10.1 mg/dL Normal 8.6-10.[address] [facility] Comment on above: Performed By: #### 2 352406 #### [facility] [employer] [address] [place] [address] 54550 Chloride molar conc 106 mmol/L Normal 98-107 [facility] Comment on above: Performed By: #### 2 210661 #### [facility] [employer] [address] [place] [address] 41173 CO2 molar conc 23.0 mmol/L Normal 21.0-32.0 [facility] Comment on above: Performed By: #### 2 545960 #### ADDISON [employer] [address] [place] [address]38 Creatinine mass conc 1.0 mg/dL Normal 0.5-1.1 [facility] Comment on above: Performed By: #### 2 351921 #### ADDISON [employer] [address] [place] [address] 26832 Globulin mass conc (S) 3.0 g/dL Normal 2.0-4.0 [facility] Comment on above: Performed By: #### 2 698522 #### ADDISON [employer] [address] [place] [address] 91476 Glucose mass conc 80 mg/dL Normal 70-[address] [facility] Comment on above: Performed By: #### 2 [id number] #### ADDISON [employer] [address] [place] [address] Potassium molar conc 3.9 mmol/L Normal 3.5-5.3 [facility] Comment on above: Performed By: #### 2 952042 #### ADDISON [employer] [address] [place] [address] 77969 Protein mass conc 7.2 g/dL Normal 6.4-8.[address] [facility] Comment on above: Performed By: #### 2 368155 #### ADDISON [employer] [address] [place] [address] Sodium molar conc 138 mmol/L Normal 136-[address] [facility] Comment on above: Performed By: #### 2 138431 #### ADDISON [employer] [address] [place], [place] [address] Urea nitrogen mass conc 14 mg/dL Normal 6-23 [facility] Comment on above: Performed By: #### 2 135254 #### ADDISON [employer] [address] [place], [place] [address] Urea nitrogen/Creatinine mass ratio 14.0 ratio Normal 5.4-30.0 [facility] Comment on above: Performed By: #### 2 773629 #### ADDISON [employer] [address] [place] [address] 83007 Free T3on 11-22-2018 T3 free mass conc 2.6 pg/mL Normal 2.5-3.[address] [facility] Comment on above: Performed By: #### 1 [id number] #### ADDISON Send Outs Subsection [address] [place] [address] 21396 Free T4on 11-22-2018 T4 free mass conc 0.64 ng/dL Normal 0.58-1.[address] [facility] Comment on above: Performed By: #### 1 [id number] #### ADDISON [employer]section [address] [place] [address] 12971 Lab Miscellaneouson 11-22-19 Test Name LC [id number] Normal [facility] Comment on above: Performed By: #### 1 [id number] #### ADDISON [employer] [address] [place] [address] Test Name LC [id number] Normal [facility] Comment on above: Performed By: #### 1 [id number] #### ADDISON Send Outs Subsection [facility] [place] [address] TSHon 11-22-2018 Thyrotropin Qn 199.00 mcIU/mL High 0.30-5.60 [facility] Comment on above: Performed By: #### 1 [id number] #### ADDISON Send Outs Subsection [address] [place] [address] eGFRon 11-22-2018 GFR/1.73 sq M predicted among non-blacks MDRD vol rate/area (S/P/Bld) mL/min/{1.73_m2} Normal [facility] Comment on above: Order Comment: Order added by Discern Expert. Performed By: #### 1 [id number] #### ADDISON [employer] [address] [place] [address] Auto Diffon 08-31-2018 Basophils #/vol (Bld) 0.1 E3/mcL Normal 0.0-0.2 [facility] Comment on above: Order Comment: Order Added by Discern Expert. Performed By: #### 2 [id number] #### ADDISON RemHemo [address] [place], [place] [address] Basophils/100 WBC (Bld) 1.0 % Normal 0.0-2.0 [facility] Comment on above: Order Comment: Order Added by Discern Expert. Performed By: #### 2 439957 #### ADDISON RemHemo [address] [place] [address] 84827 Eos Absolute 0.1 E3/mcL Normal 0.0-0.7 [facility] Comment on above: Order Comment: Order Added by Discern Expert. Performed By: #### 2 937753 #### ADDISON RemHemo [address] [place], [place] [address] Eosinophils/100 WBC (Bld) 1.6 % Normal 0.0-11.0 [facility] Comment on above: Order Comment: Order Added by Discern Expert. Performed By: #### 2 696015 #### ADDISON RemHemo [address] [place] [address] Lymphocytes #/vol (Bld) 1.8 E3/mcL Normal 1.2-3.4 [facility] Comment on above: Order Comment: Order Added by Discern Expert. Performed By: #### 2 775776 #### ADDISON Mckinnono [address] [place] [address] 84781 Lymphocytes/100 WBC (Bld) 32.2 % Normal 20.0-55.0 [facility] Comment on above: Order Comment: Order Added by Discern Expert. Performed By: #### 2 774835 #### ADDISON SmithHemo [address] [place] [address] Luna Absolute 0.4 E3/mcL Normal 0.0-0.7 [facility] Comment on above: Order Comment: Order Added by Discern Expert. Performed By: #### 2 619253 #### ADDISON SmithHemo [address] [place] [address] 68824 Monocytes/100 WBC (Bld) 7.0 % Normal 0.0-10.0 [facility] Comment on above: Order Comment: Order Added by Discern Expert. Performed By: #### 2 527087 #### ADDISON SmithHemo [address] [place] [address] 85831 Neutro Absolute 3.2 E3/mcL Normal 1.4-6.5 [facility] Comment on above: Order Comment: Order Added by Discern Expert. Performed By: #### 2 023611 #### ADDISON SmithHemo [address] [place] [address] 75328 Neutro Auto 58.2 % Normal 37.0-75.0 [facility] Comment on above: Order Comment: Order Added by Discern Expert. Performed By: #### 2 998860 #### ADDISON SmithHemo [address] [place] [address] CBC w/ Auto Diffon 201 8 Erythrocyte distribution width Ratio (RBC) 14.2 % Normal 11.5-14.5 [facility] Comment on above: Performed By: #### 2 886447 #### ADDISON RemHemo [address] [place] [address] Hematocrit Volume Fraction (Bld) 41.2 % Normal 36.0-48.0 [facility] Comment on above: Performed By: #### 2 417331 #### ADDISON RemHemo [address] [place] [address] Hemoglobin mass conc (Bld) 13.8 g/dL Normal 12.0-16.0 [facility] Comment on above: Performed By: #### 2 546842 #### ADDISON RemHemo [address] [place] [address] MCH Entitic mass (RBC) 31.6 pg High 27.0-31.0 [facility] Comment on above: Performed By: #### 2 061455 #### ADDISON RemHemo [address] [place] [address] MCHC mass conc (RBC) 33.4 g/dL Normal 33.0-37.0 [facility] Comment on above: Performed By: #### 2 174957 #### ADDISON RemHemo [address] [place] [address]89 MCV Entitic volume (RBC) 94.6 fL Normal 78.0-100.0 [facility] Comment on above: Performed By: #### 2 982481 #### ADDISON RemHemo [address] [place] [address] Platelet mean volume Entitic volume (Bld) 7.6 fL Normal 7.4-11.0 [facility] Comment on above: Performed By: #### 2 193015 #### ADDISON RemHemo [address] [place] [address] Platelets #/vol (Bld) 334 E3/mcL Normal 130-400 [facility] Comment on above: Performed By: #### 2 500171 #### ADDISON RemHemo [address] [place] [address] RBC #/vol (Bld) 4.36 E6/mcL Normal 3.90-5.40 [facility] Comment on above: Performed By: #### 2 098841 #### ADDISON RemHemo [address] [place] [address] WBC #/vol (Bld) 5.6 E3/mcL Normal 3.6-11.0 [facility] Comment on above: Performed By: #### 2 439537 #### ADDISON RemHemo [address] [place] [address] TSHon 08-31-2018 Thyrotropin Qn 82.00 mIU/m High 0.30-5.60 [facility] Comment on above: Performed By: #### 2 [id number] #### ADDISON [employer] [address] [place] [address] Lab Miscellaneouson 08-01-20 18 Status See Ref Lab Report Normal [facility] Comment on above: Performed By: #### 1 [id number] #### ADDISON Send [employer]s [employer]section [address] [place] [address] Lab Miscellaneouson 07-27-20 18 Test Name allergen Normal [facility] Comment on above: Performed By: #### 1 [id number] #### ADDISON [employer] Outs Subsection [address] [place] [address] IGP W/hpv Rfx [id number] 03-16 Diagnosis: See Ref Lab Report Normal [facility] Comment on above: Performed By: #### 1 [id number] #### ADDISON Send Outs Subsection [address] [place] [address] Chlamydia GC by PCRon 2017 Chlamydia by PCR. Not Detected Normal Not Detected [facility] Comment on above: Result Comment: Xper t CT/NG Assay performance has not been evaluated in patients less than 14 years of age. Performed By: #### 3 [id number] #### ADDISON Misc Micro SubSection , Gonorrhoeae by PCR Not Detected Normal Not Detected [facility] Comment on above: Result Comment: Xper t CT/NG Assay performance has not been evaluated in patients less than 14 years of age. Performed By: #### 3 [id number] #### ADDISON Misc Micro SubSection , Pathology ([facility])on 03-12-2018 Pathology ([facility]) FINAL GYNECOLOGIC CYTOLOGY [id number] ADEQUACYSatisfactory for Evaluation. Endocervical cells/transformation zone componentpresent.GENERAL CATEGORIZATIONNegative for Intraepithelial Lesion or MalignancyCLINICAL HISTORYComment: No LMP provided.SPECIMEN(A) SCREENING CERVICAL/ENDOCERVICAL THIN PREP VIALPerformed at [facility], [address], [place] [address]Sbzluipz by: Signed Out by: ORLIN TALLEY Coil Winding Supervisor Reported: 03/15/2018 Normal [facility] Comment on above: Performed By: #### G YN ####[facility] [address] [place] [address] US ABDOMEN COMPLETEon 2016 US ABDOMEN COMPLETE [...] liver and left kidney as above. Normal [facility] *RFLX-O+John 07-14-2017 RESULT 1 Comment Normal [facility] Comment on above: Result Comment: No o va, cysts, or parasites seen.PERFORMED AT [facility] Performed By: #### L OP ####Testing performed at [facility] [place], [place] [address]Vpqhegn performed at [facility] [place] [address]#### ZOP ####Testing performed at [facility] [place] [address] OVA+PARASITESon 07-14-2017 OVA+PARASITES Final report Normal [facility] Comment on above: Result Comment: (NOT E)These results were obtained using wet preparation(s) and trichromestained smear. This test does not include testing forCryptosporidium parvum, Cyclospora, or Microsporidia.PERFORMED AT [facility] Performed By: #### L OP ####Testing performed at [address] [address]Weinadn performed at [address] [place] [address]#### ZOP ####Testing performed at [address] [place] [address] Addendumon 07-10-2017 [facility] NOTES Normal [facility] Anes Post-opon 07-10-2017 [facility] NOTES Normal [facility] Anes Pre-opon 07-10-2017 [facility] NOTES Normal [facility] NURSING NOTEon 07-10-2017 [facility] NOTES Normal [facility] OR NURSINGon 07-10-2017 [facility] NOT[facility] Normal [facility] NOTES Normal [facility] NOTES Normal [facility] OVA+PARASITESon 07-10-2017 SPECIMEN DESCRIPTION STOOL Normal [facility] Comment on above: Performed By: #### L OP ####Testing performed at [address] [address]Rqxphdj performed at [address] [place] [address]#### ZOP ####Testing performed at [address] [place] [address] CBCon 06-26-2017 Basophils/100 WBC Auto (Bld) 4 % High 0.0-2.0 [facility] Comment on above: Performed By: #### A CBC, ESR ####Testing performed at [address] [address] BLAST 3 % Normal [facility] Comment on above: Performed By: #### A CBC, ESR ####Testing performed at [address] [address] DTYPE AUTO DIFF Normal [facility] Comment on above: Performed By: #### A CBC, ESR ####Testing performed at [address] [address] Lymphocytes/100 leukocytes 29 % Normal 20.0-55.0 [facility] Comment on above: Performed By: #### A CBC, ESR ####Testing performed at [address] [address] Monocytes/100 leukocytes 3 % Normal 0.0-10.0 [facility] Comment on above: Performed By: #### A CBC, ESR ####Testing performed at [address] [address] Neutrophils/100 leukocytes 61 % Normal 37.0-75.0 [facility] Comment on above: Performed By: #### A CBC, ESR ####Testing performed at [address] [address] Erythrocyte distribution width Auto Ratio (RBC) 13.5 % Normal 11.5-14.5 [facility] Comment on above: Performed By: #### A CBC, ESR ####Testing performed at [address] [address] Erythrocytes (RBC) 4.45 /cmm Normal 4.0-5.4 [facility] Comment on above: Performed By: #### A CBC, ESR ####Testing performed at [address] [address] Hematocrit (HCT) 40.2 % Normal 36.0-48.0 [facility] Comment on above: Performed By: #### A CBC, ESR ####Testing performed at [address] [address] Hemoglobin mass conc (Bld) 13.4 g/dL Normal 12.0-16.0 [facility] Comment on above: Performed By: #### A CBC, ESR ####Testing performed at [address] [address] MCH 30.2 pg Normal 26.0-35.0 [facility] Comment on above: Performed By: #### A CBC, ESR ####Testing performed at [address] [address] MCHC mass conc (RBC) 33.4 g/dL Normal 27.0-37.0 [facility] Comment on above: Performed By: #### A CBC, ESR ####Testing performed at [address] [address] MCV 90.3 fL Normal 80.0-100.0 [facility] Comment on above: Performed By: #### A CBC, ESR ####Testing performed at [address] [address] Platelet mean volume (PMV) 6.8 fL Low 7.4-11.0 [facility] Comment on above: Performed By: #### A CBC, ESR ####Testing performed at [address] [address] Platelets 323 /cmm Normal 130.0-400.0 [facility] Comment on above: Performed By: #### A CBC, ESR ####Testing performed at [address] [address] WBC (Leukocytes) 6.0 /cmm Normal 3.6-11.0 [facility] Comment on above: Performed By: #### A CBC, ESR ####Testing performed at [address] [address] ESRon 06-26-2017 Erythrocyte sedimentation rate 11 mm/h Normal 0-20 [facility] Comment on above: Performed By: #### A CBC, ESR ####Testing performed at [address] [address] Vital Signs Date Time Vital Sign Value Performing Clinician Facility 10-15-2024 08:42-0500 Body height 149.9 cm Felicitas BASILIO Work Phone: [facility] 10-15-2024 08:42-0500 Body mass index (BMI) [Ratio] 34.78 kg/m2 Felicitas BASILIO Work Phone: [facility] 10-15-2024 08:42-0500 Body weight 78.11 kg Felicitas BASILIO Work Phone: [facility] 10-15-2024 08:42-0500 Diastolic blood pressure 86 mm[Hg] Felicitas BASILIO Work Phone: [facility] 10-15-2024 08:42-0500 Heart rate 98 /min Felicitas Hemmer PA Work Phone: [facility] 10-15-2024 08:42-0500 Respiratory rate 16 /min Felicitas Hemmer PA Work Phone: [facility] 10-15-2024 08:42-0500 SaO2% (BldA) [Mass fraction] 97 % Felicitas Hemmer PA Work Phone: [facility] 10-15-2024 08:42-0500 Systolic blood pressure 128 mm[Hg] Felicitas Hemmer PA Work Phone: [facility] 09-23-2024 09:37-0500 Body mass index (BMI) [Ratio] 34.26 kg/m2 Felicitas Hemmer PA Work Phone: [facility] 09-23-2024 09:37-0500 Body weight 76.93 kg Felicitas Hemmer PA Work Phone: [facility] 09-23-2024 09:37-0500 Diastolic blood pressure 75 mm[Hg] Felicitas Hemmer PA Work Phone: [facility] 09-23-2024 09:37-0500 Heart rate 92 /min Felicitas Hemmer PA Work Phone: [facility] 09-23-2024 09:37-0500 Respiratory rate 17 /min Felicitas Hemmer PA Work Phone: [facility] 09-23-2024 09:37-0500 SaO2% (BldA) [Mass fraction] 97 % Felicitas Hemmer PA Work Phone: [facility] 09-23-2024 09:37-0500 Systolic blood pressure 120 mm[Hg] Felicitas Hemmer PA Work Phone: [facility] 05-15-2024 15:45-0400 Blood Pressure [facility] 05-15-2024 15:45-0400 Body temperature 98.24 [degF] [facility] 05-15-2024 15:45-0400 Diastolic blood pressure 82 mm[Hg] Devin Jmienez [facility] 05-15-2024 15:45-0400 Heart rate 96 /min [facility] 05-15-2024 15:45-0400 SaO2% (BldA) [Mass fraction] 96 % Devin Jimenez [facility] 05-15-2024 15:45-0400 Systolic blood pressure 118 mm[Hg] Devin Jimenez [facility] 03-09-2024 11:28-0400 Body height 147.32 cm MD Katarzyna Castañeda Work Phone: [facility] 03-09-2024 11:28-0400 Body mass index (BMI) [Ratio] 31.7 kg/m2 MD Katarzyna Castañeda Work Phone: [facility] 03-09-2024 11:28-0400 Body temperature 99.4 [degF] MD Katarzyna Castañeda Work Phone: [facility] 03-09-2024 11:28-0400 Body weight 68.94 kg MD Katarzyna Castañeda Work Phone: [facility] 03-09-2024 11:28-0400 Diastolic blood pressure 70 mm[Hg] MD Katarzyna Castañeda Work Phone: [facility] 03-09-2024 11:28-0400 Heart rate 115 /min MD Katarzyna Castañeda Work Phone: [facility] 03-09-2024 11:28-0400 SaO2% (BldA) [Mass fraction] 95 % MD Katarzyna Castañeda Work Phone: [facility] 03-09-2024 11:28-0400 Systolic blood pressure 104 mm[Hg] MD Katarzyna Castañeda Work Phone: [facility] 01-18-2024 14:36-0500 Body weight 65.57 kg MD Katarzyna Castañeda Work Phone: [facility] 01-18-2024 14:36-0500 Diastolic blood pressure 93 mm[Hg] MD Katarzyna Castañeda Work Phone: [facility] 01-18-2024 14:36-0500 Heart rate 113 /min MD Katarzyna Castañeda Work Phone: [facility] 01-18-2024 14:36-0500 Systolic blood pressure 132 mm[Hg] MD Katarzyna Castañeda Work Phone: [facility] 12-11-2023 09:00-0500 Body weight 70.3 kg [facility] 12-11-2023 07:30-0500 Body temperature 97.3 [degF] [facility] 12-11-2023 07:30-0500 Diastolic blood pressure 70 mm[Hg] [facility] 12-11-2023 07:30-0500 Heart rate 69 /min [facility] 12-11-2023 07:30-0500 Respiratory rate 18 /min [facility] 12-11-2023 07:30-0500 SaO2% (BldA) [Mass fraction] 98 % [facility] 12-11-2023 07:30-0500 Systolic blood pressure 104 mm[Hg] [facility] 12-09-2023 01:13-0500 Body height 147.32 cm [facility] 12-08-2023 21:40-0500 Body height 147.32 cm MD Katarzyna Castañeda Work Phone: [facility] 12-08-2023 21:40-0500 Body temperature 98.1 [degF] MD Katarzyna Castañeda Work Phone: [facility] 12-08-2023 21:40-0500 Body weight 70.2 kg MD Katarzyna Castañeda Work Phone: [facility] 12-08-2023 21:40-0500 Diastolic blood pressure 85 mm[Hg] MD Katarzyna Castañeda Work Phone: [facility] 12-08-2023 21:40-0500 Heart rate 110 /min MD Katarzyna Castañeda Work Phone: [facility] 12-08-2023 21:40-0500 Respiratory rate 18 /min MD Katarzyna Castañeda Work Phone: [facility] 12-08-2023 21:40-0500 SaO2% (BldA) [Mass fraction] 97 % MD Katarzyna Castañeda Work Phone: [facility] 12-08-2023 21:40-0500 Systolic blood pressure 121 mm[Hg] MD Katarzyna Castañeda Work Phone: [facility] 10-19-2023 14:30-0500 Body height 147.32 cm [employer]ice [employer] Other [employer] [facility] [employer] Other 10-19-2023 14:30-0500 Body mass index (BMI) [Ratio] 34 kg/m2 Juice Johnson Other [employer] Other 10-19-2023 14:30-0500 Body weight 73.8 kg Juice Johnson Other [employer] Other 10-19-2023 14:30-0500 Diastolic blood pressure 83 mm[Hg] Juice Johnson Other [employer] Other 10-19-2023 14:30-0500 Systolic blood pressure 134 mm[Hg] Ju[employer] Johnson Other [employer] Other 08-08-2023 13:17-0400 Diastolic blood pressure 67 mm[Hg] MD Katarzyna Castañeda Work Phone: [facility] 08-08-2023 13:17-0400 Heart rate 90 /min MD Katarzyna Castañeda Work Phone: [facility] 08-08-2023 13:17-0400 Respiratory rate 16 /min MD Katarzyna Castañeda Work Phone: [facility] 08-08-2023 13:17-0400 SaO2% (BldA) [Mass fraction] 95 % MD Katarzyna Castañeda Work Phone: [facility] 08-08-2023 13:17-0400 Systolic blood pressure 109 mm[Hg] MD Katarzyna Castañeda Work Phone: [facility] 08-08-2023 11:56-0400 Body height 149.86 cm MD Katarzyna Castañeda Work Phone: [facility] 08-08-2023 11:56-0400 Body temperature 98.2 [degF] MD Katarzyna Castañeda Work Phone: [facility] 08-08-2023 11:56-0400 Body weight 72.57 kg MD Katarzyna Castañeda Work Phone: [facility] 07-11-2023 09:15-0400 Body height 147.32 cm [employer]ice [employer] Other [employer] Other 07-11-2023 09:15-0400 Body mass index (BMI) [Ratio] 31.97 kg/m2 [employer] Other [employer] Other 07-11-2023 09:15-0400 Body weight 69.4 kg Juice Johnson Other [employer] Other 07-11-2023 09:15-0400 Diastolic blood pressure 81 mm[Hg] [employer] Other [employer] Other 07-11-2023 09:15-0400 Systolic blood pressure 124 mm[Hg] Juice Johnson Other [employer] Other 11-09-2022 16:00-0500 Body temperature 98.2 [degF] MD Katarzyna Castañeda Work Phone: [facility] 11-09-2022 16:00-0500 Diastolic blood pressure 84 mm[Hg] MD Katarzyna Castañeda Work Phone: [facility] 11-09-2022 16:00-0500 Heart rate 83 /min MD Katarzyna Castañeda Work Phone: [facility] 11-09-2022 16:00-0500 Respiratory rate 16 /min MD Katarzyna Castañeda Work Phone: [facility] 11-09-2022 16:00-0500 SaO2% (BldA) [Mass fraction] 99 % MD Katarzyna Castañeda Work Phone: [facility] 11-09-2022 16:00-0500 Systolic blood pressure 138 mm[Hg] MD Katarzyna Castañeda Work Phone: [facility] 11-06-2022 20:07-0500 Body height 147.32 cm MD Katarzyna Castañeda Work Phone: [facility] 11-06-2022 20:07-0500 Body weight 83.91 kg MD Katarzyna Castañeda Work Phone: [facility] 12-05-2021 14:30-0500 Body height 147.32 cm Fouzia Maria Other [employer] Other 12-05-2021 14:30-0500 Body mass index (BMI) [Ratio] 30.3 kg/m2 Fouzia Maria Other [employer] Other 12-05-2021 14:30-0500 Body temperature 97.6 [degF] Fouzia Maria Other [employer] Other 12-05-2021 14:30-0500 Body weight 65.77 kg Fouzia Maria Other [employer] Other 12-05-2021 14:30-0500 Respiratory rate 18 /min Fouzia Maria Other [employer] Other 12-05-2021 14:30-0500 SaO2% (BldA) [Mass fraction] 99 % Fouzia Maria Other [employer] Other 10-10-2021 22:06-0500 Body height 147.32 cm MD Katarzyna Castañeda Work Phone: [facility] 10-10-2021 22:06-0500 Body mass index (BMI) [Ratio] 33 kg/m2 MD Katarzyna Castañeda Work Phone: [facility] 10-10-2021 22:06-0500 Body temperature 98.5 [degF] MD Katarzyna Castañeda Work Phone: [facility] 10-10-2021 22:06-0500 Body weight 71.6 kg MD Katarzyna Castañeda Work Phone: [facility] 10-10-2021 22:06-0500 Diastolic blood pressure 69 mm[Hg] MD Katarzyna Castañeda Work Phone: [facility] 10-10-2021 22:06-0500 Heart rate 99 /min MD Katarzyna Castañeda Work Phone: [facility] 10-10-2021 22:06-0500 Respiratory rate 18 /min MD Katarzyna Castañeda Work Phone: [facility] 10-10-2021 22:06-0500 SaO2% (BldA) [Mass fraction] 97 % MD Katarzyna Castañeda Work Phone: [facility] 10-10-2021 22:06-0500 Systolic blood pressure 137 mm[Hg] MD Katarzyna Castañeda Work Phone: [facility] Encounters Encounter Date Encounter Type Care Provider Facility Start: 10-15-2024 End: 10-15-2024 Bamboo flowsheet Felicitas Macias PA Work Phone: [facility] Start: 10-15-2024 End: 10-15-2024 Bamboo flowsheet Felicitas Macias PA Work Phone: [facility] Start: 10-15-2024 End: 10-15-2024 Office outpatient visit 15 minutes Felicitas Macias PA Work Phone: [facility] Comment on above: Postablative hypothy roidism (CMS/HCC) (Primary Dx); Acute internal derangement of right knee; Knee instability, right Start: 10-15-2024 End: 10-15-2024 ambulatory FELICITAS MACIAS Not Available Start: 10-07-2024 ambulatory Miguel Jalloh Facility:[facility] Start: 09-23-2024 End: 09-23-2024 Bamboo flowsheet Felicitas Macias PA Work Phone: [facility] Start: 09-23-2024 End: 09-23-2024 Bamboo flowsheet Felicitas Macias PA Work Phone: [facility] Start: 09-23-2024 End: 09-23-2024 ambulatory FELICITAS MACIAS Not Available Start: 09-23-2024 End: 09-23-2024 Office outpatient visit 25 minutes Felicitas Macias PA Work Phone: [facility] Comment on above: Acute pain of right knee (Primary Dx); Attention deficit hyperactivity disorder (ADHD), combined type (CMS/HCC); Patellar tendonitis of right knee Start: 06-21-2024 End: 06-21-2024 ambulatory FELICITAS MACIAS Not Available Start: 06-04-2024 End: 06-04-2024 ambulatory STEPHANIE EDWARD Not Available Start: 05-27-2024 End: 05-27-2024 ambulatory STEPHANIE EDWARD Not Available Start: 05-15-2024 End: 05-15-2024 ambulatory Devin Jimenez Facility:[facility] Start: 05-15-2024 End: 05-15-2024 Patient encounter procedure Devin Rocio [facility] Start: 04-24-2024 End: 04-24-2024 ambulatory JOHANNA HIDALGOBASEK Not Available Start: 04-18-2024 End: 04-18-2024 ambulatory STEPHANIE E RINKES Not Available Start: 04-09-2024 End: 04-09-2024 ambulatory FELICITAS Persaud HEMMER Not Available Start: 03-21-2024 End: 03-21-2024 ambulatory STEPHANIE E RINKES Not Available Start: 03-09-2024 End: 03-09-2024 ambulatory MD Katarzyna Castañeda Work Phone: [facility] Work Phone: Start: 03-09-2024 End: 03-09-2024 Patient encounter procedure MD Katarzyna Castañeda Work Phone: [facility] [place] Work Phone: Start: 01-18-2024 End: 01-18-2024 Patient encounter procedure MD Katarzyna Castañeda Work Phone: [facility] Gastroenterology Work Phone: Start: 01-10-2024 Registered Recurring MD Katarzyna Castañeda Work Phone: [facility] Start: 01-09-2024 End: 01-09-2024 ambulatory STEPHANIE E RINKES Not Available Start: 01-09-2024 End: 01-09-2024 ambulatory FELICITAS Perasud HEMNAINA Not Available Start: 12-08-2023 End: 12-11-2023 Evaluation and management of inpatient MD Katarzyna Castañeda Work Phone: [facility]-[address] [place] [address] Work Phone: Start: 12-08-2023 Non-patient / Non-visit [facility] Work Phone: Start: 10-19-2023 End: 10-19-2023 ambulatory Juice Bateslitoallyssa Other [facility] [employer] Other Start: 10-19-2023 Patient encounter procedure Juice Digera [facility] Start: 10-19-2023 End: 10-19-2023 Patient encounter procedure MD Katarzyna Castañeda Work Phone: [facility] Work Phone: Start: 08-17-2023 End: 08-17-2023 ambulatory Juice Johnson Other [facility] [employer] Other Start: 08-17-2023 Telephone encounter Juice Johnson [facility] Start: 08-08-2023 End: 08-08-2023 Admission to same day surgery center MD Katarzyna Castañeda Work Phone: [facility] Work Phone: Start: 08-08-2023 End: 08-08-2023 ambulatory MD Katarzyna Castañeda Work Phone: [facility] Work Phone: Start: 07-11-2023 End: 07-11-2023 ambulatory Juice Dilitoallyssa Other [facility] [employer] Other Start: 07-11-2023 FQ visit new patient Juice Batesgera [facility] Start: 11-11-2022 End: 11-11-2022 ambulatory MD Katarzyna Castañeda Work Phone: [facility] Work Phone: Start: 11-11-2022 End: 11-11-2022 Patient encounter procedure MD Katarzyna Castañeda Work Phone: [facility]- Visit Work Phone: Start: 11-06-2022 End: 11-09-2022 Evaluation and management of inpatient MD Katarzyna Castañeda Work Phone: [facility] Work Phone: Start: 10-04-2022 End: 10-04-2022 ambulatory MD Katarzyna Castañeda Work Phone: [facility] Work Phone: Start: 10-04-2022 End: 10-04-2022 Departed Referred MD Katarzyna Castañeda Work Phone: [facility] [place] Start: 08-11-2022 End: 08-11-2022 ambulatory MD Katarzyna Castañeda Work Phone: [facility] Work Phone: Start: 08-11-2022 End: 08-11-2022 Patient encounter procedure MD Katarzyna Castañeda Work Phone: [facility] [place] Start: 03-02-2022 End: 03-02-[address] KATARZYNA CASTAÑEDA Facility:[facility] Start: 12-05-2021 End: 12-05-2021 ambulatory Fouzia Maria Other [facility] [employer] Other Start: 12-05-2021 Office outpatient vi sit 15 minutes Fouzia Maria [facility] [place] Start: 11-19-2021 End: 11-19-2021 ambulatory SHU SORIANO Facility:[facility] Start: 10-10-2021 End: 10-10-2021 Emergency department patient visit MD Katarzyna Castañeda Work Phone: [facility]Emergency Room Start: 01-31-2019 Patient encounter procedure Dandre Tourlas Facility:[facility] Start: 01-14-2019 [facility] encounter [facility] Start: 11-22-2018 End: 11-23-2018 Patient encounter procedure Dandre Tourlas Facility:[facility] Start: 11-22-2018 Patient encounter procedure Facility:[id number] Start: 08-31-2018 End: 09-01-2018 Patient encounter procedure Yandy Luque Facility:[facility] Start: 08-31-2018 End: 09-01-2018 Patient encounter procedure Yandy Luque Facility:[facility] Start: 08-31-2018 Patient encounter procedure Facility:[id number] Start: 08-30-2018 Patient encounter procedure Dandre Tourlas Facility:[facility] Start: 08-28-2018 End: 08-28-2018 Patient encounter procedure Dandre Tourlas Facility:[facility] Start: 07-27-2018 End: 07-28-2018 Patient encounter procedure Pedro Keller Facility:[facility] Start: 07-27-2018 Patient encounter procedure Facility:[id number] Start: 07-19-2018 End: 07-20-2018 Patient encounter procedure Dandre Tourlas Facility:[facility] Start: 03-12-2018 End: 03-13-2018 Patient encounter procedure Re Murphy Facility:[facility] Start: 02-26-2018 End: 02-27-2018 Patient encounter procedure Dandre Tourlas Facility:[facility] Start: 08-09-2017 Ambulatory KAVON AJAY [facility] Start: 07-11-2017 Ambulatory [facility] Start: 07-10-2017 Ambulatory PALHUDSON K AJAY [facility] Start: 07-10-2017 End: 07-10-2017 Ambulatory PALHUDSON K AJAY [facility] Start: 06-26-2017 [facility] Procedures Date Procedure Procedure Detail Performing Clinician Start: 01-09-2024 End: 01-09-2024 H/O: section Status post section Felicitas BASILIO Work Phone: Start: 08-08-2023 Esophagogastroduodenoscopy MD Katarzyna Castañeda Work Phone: Start: 10-04-2022 Streptococcus agalactiae culture MD Tania Castañeda Work Phone: H/O: section Status pos t section MD Katarzyna Castañeda Work Phone: Plan of Treatment Date Care Activity Detail Author Start: 05-12-2025 Influenza vaccination Influenza Vacc ine (#1) [facility] Comment on above: Postponed from 07/14 (Patient Refused) Start: 01-30-2025 End: 01-30-2025 Patient encounter procedure 01/30/2025 10:00 AM EDT Office Visit [facility] [address] [place] [phone] Wagner Stephanie Hallman, DO [address] [place] [address] [facility] Start: 12-23-2024 End: 12-23-2024 Patient encounter procedure 12/23/2024 9:30 AM EST Office Visit [facility] [address] [place] [phone] Felicitas Macias, PA [address] [place] [address] [facility] Start: 10-15-2024 End: 10-15-2025 MR Knee - right WO contrast MR knee right wo IV contrast Imaging Routine Acute internal derangement of right knee Knee instability, right Expected: 10/15/2024, Expires: 10/15/2025 [facility] Comment on above: Expected: 10/15/2024 , Expires: 10/15/2025 Start: 10-15-2024 End: 10-15-2025 TSH W/REFLEX TO FT4 TSH W/REFLEX TO FT4 Lab Routine Postablative hypothyroidism ([facility]/HCC) Expected: 10/15/2024 (Approximate), Expires: 10/15/2025 [facility] Work Phone: Comment on above: Expected: 10/15/2024 (Approximate), Expires: 10/15/2025 Start: 10-15-2024 End: 10-15-2024 Patient encounter procedure 10/15/2024 8:30 AM EST Office Visit [facility] [address] [place] [phone] Felicitas Macias PA [address] [place] [address] Arrived [facility] Comment on above: Arrived Start: 07-14-2024 Influenza vaccination Influenza Vacc ine (#1) [facility] Start: 12-11-[address] [facility] Start: 12-08-2023 Hospital admission [facility] Start: 08-08-2023 End: 08-08-[address] [facility] Start: 11-09-[address] [facility] Start: 11-08-[address] [facility] Start: 11-07-2022 Hospital admission [facility] Start: 11-06-2022 Hospital admission [facility] Albumin/Globulin ratio [facility] Anion gap measurement [facility] Basophils [#/volume] in Blood by Automated count [facility] Basophils/100 leukoc ytes in Blood by Automated count [facility] Endomysial antibody IgA level [facility] Eosinophils [#/volum e] in Blood [facility] Eosinophils/100 leuk ocytes in Blood by Automated count [facility] Erythrocyte distribu tion width [Ratio] by Automated count [facility] Erythrocytes [#/volu me] in Blood [facility] Gliadin peptide IgA Ab [Units/volume] in Serum [facility] Gliadin peptide IgG Ab [Units/volume] in Serum [facility] Globulin [Mass/volum e] in Serum [facility] Group B Streptococcu s Culture Group B Streptococcus Culture [facility] Hematocrit [Volume Fraction] of Blood [facility] Hemoglobin [Mass/vol ume] in Blood [facility] HLA DQ antigen typing [facility] IgA [Mass/volume] in Serum or Plasma [facility] Leukocytes [#/volume ] corrected for nucleated erythrocytes in Blood by Automated coun [facility] Leukocytes [#/volume ] in Blood [facility] Lymphocytes [#/volum e] in Blood by Automated count [facility] Lymphocytes/100 leuk ocytes in Blood by Automated count [facility] MCH [Entitic mass] b y Automated count [facility] MCHC [Mass/volume] b y Automated count [facility] MCV [Entitic volume] by Automated count [facility] Monocytes [#/volume] in Blood by Automated count [facility] Monocytes/100 leukoc ytes in Blood by Automated count [facility] Neutrophils [#/volum e] in Blood by Automated count [facility] Neutrophils/100 leuk ocytes in Blood by Automated count [facility] Nucleated erythrocyt es [Presence] in Blood by Automated count [facility] Patient Education [facility] Work Phone: Patient referral [facility] Platelet mean volume [Entitic volume] in Blood by Automated count [facility] Platelets [#/volume] in Blood [facility] Tissue transglutamin ase IgA Ab [Units/volume] in Serum [facility] Tissue transglutamin ase IgG Ab [Units/volume] in Serum [facility] Immunizations Immunization Date Immunization Notes Care Provider Fa cili 11-09-2022 tetanus toxoid, redu chet diphtheria toxoid, and acellular pertussis vaccine, adsorbed MD Katarzyna Castañeda Work Phone: [facility] 07-08-2002 diphtheria, tetanus toxoids and acellular pertussis vaccine, unspecified formulation Felicitas BASILIO Work Phone: [facility] 07-08-2002 DTaP, unspecified formulation [facility] 07-08-2002 measles, mumps and rubella virus vaccine [facility] 07-08-2002 poliovirus vaccine, inactivated Felicitas BASILIO Work Phone: [facility] 07-08-2002 poliovirus vaccine, unspecified formulation [facility] 03-06-1998 diphtheria, tetanus toxoids and acellular pertussis vaccine, unspecified formulation Felicitas BASILIO Work Phone: [facility] 03-06-1998 DTaP, unspecified formulation [facility] 03-06-1998 haemophilus influenz ae type b vaccine, conjugate unspecified formulation Felicitas BASILIO Work Phone: [facility] 03-06-1998 Hib, unspecified formulation [facility] 03-06-1998 measles, mumps and rubella virus vaccine [facility] 03-06-1998 trivalent poliovirus vaccine, live, oral Felicitas Hemmer PA Work Phone: [facility] 05-23-1997 diphtheria, tetanus toxoids and pertussis vaccine Felicitas Hemmer PA Work Phone: [facility] 05-23-1997 haemophilus influenz ae type b vaccine, conjugate unspecified formulation Felicitas Hemmer PA Work Phone: [facility] 05-23-1997 hepatitis B vaccine, pediatric or pediatric/adolescent dosage [facility] 05-23-1997 Hib, unspecified formulation [facility] 03-24-1997 diphtheria, tetanus toxoids and pertussis vaccine Felicitas Hemmer PA Work Phone: [facility] 03-24-1997 haemophilus influenz ae type b vaccine, conjugate unspecified formulation Felicitas Hemmer PA Work Phone: [facility] 03-24-1997 Hib, unspecified formulation [facility] 03-24-1997 trivalent poliovirus vaccine, live, oral Felicitas Hemmer PA Work Phone: [facility] 01-28-1997 diphtheria, tetanus toxoids and pertussis vaccine Felicitas Hemmer PA Work Phone: [facility] 01-28-1997 haemophilus influenz ae type b vaccine, conjugate unspecified formulation Felicitas Hemmer PA Work Phone: [facility] 01-28-1997 hepatitis B vaccine, pediatric or pediatric/adolescent dosage [facility] 01-28-1997 Hib, unspecified formulation [facility] 01-28-1997 trivalent poliovirus vaccine, live, oral Felicitas Hemmer PA Work Phone: [facility] 1996 hepatitis B vaccine, pediatric or pediatric/adolescent dosage [facility] Payers Date Payer Category Payer Self-pay [id number] 2023 Medicaid [employer] [place] [id number] 2023 Medicaid [id number] 2017 Unknown 1996 Unknown [id number] 2.16840.1.953483.3.579.2.356 1996 Unknown [id number] 2.16840.1.900109.3.579.2.356 1996 Unknown [id number] 2.16.840.1.729264.3.579.2.356 1996 Unknown [id number] 2.16.840.1.170042.3.579.2. 1996 Unknown [id number] 2.16840.1.333375.3.579.2. 1996 Unknown [id number] 2.16840.1.348279.3.579.2. 1996 Unknown [id number] 2.16.840.1.164868.3.579.2.71 1996 Unknown [id number] 2.16840.1.089294.3.579.2. 1996 Unknown [id number] 2.16840.1.352598.3.579.2.717 1996 Unknown [id number] 2.16840.1.361590.3.579.2.71 1996 Unknown [id number] 2.16.840.1.371122.3.579.2.717 1996 Unknown [id number] 2.16.840.1.514696.3.579.2.71 1996 Unknown [id number] 2.16.840.1.793508.3.579.2.717 1996 Unknown [id number] 2.16.840.1.320545.3.579.2.71 1996 Unknown [id number] 2.16.840.1.216449.3.579.2. 1996 Unknown [id number] 2.16.840.1.452686.3.579.2. 1996 Unknown [id number] 2.16.840.1.839012.3.579.2.593 1996 Unknown [id number] 2.16.840.1.202388.3.579.2.593 1996 Unknown [id number] 2.16.840.1.578956.3.579.2.727 1996 Unknown [id number] 2.16.840.1.010029.3.579.2.1258 1996 Unknown [id number] 2.16.840.1.471520.3.579.2.1258 1996 Unknown [id number] 2.16.840.1.967179.3.579.2.1258 1996 Unknown [id number] 2.16.840.1.858447.3.579.2.1258 1996 Unknown [id number] 2.16.840.1.506336.3.579.2.1258 1996 Unknown [id number] 2.16.840.1.849919.3.579.2.1259 1996 Unknown [id number] 2.16.840.1.200722.3.579.2.1258 1996 Unknown [id number] 2.16.840.1.795148.3.579.2.1259 1996 Unknown [id number] 2.16.840.1.306004.3.579.2.1259 1996 Unknown [id number] 2.16.840.1.489002.3.579.2.1259 1996 Unknown [id number] 2.16.840.1.449216.3.579.2.1259 1996 Unknown [id number] 2.16.840.1.117445.3.579.2.1259 1959 Unknown [id number] Unknown [id number] 2.16.840.1.759395.3.579.2.531 Unknown [id number] 2.16.840.1.463877.3.579.2.531 Social History Date Type Detail Facility Start: 10-10-2021 End: 06-19-2023 Tobacco smoking status [facility] Never smoked tobacco (finding) [facility] Start: 1995 Sex Assigned At Female F [facility] Start: 09-16-2024 End: 10-15-2024 Sex Assigned At [facility] Tobacco smoking status Never [facility] Start: 06-19-2023 Tobacco use and exposure Smoke less tobacco non-user [facility] Start: 09-23-2024 End: 10-15-2024 Alcoholic beverage intake Current drinker of alcohol (finding) [facility] Start: 09-16-2024 End: 10-15-2024 History of Social function [facility] Do you belong to any clubs or organizations such as orthodox groups, unions, fraternal or athletic groups, or school groups? No [facility] Are you now , , , , never or living with a partner? Never [facility] How often to you hav e a drink containing alcohol? Monthly or less [facility] How many standard dr inks containing alcohol do you have on a typical day? 3 or 4 [facility] How often do you hav e 6 or more drinks on 1 occasion? Never [facility] How hard is it for y ou to pay for the very basics like food, housing, medical care, and heating Somewhat hard [facility] Do you feel stress - tense, restless, nervous, or anxious, or unable to sleep at night because your mind is troubled all the time - these days [OSQ] Only a little [facility] (I/We) worried wheth er (my/our) food would run out before (I/we) got money to buy more. Sometimes true [facility] The food that (I/we) bought just didn't last, and (I/we) didn't have money to get more. Never true [facility] Start: 06-20-2023 Education 21 [facility] Start: 06-20-2023 Alcohol Comment Caffeine intak e : once a day or every other day / 1 cup qd day 80mg of caffeine [facility] Start: 1995 Sex assigned at Not on file [facility] NEGATED: Highlighted row [facility] Goals Date Patient Goal Desired Activity /State Functional Status Date Assessment Result Facility 05-15-2024 Functional Status N/A [facility] 12-11-2023 Functional status Patient at Baseline [facility] Work Phone: 11-09-2022 Functional status Patient at Baseline [facility] Work Phone: Mental Status Date Assessment Result Facility 12-11-2023 Cognitive function Cognitive Sta tus Patient at Baseline [facility] Work Phone: 11-09-2022 Cognitive function Cognitive Sta tus Patient at Baseline [facility] Work Phone: Clinical Notes 12-05-2021 to 10-15-2024 CHETNA Mercer - 10/15/2024 8:30 AM CHETNA Bauer - 09/23/2024 9:30 AM EST Note Date & Type Note Facility 10-15-2024 History of Present illness Narrative Images from the original note were not included. HPI Hypothyroidism Additional comments: She is wanting to get her thyroid labs checked d/t she exhausted, gaining weight and feels swollen all the time. Last edited by Radha Jones LPN on 10/15/2024 8:42 AM. Subjective Patient ID: Jen Santamaria is a 28 y.o. female who presents for knee pain. Jen is present today for follow up knee pain. She was seen on 09/23/24 Dx. Patellar tendonitis right knee, rx'd Prednisone and voltaren gel, ordered x-ray which was negative. States the meds rx'd did help with the swelling, and the range of motion, but still having pain. Pain comes and goes, the pain is there when she twists her knee wrong or puts a lot of pressure on her knee. Was trying to to step into a vehicle yesterday, pushed off with her right leg and the pain brought tears to her eyes. Pivoting is painful. Feels like it is going to give out on her at times. Current Outpatient Medications on File Prior to Visit Medication Sig Dispense Refill amphetamine-dextroamphetamine XR (Adderall XR) 20 MG 24 hr capsule Take 1 capsule (20 mg) by mouth in the morning. Do not crush or chew. . 30 capsule 0 Bacillus Coagulans-Inulin (Probiotic) 1-250 BILLION-MG capsule Take 1 capsule by mouth Daily cholecalciferol (D3-5) 5,000 Units tablet Take 1 tablet (5,000 Units) by mouth Daily 100 tablet 3 diclofenac sodium (Voltaren Arthritis Pain) 1 % gel Apply 4 g topically 4 (four) times a day as needed for pain 50 g 2 folic acid (Folvite) 400 MCG tablet Take 1 tablet (0.4 mg) by mouth Daily 100 tablet 3 Levonorgestrel (Liletta, 52 MG,) 20.1 MCG/DAY intrauterine device by Intrauterine route levothyroxine (Synthroid, Levoxyl) 100 MCG tablet TAKE 1 TABLET (100 MCG) BY MOUTH IN THE MORNING. TAKE BEFORE MEALS. 100 tablet 3 traZODone (Desyrel) 100 MG tablet Take 100 mg by mouth as needed at bedtime venlafaxine XR (Effexor XR) 75 MG 24 hr capsule TAKE 1 CAPSULE BY MOUTH ONCE A DAY AFTER 7 DAYS OF 37.5 MG No current facility-administered medications on file prior to visit. I have reviewed and reconciled the history and medication list with the patient today. Allergies Allergen Reactions Bactrim Ds [Sulfamethoxazole-Trimethoprim] Hives Escitalopram Other Shellfish-Derived Products Trimethoprim Other Reaction(s): Rash, hives Wheat GI intolerance Social History Tobacco Use Smoking status: Never Smokeless tobacco: Never Vaping Use Vaping status: Never Used Substance Use Topics Alcohol use: Yes Comment: Caffeine intake : once a day or every other day / 1 cup qd day 80mg of caffeine Drug use: Never Family History Problem Relation Name Age of Onset Diabetes Brother 1 brother diabetes Cancer Maternal Grandfather Dementia Paternal Grandmother Heart disease Paternal Grandfather Multiple myeloma Neg Hx Past Medical History: Diagnosis Date ACD (adult celiac disease) (CMS/HCC) Ankle sprain left Depression (CMS/HCC) Disease of thyroid gland (CMS/HCC) Hypothyroid (CMS/HCC) Pap smear of vagina with ASC-US 05/2019 ASC-US with Positive HPV Status post section 01/09/2024 Past Surgical History: Procedure Laterality Date BREAST SURGERY 03/2021 reduction SECTION, LOW TRANSVERSE 11/07/20[address] C/S Dr[address] Cespedes COLPOSCOPY 08/13/2020 ESOPHAGOGASTRODUODENOSCOPY 08/08/2023 INTRAUTERINE DEVICE INSERTION 03/21/2024 liletta LIPOSUCTION 01/2022 OTHER SURGICAL HISTORY 2011 Procedure:crutches - no sports;Disease:left ankle sprain OTHER SURGICAL HISTORY 2014 Radiation therapy for thyroid Visit Vitals BP 128/86 Pulse 98 Resp 16 Ht 4' 11 Wt 172 lb 3.2 oz SpO2 97% BMI 34.78 kg/m Smoking Status Never BSA 1.8 m Review of Systems Constitutional: Positive for fatigue and unexpected weight change (Gain). Negative for chills and fever. Respiratory: Negative for cough, shortness of breath and wheezing. Cardiovascular: Negative for chest pain, palpitations and leg swelling. Gastrointestinal: Negative for abdominal pain, constipation, diarrhea, nausea and vomiting. Musculoskeletal: Positive for arthralgias. Skin: Negative for rash. Objective Physical Exam Constitutional: General: She is not in acute distress. Appearance: Normal appearance. She is well-developed. HENT: Head: Normocephalic and atraumatic. Eyes: General: No scleral icterus. Conjunctiva/sclera: Conjunctivae normal. Cardiovascular: Rate and Rhythm: Normal rate and regular rhythm. Heart sounds: Normal heart sounds. No murmur heard. Pulmonary: Effort: Pulmonary effort is normal. No respiratory distress. Breath sounds: Normal breath sounds. No wheezing, rhonchi or rales. Musculoskeletal: Right knee: Swelling (Mild inferior/anterior aspect), bony tenderness (Anterior tibial plateau) and crepitus (Mild) present. No erythema. Decreased range of motion. Tenderness present over the patellar tendon. No LCL laxity, MCL laxity, ACL laxity or PCL laxity. Normal patellar mobility. Instability Tests: Anterior drawer test negative. Posterior drawer test negative. Medial Ronni test positive (Mildly). Lateral Ronni test negative. Skin: General: Skin is warm and dry. Neurological: General: No focal deficit present. Mental Status: She is alert and oriented to person, place, and time. Psychiatric: Mood and Affect: Mood normal. Behavior: Behavior normal. Assessment/Plan Diagnoses and all orders for this visit: Postablative hypothyroidism (CMS/HCC) - TSH W/REFLEX TO FT4; Futurey Ordered updated TSH for patient to have drawn at her convenience. Acute internal derangement of right knee - MR knee right wo IV contrast; Future Patient has had knee x-rays which were negative for acute abnormality. Tried Prednisone and Voltaren Gel with only partial improvement in symptoms. Continues to have significant Pain with certain movements and the knee feels as thought it is going to give out on her. Will obtain an MRI at this time for further evaluation, rule out meniscal tear or stress fracture tibial plateau. Will notify pt of the results once received. She would like to have the MRI done at [facility]. Knee instability, right - MR knee right wo IV contrast; Future See above. Follow up for Appointment As Scheduled. documented in this encounter [facility] 09-23-2024 History of Present illness Narrative Images from the original note were not included. Subjective Patient ID: Jen Santamaria is a 28 y.o. female who presents for a 3 month med follow up. Jen is in today for a 3 month follow up on her adderall, states its working well and she has no complaints. States her right knee has been bothering her for the past week, states she was wrestling with her brothers well intoxicated and her brother fell on her knee, it popped, and has been swollen and painful since. Has taken ibuprofen for the pain, along with resting and elevating and icing it. Current Outpatient Medications on File Prior to Visit Medication Sig Dispense Refill Bacillus Coagulans-Inulin (Probiotic) 1-250 BILLION-MG capsule Take 1 capsule by mouth Daily cholecalciferol (D3-5) 5,000 Units tablet Take 1 tablet (5,000 Units) by mouth Daily 100 tablet 3 folic acid (Folvite) 400 MCG tablet Take 1 tablet (0.4 mg) by mouth Daily 100 tablet 3 Levonorgestrel (Liletta, 52 MG,) 20.1 MCG/DAY intrauterine device by Intrauterine route levothyroxine (Synthroid, Levoxyl) 100 MCG tablet TAKE 1 TABLET (100 MCG) BY MOUTH IN THE MORNING. TAKE BEFORE MEALS. 100 tablet 3 traZODone (Desyrel) 100 MG tablet Take 100 mg by mouth as needed at bedtime venlafaxine XR (Effexor XR) 75 MG 24 hr capsule TAKE 1 CAPSULE BY MOUTH ONCE A DAY AFTER 7 DAYS OF 37.5 MG [DISCONTINUED] amphetamine-dextroamphetamine XR (Adderall XR) 20 MG 24 hr capsule Take 1 capsule (20 mg) by mouth in the morning. Do not crush or chew. . 30 capsule 0 [DISCONTINUED] cephalexin (Keflex) 500 MG capsule Take 1 capsule (500 mg) by mouth in the morning and 1 capsule (500 mg) at noon and 1 capsule (500 mg) in the evening and 1 capsule (500 mg) before bedtime. Do all this for 7 days. 28 capsule 0 [DISCONTINUED] [place]-3 Fatty Acids (Fish Oil) 1000 MG capsule delayed-release Take 1,000 mg by mouth Daily No current facility-administered medications on file prior to visit. I have reviewed and reconciled the history and medication list with the patient today. Allergies Allergen Reactions Bactrim Ds [Sulfamethoxazole-Trimethoprim] Hives Escitalopram Other Shellfish-Derived Products Trimethoprim Other Reaction(s): Rash, hives Wheat GI intolerance Social History Tobacco Use Smoking status: Never Smokeless tobacco: Never Vaping Use Vaping status: Never Used Substance Use Topics Alcohol use: Yes Comment: Caffeine intake : once a day or every other day / 1 cup qd day 80mg of caffeine Drug use: Never Family History Problem Relation Name Age of Onset Diabetes Brother 1 brother diabetes Cancer Maternal Grandfather Dementia Paternal Grandmother Heart disease Paternal Grandfather Multiple myeloma Neg Hx Past Medical History: Diagnosis Date ACD (adult celiac disease) (CMS/HCC) Ankle sprain left Depression (CMS/HCC) Disease of thyroid gland (CMS/HCC) Hypothyroid (CMS/HCC) Pap smear of vagina with ASC-US 05/2019 ASC-US with Positive HPV Status post section 01/09/2024 Past Surgical History: Procedure Laterality Date BREAST SURGERY 03/2021 reduction SECTION, LOW TRANSVERSE 11/07/2022 C/S Dr[address] Cespedes COLPOSCOPY 08/13/2020 ESOPHAGOGASTRODUODENOSCOPY 08/08/2023 INTRAUTERINE DEVICE INSERTION 03/21/2024 liletta LIPOSUCTION 01/2022 OTHER SURGICAL HISTORY 2011 Procedure:crutches - no sports;Disease:left ankle sprain OTHER SURGICAL HISTORY 2013 Radiation therapy for thyroid Visit Vitals BP 120/75 Pulse 92 Resp 17 Wt 169 lb 9.6 oz SpO2 97% BMI 34.26 kg/m Smoking Status Never BSA 1.79 m Review of Systems Constitutional: Negative for chills, fatigue and fever. Respiratory: Negative for cough, shortness of breath and wheezing. Cardiovascular: Negative for chest pain, palpitations and leg swelling. Gastrointestinal: Negative for abdominal pain, constipation, diarrhea, nausea and vomiting. Musculoskeletal: Positive for arthralgias. Skin: Negative for rash. Objective Physical Exam Constitutional: General: She is not in acute distress. Appearance: Normal appearance. She is well-developed. HENT: Head: Normocephalic and atraumatic. Eyes: General: No scleral icterus. Conjunctiva/sclera: Conjunctivae normal. Cardiovascular: Rate and Rhythm: Normal rate and regular rhythm. Heart sounds: Normal heart sounds. No murmur heard. Pulmonary: Effort: Pulmonary effort is normal. No respiratory distress. Breath sounds: Normal breath sounds. No wheezing, rhonchi or rales. Musculoskeletal: Right knee: Swelling (Mild inferior/anterior aspect) and bony tenderness (Anterior tibial plateau) present. No erythema. Decreased range of motion. Tenderness present over the patellar tendon. No LCL laxity, MCL laxity, ACL laxity or PCL laxity. Normal patellar mobility. Instability Tests: Anterior drawer test negative. Posterior drawer test negative. Skin: General: Skin is warm and dry. Neurological: General: No focal deficit present. Mental Status: She is alert and oriented to person, place, and time. Psychiatric: Mood and Affect: Mood normal. Behavior: Behavior normal. Assessment/Plan Diagnoses and all orders for this visit: Acute pain of right knee X-rays were negative. Attention deficit hyperactivity disorder (ADHD), combined type (CMS/HCC) - amphetamine-dextroamphetamine XR (Adderall XR) 20 MG 24 hr capsule; Take 1 capsule (20 mg) by mouth in the morning. Do not crush or chew. Medication choice and dosage is appropriate for patient's current medical conditions. Patient will continue to be required to be seen in our office at least every three months for monitoring. At each follow up visit I will reassess the patient's need for the medication. Patient is to have this medication prescribed only through this office. Failure to follow the rules and regulations will result in tapering and discontinuation of medications if applicable. Patient verbalized understanding. OARRS Report was reviewed for this patient. Patellar tendonitis of right knee - predniSONE (Deltasone) 10 MG tablet; Take 1 tablet (10 mg) by mouth 3 (three) times a day for 3 days, THEN 1 tablet (10 mg) 2 (two) times a day for 3 days, THEN 1 tablet (10 mg) Daily for 3 days. - diclofenac sodium (Voltaren Arthritis Pain) 1 % gel; Apply 4 g topically 4 (four) times a day as needed for pain Start above as prescribed. Take Prednisone with food. No NSAIDs while on steroid. Diclofenac as prescribed to affected area. Tylenol prn. If no improvement with the above, would plan to order an MRI for the patient for further evaluation. Follow up for Medication Follow Up. Felicitas BARAJAS PA-C documented in this encounter [facility] 05-15-2024 Hospital Discharge instructions Patient Education 05/15/2024 16:11:44 Gastritis, Adult, Zroi-ub-Iyep Gastritis, Adult Gastritis is irritation and swelling (inflammation) of the stomach. There are two kinds of gastritis: Acute gastritis. This kind develops quickly. Chronic gastritis. This kind is much more common. It develops slowly and lasts for a long time. It is important to get help for this condition. If you do not get help, your stomach can bleed, and you can get sores (ulcers) in your stomach. What are the causes? This condition may be caused by: Germs that get to your stomach and cause an infection. Drinking too much alcohol. Medicines you are taking. Having too much acid in the stomach. Having a disease of the stomach. Other causes may include: An allergic reaction. Some cancer treatments (radiation). Smoking cigarettes or using products that contain nicotine or tobacco. In some cases, the cause of this condition is not known. What increases the risk? Having a disease of the intestines. Having Crohn's disease. Using aspirin or ibuprofen and other NSAIDs to treat other conditions. Stress. What are the signs or symptoms? Pain in your stomach. A burning feeling in your stomach. Feeling like you may vomit (nauseous). Vomiting or vomiting blood. Feeling too full after you eat. Weight loss. Bad breath. Blood in your poop (stool). In some cases, there are no symptoms. How is this treated? This condition is treated with medicines. The medicines that are used depend on what caused the condition. You may be given: Antibiotic medicine, if your condition was caused by an infection from germs. H2 blockers and similar medicines, if your condition was caused by too much acid in the stomach. Treatment may also include stopping the use of certain medicines, such as aspirin or ibuprofen. Follow these instructions at home: Medicines Take gnju-etp-omivvqw and prescription medicines only as told by your doctor. If you were prescribed an antibiotic medicine, take it as told by your doctor. Do not stop taking it even if you start to feel better. Alcohol use Do not drink alcohol if: ?Your doctor tells you not to drink. ?You are , may be , or are planning to become . If you drink alcohol: ?Limit your use to: ?0 1 drink a day for women. ?0 2 drinks a day for men. ?Know how much alcohol is in your drink. In the [place] one drink equals one 12 oz bottle of beer (355 mL), one 5 oz glass of wine (148 mL), or one 1 oz glass of hard liquor (44 mL). General instructions Eat small meals often, instead of large meals. Avoid foods and drinks that make you feel worse. Drink enough fluid to keep your pee (urine) pale yellow. Talk with your doctor about ways to manage stress. You can exercise or do deep breathing, meditation, or yoga. Do not smoke or use any products that contain nicotine or tobacco. If you need help quitting, ask your doctor. Keep all follow-up visits. Contact a doctor if: Your symptoms get worse. Your stomach pain gets worse. Your symptoms go away and then come back. You have a fever. Get help right away if: You vomit blood or something that looks like coffee grounds. You have black or dark red poop. You throw up any time you try to drink fluids. These symptoms may be an emergency. Get help right away. Call your local emergency services (911 in the [place] Do not wait to see if the symptoms will go away. Do not drive yourself to the hospital. Summary Gastritis is irritation and swelling (inflammation) of the stomach. You must get help for this condition. If you do not get help, your stomach can bleed, and you can get sores (ulcers) in your stomach. You can be treated with medicines for germs or medicines to block too much acid in your stomach. This information is not intended to replace advice given to you by your health care provider. Make sure you discuss any questions you have with your health care provider. Document Revised: 03/05/2022 Document Reviewed: 03/05/2022 [employer] Patient Education 2022 [employer]. [facility] 05-15-2024 Note Patient Education Infectious Disease Gastritis, Adult Gastritis is irritation and swelling (inflammation) of the stomach. There are two kinds of gastritis: ? Acute gastritis. This kind develops quickly. ? Chronic gastritis. This kind is much more common. It develops slowly and lasts for a long time. It is important to get help for this condition. If you do not get help, your stomach can bleed, and you can get sores (ulcers) in your stomach. What are the causes? This condition may be caused by: ? Germs that get to your stomach and cause an infection. ? Drinking too much alcohol. ? Medicines you are taking. ? Having too much acid in the stomach. ? Having a disease of the stomach. Other causes may include: ? An allergic reaction. ? Some cancer treatments (radiation). ? Smoking cigarettes or using products that contain nicotine or tobacco. In some cases, the cause of this condition is not known. What increases the risk? ? Having a disease of the intestines. ? Having Crohn's disease. ? Using aspirin or ibuprofen and other NSAIDs to treat other conditions. ? Stress. What are the signs or symptoms? ? Pain in your stomach. ? A burning feeling in your stomach. ? Feeling like you may vomit (nauseous). ? Vomiting or vomiting blood. ? Feeling too full after you eat. ? Weight loss. ? Bad breath. ? Blood in your poop (stool). In some cases, there are no symptoms. How is this treated? This condition is treated with medicines. The medicines that are used depend on what caused the condition. You may be given: ? Antibiotic medicine, if your condition was caused by an infection from germs. ? H2 blockers and similar medicines, if your condition was caused by too much acid in the stomach. Treatment may also include stopping the use of certain medicines, such as aspirin or ibuprofen. Follow these instructions at home: Medicines ? Take sjmt-xoq-xrvupwl and prescription medicines only as told by your doctor. ? If you were prescribed an antibiotic medicine, take it as told by your doctor. Do not stop taking it even if you start to feel better. Alcohol use ? Do not drink alcohol if: ? Your doctor tells you not to drink. ? You are , may be , or are planning to become . ? If you drink alcohol: ? Limit your use to: ? 0?1 drink a day for women. ? 0?2 drinks a day for men. ? Know how much alcohol is in your drink. In the [place] one drink equals one 12 oz bottle of beer (355 mL), one 5 oz glass of wine (148 mL), or one 1? oz glass of hard liquor (44 mL). General instructions ? Eat small meals often, instead of large meals. ? Avoid foods and drinks that make you feel worse. ? Drink enough fluid to keep your pee (urine) pale yellow. ? Talk with your doctor about ways to manage stress. You can exercise or do deep breathing, meditation, or yoga. ? Do not smoke or use any products that contain nicotine or tobacco. If you need help quitting, ask your doctor. ? Keep all follow-up visits. Contact a doctor if: ? Your symptoms get worse. ? Your stomach pain gets worse. ? Your symptoms go away and then come back. ? You have a fever. Get help right away if: ? You vomit blood or something that looks like coffee grounds. ? You have black or dark red poop. ? You throw up any time you try to drink fluids. These symptoms may be an emergency. Get help right away. Call your local emergency services (911 in the [place] ? Do not wait to see if the symptoms will go away. ? Do not drive yourself to the hospital. Summary ? Gastritis is irritation and swelling (inflammation) of the stomach. ? You must get help for this condition. If you do not get help, your stomach can bleed, and you can get sores (ulcers) in your stomach. ? You can be treated with medicines for germs or medicines to block too much acid in your stomach. This information is not intended to replace advice given to you by your health care provider. Make sure you discuss any questions you have with your health care provider. Document Revised: 03/05/2022 Document Reviewed: 03/05/2022 [employer] Patient Education ? [address]22 [employer] [facility] 12-11-2023 Hospital Discharge instructions Additional Instructions Important Contact Information You can call [facility]patient [facility] at [phone] any time day or night if you have emergent questions or question regarding discharge instructions. If at any time you are feeling an increase in your psychiatric symptoms, call your physician or behavioral healthcare provider. If any time you have thoughts of harming yourself or others contact one of the following: Call 98-8 (available 05/06) Crisis Text Line (available 05/06) text 4HOPE to [phone] [facility] Hope Line (available 8 a.m. Midnight) call [phone] ([phone]) [facility] Work Phone: 10-19-2023 Evaluation note Encounter Date Diagnosis Assessment Notes Oct, Loose stools (ICD-10 - R19.5) Pt is still having loose stools. Oct, Constipation (ICD-10 - K59.00) Pt is still dealing with constipation . Oct, Celiac disease (ICD-10 - K90.0) Pt RTO in 3 months [employer] [facility]* Encounter Date Diagnosis Assessment Notes Treatment Notes Treatment Clinical Notes Jun, Loose stools (ICD-10 - R19.5) patient has been having loose stools to liquid stools for several months. Will Jun, Constipation (ICD-10 - K59.00) Jun, Celiac disease (ICD-10 - K90.0) Patient was diagnosed about 6 years ago with EGD. Has maintained a gluten free diet since then. [employer] Other 12-26-2022 History general Narrative - Reported* Type Description Date Medical History graves disease Medical History celiac disease Surgical History breast reduction Surgical History C section 11/07/22 Hospitalization History HYPOTHROIDISM [employer] Other 01-23-2022 Evaluation note* Encounter Date Diagnosis [...] Patient care instructions given in writting by [facility] At Home document. [employer] Other Evaluation + Plan note No data available for this section [facility] Evaluation noteNo assessment information available [facility] Diagnosis Onset Date Resolution Status Status post section acute [facility] Work Phone: Evaluation noteNo InformationNortNew [facility] [employer] Other Evaluation note* Diagnosis Onset Date Resolution Status Depression acute [facility] Work Phone: Evaluation note* Diagnosis Onset Date Resolution Status ADHD acute Depression acute Generalized anxiety disorder acute [facility] Work Phone: Evaluation note* Diagnosis Onset Date Resolution Status ADHD acute Depression acute Generalized anxiety disorder acute Celiac disease acute Sinusitis noneactive [facility] Work Phone: Evaluation note* Diagnosis Acute pain of right knee- Primary Attention deficit hyperactivity disorder (ADHD), combined type (CMS/HCC) Patellar tendonitis of right knee [facility] Diagnosis Postablative hypothyroidism (CMS/HCC)- Primary Other postablative hypothyroidism Acute internal derangement of right knee Knee instability, right [facility] N[facility] - Reported* Type Description Date Medical History graves disease Surgical History breast reduction Hospitalization History HYPOTHROIDISM [facility] [employer] Other Hospital Discharge instructions Additional Instructions Please call your plastic surgeon tomorrow for follow-up appointment Take the antibiotics as prescribed to cover for any potential infection Return for fevers, discharge, bleeding from your wound, redness, [facility] Additional Instructions DISCHARGE INSTRUCTIONS [...] NOT operate machinery such as power tools, [employer] mowers, [employer], sewing machines, etc. for 24 hours. - [...] problems. -Follow up with PCP. 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 Complaint Celiac Disease Chief Complaint Follow Up After Egd [facility] Reason for Visit Depression Chief Complaint Follow Up After Egd [facility] Reason for Visit ADHD Depression Generalized anxiety disorder Chief Complaint P 3 MONTH FOLLOW UP Cough, congestion Reason for Visit ADHD Depression Generalized anxiety disorder Celiac disease Sinusitis Additional Source Comments INFORMATION SOURCE (unrecogn ized section and content) DATE CREATED AUTHOR 05/03/2018 [facility] DATE CREATED AUTHOR AUTHOR'S ORGANIZ ATION 05/08/2018 [facility] DATE CREATED AUTHOR AUTHOR'S ORGANIZ ATION 05/09/2018 [facility] DATE CREATED AUTHOR AUTHOR'S ORGANIZ ATION 11/27/2018 [facility] DATE CREATED AUTHOR AUTHOR'S ORGANIZ ATION 01/16/2019 [facility] DATE CREATED AUTHOR AUTHOR'S ORGANIZ ATION 02/01/2019 [facility] DATE CREATED AUTHOR AUTHOR'S ORGANIZ ATION 12/14/2021 [facility] DATE CREATED AUTHOR AUTHOR'S ORGANIZ ATION 03/08/2022 [facility] DATE CREATED AUTHOR AUTHOR'S ORGANIZ ATION 04/22/2022 [facility] DATE CREATED AUTHOR AUTHOR'S ORGANIZ ATION 05/17/2024 [facility] DATE CREATED AUTHOR AUTHOR'S ORGANIZ ATION 10/09/2024 [facility] DATE CREATED AUTHOR AUTHOR'S ORGANIZ ATION 10/16/2024 [facility] EPIC Goals (unrecognized section and content) Goals may be documented in a n alternate sectionNo InformationGoals may be documented in an alternate sectionGoals may be documented in an alternate sectionNo InformationNo InformationNo InformationGoals may be documented in an alternate sectionGoals may be documented in an alternate section No data available for this section REASON FOR VISIT (unrecogniz ed section and content) Reason Comments Hypothyroidism She is wanting to ge t her thyroid labs checked d/t she exhausted, gaining weight and feels swollen all the time. Care Teams (unrecognized sec tion and content) Team Status: Inactive Member Role Status Dates Katarzyna Castañeda MD Primary Care Provider Active Stephanie Edwrad DO Attending Provider Active Team Status: Active [...] Other Provider Active Start: December 08, 2023 Team Status: Inactive Member Role Status Nikolay Castañeda MD Primary Care Provider Active S tart: December 08, 2023 End: December 11, 2023 Larry Rankin DO Emergency Provider Active Sta rt: December 08, 2023 End: December 11, 2023 Mgiuel Jalloh MD Attending Provider Active Start: December 08, 2023 End: December 11, 2023 Rodriguez Nick MD Admit Provider Active Start: December 08, 2023 End: December 11, 2023 Team Status: Active Member Role Status Nikolay Castañeda MD Primary Care Provider Active S tart: January 10, 2024 Miguel Jalloh MD Attending Provider Active Start: January 10, 2024 Team Status: Inactive Member Role Status Nikolay Castañeda MD Primary Care Provider Active S tart: January 18, 2024 End: January 18, 2024 Juice Johnson MD Attending Provider Active S tart: January 18, 2024 End: January 18, 2024 Team Status: Inactive Member Role Status Dates Katarzyna Castañeda MD Primary Care Provider Active S tart: March 09, 2024 End: March 09, 2024 Joann Shin NP-C Attending Provider Active S tart: March 09, 2024 End: March 09, 2024 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 Relationship Specialty Start Date End Date Katarzyna Castañeda MD [address] [facility] [address] [place] [address] PCP - General Family Medicine 06/13/23 Abelardo Bolanos MD [address] [place] [address] [facility] 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 Relationship Specialty Start Date End Date Katarzyna Castañeda MD [address] [facility] [address] [place] [address] PCP - General Family Medicine 06/13/23 Abelardo Bolanos MD [address] [place] [address] PCP - [facility] 08/13/24 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 Relationship Specialty Start Date End Date Katarzyna Castañeda MD [address] [facility] [address] [place] [address] PCP - General Family Medicine 06/13/23 Abelardo Bolanos MD [address] [place] [address] (Fax) [facility]CP [facility] 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 Relationship Specialty Start Date End Date Katarzyna Castañeda MD [address] [facility] [address] [place] [address] PCP - General Family Medicine 06/13/23 Abelardo Bolanos MD [address] [place] [address] PCP - [facility] 08/13/24 FOR RECORDS PERTAINING TO PATIENTS WHO ARE [...] BE BASED ON THE PRIMARY CLINICAL RECORDS. [facility]. provides no warranty or guarantee of the accuracy or completeness of information in this document.
== END 2024-10-25 08:40 | disposition home or self-care (01) ==
LOC: MRI 08:40
PROVIDERS: PCP Family Medicine; Visit Provider Physician Assistant
DX: M23.91 Unspecified internal derangement of right knee (principal); M25.361 Other instability, right knee; M84.361A Stress fracture, right tibia, initial encounter for fracture
CPT/HCPCS: 73721

== ENCOUNTER 2024-12-25 22:57 | Emergency (ER) | payer MEDICAID, SELFPAY ==
[2024-12-25 23:05] VITALS: BP 128/87; PULSE 107; TEMP 36.8; O2SAT 97; BMI 32.3
--- NOTE | 2024-12-25 23:38 | PC.NURSE ---
Pt brought to room Pt states that she started on Amoxi to day for a sinus infection and now has hives Resp even and nonlabored at this time Pt has scattered red patches note on arms and trunk. Pt given gown to put on so Dr can examine Pt states that she has taken Amoxil before without problem.
--- OUTSIDE RECORDS SUMMARY | 2024-12-25 23:38 | XMS_ITS | CCD ---
Author Organization [facility] Care Team Providers Care Drier Operator Helper Name Role Phone AJAY, PALANI K Unavailable Unavailable AJAY, PALANI K Unavailable Unavailable AJAY, PALANI K Unavailable Unavailable AJAY, PALANI K Unavailable Unavailable AJAY, PALANI K Unavailable Unavailable AJAY, PALANI K Unavailable Unavailable TOURLAS, DANDRE Unavailable Unavailabl e AJAY, PALANI K Unavailable Unavailable AJAY, PALANI K Unavailable Unavailable TOURLAS, DANDRE Unavailable Unavailabl e TOURLAS, DANDRE Unavailable Unavailabl e SHAMIKA NAPIER Referring Unavailable Tourlas, Dandre Attending Unavailabl e Tourlas, Dandre Primary Care Unavailabl e Re Murphy Attending Unavailable Tourlas, Dandre Primary Care Unavailabl e Re Murphy Admitting Unavailable Tourlas, Dandre Attending Unavailabl e Tourlas, Dandre Primary Care Unavailabl e Re Muprhy Admitting Unavailable Re Murphy Attending Unavailable Tourlas, [...] Katarzyna Castañeda Primary Care Provider DO Stephanie Ewdard Attending Provider MD Katarzyna Castañeda Primary Care Provider DO Stephanie Edward Attending Provider MD Katarzyna Castañeda Primary Care Provider [phone] DO Stephanie Edward Attending Provider DO Stephanie Edward Admit Provider MD Toi [facility] Attending Provider Juice Johnson Unavailable MD Katarzyna Castañeda Primary Care Provider MD Juice Johnson Attending Provider [phone] MD Katarzyna Castañeda Primary Care Provider DO Larry Rankin Emergency Provider [phone] MD Rodriguez Nick Admit Provider MD Rodriguez Nick Attending Provider MD Katarzyna Castañeda Primary Care Provider DO Larry Rankin Emergency Provider MD Miguel Jalloh Attending Provider MD Flaca Nickmi Admit Provider [phone] REDDY HENRY Primary Care Physician Devin Jimenez Attending Unavailable Katarzyna Castañeda MD Primary Care Provider Abelardo Bolanos MD Unavailable Abelardo Bolanos MD Unavailable Travis DHILLON, Dandre Primary Care Provider LAURA HERNANDEZ Attending Unavailable DANDRE ROBLES [facility] Unavailabl e Miguel Jalloh Attending Unavailab le Miguel Jalloh Admitting Unavailab Katarzyna Kunz Primary Care Unavailable OSEI WANG Attending Unavailable HEMMERFELICITAS Attending Unavailable HEMMERFELICITAS Attending Unavailable RINKES, STEPHANIE E Attending Unavailable RINKES, STEPHANIE E Attending Unavailable RINKES, STEPHANIE E Referring Unavailable HEMMER, FELICITAS Persaud Attending Unavailable RINKES, STEPHANIE E Attending Unavailable RINKES, STEPHANIE E Referring Unavailable RAMBASEKJOHANNA Attending Unavailable RINKES, STEPHANIE E Referring Unavailable RINKES, STEPHANIE E Attending Unavailable RINKES, STEPHANIE E Referring Unavailable HEMMERFELICITAS Attending Unavailable HEMMERFELICITAS Attending Unavailable HEMMERFELICITAS Attending Unavailable OSEI WANG Referring Unavailable OSEI WANG Attending Unavailable OSEI WANG Referring Unavailable JOANN ISSA Attending Unavailable OSEI WANG Referring Unavailable YONIS HOLMAN Attending Unavailable OSEI WANG Referring Unavailable CELIA DIAZ Attending Unavailable OSEI WANG Referring Unavailable YONIS HOLMAN Attending Unavailable OSEI WANG Referring Unavailable Katarzyna Castañeda MD Primary Care Provider [phone] Miguel Jalloh MD Attending Provider [phone] Allergies Allergy Classification Reported Allergen(s) Allergy Type Date of Onset Reaction(s) Facility (1 source) No Known Medication Allergies; Translations: [No Known Medication Allergies] Propensity to adverse reactions to drug (disorder) [facility] Repository (10 sources) Sulfamethoxazole; Translations: [sulfamethoxazole] Drug Allergy 10-10-20 21 Rash, Rash, [facility] (20 sources) Trimethoprim; Translations: [trimethoprim] Drug Allergy 10-10-20 21 Rash, Rash, [facility] (1 source) Sulfamethoxazole / Trimethoprim Drug Allergy [facility] Repository (20 sources) Sulfamethoxazole / Trimethoprim; Translations: [sulfamethoxazole-t rimethoprim] Drug Allergy 06-19-20 23 hives, Weal (disorder) [facility] Care (20 sources) Escitalopram Drug Allergy 01-09-20 24 Other [facility] Healthcare (20 sources) WHEAT DEXTRIN Drug Allergy 10-09-20 19 GI intolerance [facility] (20 sources) Shellfish-Derived Products Drug Intolerance 10-09-20 19 [facility] (3 sources) Shellfish; Translations: [SHELLFISH DERIVED] Drug Allergy 10-09-20 19 [facility] (3 sources) Wheat bran; Translations: [WHEAT BRAN] Drug Allergy 10-09-20 19 GI Upset [facility] Medications Current Medications Medication Drug Class(es) Dates Sig (Normalized) Sig (Original) amoxicillin 875 mg / clavulanate 125 mg oral tablet (3 sources) Penicillin-class Antibacterial Start: 03-09-2024 End: 12-25-2024 take 1 tablet by mouth twice daily Amoxicillin-Pot Clavulanate 875-125 mg tablet Active 1 TAB PO Twice daily 01 09December 25, 2024 12:00am 24 hr amphetamine aspartate 5 mg / amphetamine sulfate 5 mg / dextroamphetamine saccharate 5 mg / dextroamphetamine sulfate 5 mg extended release oral capsule (20 sources) Central Nervous System Stimulant Start: 12-25-2024 Dextroamphetamin e-Amphetamine 20 mg capsule,extended release 24hr Active PO December 25, 2024 12:00am Start: 01-18-2024 End: 12-25-2024 take 1 tablet by mouth once daily Dextroamphetamine-Amphetamine (Adderall) 20 mg tablet Discontinued 20 MG PO Daily January 18, 2024 12:00am December 25, 2024 11:01am Start: 08-08-2023 End: 01-18-2024 take 1 tablet by mouth once daily Dextroamphetamine-Amphetamine 10 mg tabl et Discontinued 10 MG PO Daily August 07, 2023 11:00pm January 18, 2024 2:39pm Start: 07-13-2023 End: 01-22-2025 take 1 capsule by mouth every twenty-four hours in the morning amphetamine-dextroamphetamine XR (Addera ll XR) 20 MG 24 hr capsule Indications: Attention deficit hyperactivity disorder (ADHD), combined type (CMS/HCC) Take 1 capsule (20 mg) by mouth in the morning. Do not crush or chew.. 30 capsule 12/23/2024 01/22/2025 Active Start: 07-13-2023 take 1 capsule by mo uth once daily in the morning amphetamine-dextroamphetamine 20 mg Cap- ER 20 mg = 1 cap(s), Oral, qAM, Refills(s) 0 Start Date: 05/15/24 Status: Ordered bacillus coagulans [id number] unt / inulin 250 mg oral capsule (20 sources) take 1 capsule by mouth once daily Bacillus Coagulans-Inulin (Probiotic) 1-250 BILLION-MG capsule Take 1 capsule by mouth Daily Active cholecalciferol 0.125 mg oral tablet (20 sources) Vitamin D Start: take 1 tablet by mouth once daily cholecalciferol (D3-5) 5,000 Units tablet Indications: Vitamin D deficiency Take 1 tablet (5,000 Units) by mouth Daily 100 tablet 3 06/24/2024 Active Start: 12-11-2023 take 1 tablet by giuseppe once daily Cholecalciferol (Vitamin D3) 25 mcg (1,000 unit) Tablet Active 50 MCG PO Daily 60 December 11, 2023 12:00am diclofenac sodium 0.01 mg/mg topical gel (19 sources) Nonsteroidal Anti-inflammatory Drug Start: 09-23-2024 diclofenac [...] 12 hrs for 10 days Nov, Active Ethinyl Estradiol / Levonorgestrel (2 sources) Progestin, Estrogen, Progestin-containing Intrauterine Device L-Norgest and E Estradiol-E Estrad (CAMRESE) 0.15 mg-30 mcg (84)/10 mcg (7) 3MPk Take by mouth. Active fluticasone propionate 0.05 mg/actuat metered dose nasal spray (6 sources) Corticosteroid Start: 03-09-2024 take 1 spray(s) nasal route once daily Fluticasone Propionate 50 mcg/actuation spray,suspension Active 2 SPRAY INTRANASAL Daily March 08, 2024 11:00pm administer into each nostril Start: 10-20-2021 take 1 spray(s) nasa l route twice daily Fluticasone Propionate 50 MCG/ACT 1 spray in each nostril Nasally Twice a day for 14 days Oct, Not-Taking folic acid 0.4 mg oral tablet (20 sources) Start: 06-24-2024 take 1 tablet by mouth once daily folic acid (Folvite) 400 MCG tablet Indications: Folate deficiency Take 1 tablet (0.4 mg) by mouth Daily 100 tablet 3 06/24/2024 Active levonorgestrel 0.622601 mg/hr intrauterine system (20 sources) Progestin, Progestin-containi ng Intrauterine Device Levonorgestrel (Liletta, 52 MG,) 20.1 MCG/DAY intrauterine device by Intrauterine route Active levothyroxine sodium 0.175 mg oral tablet (20 sources) l-Thyroxine Start: 12-25-2024 Levothyroxine 175 mcg tablet Active MCG PO December 25, 2024 12:00am Start: 11-21-2024 End: 12-03-2024 TIROSINT 175 mcg cap Indicat ions: Postablative hypothyroidism 6 days a week, skip day 7 72 capsule 1 12/03/2024 Active Start: 10-24-2024 take 1 tablet by giuseppe th before mealtime levothyroxine (Synthroid, Levoxyl) 125 MCG tablet Indications: Hypothyroidism, unspecified type (CMS/HCC) TAKE 1 TABLET (125 MCG) BY MOUTH IN THE MORNING. TAKE BEFORE MEALS. 90 tablet 3 11/18/2024 Active Start: 05-15-2024 take 1 tablet by giuseppe th once daily levothyroxine 100 mcg (0.1 mg) Tab 100 mcg = 1 tab(s), Oral, Daily, Refills(s) 0 Start Date: 05/15/24 Status: Ordered Start: 11-16-2023 End: 12-25-2024 take 1 tablet by mouth once daily Levothyroxine 100 mcg tablet Discontinued 100 MCG PO Daily at 629December 09, 2023 12:00am December 25, 2024 11:01am Start: 11-06-2022 take 1 capsule by mo [facility] once daily Levothyroxine (Tirosint) 175 mcg capsule Active 175 MCG PO Daily at 629November 06, 2022 12:00am Start: 11-17-2020 End: 11-21-2024 take 1 capsule by mouth six times weekly TIROSINT 175 mcg cap Indications: Postablative hypothyroidism Take 1 capsule by mouth six times a week. 72 capsule 11/17/2020 11/21/2024 Discontinued take 1 tablet by [facility] once daily in the morning Synthroid 137 [...] Active traZODone hydrochloride 100 mg oral tablet (20 sources) Serotonin Reuptake Inhibitor Start: 01-03-2024 traZODone (Desyrel) 100 MG tablet Take 100 mg by mouth as needed at bedtime 01/03/2024 Active 24 hr venlafaxine 150 mg extended release oral tablet (20 sources) Serotonin and Norepinephrine Reuptake Inhibitor Start: 12-25-2024 take 1 tablet by mouth every twenty-four hours Venlafaxine 150 mg tablet extended release 24hr Active MG PO December 25, 2024 12:00am Start: 09-26-2024 take 1 tablet by giuseppe every hour VENLAFAXINE ER 150 MG TABLET,EXTENDED RELEASE 24 HR Take 1 tablet by mouth every afternoon. 09/26/2024 Active Start: 01-18-2024 End: 12-25-2024 take 1 tablet by mouth once daily Venlafaxine 75 mg tablet Discontinued 75 MG PO Daily January 18, 2024 12:00am December 25, 2024 11:02am Start: 01-03-2024 take 1 capsule by mo [facility] once daily venlafaxine XR [...] q8hr, # 10 tab(s), Refills(s) 0, Pharmacy: [facility]/pharmacy #[id number], 147, cm, 05/15/24 15:50:00 EDT, Height/Length Dosing, 68.6, kg, 05/15/24 15:50:00 EDT, Weight Dosing Start Date: 05/15/24 Status: Ordered Completed/Discontinued Medications Medication Drug Class(es) Dates Sig (Normalized) Sig (Original) cephalexin 500 mg oral capsule (11 sources) Cephalosporin Antibacterial Start: 09-11-2024 End: 09-23-2024 [...] (Therapy completed) Start: 10-10-2021 End: 11-06-2022 take 1 capsule by mouth twice daily Cephalexin 500 mg capsule Discontinued 500 MG PO Twice daily 26 05October 10, 2021 12:00am November 06, 2022 8:06pm dextroamphetamine sulfate 10 mg oral tablet (3 sources) Central Nervous System Stimulant take 1 tablet by mouth every twenty-four hours Dextroamphetamine Sulfate 10 MG 1 tablet in the morning Orally Once a day Not-Taking escitalopram 10 mg oral tablet (3 sources) Serotonin Reuptake Inhibitor Start : 12-11 End: 01-17 take 1 tablet by mouth once daily in the morning Escitalopram Oxalate 10 mg Tablet Discontinued 10 MG PO Every morning 15 December 11, 2023 12:00am January 18, 2024 2:37pm HYDROmorphone hydrochloride 2 mg oral tablet (6 sources) Opioid Agonist Start : 11-09 End: 08-08 take 1 tablet by mouth every six hours as needed for pain Hydromorphone (Dilaudid) 2 mg tablet Discontinued 2 MG PO Q6H as needed for pain 11 06November 09, 2022 August 08, 2023 10:58am ibuprofen 600 mg oral tablet (6 sources) Nonsteroidal Anti-inflammatory Drug Start : 11-09 End: 08-08 take 1 tablet by mouth every six hours as needed for pain Ibuprofen 600 mg tablet Discontinued 600 MG PO Q6H as needed for pain November 09, 2022 12:00am August 08, 2023 10:58am methylPREDNISolone 4 mg oral tablet (2 sources) Corticosteroid Start : 03-09 End: 12-25 take 1 tablet by mouth once Methylprednisolone (Medrol (Pop)) 4 mg tablets,dose pack Discontinued 0 PO per package directions March 08, 2024 11:00pm December 25, 2024 11:00am PO PER PKG DIR for 6 days [place]-3 Fatty Acids (Fish Oil) 1000 MG capsule delayed-release (2 sources) End: 09-23 take 1 capsule by mouth once daily [place]-3 Fatty Acids (Fish Oil) 1000 MG capsule delayed-release Take 1,000 mg by mouth Daily 09/23/2024 Discontinued Yjzzvjiy-God-Nq-Fa (5 sources) Start : 11-06 End: 08-08 take 1 tablet by mouth once daily Ayvhpphd-Cbb-Aw-Fa Discontinued 1 TAB PO Daily November 06, 2022 12:00am August 08, 2023 10:58am Start: 11-06-2022 End: 08-08-2023 take 1 tablet by mouth once daily Dsaztvfp-Ija-Is-Fa Discontinued 1 TAB PO Daily November 06, 2022 1:00am August 08, 2023 11:58am Start: 11-06-2022 take 1 tablet by giuseppe th once daily Jjtxcnoj-Nmu-Of-Fa Active 1 TAB PO Daily November 06, 2022 12:00am Fmwszayd-Sqf-Id-Fa 1 mg Tablet (1 source) Start: 11-06-2022 End: 08-08-2023 take 1 tablet by mouth once daily Tuehbtme-Pxn-To-Fa 1 mg Tablet Discontinued 1 TAB PO Daily November 06, 2022 12:00am August 08, 2023 10:58am Problems Active Problems Problem Classification Problem Date Documented Da te Episodic/Chronic Anxiety disorders (20 sources) Generalized anxiety disorder; Translations: [Generalized anxiety disorder] Onset: 01-09-2024 12-09-2023 Chronic Attention-deficit, conduct, and disruptive behavior disorders (3 sources) Attention deficit hyperactivity disorder; Translations: [Attention-deficit hyperactivity disorder, unspecified type] 12-09-2023 Chronic Attention-deficit, conduct, and disruptive behavior disorders (2 sources) Attention-deficit hyperactivity disorder, unspecified type; Translations: [Attention deficit disorder with hyperactivity] 12-08-2023 Chronic Attention-deficit, conduct, and disruptive behavior disorders (20 sources) Attention deficit hyperactivity disorder, combined type; Translations: [Attention-deficit hyperactivity disorder, combined type] Onset: 06-20-2023 06-20-2023 Chronic Complications of surgical procedures or medical care (20 sources) Postoperative hypothyroidism; Translations: [Postprocedural hypothyroidism] Onset: 04-17-2017 06-20-2023 Chronic Complications of surgical procedures or medical care (20 sources) Wound dehiscence; Translations: [Disruption of external operation (surgical) wound, not elsewhere classified, initial encounter] Onset: 01-09-2024 Resolved: 01-09-2024 10-10-2021 Episodic Comment on above: Problem List clean-u p per request of Phys. EHR Cmte Disorders of lipid metabolism (20 sources) Raised low density lipoprotein cholesterol; Translations: [Pure hypercholesterolemia , unspecified] Onset: 01-09-2024 01-09-2024 Chronic Fracture of lower limb (2 sources) Closed fracture proximal tibia, lateral condyle (plateau) ; Translations: [Displaced fracture of lateral condyle of right tibia, initial encounter for closed fracture] 10-28-2024 Episodic Gastritis and duodenitis (1 source) Gastritis; Translations: [Gastritis, unspecified, without bleeding] Onset: 05-15-2024 Episodic Joint disorders and dislocations; trauma-related (4 sources) Derangement of right knee; Translations: [Unspecified internal derangement of right knee] 10-15-2024 Chronic Menstrual disorders (20 sources) Disorder of menstruation; Translations: [Irregular menstruation, unspecified] Onset: 06-19-2023 06-19-2023 Chronic Mood disorders (20 sources) Depressive disorder; Translations: [Depression] Onset: 01-09-2024 12-08-2023 Chronic Nutritional deficiencies (20 sources) Vitamin D deficiency; Translations: [Vitamin D deficiency, unspecified] Onset: 06-24-2024 06-24-2024 Chronic Other connective tissue disease (2 sources) Tendonitis of right patellar tendon; Translations: [Patellar tendinitis, right knee] 09-23-2024 Episodic Other female genital disorders (3 sources) Abnormal uterine and vaginal bleeding, unspecified; Translations: [ABNORMAL UTERINE VAGINAL BLEED UNS] Onset: 03-02-2022 Chronic Other gastrointestinal disorders (20 sources) Celiac disease; Translations: [Celiac disease] Onset: 07-31-2017 01-18-2024 Chronic Comment on above: Problem List clean-u p per request of Phys. EHR Cmte Other gastrointestinal disorders (3 sources) Celiac disease; Translations: [Celiac disease] Chronic Other gastrointestinal disorders (3 sources) Constipation; Translations: [Constipation, unspecified] Episodic Other gastrointestinal disorders (3 sources) Loose stool; Translations: [Other fecal abnormalities] Episodic Other gastrointestinal disorders (2 sources) Other fecal abnormalities Episodic Other gastrointestinal disorders (2 sources) Constipation, unspecified Episodic Other non-traumatic joint disorders (15 sources) Pain in right knee; Translations: [Pain in joint, lower leg] Onset: 11-15-2024 09-23-2024 Episodic Other non-traumatic joint disorders (4 sources) Instability of joint of right knee; Translations: [Other instability, right knee] 10-15-2024 Episodic Other non-traumatic joint disorders (2 sources) Pain in left knee; Translations: [Pain in joint, lower leg] 11-05-2024 Episodic Other nutritional; endocrine; and metabolic disorders (20 sources) Obesity; Translations: [Class 1 obesity with [...] surgery; Translations: [Other postprocedural status] 11-09-2022 Episodic Sprains and strains (12 sources) Rupture of anterior cruciate ligament of right knee; Translations: [Sprain of anterior cruciate ligament of right knee, initial encounter] Onset: 11-15-2024 10-28-2024 Episodic Thyroid disorders (20 sources) Graves' disease; Translations: [Thyrotoxicosis with diffuse goiter without thyrotoxic crisis or storm] Onset: 06-19-2023 Resolved: 10-09-2023 06-19-2023 Chronic Unclassified (3 sources) CONTACT W/AND (SUSP) EXPOS COVID-19; Translations: [CONTACT W/AND (SUSP) EXPOS COVID-19] Onset: 11-25-2021 Unclassified (1 source) COUGH, UNSPECIFIED; Translations: [COUGH, UNSPECIFIED] Onset: 11-25-2021 Unclassified (2 sources) Left knee pain, unspecified chronicity 11-05-2024 Past or Other Problems Problem Classification Problem Date Documented Da te Episodic/Chronic Abdominal pain (2 sources) Epigastric pain; Translations: [Epigastric pain] Onset: Episodic Cancer of cervix (20 sources) Cervical atypism; Translations: [Atypical squamous cells of undetermined significance on cytologic smear of cervix (ASC-US)] Onset: 3 06-19-2023 Episodic Immunizations and screening for infectious disease (1 source) Contact with and (suspected) exposure to other viral communicable diseases Onset: 2 Resolved: 2 Episodic Nonmalignant breast conditions (20 sources) Large breast; Translations: [Hypertrophy of breast] Onset: 9 06-20-2023 Episodic Nutritional deficiencies (20 sources) Folic acid deficiency; Translations: [Deficiency of other specified B group vitamins] Onset: 4 06-24-2024 Episodic Other gastrointestinal disorders (20 sources) Abdominal bloating; Translations: [Abdominal distension (gaseous)] Onset: 7 Resolved: 3 06-20-2023 Episodic Other upper respiratory disease (1 source) Nasal congestion; Translations: [NASAL CONGESTION] Onset: 2 Episodic Other upper respiratory infections (20 sources) Chronic sinusitis, unspecified; Translations: [Unspecified sinusitis (chronic)] Onset: 2 Resolved: 3 03-09-2024 Chronic Other upper respiratory infections (1 source) Acute maxillary sinusitis, unspecified Onset: 2 Resolved: 2 Episodic Sexually transmitted infections (not HIV or hepatitis) (20 sources) Human papillomavirus deoxyribonucleic acid test positive, high risk on cervical specimen; Translations: [Cervical high risk human papillomavirus (HPV) DNA test positive] Onset: 3 06-19-2023 Episodic Spondylosis; intervertebral disc disorders; other back problems (20 sources) Chronic back pain ; Translations: [Dorsalgia, unspecified] Onset: 9 06-20-2023 Episodic Unclassified (1 source) CONTACT W/AND (SUSP) EXPOS COVID-19; Translations: [CONTACT W/AND (SUSP) EXPOS COVID-19] Onset: 2 Unclassified (1 source) Rupture of anterior cruciate ligament of right knee 10-28-2024 Results Test Name Value Interpretation Reference Range Facility XR Knee - left 1 or 2 Viewso n 11-05-2024 Imaging Result: 2 views, bilateral PA weight-bearing, sunrise of the bilateral knee(s) taken today and saved to the [facility] medical record are reviewed. AP/lateral/oblique right knee [facility] 09/16/2024 reviewed. No acute osseous abnormalities. No degenerative changes. [facility] Radiology Study observation (narrative) [facility] T4, FREEon 10-24-2024 Free T4 [Mass/Vol] 0.9 ng/dL Normal 0.8-1.8 [facility] Comment on above: Performed By: #### [id number], [id number] #### [facility] [address], [address] [place] [id number] Sql Server Consultant: Trell Bravo MD TSH W/REFLEX TO FT4on 2023 TSH W/REFLEX TO FT4 25.55 mIU/L [facility] Comment on above: Order Comment: FASTI NG:NO FASTING: NO Result Comment: Refe rence Range > or = 20 Years 0.40-4.50 Ranges First trimester 0.26-2.66 Second trimester 0.55-2.73 Third trimester 0.43-2.91 Performed By: #### 8 [id number], [id number] #### [facility] [address], [address] [place] [id number] Sql Server Consultant: Trell Bravo MD Ambulatory Visit Summaryon 0 05-15-2024 Ambulatory Visit Summary Ambulatory Visit Summary CHELSEY SANTAMARIANEIL Fritz :1995 Visit Date:05/15/2024 Ambulatory Visit Instructions Your Diagnosis Viral gastritis Your Care Team Attending Physician - Barbara KRISHNAMURTHY-, Devin Chan Primary Care Physician - REDDY HENRY This Is Your Medications List amphetamine-dextroamphet amine [...] for choosing us for your care. Normal [facility] Family Medicine Office/Clini c Noteon 05-15-2024 Family [...] and agree with above documented HPI by medical payment poster. Patient is a 28-year-old female who presents [...] q8hr, # 10 tab(s), Refills(s) 0, Pharmacy: [facility]/pharmacy #[id number], 147, cm, 05/15/24 15:50:00 EDT, Height/Length Dosing, 68.6, kg, 05/15/24 15:50:00 EDT, Weight Dosing Portions of this record may have been created with voice recognition artificial intelligence software, specifically Gastrofy, EdPuzzle and or iApp4Me. Occasional wrong-word or `[id number]-y-[id number]? substitutions may have occurred due to the inherent limitations of voice recognition and artificial intelligence software. Follow-up No qualifying data available Patient Education Gastritis, Adult, Uzhx-kg-Efwq Problem List/Past Medical History Ongoing No qualifying [...] unspecified form (more content not included)... Normal [facility] Comment on above: Result Comment: Elec tronically Signed By: Barbara MONROY, Devin Chan\.arlene\Date and Time Signed: 05/15/24 16:12 EDT Cholesterol [Mass/volume] in Serum or PlasmaOrdered By: Rodriguez Nick on 12-09-2023 Cholesterol [Mass/Vol] 170 mg/dL 140-200 [facility] Comment on above: Chol less than 200 m g/dl low riskChol 201-239 mg/dl borderline riskChol 240 mg/dl and greater high risk Cholesterol in LDL Calc [Mas s/Vol]Ordered By: Rodriguez Nick on 12-09-2023 Cholesterol in LDL [Mass/Vol] 102 mg/dL 0-100 [facility] Comment on above: LDL ATP III CLASSIFI CATIONLDL less than 100 mg/dL OptimalLDL 100-129 mg/dL Near or above optimalLDL 130-159 mg/dL Borderline highLDL 160-189 mg/dL HighLDL greater than 189 mg/dL Very high Cholesterol in VLDL Calc [Ma ss/Vol]Ordered By: Rodriguez Nick on 12-09-2023 Cholesterol in VLDL [Mass/Vol] 14 mg/dL [facility] Serum or plasma high density lipoprotein (HDL) cholesterol measurementOrdered By: Rodriguez Nick on 12-09-2023 Cholesterol in HDL [Mass/Vol] 54 mg/dL 23-92 [facility] Comment on above: HDL CHOL ATP-III CLA SSIFICATION Cardiovascular RiskHDL > or equal to 60 mg/dL LOWHDL < 40 mg/dL HIGH Serum or plasma total choles terol/high density lipoprotein (HDL) cholesterol mass ratOrdered By: Rodriguez Nick on 12-09-2023 Cholesterol.total/Chol esterol in HDL [Mass ratio] 3.1 {ratio} <5.0 [facility] Thyrotropin [Units/volume] i n Serum or PlasmaOrdered By: Rodriguez Nick on 12-09-2023 TSH Qn 1.67 m[IU]/L 0.45-5.33 [facility] Triglyceride [Mass/volume] i n Serum or PlasmaOrdered By: Rodriguez Nick on 12-09-2023 Triglyceride [Mass/Vol] 71 mg/dL 0-149 [facility] Comment on above: TRIG ATP III CLASSIF ICATIONTRIG less than 150 mg/dL NormalTRIG 150-199 mg/dL Borderline highTRIG 200-500 mg/dL High TRIG greater than 500 mg/dL Very highStandard traceable to the Center for Disease Conrtrol and Prevention (CDC) test method. Vitamin D+Metabolites [Mass/ volume] in Serum or PlasmaOrdered By: Rodriguez Nick on 12-09-2023 Vitamin D+Metabolites [Mass/Vol] 25.6 ng/mL 30-100 [facility] Comment on above: VITAMIN D STATUS 25( [place])VITAMIN D RANGE (ng/mL) Deficient <20 Insufficient 20 to <30Sufficient 30 to 100Reference: Yesenia MF,Deangelo NC, Jeison WHYTE, et al. Evaluation,treatment, and prevention of vitamin D deficiency; an Endocrine Society clinical practice guideline. JCEM. 2010; 96(7):1911-30. Alanine aminotransferase [En zymatic activity/volume] in Serum or PlasmaOrdered By: Larry Rankin on 12-08-2023 ALT [Catalytic activity/Vol] 12 U/L 7-52 [facility] Albumin [Mass/volume] in Ser um or Plasma by Bromocresol green (BCG) dye binding methoOrdered By: Larry Rankin on 12-08-2023 Albumin BCG dye [Mass/Vol] 4.6 g/dL 3.5-5.7 [facility] Alkaline phosphatase [Enzyma tic activity/volume] in Serum or PlasmaOrdered By: Larry Rankin on 12-08-2023 ALP [Catalytic activity/Vol] 59 U/L 34-104 [facility] Amphetamine Screen Ql (U)Ord ered By: Larry Rankin on 12-08-2023 Amphetamines Ql (U) Positive Negative [facility] Aspartate aminotransferase [ Enzymatic activity/volume] in Serum or PlasmaOrdered By: Larry Rankin on 12-08-2023 AST [Catalytic activity/Vol] 19 U/L 13-39 [facility] Automated erythrocytes count in urine sediment (number/area)Ordered By: Larry Rankin on 12-08-2023 RBC Auto (Urine sed) [#/Area] 5-9 [HPF] 0-4 [facility] Automated leukocytes count i n urine sediment (number/area)Ordered By: Larry Rankin on 12-08-2023 WBC Auto (Urine sed) [#/Area] 0-1 [HPF] 0-4 [facility] Barbiturates [Presence] in U rine by Screen methodOrdered By: Larry Rankin on 12-08-2023 Barbiturates Screen Ql (U) Negative Negative [facility] Basophils Auto (Bld) [#/Vol] Ordered By: Larry Rankin on 12-08-2023 Basophils (Bld) [#/Vol] 0.1 10*3/uL 0.0-0.2 [facility] Basophils/100 WBC Auto (Bld) Ordered By: Larry Rankin on 12-08-2023 Basophils/100 WBC (Bld) 0.7 % . [facility] Benzodiazepines Screen Ql (U )Ordered By: Larry Rankin on 12-08-2023 Benzodiazepines Ql (U) Negative Negative [facility] Benzoylecgonine [Presence] i n Urine by Screen methodOrdered By: Larry Rankin on 12-08-2023 Benzoylecgonine Screen Ql (U) Negative Negative [facility] Bilirubin Test strip Ql (U)O rdered By: Larry Rankin on 12-08-2023 Bilirubin Ql (U) Negative Negative [facility] Bilirubin.total [Mass/volume ] in Serum or PlasmaOrdered By: Larry Rankin on 12-08-2023 Bilirubin [Mass/Vol] 0.4 mg/dL 0.3-1.0 [facility] Calcium [Mass/volume] in Ser um or PlasmaOrdered By: Larry Rankin on 12-08-2023 Calcium [Mass/Vol] 9.8 mg/dL 8.6-10.3 [facility] Cannabinoids [Presence] in U rine by Screen methodOrdered By: Larry Rankin on 12-08-2023 Cannabinoids Screen Ql (U) Negative Negative [facility] Comment on above: These are unconfirme d [...] mmol/L 21.0-31.0 [facility] Chloride [Moles/volume] in S ridge or PlasmaOrdered By: Larry Rankin on 12-08-2023 Chloride [Moles/Vol] 106 mmol/L 98-107 [facility] Color Auto (U)Ordered By: Chuck red Massiel on 12-08-2023 Color (U) Yellow Yellow [facility] Creatinine [Mass/volume] in Serum or PlasmaOrdered By: Larry Rankin on 12-08-2023 Creatinine [Mass/Vol] 0.82 mg/dL 0.60-1.20 [facility] Eosinophils Auto (Bld) [#/Vo l]Ordered By: Larry Rankin on 12-08-2023 Eosinophils (Bld) [#/Vol] 0.2 10*3/uL 0.0-0.45 [facility] Eosinophils/100 WBC Auto (Bl d)Ordered By: Larry Rankin on 12-08-2023 Eosinophils/100 WBC (Bld) 2.2 % . [facility] Erythrocyte distribution wid th Auto (RBC) [Ratio]Ordered By: Larry Rankin on 12-08-2023 Erythrocyte distribution width (RBC) [Ratio] 14.5 % 11.9-15.3 [facility] Ethanol [Mass/volume] in Ser um or PlasmaOrdered By: Larry Rankin on 12-08-2023 Ethanol [Mass/Vol] mg/dL [facility] Ethanol [Mass/Vol] TNP [facility] Comment on above: Test not performed Globulin Calc (S) [Mass/Vol] Ordered By: Larry Rankin on 12-08-2023 Globulin (S) [Mass/Vol] 3.1 g/dL [facility] Glucose [Mass/volume] in Ser um or PlasmaOrdered By: Larry Rankin on 12-08-2023 Glucose [Mass/Vol] 79 mg/dL 70-100 [facility] Comment on above: ADA recommended refe rence rangeRandom Glucose Reference Range is dependent on time and content of last meal. Glucose of more than 200 mg/dL in a nonstressed, ambulatory subject supports the diagnosis of Diabetes Mellitus. HCG ( test) Rahul d Ql (U)Ordered By: Larry Rankin on 12-08-2023 HCG ( test) Ql (U) Negative [facility] Hematocrit Auto (Bld) [Volum e fraction]Ordered By: Larry Rankin on 12-08-2023 Hematocrit (Bld) [Volume fraction] 40.7 % 34.0-46.4 [facility] Hemoglobin [Mass/volume] in BloodOrdered By: Larry Rankin on 12-08-2023 Hemoglobin (Bld) [Mass/Vol] 13.9 g/dL 11.8-15.4 [facility] Ketones Auto test strip (U) [Mass/Vol]Ordered By: Larry Rankin on 12-08-2023 Ketones (U) [Mass/Vol] 1+ Negative [facility] - UrinalysisOrder ed By: Larry Rankin on 12-08-2023 Hyaline casts LM Ql (Urine sed) 0-8 [LPF] 0-8 [facility] Leukocytes [#/volume] correc chema for nucleated erythrocytes in Blood by Automated counOrdered By: Larry Rankin on 12-08-2023 WBC corrected for nucl RBC Auto (Bld) [#/Vol] 7.4 10*3/uL 3.8-11.6 [facility] Lymphocytes Auto (Bld) [#/Vo l]Ordered By: Larry Rankin on 12-08-2023 Lymphocytes (Bld) [#/Vol] 2.7 10*3/uL 1.00-4.8 [facility] Lymphocytes/100 WBC Auto (Bl d)Ordered By: Larry Rankin on 12-08-2023 Lymphocytes/100 WBC (Bld) 36.8 % . [facility] MCH Auto (RBC) [Entitic mass ]Ordered By: Larry Rankin on 12-08-2023 MCH (RBC) [Entitic mass] 30.3 pg 24.7-34.3 [facility] MCHC Auto (RBC) [Mass/Vol]Or dered By: Larry Rankin on 12-08-2023 MCHC (RBC) [Mass/Vol] 34.2 g/dL 32.0-35.0 [facility] MCV Auto (RBC) [Entitic vol] Ordered By: Larry Rankin on 12-08-2023 MCV (RBC) [Entitic vol] 88.6 fL 80-100 [facility] Monocyte distribution width [Entitic volume] in Blood by AutomatedOrdered By: Larry Rankin on 12-08-2023 Monocyte distribution width Auto (Bld) [Entitic vol] 16.63 % 0.00-20.00 [facility] Monocytes Auto (Bld) [#/Vol] Ordered By: Larry Rankin on 12-08-2023 Monocytes (Bld) [#/Vol] 0.5 10*3/uL 0.0-0.8 [facility] Monocytes/100 WBC Auto (Bld) Ordered By: Larry Rankin on 12-08-2023 Monocytes/100 WBC (Bld) 6.4 % . [facility] Neutrophils Auto (Bld) [#/Vo l]Ordered By: Larry Rankin on 12-08-2023 Neutrophils (Bld) [#/Vol] 4.0 10*3/uL 1.8-7.7 [facility] Neutrophils/100 WBC Auto (Bl d)Ordered By: Larry Rankin on 12-08-2023 Neutrophils/100 WBC (Bld) 53.9 % . [facility] Nitrite Test strip Ql (U)Ord ered By: Larry Rankin on 12-08-2023 Nitrite Ql (U) Negative Negative [facility] No Panel InformationOrdered By: Larry Rankin on 12-08-2023 Estimated GFR (CKD-EPI) > 60.0 mL/Min [facility] Creatinine Clearance (Chem 90.10 [facility] Nucleated erythrocytes [Pres ence] in Blood by Automated countOrdered By: Larry Rankin on 12-08-2023 Nucleated RBC Auto Ql (Bld) 0.1 /100{WBC} 0-0.5 [facility] Opiates [Presence] in Urine by Screen methodOrdered By: Larry Rankin on 12-08-2023 Opiates Screen Ql (U) Negative Negative [facility] Phencyclidine Screen Ql (U)O rdered By: Larry Rankin on 12-08-2023 Phencyclidine Ql (U) Negative Negative [facility] Platelet mean volume Auto (B ld) [Entitic vol]Ordered By: Larry Rankin on 12-08-2023 Platelet mean volume (Bld) [Entitic vol] 7.4 fL 6.3-10.7 [facility] Platelets Auto (Bld) [#/Vol] Ordered By: Larry Rankin on 12-08-2023 Platelets (Bld) [#/Vol] 384 10*3/uL 150-450 [facility] Potassium [Moles/volume] in Serum or PlasmaOrdered By: Larry Rankin on 12-08-2023 Potassium [Moles/Vol] 3.7 mmol/L 3.5-5.1 [facility] Protein Auto test strip (U) [Mass/Vol]Ordered By: Larry Rankin on 12-08-2023 Protein (U) [Mass/Vol] Negative Negative [facility] Protein [Mass/volume] in Ser um or PlasmaOrdered By: Larry Rankin on 12-08-2023 Protein [Mass/Vol] 7.7 g/dL 6.4-8.9 [facility] RBC Auto (Bld) [#/Vol]Ordere d By: Larry Rankin on 12-08-2023 RBC (Bld) [#/Vol] 4.59 10*6/uL 3.60-5.00 [facility] Serum or plasma albumin/glob ulin mass ratioOrdered By: Larry Rankin on 12-08-2023 Albumin/Globulin [Mass ratio] 1.5 {ratio} [facility] Serum or plasma anion gap de terminationOrdered By: Larry Rankin on 12-08-2023 Anion gap [Moles/Vol] 11.7 mmol/L 6.0-15.0 [facility] Sodium [Moles/volume] in Ser um or PlasmaOrdered By: Larry Rankin on 12-08-2023 Sodium [Moles/Vol] 138 mmol/L 136-145 [facility] Specific gravity Auto test s trip (U) [Rel density]Ordered By: Larry Rankin on 12-08-2023 Specific gravity (U) [Rel density] 1.022 1.001-1.030 [facility] Squamous epithelial cells de tection in urine sediment by light microscopyOrdered By: Larry Rankin on 12-08-2023 Epithelial cells.squamous LM Ql (Urine sed) 0-1 [HPF] 0-2 [facility] Urea nitrogen [Mass/volume] in Serum or PlasmaOrdered By: Larry Rankin on 12-08-2023 Urea nitrogen [Mass/Vol] 8 mg/dL 7-25 [facility] Urine bacteria detection by automated methodOrdered By: Larry Rankin on 12-08-2023 Bacteria Auto Ql (U) None seen None Seen [facility] Urine clarity by refractomet ry automatedOrdered By: Larry Rankin on 12-08-2023 Clarity Refractometry automated (U) Clear Clear [facility] Urine glucose measurement by automated test strip (mass/volume)Ordered By: Larry Rankin on 12-08-2023 Glucose Auto test strip (U) [Mass/Vol] Normal mg/dL Normal [facility] Urine hemoglobin detection b y automated test stripOrdered By: Larry Rankin on 12-08-2023 Hemoglobin Auto test strip Ql (U) 2+ Negative [facility] Urine leukocyte esterase det ection by automated test stripOrdered By: Larry Rankin on 12-08-2023 Leukocyte esterase Auto test strip Ql (U) Negative Negative [facility] Urobilinogen Auto test strip (U) [Mass/Vol]Ordered By: Larry Rankin on 12-08-2023 Urobilinogen (U) [Mass/Vol] Normal mg/dL Normal [facility] WBC Auto (Bld) [#/Vol]Ordere d By: Larry Rankin on 12-08-2023 WBC (Bld) [#/Vol] 7.4 10*3/uL 3.8-11.6 [facility] pH Auto test strip (U)Ordere d By: Larry Rankin on 12-08-2023 pH (U) 6.0 [pH] 5.0-9.0 [facility] HCG ( test) IA.rapi d Ql (U)Ordered By: Juice Johnson on 08-08-2023 HCG ( test) Ql (U) Negative [facility] Basophils Auto (Bld) [#/Vol] Ordered By: Stephanie Edward on 11-08-2022 Basophils (Bld) [#/Vol] 0.0 10*3/uL 0.0-0.2 [facility] Basophils/100 WBC Auto (Bld) Ordered By: Stephanie Edward on 11-08-2022 Basophils/100 WBC (Bld) 0.1 % . [facility] Eosinophils Auto (Bld) [#/Vo l]Ordered By: Stephanie Edward on 11-08-2022 Eosinophils (Bld) [#/Vol] 0.0 10*3/uL 0.0-0.45 [facility] Eosinophils/100 WBC Auto (Bl d)Ordered By: Stephanie Edward on 11-08-2022 Eosinophils/100 WBC (Bld) 0.1 % . [facility] Erythrocyte distribution wid th Auto (RBC) [Ratio]Ordered By: Stephanie Edward on 11-08-2022 Erythrocyte distribution width (RBC) [Ratio] 14.8 % 11.9-15.3 [facility] Hematocrit Auto (Bld) [Volum e fraction]Ordered By: Stephanie Edward on 11-08-2022 Hematocrit (Bld) [Volume fraction] 24.3 % 34.0-46.4 [facility] Comment on above: Delta: 34.3 on 11/06-2014 Hemoglobin [Mass/volume] in BloodOrdered By: Stephanie Edward on 11-08-2022 Hemoglobin (Bld) [Mass/Vol] 8.2 g/dL 11.8-15.4 [facility] Leukocytes [#/volume] correc chema for nucleated erythrocytes in Blood by Automated counOrdered By: Stephanie Edward on 11-08-2022 WBC corrected for nucl RBC Auto (Bld) [#/Vol] 14.2 10*3/uL 3.8-11.6 [facility] Lymphocytes Auto (Bld) [#/Vo l]Ordered By: Stephanie Edward on 11-08-2022 Lymphocytes (Bld) [#/Vol] 2.5 10*3/uL 1.00-4.8 [facility] Lymphocytes/100 WBC Auto (Bl d)Ordered By: Stephanie Edward on 11-08-2022 Lymphocytes/100 WBC (Bld) 17.8 % . [facility] MCH Auto (RBC) [Entitic mass ]Ordered By: Stephanie Edward on 11-08-2022 MCH (RBC) [Entitic mass] 29.8 pg 24.7-34.3 [facility] MCHC Auto (RBC) [Mass/Vol]Or dered By: Stephanie Edward on 11-08-2022 MCHC (RBC) [Mass/Vol] 33.5 g/dL 32.0-35.0 [facility] MCV Auto (RBC) [Entitic vol] Ordered By: Stephanie Edward on 11-08-2022 MCV (RBC) [Entitic vol] 89.0 fL 80-100 [facility] Monocytes Auto (Bld) [#/Vol] Ordered By: Stephanie Edward on 11-08-2022 Monocytes (Bld) [#/Vol] 0.5 10*3/uL 0.0-0.8 [facility] Monocytes/100 WBC Auto (Bld) Ordered By: Stephanie Edward on 11-08-2022 Monocytes/100 WBC (Bld) 3.6 % . [facility] Neutrophils Auto (Bld) [#/Vo l]Ordered By: Stephanie Edward on 11-08-2022 Neutrophils (Bld) [#/Vol] 11.1 10*3/uL 1.8-7.7 [facility] Neutrophils/100 WBC Auto (Bl d)Ordered By: Stephanie Edward on 11-08-2022 Neutrophils/100 WBC (Bld) 78.4 % . [facility] Nucleated erythrocytes [Pres ence] in Blood by Automated countOrdered By: Stephanie Edward on 11-08-2022 Nucleated RBC Auto Ql (Bld) 0.0 /100{WBC} 0-0.5 [facility] Platelet mean volume Auto (B ld) [Entitic vol]Ordered By: Stephanie Edward on 11-08-2022 Platelet mean volume (Bld) [Entitic vol] 8.0 fL 6.3-10.7 [facility] Platelets Auto (Bld) [#/Vol] Ordered By: Stephanie Edward on 11-08-2022 Platelets (Bld) [#/Vol] 217 10*3/uL 150-450 [facility] RBC Auto (Bld) [#/Vol]Ordere d By: Stephanie Edward on 11-08-2022 RBC (Bld) [#/Vol] 2.73 10*6/uL 3.60-5.00 [facility] WBC Auto (Bld) [#/Vol]Ordere d By: Stephanie Edward on 11-08-2022 WBC (Bld) [#/Vol] 14.2 10*3/uL 3.8-11.6 [facility] Amphetamine Screen Ql (U)Ord ered By: Stephanie Edward on 11-06-2022 Amphetamines Ql (U) Negative Negative [facility] Automated erythrocytes count in urine sediment (number/area)Ordered By: Stephanie Edward on 11-06-2022 RBC Auto (Urine sed) [#/Area] 5-9 [HPF] 0-4 [facility] Automated leukocytes count i n urine sediment (number/area)Ordered By: Stephanie Edward on 11-06-2022 WBC Auto (Urine sed) [#/Area] 5-9 [HPF] 0-4 [facility] Barbiturates [Presence] in U rineOrdered By: Stephanie Edward on 11-06-2022 Barbiturates Ql (U) Negative Negative [facility] Benzodiazepines [Presence] i n UrineOrdered By: Stephanie Edward on 11-06-2022 Benzodiazepines Ql (U) Negative Negative [facility] Bilirubin Test strip Ql (U)O rdered By: Stephanie Edward on 11-06-2022 Bilirubin Ql (U) Negative Negative [facility] Color Auto (U)Ordered By: Adelaida Edward on 11-06-2022 Color (U) Yellow Yellow [facility] Ketones Auto test strip (U) [Mass/Vol]Ordered By: Stephanie Edward on 11-06-2022 Ketones (U) [Mass/Vol] Negative Negative [facility] Laboratory - Drug toxicology Ordered By: Stephanie Edward on 11-06-2022 Opiates Ql (U) Negative Negative [facility] Laboratory - UrinalysisOrder ed By: Stephanie Edward on 11-06-2022 Hyaline casts LM Ql (Urine sed) 0-8 [LPF] 0-8 [facility] Nitrite Test strip Ql (U)Ord ered By: Stephanie Edward on 11-06-2022 Nitrite Ql (U) Negative Negative [facility] Phencyclidine Screen Ql (U)O rdered By: Stephanie Edward on 11-06-2022 Phencyclidine Ql (U) Negative Negative [facility] Comment on above: These are unconfirme d results and should not be used for legal purposes. Drug Cut-Off Concentration: AMPH 1000 ng/mL KAMRYN 200 ng/mL MIRELA 200 ng/mL COCM 300 ng/mL OP 300 ng/mL PCP 25 ng/mL Protein Auto test strip (U) [Mass/Vol]Ordered By: Stephanie Edward on 11-06-2022 Protein (U) [Mass/Vol] Negative Negative [facility] Reagin Ab [Presence] in Seru m by RPROrdered By: Stephanie Edward on 11-06-2022 Reagin Ab RPR Ql (S) Non-Reactive Non Reactive [facility] Comment on above: Performed at: [place] [id number] Director: Zelalem Hatch PhD, Phone: [phone] Specific gravity Auto test s trip (U) [Rel density]Ordered By: Stephanie Edward on 11-06-2022 Specific gravity (U) [Rel density] 1.017 1.001-1.030 [facility] Squamous epithelial cells de tection in urine sediment by light microscopyOrdered By: Stephanie Edward on 11-06-2022 Epithelial cells.squamous LM Ql (Urine sed) 3-4 [HPF] 0-2 [facility] Urine bacteria detection by automated methodOrdered By: Stephanie Edward on 11-06-2022 Bacteria Auto Ql (U) 1+ None Seen [facility] Urine clarity by refractomet ry automatedOrdered By: Stephanie Edward on 11-06-2022 Clarity Refractometry automated (U) Clear Clear [facility] Urine cocaine detectionOrder ed By: Stephanie Edward on 11-06-2022 Cocaine Ql (U) Negative Negative [facility] Urine glucose measurement by automated test strip (mass/volume)Ordered By: Stephanie Edward on 11-06-2022 Glucose Auto test strip (U) [Mass/Vol] Normal mg/dL Normal [facility] Urine hemoglobin detection b y automated test stripOrdered By: Stephanie Edward on 11-06-2022 Hemoglobin Auto test strip Ql (U) Trace Negative [facility] Urine leukocyte esterase det ection by automated test stripOrdered By: Stephanie Edward on 11-06-2022 Leukocyte esterase Auto test strip Ql (U) Negative Negative [facility] Urobilinogen Auto test strip (U) [Mass/Vol]Ordered By: Stephanie Edward on 11-06-2022 Urobilinogen (U) [Mass/Vol] Normal mg/dL Normal [facility] pH Auto test strip (U)Ordere d By: Stephanie Edward on 11-06-2022 pH (U) 6.5 [pH] 5.0-9.0 [facility] Group B Streptococcus cultur eOrdered By: Stephanie Edward on 10-04-2022 S. agalactiae Org specific cx Ql (Unsp spec) [facility] Serum or plasma glucose tole katelyn 3 hours panelOrdered By: Stephanie Edward on 08-11-2022 Glucose tolerance 3 hours panel See comment [facility] Comment on above: FASTING 88 Col: 07/15 08/04 0830 1HR GLU 157 Col: 08/11/22 1022 2HR GLU 125 Col: 08/11/22 1123 3HR GLU 133 Col: 08/11/22 1225 Free T4on 04-21-2022 Free T4 [Mass/Vol] 1.01 ng/dL Normal 0.80-1.80 [facility] [employer] Comment on above: Performed By: #### T SH reflex FT4, FT4 #### [facility] [address], [place] [id number] TSH w/ Reflex to Free T4on 0 04-21-2022 FT4 reflex Free T4 Normal [facility] [employer] Comment on above: Performed By: #### T SH reflex FT4, FT4 #### [facility] [address], [place] [id number] TSH 31.780 uIU/mL High 0.400-4.500 [facility] [employer] Comment on above: Performed By: #### T SH reflex FT4, FT4 #### [facility] [address], [place] [id number] CBC AUTO DIFFon 03-02-2022 BASO # 0.0 103/ul Normal 0.0-0.1 [facility] Comment on above: Performed By: #### C BC #### [facility] [address] [place] [address] Dr. Briana Hernandez Basophils/100 WBC (Bld) 0.2 % Normal 0.2-2.0 [facility] Comment on above: Performed By: #### C BC #### [facility] [address] [place] [address] Dr. Briana Hernandez EO # 0.0 103/ul Normal 0.0-0.7 [facility] Comment on above: Performed By: #### C BC #### [facility] [address] [place] [address] Dr. Briana Hernandez Eosinophils/100 WBC (Bld) 0.5 % Critically low 0.9-7.0 [facility] Comment on above: Performed By: #### C BC #### [facility] [address] [place] [address] Dr. Briana Hernandez Erythrocyte distribution width (RBC) [Ratio] 13.3 % Normal 11.0-15.0 [facility] Comment on above: Performed By: #### C BC #### [facility] [address] [place] [address] Dr. Briana Hernandez Hematocrit (Bld) [Volume fraction] 37.4 % Normal 36.0-48.0 [facility] Comment on above: Performed By: #### C BC #### [facility] [address] [place] [address] Dr. Briana Hernandez Hemoglobin (Bld) [Mass/Vol] 12.6 g/dL Normal 12.0-16.0 [facility] Comment on above: Performed By: #### C BC #### [facility] [address] [place] [address] Dr. Briana Hernandez IG # 0.02 10e3/ul Normal 0.00-0.03 [facility] Comment on above: Performed By: #### C BC #### [facility] [address] [place] [address] Dr. Briana Hernandez IG % 0.2 % Normal 0.0-0.5 [facility] Comment on above: Performed By: #### C BC #### [facility] [address] [place] [address] Dr. Briana Hernandez LYMPH # 1.6 103/ul Normal 1.2-3.8 [facility] Comment on above: Performed By: #### C BC #### [facility] [address] [place] [address] Dr. Briana Hernandez Lymphocytes/100 WBC (Bld) 19.3 % Critically low 20.5-60.0 [facility] Comment on above: Performed By: #### C BC #### [facility] [address] [place] [address] Dr. Briana Hernandez MANUAL DIFF REQ NO Normal [facility] Comment on above: Performed By: #### C BC #### [facility] [address] [place] [address] Dr. Briana Hernandez MCH (RBC) [Entitic mass] 31.0 pg Normal 26.7-34.0 [facility] Comment on above: Performed By: #### C BC #### [facility] [address] [place] [address] Dr. Briana Hernandez MCHC (RBC) [Mass/Vol] 33.7 g/dL Normal 29.9-35.2 [facility] [facility] Comment on above: Performed By: #### C BC #### [facility] [address] [place] [address] Dr. Briana Hernandez MCV (RBC) [Entitic vol] 91.9 fL Normal 81.0-99.0 [facility] Comment on above: Performed By: #### C BC #### [facility] [address] [place] [address] Dr. Briana Hernandez MONO # 0.6 103/ul Normal 0.3-0.8 [facility] Comment on above: Performed By: #### C BC #### [facility] [address] [place] [address] Dr. Briana Hernandez Monocytes/100 WBC (Bld) 6.8 % Normal 1.7-12.0 [facility] Comment on above: Performed By: #### C BC #### [facility] [address] [place] [address] Dr. Briana Hernandez NEUT # 5.9 103/ul Normal 1.4-6.5 [facility] Comment on above: Performed By: #### C BC #### [facility] [address] [place] [address] Dr. Briana Hernandez Neutrophils/100 WBC (Bld) 73.0 % Normal 43.0-75.0 [facility] Comment on above: Performed By: #### C BC #### [facility] [address] [place] [address] Dr. Briana Hernandez Platelet mean volume (Bld) [Entitic vol] 8.9 fL Critically low 9.5-13.5 [facility] Comment on above: Performed By: #### C BC #### [facility] [address] [place] [address] Dr. Briana Hernandez PLT 331 103/ul Normal 150-450 [facility] Comment on above: Performed By: #### C BC #### [facility] [address] [place] [address] Dr. Briana Hernandez RBC 4.07 106/ul Critically low 4.20-5.40 [facility] Comment on above: Performed By: #### C BC #### [facility] [address] [place] [address] Dr. Briana Hernandez WBC 8.0 103/ul Normal 4.0-11.0 [facility] Comment on above: Performed By: #### C BC #### [facility] [address] [place] [address] Dr. Briana Hernandez PREG QUANT HCGon 03-02-2022 HCG QUANT 577 mIU/mL Normal [facility] Comment on above: Performed By: #### P REGQNT #### [facility] [address] [place] [address] Dr. Briana Hernandez HCG RANGE SEE BELOW Normal [facility] Comment on above: Result Comment: 5-50 0-1 WEEK 40-300 1-2 WEEKS 100-1,000 2-3 WEEKS 500-6,000 3-4 WEEKS 5,000-200,000 1-2 MONTHS 10,000-100,000 2-3 MONTHS 3,000-50,000 2ND TRIMESTER 1,000-50,000 3RD TRIMESTER Performed By: #### P REGQNT #### [facility] [address] [place], [place] [address] Dr. Briana Hernandez COVID Quick Testingon 2021 Result Negative Azoi Other Covid-19 PCR ([facility])on SARS-CoV-2 (COVID-19) RNA NELY+probe Ql (Unsp spec) Not detected Normal NOT DETECTED [facility] Comment on above: Result Comment: This test is not yet approved or cleared by the [place] FDA. When there are no FDA-approved or cleared tests available, and other criteria are met, FDA can make tests available under an emergency access mechanism called an Emergency Use Authorization (EUA). The EUA for this test is supported by the [place] of Health and Human Service's (HHS's) declaration [...] consistent with SARS-CoV-2. Performed By: #### C VDTBH #### [facility] [address] [place] [address] [address] [address] Briana Hernandez US THYROID/PARATHYROIDon US THYROID/PARATHYROID * * *Final [...] bilaterally. No discrete thyroid nodule is demonstrated. Data Recovery Planner: PSCB Transcribe Date/Time: Jan 14 2019 8:36A Dictated by : NAJMA NAVARRO MD This examination was interpreted and the report reviewed and electronically signed by: NAJMA NAVARRO MD on Jan 14 2019 4:08PM EST [id number] Normal [facility] Miscellaneouson 11-26-19 Status See Ref Lab Report Normal [facility] Comment on above: Performed By: #### 1 [id number] #### [facility] Send Outs Subsection [address] [place] [address] Status See Ref Lab Report Normal [facility] Comment on above: Performed By: #### 1 [id number] #### AD[facility] Send Outs Subsection [address] [place] [address] Auto Diffon 11-22-2018 Basophils #/vol (Bld) 0.0 E3/mcL Normal 0.0-0.2 [facility] Comment on above: Order Comment: Order Added by Discern Expert. Performed By: #### 2 [id number] #### [facility] RemHemo [address] [id number] Basophils/100 WBC (Bld) 0.5 % Normal 0.0-2.0 [facility] Comment on above: Order Comment: Order Added by Discern Expert. Performed By: #### 2 [id number] #### ADDISON RemHemo [facility] [place] [address] Eos Absolute 0.0 E3/mcL Normal 0.0-0.7 [facility] Comment on above: Order Comment: Order Added by Discern Expert. Performed By: #### 2 [id number] #### ADDISON SmithHemo [address] [place] [address] Eosinophils/100 WBC (Bld) 0.8 % Normal 0.0-11.0 [facility] Comment on above: Order Comment: Order Added by Discern Expert. Performed By: #### 2 [id number] #### ADDISON SmithHemo [address] [place] [address] Lymphocytes #/vol (Bld) 1.6 E3/mcL Normal 1.2-3.4 [facility] Comment on above: Order Comment: Order Added by Discern Expert. Performed By: #### 2 [id number] #### ADDISON SmithHemo [address] [place] [address] Lymphocytes/100 WBC (Bld) 24.7 % Normal 20.0-55.0 [facility] Comment on above: Order Comment: Order Added by Discern Expert. Performed By: #### 2 524559 #### ADDISON SmithHemo [address] [place] [address] [place] Absolute 0.3 E3/mcL Normal 0.0-0.7 [facility] Comment on above: Order Comment: Order Added by Discern Expert. Performed By: #### 2 [id number] #### ADDISON SmithHemo [address] [place] [address] Monocytes/100 WBC (Bld) 4.9 % Normal 0.0-10.0 [facility] Comment on above: Order Comment: Order Added by Discern Expert. Performed By: #### 2 [id number] #### ADDISON SmithHemo [address] [place] [address] Neutro Absolute 4.4 E3/mcL Normal 1.4-6.5 [facility] Comment on above: Order Comment: Order Added by Discern Expert. Performed By: #### 2 297284 #### ADDISON SmithHemo [address] [place] [address] Neutro Auto 69.1 % Normal 37.0-75.0 [facility] Comment on above: Order Comment: Order Added by Discern Expert. Performed By: #### 2 250289 #### ADDISON SmithHemo [address] [place] [address] CBC w/ Auto Diffon 01-10-201 9 Erythrocyte distribution width Ratio (RBC) 14.1 % Normal 11.5-14.5 [facility] Comment on above: Performed By: #### 2 770794 #### ADDISON SmithHemo [address] [place] [address] Hematocrit Volume Fraction (Bld) 40.0 % Normal 36.0-48.0 [facility] Comment on above: Performed By: #### 2 991951 #### ADDISON SmithHemo [address] [place] [address] Hemoglobin mass conc (Bld) 13.2 g/dL Normal 12.0-16.0 [facility] Comment on above: Performed By: #### 2 720005 #### ADDISONMarya SmithHemo [address] [place], [place] [address] MCH Entitic mass (RBC) 30.8 pg Normal 27.0-31.0 [facility] Comment on above: Performed By: #### 2 632227 #### ADDISON SmithHemo [address] [place] [address] MCHC mass conc (RBC) 33.0 g/dL Normal 33.0-37.0 [facility] Comment on above: Performed By: #### 2 [id number] #### ADDISONMarya SmithHemo [address] [place], [place] [address] MCV Entitic volume (RBC) 93.3 fL Normal 78.0-100.0 [facility] Comment on above: Performed By: #### 2 [id number] #### ADDISONMarya SmithHemo [address] [place], [place] [address] Platelet mean volume Entitic volume (Bld) 7.8 fL Normal 7.4-11.0 [facility] Comment on above: Performed By: #### 2 [id number] #### ADDISONMarya SmithHemo [facility] [place] [address]173005 Platelets #/vol (Bld) 368 E3/mcL Normal 130-400 [facility] Comment on above: Performed By: #### 2 799757 #### ADDISONMarya SmithHemo [address] 8173005 RBC #/vol (Bld) 4.28 E6/mcL Normal 3.90-5.40 [facility] Comment on above: Performed By: #### 2 261386 #### ADDISON RemHemo [address] [place] [address] WBC #/vol (Bld) 6.3 E3/mcL Normal 3.6-11.0 [facility] Comment on above: Performed By: #### 2 717795 #### ADDISON RemHemo [address] [place] [address] CMPon 11-22-2018 Albumin mass conc 4.2 g/dL Normal 3.4-5.0 [facility] Comment on above: Performed By: #### 2 [id number] #### [facility] [employer] [address] [place] [address] Albumin/Globulin mass ratio 1.4 {ratio} Normal 1.1-1.9 [facility] Comment on above: Performed By: #### 2 563647 #### [facility] [employer] [address] [place], [place] [address] Alk Phos 53 Int._Unit/L Normal 33-110 [facility] Comment on above: Performed By: #### 2 686189 #### AD[facility] [employer] [address] [place] [address] ALT enzyme act/vol 15 Int._Unit/L Normal 7-45 [facility] Comment on above: Performed By: #### 2 539423 #### AD[facility] [employer] [address] [place] [address] Anion gap molar conc 13 mmol/L Normal 10-20 [facility] Comment on above: Performed By: #### 2 261255 #### AD[facility] [employer] [address] [place] [address] AST enzyme act/vol 19 Int._Unit/L Normal 9-39 [facility] Comment on above: Performed By: #### 2 301390 #### [facility] [employer] [address] [place] [address] Bili Total 0.40 mg/dL Normal 0.00-1.20 [facility] Comment on above: Performed By: #### 2 167981 #### [facility] [employer] [address] [place] [address] Calcium mass conc 10.1 mg/dL Normal 8.6-10.3 [facility] Comment on above: Performed By: #### 2 761133 #### [facility] [employer] [address] [place] [address] Chloride molar conc 106 mmol/L Normal 98-107 [facility] Comment on above: Performed By: #### 2 825780 #### [facility] [employer] [address] [place] [address] CO2 molar conc 23.0 mmol/L Normal 21.0-32.0 [facility] Comment on above: Performed By: #### 2 147923 #### [facility] [employer] [address] [place] [address] Creatinine mass conc 1.0 mg/dL Normal 0.5-1.1 [facility] Comment on above: Performed By: #### 2 813845 #### [facility] [employer] [address] [place], [place] [address] Globulin mass conc (S) 3.0 g/dL Normal 2.0-4.0 [facility] Comment on above: Performed By: #### 2 522200 #### [facility] [employer] [address] [place], [place] [address] Glucose mass conc 80 mg/dL Normal 70-99 [facility] Comment on above: Performed By: #### 2 231164 #### [facility] [employer] [address] [place] [address] Potassium molar conc 3.9 mmol/L Normal 3.5-5.3 [facility] Comment on above: Performed By: #### 2 757212 #### [facility] [employer] [address] [place] [address] Protein mass conc 7.2 g/dL Normal 6.4-8.2 [facility] Comment on above: Performed By: #### 2 427266 #### [facility] [employer] [address] [place] [address] Sodium molar conc 138 mmol/L Normal 136-145 [facility] Comment on above: Performed By: #### 2 186848 #### [facility] [employer] [address] [place] [address] Urea nitrogen mass conc 14 mg/dL Normal 6-23 [facility] Comment on above: Performed By: #### 2 933677 #### [facility] [employer] [address] [place] [address] Urea nitrogen/Creatinine mass ratio 14.0 ratio Normal 5.4-30.0 [facility] Comment on above: Performed By: #### 2 583183 #### [facility] [employer] [address] [place] [address] Free T3on 11-22-2018 T3 free mass conc 2.6 pg/mL Normal 2.5-3.9 [facility] Comment on above: Performed By: #### 1 [id number] #### [facility] Send Outs Subsection [address] [place] [address] Free T4on 11-22-2018 T4 free mass conc 0.64 ng/dL Normal 0.58-1.64 [facility] Comment on above: Performed By: #### 1 [id number] #### AD[facility] Send Outs Subsection [address] [place] [address] Lab Miscellaneouson 11-22-19 19 Test Name [id number] [facility] Comment on above: Performed By: #### 1 [id number] #### DAD[facility] Send Outs Subsection [address] [place] [address] Test Name [id number] [facility] Comment on above: Performed By: #### 1 [id number] #### ADDISON Send Outs Subsection [address] [place] [address] TSHon 11-22-2018 Thyrotropin Qn 199.00 mcIU/mL High 0.30-5.60 [facility] Comment on above: Performed By: #### 1 [id number] #### ADDISON Send Outs Subsection [address] [place] [address] eGFRon 11-22-2018 GFR/1.73 sq M predicted among non-blacks MDRD vol rate/area (S/P/Bld) mL/min/{1.73_m2} [facility] Comment on above: Order Comment: Order added by Discern Expert. Performed By: #### 1 [id number] #### [facility] [employer] [address] [place] [address] Auto Diffon 08-31-2018 Basophils #/vol (Bld) 0.1 E3/mcL Normal 0.0-0.2 [facility] Comment on above: Order Comment: Order Added by Discern Expert. Performed By: #### 2 770031 #### ADDISON SmithHemo [address] [place] [address] Basophils/100 WBC (Bld) 1.0 % Normal 0.0-2.0 [facility] Comment on above: Order Comment: Order Added by Discern Expert. Performed By: #### 2 223409 #### AD[facility] RemHemo [address] [place] [address] Eos Absolute 0.1 E3/mcL Normal 0.0-0.7 [facility] Comment on above: Order Comment: Order Added by Discern Expert. Performed By: #### 2 918520 #### ADDISON RemHemo [address] [place] [address] Eosinophils/100 WBC (Bld) 1.6 % Normal 0.0-11.0 [facility] Comment on above: Order Comment: Order Added by Claudio Expert. Performed By: #### 2 453366 #### ADDISON RemHemo [address] [place] [address] Lymphocytes #/vol (Bld) 1.8 E3/mcL Normal 1.2-3.4 [facility] Comment on above: Order Comment: Order Added by Discern Expert. Performed By: #### 2 230859 #### ADDISON RemHemo [address] [place] [address] Lymphocytes/100 WBC (Bld) 32.2 % Normal 20.0-55.0 [facility] Comment on above: Order Comment: Order Added by Discern Expert. Performed By: #### 2 772326 #### ADDISON RemHemo [address] [place] [address] [place] Absolute 0.4 E3/mcL Normal 0.0-0.7 [facility] Comment on above: Order Comment: Order Added by Claudio Expert. Performed By: #### 2 193987 #### ADDISON RemHemo [address] [place] [address] Monocytes/100 WBC (Bld) 7.0 % Normal 0.0-10.0 [facility] Comment on above: Order Comment: Order Added by Discern Expert. Performed By: #### 2 813494 #### ADDISON SmithHemo [address] [place] [address]005 Neutro Absolute 3.2 E3/mcL Normal 1.4-6.5 [facility] Comment on above: Order Comment: Order Added by Discern Expert. Performed By: #### 2 388752 #### ADDISON SmithHemo [address] [place], [place] [address] Neutro Auto 58.2 % Normal 37.0-75.0 [facility] Comment on above: Order Comment: Order Added by Discern Expert. Performed By: #### 2 295966 #### ADDISON Mckinnono [address] [place], [place] [address] CBC w/ Auto Diffon 8 Erythrocyte distribution width Ratio (RBC) 14.2 % Normal 11.5-14.5 [facility] Comment on above: Performed By: #### 2 793047 #### ADDISON SmithHemo [address] [place], [place] [address] Hematocrit Volume Fraction (Bld) 41.2 % Normal 36.0-48.0 [facility] Comment on above: Performed By: #### 2 766044 #### ADDISON SmithHemo [address] [place], [place] [address] Hemoglobin mass conc (Bld) 13.8 g/dL Normal 12.0-16.0 [facility] Comment on above: Performed By: #### 2 108471 #### ADDISON SmithHemo [address] [place] [address] MCH Entitic mass (RBC) 31.6 pg High 27.0-31.0 [facility] Comment on above: Performed By: #### 2 871212 #### ADDISON SmithHemo [address] [place] [address] MCHC mass conc (RBC) 33.4 g/dL Normal 33.0-37.0 [facility] Comment on above: Performed By: #### 2 443545 #### ADDISON SmithHemo [address] [place], [place] [address] MCV Entitic volume (RBC) 94.6 fL Normal 78.0-100.0 [facility] Comment on above: Performed By: #### 2 017836 #### ADDISON SmithHemo [facility] [place] [address] Platelet mean volume Entitic volume (Bld) 7.6 fL Normal 7.4-11.0 [facility] Comment on above: Performed By: #### 2 046460 #### ADDISON RemHemo [facility] [place] [address] Platelets #/vol (Bld) 334 E3/mcL Normal 130-400 [facility] Comment on above: Performed By: #### 2 304718 #### ADDISON RemHemo [facility] [place] [address] RBC #/vol (Bld) 4.36 E6/mcL Normal 3.90-5.40 [facility] Comment on above: Performed By: #### 2 573197 #### ADDISON RemHemo [facility] [place] [address] WBC #/vol (Bld) 5.6 E3/mcL Normal 3.6-11.0 [facility] Comment on above: Performed By: #### 2 712287 #### ADDISON RemHemo [address] [place] [address] TSHon 08-31-2018 Thyrotropin Qn 82.00 mIU/m High 0.30-5.60 [facility] Comment on above: Performed By: #### 2 958987 #### AD[facility] [employer] [address] [place] [address] Lab Miscellaneouson 08-01-20 18 Status See Ref Lab Report Normal [facility] Comment on above: Performed By: #### 1 [id number] #### ADDISON Send Outs Subsection [address] [place] [address] Lab Miscellaneouson 07-27-20 18 Test Name allergen Normal [facility] Comment on above: Performed By: #### 1 [id number] #### ADDISON Send Outs Subsection [address] [place] [address] IGP W/hpv Rfx [id number] 03-16 Diagnosis: See Ref Lab Report Normal [facility] Comment on above: Performed By: #### 1 [id number] #### ADDISON Send Outs Subsection [address] [place] [address] Chlamydia GC by PCRon 2017 Chlamydia by PCR. Not Detected Normal Not Detected [facility] Comment on above: Result Comment: Xper t CT/NG Assay performance has not been evaluated in patients less than 14 years of age. Performed By: #### 3 [id number] #### ADDISON Misc Micro SubSection , Gonorrhoeae by PCR Not Detected Normal Not Detected [facility] Comment on above: Result Comment: Xper t CT/NG Assay performance has not been evaluated in patients less than 14 years of age. Performed By: #### 3 [id number] #### ADDISON Sykesc Micro SubSection , Pathology ([facility])on 03-12-2018 Pathology ([facility]) FINAL GYNECOLOGIC CYTOLOGY [id number] ADEQUACYSatisfactory for Evaluation. Endocervical cells/transformation zone componentpresent.GENERAL CATEGORIZATIONNegative for Intraepithelial Lesion or MalignancyCLINICAL HISTORYComment: No LMP provided.SPECIMEN(A) SCREENING CERVICAL/ENDOCERVICAL THIN PREP VIALPerformed at [facility], [address] [address]Screened by: Signed Out by: ORLIN TALLEY [employer] Line Up Person Reported: 03/15/2018 Normal [facility] Comment on above: Performed By: #### G YN ####[facility] [address] [place] [address] US ABDOMEN COMPLETEon 2016 US ABDOMEN COMPLETE [...] liver and left kidney as above. Normal [facility] *RFLX-O+John 07-14-2017 RESULT 1 Comment Normal [facility] Comment on above: Result Comment: No o va, cysts, or parasites seen.PERFORMED AT [facility] Performed By: #### L OP ####Testing performed at [address] [address]Crpftte performed at [address] [place] [address]#### ZOP ####Testing performed at [address] [place] [address] OVA+PARASITESon 07-14-2017 OVA+PARASITES Final report Normal [facility] Comment on above: Result Comment: (NOT E)These results were obtained using wet preparation(s) and trichromestained smear. This test does not include testing forCryptosporidium parvum, Cyclospora, or Microsporidia.PERFORMED AT [facility] Performed By: #### L OP ####Testing performed at [address] [address]Brdupve performed at [address] [place] [address]#### ZOP ####Testing performed at [address] [place] [address] Addendumon 07-10-2017 [facility] CAC NOTES Normal [facility] Anes Post-opon 07-10-2017 [facility] CAC NOTES Normal [facility] Anes Pre-opon 07-10-2017 [facility] HIM CAC NOTES Normal [facility] NURSING NOTEon 07-10-2017 [facility] NOTES Normal [facility] OR NURSINGon 07-10-2017 [facility] HIM CAC NOTES Normal [facility] CAC NOTES Normal [facility] CAC NOTES Normal [facility] OVA+PARASITESon 07-10-2017 SPECIMEN DESCRIPTION STOOL Normal [facility] Comment on above: Performed By: #### L OP ####Testing performed at [address] [address]Chakpjb performed at [address] [place] [address]#### ZOP ####Testing performed at [address] [place] [address] CBCon 06-26-2017 Basophils/100 WBC Auto (Bld) 4 % High 0.0-2.0 [facility] Comment on above: Performed By: #### A CBC, ESR ####Testing performed at [address] [place] [address] BLAST 3 % Normal [facility] Comment on above: Performed By: #### A CBC, ESR ####Testing performed at [address] [address] DTYPE AUTO DIFF Normal [facility] Comment on above: Performed By: #### A CBC, ESR ####Testing performed at [address] [address] Lymphocytes/100 leukocytes 29 % Normal 20.0-55.0 [facility] Comment on above: Performed By: #### A CBC, ESR ####Testing performed at [address] [address] Monocytes/100 leukocytes 3 % Normal 0.0-10.0 [facility] Comment on above: Performed By: #### A CBC, ESR ####Testing performed at [address] [address] Neutrophils/100 leukocytes 61 % Normal 37.0-75.0 [facility] Comment on above: Performed By: #### A CBC, ESR ####Testing performed at [address] [address] Erythrocyte distribution width Auto Ratio (RBC) 13.5 % Normal 11.5-14.5 [facility] Comment on above: Performed By: #### A CBC, ESR ####Testing performed at [address] [address] Erythrocytes (RBC) 4.45 /cmm Normal 4.0-5.4 [facility] Comment on above: Performed By: #### A CBC, ESR ####Testing performed at [address] [address] Hematocrit (HCT) 40.2 % Normal 36.0-48.0 [facility] Comment on above: Performed By: #### A CBC, ESR ####Testing performed at [address] [address] Hemoglobin mass conc (Bld) 13.4 g/dL Normal 12.0-16.0 [facility] Comment on above: Performed By: #### A CBC, ESR ####Testing performed at [place] [id number] MCH 30.2 pg Normal 26.0-35.0 [facility] Comment on above: Performed By: #### A CBC, ESR ####Testing performed at [place] [id number] MCHC mass conc (RBC) 33.4 g/dL Normal 27.0-37.0 [facility] Comment on above: Performed By: #### A CBC, ESR ####Testing performed at [place] [id number] MCV 90.3 fL Normal 80.0-100.0 [facility] Comment on above: Performed By: #### A CBC, ESR ####Testing performed at [place] [id number] Platelet mean volume (PMV) 6.8 fL Low 7.4-11.0 [facility] Comment on above: Performed By: #### A CBC, ESR ####Testing performed at [address] [address] Platelets 323 /cmm Normal 130.0-400.0 [facility] Comment on above: Performed By: #### A CBC, ESR ####Testing performed at [address] [address] WBC (Leukocytes) 6.0 /cmm Normal 3.6-11.0 [facility] Comment on above: Performed By: #### A CBC, ESR ####Testing performed at [address] [address] ESRon 06-26-2017 Erythrocyte sedimentation rate 11 mm/h Normal 0-20 [facility] Comment on above: Performed By: #### A CBC, ESR ####Testing performed at [address] [address] Vital Signs Date Time Vital Sign Value Performing Clinician Facility 12-25-2024 11:09-0500 Body height 149.86 cm Katarzyna Castañeda MD Work Phone: [facility] 12-25-2024 11:09-0500 Body mass index (BMI) [Ratio] 34.1 kg/m2 Katarzyna Castañeda MD Work Phone: [facility] 12-25-2024 11:09-0500 Body temperature 100.3 [degF] Katarzyna Castañeda MD Work Phone: [facility] 12-25-2024 11:09-0500 Body weight 76.71 kg Katarzyna Castañeda MD Work Phone: [facility] 12-25-2024 11:09-0500 Diastolic blood pressure 97 mm[Hg] Katarzyna Castañeda MD Work Phone: [facility] 12-25-2024 11:09-0500 Heart rate 115 /min Katarzyna Castañeda MD Work Phone: [facility] 12-25-2024 11:09-0500 Respiratory rate 18 /min Katarzyna Castañeda MD Work Phone: [facility] 12-25-2024 11:09-0500 SaO2% (BldA) [Mass fraction] 98 % Katarzyna Castañeda MD Work Phone: [facility] 12-25-2024 11:09-0500 Systolic blood pressure 151 mm[Hg] Katarzyna Castañeda MD Work Phone: [facility] 12-23-2024 09:34-0500 Body height 149.9 cm Felicitas BASILIO Work Phone: [facility] 12-23-2024 09:34-0500 Body mass index (BMI) [Ratio] 34.21 kg/m2 Felicitas Hemmer PA Work Phone: [facility] 12-23-2024 09:34-0500 Body weight 76.84 kg Felicitas Hemmer PA Work Phone: [facility] 12-23-2024 09:34-0500 Diastolic blood pressure 78 mm[Hg] Felicitas Hemmer PA Work Phone: [facility] 12-23-2024 09:34-0500 Heart rate 116 /min Felicitas Hemmer PA Work Phone: [facility] 12-23-2024 09:34-0500 Respiratory rate 16 /min Felicitas Hemmer PA Work Phone: [facility] 12-23-2024 09:34-0500 SaO2% (BldA) [Mass fraction] 98 % Felicitas Hemmer PA Work Phone: [facility] 12-23-2024 09:34-0500 Systolic blood pressure 116 mm[Hg] Felicitas Hemmer PA Work Phone: [facility] 11-05-2024 09:45-0500 Body height 149.9 cm Osei Brown DO Work Phone: [facility] 11-05-2024 09:45-0500 Body mass index (BMI) [Ratio] 34.34 kg/m2 Osei Brown DO Work Phone: [facility] 11-05-2024 09:45-0500 Body temperature 97.39 [degF] Osei Brown DO Work Phone: [facility] 11-05-2024 09:45-0500 Body weight 77.11 kg Osei Brown DO Work Phone: [facility] 10-15-2024 08:42-0500 Body height 149.9 cm Felicitas Hemmer PA Work Phone: [facility] 10-15-2024 08:42-0500 Body mass index (BMI) [Ratio] 34.78 kg/m2 Felicitas Hemmer PA Work Phone: [facility] 10-15-2024 08:42-0500 Body weight 78.11 kg Felicitas Hemmer PA Work Phone: [facility] 10-15-2024 08:42-0500 Diastolic blood pressure 86 mm[Hg] Felicitas Hemmer PA Work Phone: [facility] 10-15-2024 08:42-0500 Heart rate 98 /min Felicitas Hemmer PA Work Phone: [facility] 10-15-2024 08:42-0500 Respiratory rate 16 /min Felicitas Hemmer PA Work Phone: [facility] 10-15-2024 08:42-0500 SaO2% (BldA) [Mass fraction] 97 % Felicitas Hemmer PA Work Phone: [facility] 10-15-2024 08:42-0500 Systolic blood pressure 128 mm[Hg] Felicitas Hemmer PA Work Phone: [facility] 09-23-2024 09:37-0500 Body mass index (BMI) [Ratio] 34.26 kg/m2 Felicitas Hemmer PA Work Phone: [facility] 09-23-2024 09:37-0500 Body weight 76.93 kg Felicitas Hemmer PA Work Phone: [facility] 09-23-2024 09:37-0500 Diastolic blood pressure 75 mm[Hg] Felicitas Hemmer PA Work Phone: [facility] 09-23-2024 09:37-0500 Heart rate 92 /min Felicitas Hemmer PA Work Phone: [facility] 09-23-2024 09:37-0500 Respiratory rate 17 /min Felicitas Hemmer PA Work Phone: [facility] 09-23-2024 09:37-0500 SaO2% (BldA) [Mass fraction] 97 % Felicitas Hemmer PA Work Phone: [facility] 09-23-2024 09:37-0500 Systolic blood pressure 120 mm[Hg] Felicitas BASILIO Work Phone: [facility] 05-15-2024 15:45-0400 Blood Pressure Location [facility] 05-15-2024 15:45-0400 Body temperature 98.24 [degF] [facility] 05-15-2024 15:45-0400 Diastolic blood pressure 82 mm[Hg] [facility] 05-15-2024 15:45-0400 Heart rate 96 /min [facility] 05-15-2024 15:45-0400 SaO2% (BldA) [Mass fraction] 96 % [facility] 05-15-2024 15:45-0400 Systolic blood pressure 118 mm[Hg] [facility] 03-09-2024 11:28-0400 Body height 147.32 cm MD Katarzyna Castañeda Work Phone: [facility] 03-09-2024 11:28-0400 Body mass index (BMI) [Ratio] 31.7 kg/m2 MD Katarzyna Castañeda Work Phone: [facility] 03-09-2024 11:28-0400 Body temperature 99.4 [degF] MD Katarzyna Castañeda Work Phone: [facility] 03-09-2024 11:28-0400 Body weight 68.94 kg MD Katarzyna Castañeda Work Phone: [facility] 03-09-2024 11:28-0400 Diastolic blood pressure 70 mm[Hg] MD Katarzyna Castañeda Work Phone: [facility] 03-09-2024 11:28-0400 Heart rate 115 /min MD Katarzyna Castañeda Work Phone: [facility] 03-09-2024 11:28-0400 SaO2% (BldA) [Mass fraction] 95 % MD Katarzyna Castañeda Work Phone: [facility] 03-09-2024 11:28-0400 Systolic blood pressure 104 mm[Hg] MD Katarzyna Castañeda Work Phone: [facility] 01-18-2024 14:36-0500 Body weight 65.57 kg MD Katarzyna Castañeda Work Phone: [facility] 01-18-2024 14:36-0500 Diastolic blood pressure 93 mm[Hg] MD Katarzyna Castañeda Work Phone: [facility] 01-18-2024 14:36-0500 Heart rate 113 /min MD Katarzyna Castañeda Work Phone: [facility] 01-18-2024 14:36-0500 Systolic blood pressure 132 mm[Hg] MD Katarzyna Castañeda Work Phone: [facility] 12-11-2023 09:00-0500 Body weight 70.3 kg [facility] 12-11-2023 07:30-0500 Body temperature 97.3 [degF] [facility] 12-11-2023 07:30-0500 Diastolic blood pressure 70 mm[Hg] [facility] 12-11-2023 07:30-0500 Heart rate 69 /min [facility] 12-11-2023 07:30-0500 Respiratory rate 18 /min [facility] 12-11-2023 07:30-0500 SaO2% (BldA) [Mass fraction] 98 % [facility] 12-11-2023 07:30-0500 Systolic blood pressure 104 mm[Hg] [facility] 12-09-2023 01:13-0500 Body height 147.32 cm [facility] 12-08-2023 21:40-0500 Body height 147.32 cm MD Katarzyna Castañeda Work Phone: [facility] 12-08-2023 21:40-0500 Body temperature 98.1 [degF] MD Katarzyna Castañeda Work Phone: [facility] 12-08-2023 21:40-0500 Body weight 70.2 kg MD Katarzyna Castañeda Work Phone: [facility] 12-08-2023 21:40-0500 Diastolic blood pressure 85 mm[Hg] MD Katarzyna Castañeda Work Phone: [facility] 12-08-2023 21:40-0500 Heart rate 110 /min MD Katarzyna Castañeda Work Phone: [facility] 12-08-2023 21:40-0500 Respiratory rate 18 /min MD Katarzyna Castañeda Work Phone: [facility] 12-08-2023 21:40-0500 SaO2% (BldA) [Mass fraction] 97 % MD Katarzyna Castañeda Work Phone: [facility] 12-08-2023 21:40-0500 Systolic blood pressure 121 mm[Hg] MD Katarzyna Castañeda Work Phone: [facility] 10-19-2023 14:30-0500 Body height 147.32 cm Juice Johnson Other [employer] Other 10-19-2023 14:30-0500 Body mass index (BMI) [Ratio] 34 kg/m2 Juice Johnson Other [employer] Other 10-19-2023 14:30-0500 Body weight 73.8 kg Juice Johnson Other [employer] Other 10-19-2023 14:30-0500 Diastolic blood pressure 83 mm[Hg] Juice Johnson Other [employer] Other 10-19-2023 14:30-0500 Systolic blood pressure 134 mm[Hg] Juice Johnson Other [employer] Other 08-08-2023 13:17-0400 Diastolic blood pressure 67 mm[Hg] MD Katarzyna Castañeda Work Phone: [facility] 08-08-2023 13:17-0400 Heart rate 90 /min MD Katarzyna Castañeda Work Phone: [facility] 08-08-2023 13:17-0400 Respiratory rate 16 /min MD Katarzyna Castañeda Work Phone: [facility] 08-08-2023 13:17-0400 SaO2% (BldA) [Mass fraction] 95 % MD Katarzyna Castañeda Work Phone: [facility] 08-08-2023 13:17-0400 Systolic blood pressure 109 mm[Hg] MD Katarzyna Castañeda Work Phone: [facility] 08-08-2023 11:56-0400 Body height 149.86 cm MD Katarzyna Castañeda Work Phone: [facility] 08-08-2023 11:56-0400 Body temperature 98.2 [degF] MD Katarzyna Castañeda Work Phone: [facility] 08-08-2023 11:56-0400 Body weight 72.57 kg MD Katarzyna Castañeda Work Phone: [facility] 07-11-2023 09:15-0400 Body height 147.32 cm Juice Johnson Other [employer] Other 07-11-2023 09:15-0400 Body mass index (BMI) [Ratio] 31.97 kg/m2 Juice Johnson Other [employer] Other 07-11-2023 09:15-0400 Body weight 69.4 kg Juice Johnson Other [employer] Other 07-11-2023 09:15-0400 Diastolic blood pressure 81 mm[Hg] Juice Batesttallyssa Other [facility] [employer] Other 07-11-2023 09:15-0400 Systolic blood pressure 124 mm[Hg] Juice Johnson Other [employer] Other 11-09-2022 16:00-0500 Body temperature 98.2 [degF] MD Katarzyna Casatñeda Work Phone: [facility] 11-09-2022 16:00-0500 Diastolic blood pressure 84 mm[Hg] MD Katarzyna Castañeda Work Phone: [facility] 11-09-2022 16:00-0500 Heart rate 83 /min MD Katarzyna Castañeda Work Phone: [facility] 11-09-2022 16:00-0500 Respiratory rate 16 /min MD Katarzyna Castañeda Work Phone: [facility] 11-09-2022 16:00-0500 SaO2% (BldA) [Mass fraction] 99 % MD Katarzyna Castañeda Work Phone: [facility] 11-09-2022 16:00-0500 Systolic blood pressure 138 mm[Hg] MD Katarzyna Castañeda Work Phone: [facility] 11-06-2022 20:07-0500 Body height 147.32 cm MD Katarzyna Castañeda Work Phone: [facility] 11-06-2022 20:07-0500 Body weight 83.91 kg MD Katarzyna Castañeda Work Phone: [facility] 12-05-2021 14:30-0500 Body height 147.32 cm Fouzia Maria Other [employer] Other 12-05-2021 14:30-0500 Body mass index (BMI) [Ratio] 30.3 kg/m2 Fouzia Maria Other [employer] Other 12-05-2021 14:30-0500 Body temperature 97.6 [degF] Fouzia Maria Other [employer] Other 12-05-2021 14:30-0500 Body weight 65.77 kg Fouzia Maria Other [employer] Other 12-05-2021 14:30-0500 Respiratory rate 18 /min Fouzia Maria Other [employer] Other 12-05-2021 14:30-0500 SaO2% (BldA) [Mass fraction] 99 % Fouzia Maria Other [employer] Other 10-10-2021 22:06-0500 Body height 147.32 cm MD Katarzyna Castañeda Work Phone: [facility] 10-10-2021 22:06-0500 Body mass index (BMI) [Ratio] 33 kg/m2 MD Katarzyna Castañeda Work Phone: [facility] 10-10-2021 22:06-0500 Body temperature 98.5 [degF] MD Katarzyna Castañeda Work Phone: [facility] 10-10-2021 22:06-0500 Body weight 71.6 kg MD Katarzyna Castañeda Work Phone: [facility] 10-10-2021 22:06-0500 Diastolic blood pressure 69 mm[Hg] MD Katarzyna Castañeda Work Phone: [facility] 10-10-2021 22:06-0500 Heart rate 99 /min MD Katarzyna Castañeda Work Phone: [facility] 10-10-2021 22:06-0500 Respiratory rate 18 /min MD Katarzyna Castañeda Work Phone: [facility] 10-10-2021 22:06-0500 SaO2% (BldA) [Mass fraction] 97 % MD Katarzyna Castañeda Work Phone: [facility] 10-10-2021 22:06-0500 Systolic blood pressure 137 mm[Hg] MD Katarzyna Castañeda Work Phone: [facility] Encounters Encounter Date Encounter Type Care Provider Facility Start: 12-25-2024 End: 12-25-2024 Telephone encounter Ubaldo Parrish SENIOR HARDWARE ENGINEER [facility] Start: 12-25-2024 End: 12-25-2024 ambulatory Katarzyna Castañeda MD Work Phone: [facility] Work Phone: Start: 12-25-2024 End: 12-25-2024 Patient encounter procedure Katarzyna Castañeda MD Work Phone: [facility] [place] Work Phone: Start: 12-23-2024 End: 12-23-2024 Office outpatient visit 15 minutes Felicitas BASILIO Work Phone: [facility] Comment on above: Complete tear of ant erior cruciate ligament of knee, right, subsequent encounter (Primary Dx); Attention deficit hyperactivity disorder (ADHD), combined type (CMS/HCC) Start: 12-23-2024 End: 12-23-2024 ambulatory FELICITAS MACIAS Not Available Start: 12-11-2024 End: 12-11-2024 Bamboo flowsheet Osei Wang DO Work Phone: [facility] Start: 12-11-2024 End: 12-11-2024 Bamboo flowsheet Osei Wang DO Work Phone: [facility] Start: 12-11-2024 End: 12-11-2024 ambulatory OESI WANG Not Available Start: 12-11-2024 Registered Recurring Katarzyna montgomery MD Work Phone: [facility] Start: 12-11-2024 ambulatory Miguel Jalloh Facility:[facility] Start: 12-02-2024 End: 12-03-2024 ambulatory Yonis Holman SENIOR HARDWARE ENGINEER [facility] Comment on above: Right knee pain, uns pecified chronicity (Primary Dx) Tirosint and insuran ce issues Start: 11-25-2024 End: 11-25-2024 ambulatory Celia Diaz PT [facility] Comment on above: Right knee pain, uns pecified chronicity (Primary Dx) Start: 11-21-2024 End: 11-21-2024 ambulatory Laura Hernandez POPULATION GENETICIST.GASTROENTEROLOGY NURSE Work Phone: Endocrinology Comment on above: Postablative hypothy roidism (Primary Dx) Start: 11-21-2024 End: 11-21-2024 Telemedicine consultation with patient Laura Hernandez POPULATION GENETICIST.GASTROENTEROLOGY NURSE Work Phone: Endocrinology Start: 11-18-2024 End: 11-18-2024 Bamboo flowsheet Yonis Holman SENIOR HARDWARE ENGINEER [facility] Start: 11-18-2024 End: 11-18-2024 Bamboo flowsheet Yonis Holman SENIOR HARDWARE ENGINEER [facility] Start: 11-18-2024 End: 11-18-2024 ambulatory Yonis Holman SENIOR HARDWARE ENGINEER [facility] Comment on above: Right knee pain, uns pecified chronicity (Primary Dx) Start: 11-15-2024 End: 11-15-2024 Bamboo flowsheet Joann Issa PT Work Phone: [facility] Start: 11-15-2024 End: 11-15-2024 Bamboo flowsheet Joann Issa PT Work Phone: [facility] Start: 11-15-2024 End: 11-15-2024 ambulatory Joann Issa PT Work Phone: [facility] Comment on above: Right knee pain, uns pecified chronicity (Primary Dx) Start: 11-07-2024 End: 11-08-2024 Luis Castañeda MD Work Phone: [facility] Comment on above: Attention deficit hy peractivity disorder (ADHD), combined type (CMS/HCC) Start: 11-05-2024 End: 11-05-2024 Patient encounter procedure Osei Wang DO Work Phone: [facility] Comment on above: Left knee pain, unsp ecified chronicity (Primary Dx) Start: 11-05-2024 End: 11-05-2024 ambulatory OSEI WANG Not Available Start: 11-05-2024 End: 11-05-2024 ambulatory OSEI Montgomery VALENTINO Not Available Start: 10-28-2024 End: 10-28-2024 Telephone encounter Felicitas Macias PA Work Phone: [facility] [...] 10-15-2024 ambulatory FELICITAS MACIAS Not Available Start: 09-23-2024 End: 09-23-2024 Bamboo flowsheet Felicitas Macias PA Work Phone: [facility] Start: 09-23-2024 End: 09-23-2024 Bamboo flowsheet Felicitas Kumer PA Work Phone: [facility] Start: 09-23-2024 End: 09-23-2024 ambulatory FELICITAS MACIAS Not Available Start: 09-23-2024 End: 09-23-2024 Office outpatient visit 25 minutes Felicitas Macias PA Work Phone: [facility] Comment on above: Acute pain of right knee (Primary Dx); Attention deficit hyperactivity disorder (ADHD), combined type (CMS/HCC); Patellar tendonitis of right knee Start: 06-21-2024 End: 06-21-2024 ambulatory FELICITAS M HEMMER Not Available Start: 06-04-2024 End: 06-04-2024 ambulatory STEPHANIE E RINKES Not Available Start: 05-27-2024 End: 05-27-2024 ambulatory STEPHANIE E RINKES Not Available Start: 05-15-2024 End: 05-15-2024 ambulatory Devin Jimenez Facility:[facility] Start: 05-15-2024 End: 05-15-2024 Patient encounter procedure Devin Jimenez [facility] Start: 04-24-2024 End: 04-24-2024 ambulatory JOHANNA E RAMBASEK Not Available Start: 04-18-2024 End: 04-18-2024 ambulatory STEPHANIE E RINKES Not Available Start: 04-09-2024 End: 04-09-2024 ambulatory FELICITAS Persaud HEMMER Not Available Start: 03-21-2024 End: 03-21-2024 ambulatory STEPHANIE E RINKES Not Available Start: 03-09-2024 End: 03-09-2024 ambulatory MD Katarzyna Castañeda Work Phone: [facility] Work Phone: Start: 03-09-2024 End: 03-09-2024 Patient encounter procedure MD Katarzyna Castañeda Work Phone: [facility] [place] Work Phone: Start: 01-18-2024 End: 01-18-2024 Patient encounter procedure MD Katarzyna Castañeda Work Phone: [facility] Gastroenterology Work Phone: Start: 01-10-2024 Registered Recurring MD Katarzyna Castañeda Work Phone: [facility] Start: 01-09-2024 End: 01-09-2024 ambulatory STEPHANIE E RINKES Not Available Start: 01-09-2024 End: 01-09-2024 ambulatory FELICITAS M HEMMER Not Available Start: 12-08-2023 End: 12-11-2023 Evaluation and management of inpatient MD Katarzyna Castañeda Work Phone: [facility] Work Phone: Start: 12-08-2023 Non-patient / Non-visit [facility] Work Phone: Start: 10-19-2023 End: 10-19-2023 ambulatory Juice Johnson Other [employer] Other Start: 10-19-2023 Patient encounter procedure Juice Johnson [facility] Start: 10-19-2023 End: 10-19-2023 Patient encounter procedure MD Katarzyna Castañeda Work Phone: [facility] Gastroenterology Work Phone: Start: 08-17-2023 End: 08-17-2023 ambulatory Juice Johnson Other [facility] [employer] Other Start: 08-17-2023 Telephone encounter Juice Johnson [facility] Start: 08-08-2023 End: 08-08-2023 Admission to same day surgery center MD Katarzyna Castañeda Work Phone: [facility] Work Phone: Start: 08-08-2023 End: 08-08-2023 ambulatory MD Katarzyna Castañeda Work Phone: [facility] Work Phone: Start: 07-11-2023 End: 07-11-2023 ambulatory Juice Johnson Other [employer] Other Start: 07-11-2023 [facility] visit new patient Juice Janagera [facility] Start: 11-11-2022 End: 11-11-2022 ambulatory MD Katarzyna Castañeda Work Phone: [facility] Work Phone: Start: 11-11-2022 End: 11-11-2022 Patient encounter procedure MD Katarzyna Castañeda Work Phone: [facility]- Visit Work Phone: Start: 11-06-2022 End: 11-09-2022 Evaluation and management of inpatient MD Katarzyna Castañeda Work Phone: [facility] [place] Work Phone: Start: 10-04-2022 End: 10-04-2022 ambulatory MD Katarzyna Castañeda Work Phone: [facility] Work Phone: Start: 10-04-2022 End: 10-04-2022 Departed Referred MD Katarzyna Castañeda Work Phone: [facility] [place] Start: 08-11-2022 End: 08-11-2022 ambulatory MD Katarzyna Castañeda Work Phone: [facility] Work Phone: Start: 08-11-2022 End: 08-11-2022 Patient encounter procedure MD Katarzyna Castañeda Work Phone: [facility] [place] Start: 03-02-2022 End: 03-02-[address] KATARZYNA CASTAÑEDA Facility:[facility] Start: 12-05-2021 End: 12-05-2021 ambulatory Fouzia Maria Other [employer] Other Start: 12-05-2021 Office outpatient vi sit 15 minutes Fouzia Maria [facility] [place] Start: 11-19-2021 End: 11-19-2021 ambulatory SHU SORIANO Facility:[facility] Start: 10-10-2021 End: 10-10-2021 Emergency department patient visit MD Katarzyna Castañeda Work Phone: [facility]-Emergency Room Start: 01-31-2019 Patient encounter procedure Dandre Robles Facility:[facility] Start: 01-14-2019 Patient encounter procedure [facility] Start: 11-22-2018 End: 11-23-2018 Patient encounter procedure Dandre Tourlas Facility:[facility] Start: 11-22-2018 Patient encounter procedure Facility:[id number] Start: 08-31-2018 End: 09-01-2018 Patient encounter procedure Yandy Luque Facility:[facility] Start: 08-31-2018 End: 09-01-2018 Patient encounter procedure Yandy Luque Facility:[facility] Start: 08-31-2018 Patient encounter procedure Facility:[id number] Start: 08-30-2018 Patient encounter procedure Dandre Tourlas Facility:[facility] Start: 08-28-2018 End: 08-28-2018 Patient encounter procedure Dandre Tourlas Facility:[facility] Start: 07-27-2018 End: 07-28-2018 Patient encounter procedure Pedro Keller Facility:[facility] Start: 07-27-2018 Patient encounter procedure Facility:[id number] Start: 07-19-2018 End: 07-20-2018 Patient encounter procedure Dandre Tourlas Facility:[facility] Start: 03-12-2018 End: 03-13-2018 Patient encounter procedure Re Murphy Facility:[facility] Start: 02-26-2018 End: 02-27-2018 Patient encounter procedure Dandre Tourlas Facility:[facility] Start: 08-09-2017 Ambulatory PALANI K AJAY [facility] Start: 07-11-2017 Ambulatory DANDRE TOURLAS [facility] Start: 07-10-2017 Ambulatory PALANI K AJAY [facility] Start: 07-10-2017 End: 07-10-2017 Ambulatory PALANI K AJAY [facility] Start: 06-26-2017 Ambulatory [facility] Procedures Date Procedure Procedure Detail Performing Clinician Start: 11-05-2024 Radiologic examination knee 1/2 views Osei Wang DO Work Phone: Start: 01-09-2024 End: 01-09-2024 H/O: section Status post section Felicitas BASILIO Work Phone: Start: 08-08-2023 Esophagogastroduodenoscopy MD Katarzyna Castañeda Work Phone: Start: 10-04-2022 Streptococcus agalactiae culture MD Tania Castañeda Work Phone: H/O: section Status pos t section MD Katarzyna Castañeda Work Phone: Comment on above: Problem List clean-up per request of Aureliano greer EHR Cmte Plan of Treatment Date Care Activity Detail Author Start: 11-09-2032 Urine microalbumin profile DTa P,Tdap,Td Vaccine (7 - Td or Tdap) [facility] Start: 05-12-2025 Influenza vaccination Influenza Vacc ine (#1) [facility] Comment on above: Postponed from 07/14 (Patient Refused) Start: 03-24-2025 End: 03-24-2025 Patient encounter procedure 03/24/2025 10:30 AM EDT Office Visit [facility] [address] [place] [address] Felicitas Macias, PA [address] [place] [address] [facility] Start: 01-30-2025 End: 01-30-2025 Patient encounter procedure 01/30/2025 10:00 AM EDT Office Visit [facility] [address] [facility] [address] [place] [id number] Stephanie Edward, [address] [facility] [address] [place], [place] [id number] [facility] Start: 12-23-2024 End: 12-23-2024 Patient encounter procedure 12/23/2024 9:30 AM EST Office Visit [facility] [address] [place] [address] Felicitas Macias PA [address] [place] [address] [facility] Start: 12-22-2024 End: 03-23-2025 Thyrotropin [Units/volume] in Serum or Plasma THYROID STIMULATING HORMONE Lab Routine Postablative hypothyroidism Expected: 12/22/2024, Expires: 03/23/2025 [facility] Work Phone: Comment on above: Expected: 12/22/2024 , Expires: 03/23/2025 Start: 12-22-2024 End: 03-23-2025 Thyroxine (T4) free [Mass/volume] in Serum or Plasma T4 FREE/FREE THYROXINE Lab Routine Postablative hypothyroidism Expected: 12/22/2024, Expires: 03/23/2025 [facility] Comment on above: Expected: 12/22/2024 , Expires: 03/23/2025 Start: 12-02-2024 End: 12-02-2024 ambulatory 12/02/2024 12:00 PM EST Treatment [facility] [address] [place] [address] Yonis Holman, SENIOR HARDWARE ENGINEER [facility] Start: 11-27-2024 End: 11-27-2024 ambulatory [facility] Start: 11-25-2024 End: 11-25-2024 ambulatory [facility] Start: 11-22-2024 End: 11-22-2024 ambulatory [facility] Start: 11-18-2024 End: 11-18-2024 ambulatory [facility] Comment on above: Arrived Start: 11-15-2024 End: 11-15-2024 ambulatory [facility] Comment on above: Arrived Start: 10-15-2024 End: 10-15-2025 MR Knee - right WO contrast MR knee right wo IV contrast Imaging Routine Acute internal derangement of right knee Knee instability, right Expected: 10/15/2024, Expires: 10/15/2025 [facility] Comment on above: Expected: 10/15/2024 , Expires: 10/15/2025 Start: 10-15-2024 End: 10-15-2025 TSH W/REFLEX TO FT4 TSH W/REFLEX TO FT4 Lab Routine Postablative hypothyroidism (CMS/HCC) Expected: 10/15/2024 (Approximate), Expires: 10/15/2025 [facility] Work Phone: Comment on above: Expected: 10/15/2024 (Approximate), Expires: 10/15/2025 Start: 10-15-2024 End: 10-15-2024 Patient encounter procedure 10/15/2024 8:30 AM EST Office Visit [facility] [address] [place] [id number] Felicitas Macias PA [address] [place] [address] Arrived [facility] Comment on above: Arrived Start: 07-14-2024 Covid-19 Vaccine ( season) Covid-19 Vaccine () [facility] Start: 07-14-2024 Influenza vaccination Influenza Vacc ine (#1) [facility] Start: 12-11-2023 [facility] Start: 12-08-2023 Hospital admission [facility] Start: 08-08-2023 End: 08-08-2023 [facility] Start: 11-09-2022 [facility] Start: 11-08-2022 [facility] Start: 11-07-2022 Hospital admission [facility] Start: 11-06-2022 Hospital admission [facility] Start: 2017 Screening for malign ant neoplasm of cervix Cervical Cancer Screening [facility] Start: 2014 Annual PCP Team Social Service Worker priscila Disease Visit Annual PCP Team Chronic Disease Visit [facility] Start: 2014 Anxiety Screening Anxiety Screening [facility] Start: 2014 Depression Screening Depression Scre ening [facility] Start: 2014 Hepatitis C screening Hepatitis C Sc reening [facility] Start: 2014 HIV screening HIV Screening [facility] Albumin/Globulin ratio [facility] Anion gap measurement [facility] Basophils [#/volume] in Blood by Automated count [facility] Basophils/100 leukoc ytes in Blood by Automated count [facility] Endomysial antibody IgA level [facility] Eosinophils [#/volum e] in Blood [facility] Eosinophils/100 leuk ocytes in Blood by Automated count [facility] Erythrocyte distribu tion width [Ratio] by Automated count [facility] Erythrocytes [#/volu me] in Blood [facility] Gliadin peptide IgA Ab [Units/volume] in Serum [facility] Gliadin peptide IgG Ab [Units/volume] in Serum [facility] Globulin [Mass/volum e] in Serum [facility] Group B Streptococcu s Culture Group B Streptococcus Culture [facility] Hematocrit [Volume Fraction] of Blood [facility] Hemoglobin [Mass/vol ume] in Blood [facility] HLA DQ antigen typing [facility] IgA [Mass/volume] in Serum or Plasma [facility] Leukocytes [#/volume ] corrected for nucleated erythrocytes in Blood by Automated coun [facility] Leukocytes [#/volume ] in Blood [facility] Lymphocytes [#/volum e] in Blood by Automated count [facility] Lymphocytes/100 leuk ocytes in Blood by Automated count [facility] MCH [Entitic mass] b y Automated count [facility] MCHC [Mass/volume] b y Automated count [facility] MCV [Entitic volume] by Automated count [facility] Monocytes [#/volume] in Blood by Automated count [facility] Monocytes/100 leukoc ytes in Blood by Automated count [facility] Neutrophils [#/volum e] in Blood by Automated count [facility] Neutrophils/100 leuk ocytes in Blood by Automated count [facility] Nucleated erythrocyt es [Presence] in Blood by Automated count [facility] Patient Education [facility] Work Phone: Patient referral [facility] Platelet mean volume [Entitic volume] in Blood by Automated count [facility] Platelets [#/volume] in Blood [facility] Tissue transglutamin ase IgA Ab [Units/volume] in Serum [facility] Tissue transglutamin ase IgG Ab [Units/volume] in Serum [facility] Immunizations Immunization Date Immunization Notes Care Provider Fa jaguar 11-09-2022 tetanus toxoid, redu chet diphtheria toxoid, and acellular pertussis vaccine, adsorbed MD Katarzyna Castañeda Work Phone: [facility] 07-08-2002 diphtheria, tetanus toxoids and acellular pertussis vaccine, unspecified formulation Felicitas BASILIO Work Phone: [facility] 07-08-2002 DTaP, unspecified formulation [facility] 07-08-2002 measles, mumps and rubella virus vaccine [facility] 07-08-2002 poliovirus vaccine, inactivated Felicitas BASILIO Work Phone: [facility] 07-08-2002 poliovirus vaccine, unspecified formulation [facility] 03-06-1998 diphtheria, tetanus toxoids and acellular pertussis vaccine, unspecified formulation Felicitas BASILIO Work Phone: [facility] 03-06-1998 DTaP, unspecified formulation [facility] 03-06-1998 haemophilus influenz ae type b vaccine, conjugate unspecified formulation Felicitas BASILIO Work Phone: [facility] 03-06-1998 Hib, unspecified formulation [facility] 03-06-1998 measles, mumps and rubella virus vaccine [facility] 03-06-1998 trivalent poliovirus vaccine, live, oral Felicitas BASILIO Work Phone: [facility] 05-23-1997 diphtheria, tetanus toxoids and pertussis vaccine Felicitas BASILIO Work Phone: [facility] 05-23-1997 haemophilus influenz ae type b vaccine, conjugate unspecified formulation Felicitas BASILIO Work Phone: [facility] 05-23-1997 hepatitis B vaccine, pediatric or pediatric/adolescent dosage [facility] 05-23-1997 Hib, unspecified formulation [facility] 03-24-1997 diphtheria, tetanus toxoids and pertussis vaccine Felicitas BASILIO Work Phone: [facility] 03-24-1997 haemophilus influenz ae type b vaccine, conjugate unspecified formulation Felicitas BASILIO Work Phone: [facility] 03-24-1997 Hib, unspecified formulation [facility] 03-24-1997 trivalent poliovirus vaccine, live, oral Felicitas BASILIO Work Phone: [facility] 01-28-1997 diphtheria, tetanus toxoids and pertussis vaccine Felicitas BASILIO Work Phone: [facility] 01-28-1997 haemophilus influenz ae type b vaccine, conjugate unspecified formulation Felicitas BASILIO Work Phone: [facility] 01-28-1997 hepatitis B vaccine, pediatric or pediatric/adolescent dosage [facility] 01-28-1997 Hib, unspecified formulation [facility] 01-28-1997 trivalent poliovirus vaccine, live, oral Felicitas BASILIO Work Phone: [facility] 1996 hepatitis B vaccine, pediatric or pediatric/adolescent dosage [facility] Care Payers Date Payer Category Payer Private Health Insurance HUMANA HUMANA MEDICAID [facility] [id number] 2024-Present [id number] [place] [address] Medicaid [id number] 2023 Self-pay [id number] 2023 Medicaid [employer]NA [employer] [place]ICA[place] [id number] 2023 Medicaid [id number] 2017 Unknown 1996 Unknown [id number] 2.16.840.1.857920.3.579.2. 356 1996 Unknown [id number] 2.16.840.1.416564.3.579.2. 356 1996 Unknown [id number] 2.16.840.1.614320.3.579.2. 356 1996 Unknown [id number] 2.16.840.1.306721.3.579.2. 1996 Unknown [id number] 2.16.840.1.667545.3.579.2. 1996 Unknown [id number] 2.16.840.1.333977.3.579.2. 1996 Unknown [id number] 2.16.840.1.927164.3.579.2. 1996 Unknown [id number] 2.16.840.1.528418.3.579.2. 1996 Unknown [id number] 2.16.840.1.047267.3.579.2. 1996 Unknown [id number] 2.16.840.1.343532.3.579.2. 1996 Unknown [id number] 2.16.840.1.928397.3.579.2. 1996 Unknown [id number] 2.16.840.1.467773.3.579.2. 1996 Unknown [id number] 2.16.840.1.229221.3.579.2. 1996 Unknown [id number] 2.16.840.1.970934.3.579.2. 1996 Unknown [id number] 2.16.840.1.470875.3.579.2. 1996 Unknown [id number] 2.16.840.1.549312.3.579.2. 717 1996 Unknown [id number] 2.16.840.1.385490.3.579.2. 593 1996 Unknown [id number] 2.16.840.1.226505.3.579.2. 593 1996 Unknown [id number] 2.16.840.1.775509.3.579.2. 727 1996 Unknown [id number] 2.16.840.1.230301.3.579.2. 1259 1996 Unknown [id number] 2.16.840.1.720379.3.579.2. 125 1996 Unknown [id number] 2.16.840.1.912655.3.579.2. 125 1996 Unknown [id number] 2.16.840.1.233246.3.579.2. 1259 1996 Unknown [id number] 2.16.840.1.198833.3.579.2. 125 1996 Unknown [id number] 2.16.840.1.470072.3.579.2. 1259 1996 Unknown [id number] 2.16.840.1.147945.3.579.2. 1259 1996 Unknown [id number] 2.16.840.1.512539.3.579.2. 1259 1996 Unknown [id number] 2.16.840.1.124806.3.579.2. 125 1996 Unknown [id number] 2.16.840.1.057542.3.579.2. 125 1996 Unknown [id number] 2.16.840.1.254554.3.579.2. 1259 1996 Unknown [id number] 2.16.840.1.191861.3.579.2. 1259 1996 Unknown [id number] 2.16.840.1.974471.3.579.2. 9 1996 Unknown [id number] 2.16.840.1.425879.3.579.2. 9 1996 Unknown [id number] 2.16.840.1.780514.3.579.2. 1258 1996 Unknown [id number] 2.16.840.1.282930.3.579.2. 9 1996 Unknown [id number] 2.16.840.1.614144.3.579.2. 1259 1996 Unknown [id number] 2.16.840.1.256488.3.579.2. 9 1996 Unknown [id number] 2.16.840.1.796746.3.579.2. 9 1996 Unknown [id number] 2.16.840.1.712645.3.579.2. 1259 1959 Unknown [id number] Unknown [id number] 2.16.840.1.389143.3.579.2. 531 Social History Date Type Detail Facility Start: 10-10-2021 End: 06-19-2023 Tobacco smoking status MDIS Never smoked tobacco (finding) [facility] Start: 1995 Sex Assigned At Female F [facility] Start: 09-16-2024 End: 12-23-[address] [facility] Tobacco smoking status Never [facility] Start: 04-17-2017 End: 06-19-2023 Tobacco use and exposure Smokeless tobacco non-user [facility] Start: 09-23-2024 End: 12-23-2024 Alcoholic beverage intake Current drinker of alcohol (finding) [facility] Start: 09-16-2024 End: 12-23-2024 History of Social function [facility] Do you belong to any clubs or organizations such as latter-day groups, unions, fraternal or athletic groups, or [...] Only a little [facility] (I/We) worried wheaaron er (my/our) food would run out before [...] Sex assigned at Not on file [facility] Start: 11-21-2024 Alcoholic beverage intake Current non-drinker of alcohol (finding) [facility] Start: 12-25-2024 Sex Female (finding) [facility] NEGATED: Highlighted row [facility] Goals Date Patient Goal Desired Activity /State Functional Status Date Assessment Result Facility 05-15-2024 Functional Status N/A [facility] 12-11-2023 Functional status Patient at Baseline [facility] Work Phone: 11-09-2022 Functional status Patient at Baseline [facility] Work Phone: Mental Status Date Assessment Result Facility 12-11-2023 Cognitive function Cognitive Sta tus Patient at Baseline [facility] Work Phone: 11-09-2022 Cognitive function Cognitive Sta tus Patient at Baseline [facility] Work Phone: Clinical Notes 12-05-2021 to 12-25-2024 Ubaldo Parrish PTA - 12/25/2024 12:07 PM CHETNA Bauer - 12/23/2024 9:30 AM ESTTelephone Encounter - Zabrina Hendricks RN - 12/03/2024 4:25 PM Juliana Wang DO - 11/05/2024 9:45 AM EST Note Date & Type Note Facility 12-25-2024 History of Presen t illness Narrative Pt was phone and reports Her brace is doing well and home exercises are going well. No issues at this time. Referral will be discharge from PT. If she needs any further assistance a new referral will be needed. documented in this encounter [facility] 12-23-2024 History of Presen t illness Narrative Images from the original note were not included. HPI Med Refill Additional comments: Adderall Last edited by Radha Jones LPN on 12/23/2024 9:34 AM. Subjective Patient ID: Jen Santamaria is a 29 y.o. female who presents for ADHD. Jen is present today for follow up ADHD. She is currently on Adderall XR and it is working well for her. States will need surgery on her right knee eventually, but overall the stability and pain have been ok. Current Outpatient Medications on File Prior to [...] device by Intrauterine route levothyroxine (Synthroid, Levoxyl) 125 MCG tablet TAKE 1 TABLET (125 MCG) BY MOUTH IN THE MORNING. TAKE BEFORE MEALS. 90 tablet 3 traZODone (Desyrel) 100 MG tablet [...] Radiation therapy for thyroid Visit Vitals BP 116/78 Pulse (!) 116 Resp 16 Ht 4' 11 Wt 169 lb 6.4 oz SpO2 98% BMI 34.21 kg/m Smoking Status Never BSA 1.79 m [...] She is not in acute distress. Appearance: She is well-developed. She is obese. HENT: Head: Normocephalic and atraumatic. Eyes: General: No scleral icterus. Conjunctiva/sclera: Conjunctivae normal. Cardiovascular: Rate and Rhythm: Regular rhythm. Tachycardia present. Heart sounds: Normal heart sounds. No murmur heard. Pulmonary: Effort: Pulmonary effort is normal. No respiratory distress. Breath sounds: Normal breath sounds. No wheezing, rhonchi or rales. Skin: General: Skin is warm and dry. Neurological: General: No focal deficit present. Mental Status: She is alert and oriented to person, place, and time. Psychiatric: Mood and Affect: Mood normal. Behavior: Behavior normal. Assessment/Plan Diagnoses and all orders for this visit: Complete tear of anterior cruciate ligament of knee, right, subsequent encounter Knee is stable at this time and she is planning to hold off on surgery for now. Encouraged her to follow up with Dr. Wang as per his instruction. Attention deficit hyperactivity disorder (ADHD), combined type [...] OARRS Report was reviewed for this patient. Follow up in about 3 months (around 03/22/2025) for Medication Follow Up. documented in this encounter [facility] 12-03-2024 Telephone encounter Note Secure chat message sent to Laura Hernandez NP. States OK for pharmacy to proceed with tablet. Call placed to [facility] pharmacy in [place]. Spoke with pharmacist and notified OK to switch to tablet, per provider. States will update in their system. Unable to locate tablet form of Tirosint in order section for med update for future. Noted that Tirosint tablet is generic levothyroxine. Call placed to patient and reviewed. States that she is currently taking levothyroxine 125 mcg daily. She states that someone had explained to her that her body may not absorb the levothyroxine appropriately due to Celiac disease and does not work effectively for her. Notified patient message will be sent to provider for clarification. Asking if PA can be completed for Tirosint as prescribed or would you like patient to take the levothyroxine 175 mcg with instructions as per MAR? Call placed back to pharmacist at [facility]. Advised that we will need to get clarification from the provider regarding this and will call back with further advice. Please advise to patient at number on file and update pharmacy with recommendations. [facility] 12-03-2024 Miscellaneous Notes Secure chat message sent to Laura Hernandez NP. States OK for pharmacy to proceed with tablet. Call placed to [facility] pharmacy in [place]. Spoke with pharmacist and notified OK to switch to tablet, per provider. States will update in their system. Unable to locate tablet form of Tirosint in order section for med update for future. Noted that Tirosint tablet is generic levothyroxine. Call placed to patient and reviewed. States that she is currently taking levothyroxine 125 mcg daily. She states that someone had explained to her that her body may not absorb the levothyroxine appropriately due to Celiac disease and does not work effectively for her. Notified patient message will be sent to provider for clarification. Asking if PA can be completed for Tirosint as prescribed or would you like patient to take the levothyroxine 175 mcg with instructions as per MAR? Call placed back to pharmacist at [facility]. Advised that we will need to get clarification from the provider regarding this and will call back with further advice. Please advise to patient at number on file and update pharmacy with recommendations. Received call from [facility] pharmacy in [place]. States that Tirosint would be covered if sent over as tablets instead of capsules and would not need PA. Asking if OK to proceed with tablet. Please send to pharmacy. Attempted to complete PA on CoverMyMeds. Was advised to call help desk at [phone]. Krysten informed me that the group fitness department head has voluntarily stopped participating in the Medicaid drug rebate program for this medication for patients over the age of 21. Please advise. Nika Shetty MA documented in this encounter [facility] 12-03-2024 Telephone encounter Note Received call from [facility] pharmacy in [place]. States that Tirosint would be covered if sent over as tablets instead of capsules and would not need PA. Asking if OK to proceed with tablet. Please send to pharmacy. [facility] 12-03-2024 Telephone encounter Note Attempted to complete PA on CoverMyMeds. Was advised to call help desk at [phone]. Krysten informed me that the group fitness department head has voluntarily stopped participating in the Medicaid drug rebate program for this medication for patients over the age of 21. Please advise. Nika Shetty MA [facility] 11-25-2024 History of Presen t illness Narrative Images from the original note were not included. Physical Therapy Treatment Visit Patient Name: Jen Santamaria Today's Date: 11/25/2024 Diagnosis Plan 1. Right knee pain, unspecified chronicity Visit number: 3, 30 per year, no co-pay, no auth Timed Code Treatment Minutes: 42 minutes Total Treatment Time 42 minutes Time In: 1100 Time Out: 1146 Chief Complaint: M25.561 right knee pain ACL tear right knee 09/14/24 Precautions: progress as tolerated Subjective Mechanism of injury: Pt injured right knee on 09/14/24 wrestling at her brother's house. She felt a popping sensation, fell and landed directly on knee. She experienced pain and swelling initially, then this resolved with time and ice. Lately she has experienced discomfort and some instability with caring for her daughter and with ADL's/transfers. 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 MRI on 10/25/24: full thickness ACL tear. Location of Symptoms: Right knee Pain level: 2/10 What increases symptoms: kneeling, push off with right LE What decreases symptoms: ice, rest first 3-4 weeks Pain radiates: none Timing of pain: intermittent Numbness/tingling: none Imaging: X-rays 09/16/24 from [place]: no acute osseous abnormalitis. MRI right knee [place] on : Full thickness midsubstance ACL tear, bone bruising and lateral compartment consistent with pivot shift injury. Menisci, PCL, LCL, MCL, PLC intact. Small effusion. Today's Subjective: Pt with no complaints from last session. Some soreness in muscles but not too bad. Pain: 0/10 Objective Posture: pes planus bilaterally ROM AAROM: R Knee flexion: 125 degrees R Knee extension: 0 degrees L Knee flexion: 133 degrees L Knee extension: 0 degrees Muscle Strength: R knee extension: 3.5/5 right knee with extension lag with SLR R knee flexion: 3.5/5 R hip flexion: 4/5 R hip abduction: 4.5/5 L LE: 5/5 throughout Palpation: nontender to palpation right knee Joint Play: mobile patella right knee Muscle length: WFL hamstrings and gastroc-soleus on right Special Tests: positive Lachmens right Gait: no device, equals step time and length Prior Level of Function: Ambulation: independent Assistive Devices: none ADLs: Indep Extracurricular Activities: gym: weightlifting, some cardio 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 Joint mobilization, Soft Tissue Mobilization, Myofascial Release, Muscle Energy Technique, Neural Mobilization, Myofascial Cupping, Dry Needling, IASTM, and Scar mobilization as needed. Therapeutic Exercise: (28 minutes) Strength, Endurance, Flexibility, ROM, HEP, Neural Mobilization, Power, and Core Stability as needed. Exercises per grid to increase functional strength and stability. Therapeutic Activity: (14 minutes) Exercises to improve dynamic activities, functional tasks, functional mobility to return to prior activity level as needed. Neuromuscular re-education: Balance Training, Muscle Facilitation, Dynamic Stability, Core Stabilization, and Blood Flow Restriction Training (BFRT) as needed. Modalities: Heat, Ice, Electrical Stimulation, Ultrasound, Cervical Mechanical Traction, Lumbar Mechanical Traction, Iontophoresis, and Fluidotherapy as needed. Declined CP this date. PT Assessment: Visit #3 for non-operative ACL tear 9+ weeks ago. Progressed exercises this date to increase functional strength and stability of right LE. Pt with little to no complaints of fatigue / weakness during exercises. Min cues for proper form with exercises. Will continue to progress as pt tolerates. Therapy Diagnosis: Right knee pain with ACL tear Functional Limitations: LEFS: 74/80 points Intermediate Goals: in 6 weeks Improve strength right LE to 5/5 to provide stability, strength, endurance needed for daily activities. 2. No anterior knee pain with exercises. 3. No complaints of giving way with static and dynamic balance activities 4. Pt is independent with home and gym-based exercise program 5. Pt is able to resume pre-injury activity level, 0-2/10 pain right knee. Able to manage indep with home program. Rehab Potential: Good Plan: PT 1-2x/week x 6 weeks Treatment: therapeutic exercises, neuromuscular re-ed, manual therapy prn, modalities: ice, e-stim as needed. I hereby deem this POC medically necessary. Please sign below and fax back to the number below. Physician Signature: Date: documented in this encounter [facility] 11-21-2024 History of Presen t illness Narrative [facility] This visit is a virtual Video encounter. It required patient-provider interaction for the medical decision making as documented below. I have communicated my name and active licensure. The patient's identity and physical location were verified at the time of this visit. Either the patient or their legal financial sales representative has been informed of the risks and benefits of -- and alternatives to -- treatment through a remote evaluation and consents to proceed with the evaluation remotely. Last Visit: 11/29/2019 Jen Santamaria is here for follow up regarding: hypothyroidism Is patient interested in MyChart? Patient uses it Patient is taking levothyroxin ? yes < 1 yr ago swich to Levo from Tirosint by PCP and has been having symptoms of severe fatigue, weight gain, hand numbness History of CT scan with intravenous contrast within the last 4 months? No CC: hypothyroid f/u Very tired all the time. Current Outpatient Medications Medication Sig Dispense Refill TIROSINT 175 mcg cap Take 1 capsule by mouth six times a week. 72 capsule 0 L-Norgest and E Estradiol-E Estrad (CAMRESE) 0.15 mg-30 mcg (84)/10 mcg (7) 3MPk Take by mouth. No current facility-administered medications for this visit. 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 175 mcg daily General symptoms: Fatigue: yes, she wakes up tired Weight change: weight loss of 10 lbs previously, recent weight gain after the cruise Appetite change: very low appetite Menstrual irregularities: on OCP - menses irregular - has been regular with previous Tirosint dose and Euthyroid levels Change in bowel habits: constipation/ diarrhea - Temperature intolerance: heat and cold intolerance - hot flashes, hands/feet very cold, waking up sweaty and hot but freezing at the same time Dry skin: No She also has celiac disease Continues to be on a gluten free diet At that time: Switched back to Tirosint 175 mcg daily 6x/week ROS: Energy: very low Sleep: early insomnia Moods :irritable Eye symptoms: No Dysphagia: No New neck lump: No Communication: Hearing: normal; Voice: normal Salivary Glands: Normal Dyspnea: No Cough: No Palpitations: No Tremor: No Temperature: alternating heat/cold intolerance Weight change: Increased 30 lb. Change in bowel movements: Yes alternating constipation/diarrhea Periods: irregular Past, social and family histories were reviewed and updated in the database Yes Physical exam: [facility] 10/31/2019 There is no height or weight on file to calculate BMI. Weight 158# Weight 158# GENERAL: Well nourished, well hydrated, in no distress, and oriented x 3 Communication: Hearing: normal; Voice: normal EYES: no thyroid eye signs, JEREMIE, and Fundi normal NECK: no visible nodules or goiter Previous laboratory results: TSH (uU/mL) Date Value 12/25/2018 2.780 12/18/2017 6.270 07/31/2017 34.520 Cytology (new information since last visit): Pathology (new information since last visit): Imaging (new information since last visit): Impression and recommendations: Symptomatic hypothyroid - TSH, T4 in 6 weeks after switch back to Tirosint 175 mcg daily 6 days/week; no medication on day. Further adjustment of medication and repeat labs as needed. Communicate via Linquethart as needed for symptoms and adjustment of medication and new orders I spent a total of 35 minutes on the date of the service which included preparing to see the patient, [id number] patient care, completing clinical documentation, obtaining and/or reviewing separately obtained history, performing a medically appropriate examination, counseling and educating the patient/family/caregiver, and ordering medications, tests, or procedures. Will see her in follow up in 4-6 months. Laura Hernandez, MSN, GASTROENTEROLOGY NURSE [facility] Endocrinology Specialties Department [facility] [place] [address] [place], [place] [address] Answers submitted by the patient for this visit: Endocrine Review of Systems (Submitted on 11/21/2024) Fatigue: Yes Night sweats: Yes Recent unintentional weight change: Yes Skin Color Changes: No Post-Nasal Drip: No Thyroid Pain (lower neck): No Trouble Swallowing: No Vision Disturbance: No Chest pain: No Leg Swelling: No Blood Clots?: No Leg Pain while walking?: No Difficulty Breathing?: No Heartburn: No Nausea: No Vomiting: No Diarrhea: Yes Constipation: Yes Abdominal pain: No Bone Pain?: No Muscle aches: No Muscle weakness: Yes Joint pain or stiffness: Yes Headaches: No Dizziness: No Numbness?: Yes Urgency to Urinate?: No Increased Urination: No Slow or Small Urine Stream?: No Are your menstrual cycles regular?: No Are your menstrual cycles irregular?: Yes Have your menstrual cycles stopped?: No Flushing: Yes Hot Flashes?: Yes Increased Thirst: Yes Change in Body Hair?: No Cold Intolerance: Yes Heat Intolerance: Yes documented in this encounter [facility] 11-21-2024 Note HNO ID: [id number] Author: LAURA HERNANDEZ APRN.CNP Service: ? Author Type: Nurse Practitioner Type: Progress Notes Filed: 11/21/2024 16:56 Note Text: DISTANCE HEALTH VISIT This visit is a virtual Video encounter. It required patient-provider interaction for the medical decision making as documented below. I have communicated my name and active licensure. The patient's identity and physical location were verified at the time of this visit. Either the patient or their legal financial sales representative has been informed of the risks and benefits of -- and alternatives to -- treatment through a remote evaluation and consents to proceed with the evaluation remotely. Last Visit: 11/29/2019 Jen Santamaria is here for follow up regarding: hypothyroidism Is patient interested in MyChart? Patient uses it Patient is taking levothyroxin ? yes < 1 yr ago swich to Levo from Tirosint by PCP and has been having symptoms of severe fatigue, weight gain, hand numbness History of CT scan with intravenous contrast within the last 4 months? No CC: hypothyroid f/u Very tired all the time. Current Outpatient Medications Medication Sig Dispense Refill TIROSINT 175 mcg cap Take 1 capsule by mouth six times a week. 72 capsule 0 L-Norgest and E Estradiol-E Estrad (CAMRESE) 0.15 mg-30 mcg (84)/10 mcg (7) 3MPk Take by mouth. No current facility-administered medications for this visit. 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 175 mcg daily General symptoms: Fatigue: yes, she wakes up tired Weight change: weight loss of 10 lbs previously, recent weight gain after the cruise Appetite change: very low appetite Menstrual irregularities: on OCP - menses irregular - has been regular with previous Tirosint dose and Euthyroid levels Change in bowel habits: constipation/ diarrhea - Temperature intolerance: heat and cold intolerance - hot flashes, hands/feet very cold, waking up sweaty and hot but freezing at the same time Dry skin: No She also has celiac disease Continues to be on a gluten free diet At that time: Switched back to Tirosint 175 mcg daily 6x/week ROS: Energy: very low Sleep: early insomnia Moods :irritable Eye symptoms: No Dysphagia: No New neck lump: No Communication: Hearing: normal; Voice: normal Salivary Glands: Normal Dyspnea: No Cough: No Palpitations: No Tremor: No Temperature: alternating heat/cold intolerance Weight change: Increased 30 lb. Change in bowel movements: Yes alternating constipation/diarrhea Periods: irregular Past, social and family histories were reviewed and updated in the database Yes Physical exam: [facility] 10/31/2019 There is no height or weight on file to calculate BMI. Weight 158# Weight 158# GENERAL: Well nourished, well hydrated, in no distress, and oriented x 3 Communication: Hearing: normal; Voice: normal EYES: no thyroid eye signs, JEREMIE, and Fundi normal NECK: no visible nodules or goiter Previous laboratory results: TSH (uU/mL) Date Value 12/25/2018 2.780 12/18/2017 6.270 07/31/2017 34.520 Cytology (new information since last visit): Pathology (new information since last visit): Imaging (new information since last visit): Impression and recommendations: Symptomatic hypothyroid - TSH, T4 in 6 weeks after switch back to Tirosint 175 mcg daily 6 days/week; no medication on 7th day. Further adjustment of medication and repeat labs as needed. Communicate via Linquethart as needed for symptoms and adjustment of medication and new orders I spent a total of 35 minutes on the date of the service which included preparing to see the patient, [id number] patient care, completing clinical documentation, obtaining and/or reviewing separately obtained history, performing a medically appropriate examination, counseling and educating the patient/family/caregiver, and ordering medications, tests, or procedures. Will see her in follow up in 4-6 months. Laura Hernandez, MSN, GASTROENTEROLOGY NURSE [facility] Endocrinology Specialties Department [facility] [place], [place] [address], [place] [address] Answers submitted by the patient for this visit: Endocrine Review of Systems (Submitted on 11/21/2024) Fatigue: Yes Night sweats: Yes Recent unintentional weight change: Yes Skin Color Changes: No Post-Nasal Drip: No Thyroid Pain (lower neck): No Trouble Swallowing: No Vision Disturbance: No Chest (more content not included)... [facility] 11-05-2024 History of Presen t illness Narrative @DAVID@ Jen Fritz Christian is a 28 y.o. female who presents for right knee pain. HPI: History of Present Illness The patient is a 28-year-old female seen as a new patient today for her right knee. She sustained an injury to her right knee on 09/14/2024 while engaging in wrestling activities at her brother's residence. The injury occurred when she was subjected to a leg sweep maneuver by one of her brother's friends, resulting in a popping sensation in the knee. She landed directly on the bent knee. She reports no prior history of knee issues. Following the incident, she experienced swelling in the affected knee. Despite the absence of persistent pain, she reports occasional discomfort, with the most recent episode occurring 3 weeks ago during an attempt to enter her mother's vehicle. She has not undergone any rehabilitation or treatment for the injury, apart from the administration of anti-inflammatory medication immediately after the incident. She continues to experience mild swelling in the knee and expresses a desire to resume her workout routine. She has occasional feelings of instability when walking. No locking. She has been able to maintain her work schedule since the injury. Denies history of issues with the right knee prior to the injury. SOCIAL HISTORY She has a 2-year-old daughter. 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 SUBJECTIVE: MEDICATIONS: Current Outpatient Medications Medication Instructions amphetamine-dextroamphetamine XR (Adderall XR) 20 MG 24 hr capsule 20 mg, Oral, Every morning, Do not crush or chew. Bacillus Coagulans-Inulin (Probiotic) 1-250 BILLION-MG capsule 1 capsule, Daily cholecalciferol (D3-5) 5,000 Units, Oral, Daily diclofenac sodium (VOLTAREN ARTHRITIS PAIN) 4 g, Topical, 4 times daily PRN folic acid (FOLVITE) 0.4 mg, Oral, Daily Levonorgestrel (Liletta, 52 MG,) 20.1 MCG/DAY intrauterine device by Intrauterine route levothyroxine (SYNTHROID, LEVOXYL) 125 mcg, Oral, Daily before breakfast traZODone (DESYREL) 100 mg, Nightly PRN venlafaxine XR (Effexor XR) 75 MG 24 hr capsule TAKE 1 CAPSULE BY MOUTH ONCE A DAY AFTER 7 DAYS OF 37.5 MG ALLERGIES: Allergies Allergen Reactions Bactrim Ds [Sulfamethoxazole-Trimethoprim] Hives Escitalopram Other Shellfish-Derived Products Trimethoprim Other Reaction(s): Rash, hives Wheat GI intolerance SURGICAL HISTORY: Past Surgical History: Procedure Laterality Date BREAST SURGERY 03/2021 reduction SECTION, LOW TRANSVERSE 11/07/[address] C[address] Dr[address] Cespedes COLPOSCOPY 08/13/2020 ESOPHAGOGASTRODUODENOSCOPY 08/08/2023 INTRAUTERINE DEVICE INSERTION 03/21/2024 liletta LIPOSUCTION 01/2022 OTHER SURGICAL HISTORY 2011 Procedure:crutches - no sports;Disease:left ankle sprain OTHER SURGICAL HISTORY 2013 Radiation therapy for thyroid FAMILY HISTORY: Family History Problem Relation Name Age of Onset Diabetes Brother 1 brother diabetes Cancer Maternal Grandfather Dementia Paternal Grandmother Heart disease Paternal Grandfather Multiple myeloma Neg Hx SOCIAL HISTORY: Social History Tobacco Use Smoking status: Never Smokeless tobacco: Never Vaping Use Vaping status: Never Used Substance Use Topics Alcohol use: Yes Comment: Caffeine intake : once a day or every other day / 1 cup qd day 80mg of caffeine Drug use: Never Depression: Not on file REVIEW OF SYMPTOMS: Review of Systems The review of systems, history and current medications list are all reviewed today. OBJECTIVE: Visit Vitals Temp 97.4 F Ht 4' 11 Wt 170 lb BMI 34.34 kg/m Smoking Status Never BSA 1.79 m Physical Exam Alert and oriented, no acute distress. Mood and affect are appropriate. Ambulating independently. Gait is nonantalgic. RIGHT KNEE Mild effusion. ROM 0-120, symmetric to left knee. No patellar instability or apprehension. Nontender medial and lateral joint lines. Nontender patellar tendon. Positive Shayy's, positive anterior, negative posterior drawer. No varus or valgus instability at 0 and 30. Negative dial test and 30 and 90. No click with mcmurrays LEFT KNEE The skin is warm, dry and intact. There is no effusion, no erythema. Full flexion and extension. Good quadriceps bulk and tone. There is no tenderness at the patellofemoral joint, medial or lateral joint line, patellar tendon, femoral condyles or proximal tibia. No cruciate or collateral instability. Negative Ronni's. Ortho Exam Results Imaging 2 views, bilateral PA weight-bearing, sunrise of the bilateral knee(s) taken today and saved to the permanent medical record are reviewed. AP/lateral/oblique right knee [facility] 09/16/2024 reviewed. No acute osseous abnormalities. No degenerative changes. MRI right knee Roosevelt 10/25/2024 report and images. Full thickness midsubstance ACL tear, bone bruising lateral compartment consistent with pivot shift injury. Menisci, PCL, LCL, MCL, PLC intact. Small effusion. ASSESSMENT AND PLAN: I reviewed the history, physical exam, diagnostic studies, and diagnosis with the patient. Assessment & Plan 1. Right knee anterior cruciate ligament tear. The patient sustained an ACL tear in early September while wrestling. Rehabilitation is recommended to strengthen the surrounding muscles and improve stability. An ACL brace will be provided for use during activities that may stress the knee. She is advised to apply ice post-exercise to prevent inflammation. A referral to a physical therapist in [place] will be made to guide her through appropriate exercises that she can continue on her own. If symptoms worsen or become more limiting, surgical options may be considered in the future. Follow up prn. A total of 45-59 minutes was spent on this patient encounter which included chart review, check in, nurse triage, history taking, physical examination, diagnostic study review, patient counseling and discussion, entering information into the patient's medical record, and coordinating patient care. Diagnoses and all orders for this visit: Left knee pain, unspecified chronicity - XR knee 1 or 2 views left - Ambulatory referral to Physical Therapy; Future Osei Wang D.O. Attestation This note was created using voice recognition through [employer]. documented in this encounter [facility] 10-28-2024 Telephone encounter Note Patient returned call. Advised pt of results, crutches, NWB, and Ortho referral. Pt voiced understanding. [facility] 10-28-2024 Miscellaneous Notes Patient returned call. Advised pt of results, crutches, NWB, and Ortho referral. Pt voiced understanding. 1. Acute/subacute stress fracture along the posterior lateral aspect of the lateral tibial plateau measuring up to 1.7 cm, with mild osteochondral impaction at the lateral femoral sulcus related to full-thickness ACL tear. 2. Intact menisci. PCL and collateral ligaments are intact. 3. Mild chondral loss at the trochlear groove. Need to discuss MRI findings with patient. LM for pt to return call. She will need to be NWB with crutches and will need to see Ortho. documented in this encounter [facility] 10-28-2024 Telephone encounter Note 1. Acute/subacute stress fracture along the posterior lateral aspect of the lateral tibial plateau measuring up to 1.7 cm, with mild osteochondral impaction at the lateral femoral sulcus related to full-thickness ACL tear. 2. Intact menisci. PCL and collateral ligaments are intact. 3. Mild chondral loss at the trochlear groove. Need to discuss MRI findings with patient. LM for pt to return call. She will need to be NWB with crutches and will need to see Ortho. [facility] 10-15-2024 History of Presen t illness Narrative Images from the original note [...] like to have the MRI done at [facility]. Knee instability, right - MR knee right wo IV contrast; Future See above. Follow up for Appointment As Scheduled. documented in this encounter [facility] 09-23-2024 History of Presen t illness Narrative Images from the original note [...] for 7 days. 28 capsule 0 [DISCONTINUED] [place]-3 Fatty Acids (Fish Oil) 1000 MG capsule [...] Felicitas BARAJAS PA-C documented in this encounter [facility] 05-15-2024 Hospital Discharg e instructions Patient Education 05/15/2024 16:11:44 Gastritis, Adult, Bdln-[id number] Gastritis, Adult Gastritis is irritation and swelling [...] Follow these instructions at home: Medicines Take gvho-yqv-[id number] and prescription medicines only as told by [...] provider. Document Revised: 03/05/2022 Document Reviewed: 03/05/2022 ElseSection 101 Patient Education 2022 [employer]. [facility] 05-15-2024 Note Patient Education Infectious [...] these instructions at home: Medicines ? Take [id number] and prescription medicines only as told by [...] provider. Document Revised: 03/05/2022 Document Reviewed: 03/05/[address] [employer] Patient Education ? 2022 [employer]. [facility] 12-11-2023 Hospital Discharg e instructions Additional Instructions Important Contact Information You can call [facility] at [phone] any time day or night if you have emergent questions or question regarding discharge instructions. If at any time you are feeling an increase in your psychiatric symptoms, call your physician or behavioral healthcare provider. If any time you have thoughts of harming yourself or others contact one of the following: Call 88 (available 05/06) Crisis Text Line (available 05/06) text 4HOPE to [phone] [facility] Hope Line (available 8 a.m. Midnight) call [phone] (1923) [facility] Work Phone: 10-19-2023 Evaluation note Encounter Date Diagnosis Assessment Notes Oct, Loose stools (ICD-10 - R19.5) Pt is still having loose stools. Oct, Constipation (ICD-10 - K59.00) Pt is still dealing with constipation . Oct, Celiac disease (ICD-10 - K90.0) Pt RTO in 3 months [facility]* Encounter Date Diagnosis Assessment Notes Treatment Notes Treatment Clinical Notes Jun, Loose stools (ICD-10 - R19.5) patient has been having loose stools to liquid stools for several months. Will Jun, Constipation (ICD-10 - K59.00) Jun, Celiac disease (ICD-10 - K90.0) Patient was diagnosed about 6 years ago with EGD. Has maintained a gluten free diet since then. [facility] Other 12-26-2022 History general Narrative - Reported* Type Description Date Medical History graves disease Medical History celiac disease Surgical History breast reduction Surgical History C section 11/07/22 Hospitalization History HYPOTHROIDISM [facility] Other 01-23-2022 Evaluation note* Encounter Date Diagnosis [...] Patient care instructions given in writting by [facility] Care At Home document. [employer] [employer] Other Evaluation + Plan note No data available for this section [facility] Evaluation noteNo assessment information available [facility] Diagnosis Onset Date Resolution Status Status post section acute [facility] Work Phone: Evaluation noteNo [facility] [employer] Other Evaluation note* Diagnosis Onset Date Resolution Status Depression acute [facility] Work Phone: Evaluation note* Diagnosis Onset Date Resolution Status ADHD acute Depression acute Generalized anxiety disorder acute [facility] Work Phone: Evaluation note* Diagnosis Onset Date Resolution Status ADHD acute Depression acute Generalized anxiety disorder acute Celiac disease acute Sinusitis noneactive [facility] Work Phone: Evaluation note* Diagnosis Acute pain of right knee- Primary Attention deficit hyperactivity disorder (ADHD), combined type (CMS/HCC) Patellar tendonitis of right knee [facility] Diagnosis Postablative hypothyroidism (CMS/HCC)- Primary Other postablative hypothyroidism Acute internal derangement of right knee Knee instability, right [facility] Diagnosis Rupture of anterior cruciate ligament of right knee, initial encounter- Primary Closed fracture of lateral portion of right tibial plateau, initial encounter documented in [facility] encounter [facility]* Diagnosis Left knee pain, unspecified chronicity- Primary [facility] Diagnosis Attention deficit hyperactivity disorder (ADHD), combined type (CMS/HCC) [facility]* Diagnosis Right knee pain, unspecified chronicity- Primary [facility]* Diagnosis Right knee pain, unspecified chronicity- Primary documented in this encounter [facility]* Diagnosis Postablative hypothyroidism- Primary Other postablative hypothyroidism [facility] Right knee pain, unspecified chronicity- Primary documented in this encounter [facility]* Diagnosis Right knee pain, unspecified chronicity- Primary documented in this encounter [facility]* Diagnosis Postablative hypothyroidism Other postablative hypothyroidism [facility] Diagnosis Complete tear of anterior cruciate ligament of knee, right, subsequent encounter- Primary Attention deficit hyperactivity disorder (ADHD), combined type ([facility]CC) documented in this encounter [facility] Healthcare[facility] general Narrative - Reported* Type Description Date Medical History graves disease Surgical History breast reduction Hospitalization History HYPOTHROIDISM [facility] Discharge instructions Additional Instructions Please call your plastic surgeon tomorrow for follow-up appointment Take the antibiotics as prescribed to cover for any potential infection Return for fevers, discharge, bleeding from your wound, redness, [facility] Additional Instructions DISCHARGE INSTRUCTIONS FOR [...] NOT operate machinery such as power tools, lawn mowers, snow blowers, sewing machines, etc. for [...] problems. -Follow up with PCP. -Office number [phone].[facility] Work Phone: Progress note No data available for this section [facility] Care Reason for visit Narrative* Consultation (Routine) - Authorized Specialty Diagnoses / Procedures Referred By Contac t Referred To Contact Physical Therapy Diagnoses Left knee pain, unspecified chronicity Procedures [place] OFFICE/OUTPATIENT NEW HIGH MDM 60 MINUTES Osei Wang DO [address] [place] [address] Phone: tel: fax: Joann Issa, PT [address] [place] [address] Phone: tel: fax: Referral ID Status Reason Start Date Expiration Date Visits Requested Visits Authorized [id number] Authorized Consult and Treat 11/13/2024 11/01/2025 1 30 [facility] Summary Purpose Family History Relationship Condition Age at Onset Recorded Date/T sanaz brother Diabetes mellitus Unknown grandchild Malignant neoplasm Unknown Advance Directives Advance Directive Response Recorded Date/ Time Advance Directives No September 10:19pm Advance Directive Response Recorded Date/ Time Advance Directives No September 11:19pm Chief Complaint and Reason for Visit Chief Complaint incision open Chief Complaint z3a.27 o99.810 Chief Complaint z3a.27 o99.810 35 weeks gestation of ; screenin Chief Complaint Z3A.35 Z36.85 IUP (Intrauterine ) z39.1 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 Complaint Celiac Disease Chief Complaint Follow Up After Egd [facility]HP Reason for Visit Depression Chief Complaint Follow Up After Egd [facility]HP Reason for Visit ADHD Depression Generalized anxiety disorder Chief Complaint [facility] 3 MONTH FOLLOW UP Cough, congestion Reason for Visit ADHD Depression Generalized anxiety disorder Celiac disease Sinusitis Chief Complaint Admit Date December 11, 2024 8 :01am Sinus congestion, sore throat, headache December 25, 2024 10:51am Additional Source Comments INFORMATION SOURCE (unrecogn ized section and content) DATE CREATED AUTHOR 05/03/2018 [facility] DATE CREATED AUTHOR AUTHOR'S ORGANIZ ATION 05/08/2018 [facility] DATE CREATED AUTHOR AUTHOR'S ORGANIZ ATION 05/09/2018 [facility] DATE CREATED AUTHOR AUTHOR'S ORGANIZ ATION 11/27/2018 [facility] DATE CREATED AUTHOR AUTHOR'S ORGANIZ ATION 01/16/2019 [facility] DATE CREATED AUTHOR AUTHOR'S ORGANIZ ATION 02/01/[address] [facility] DATE CREATED AUTHOR AUTHOR'S ORGANIZ ATION 03/08/2022 [facility] DATE CREATED AUTHOR AUTHOR'S ORGANIZ ATION 04/22/2022 [facility] DATE CREATED AUTHOR AUTHOR'S ORGANIZ ATION 05/17/2024 [facility] DATE CREATED AUTHOR AUTHOR'S ORGANIZ ATION 10/27/2024 [facility] DATE CREATED AUTHOR AUTHOR'S ORGANIZ ATION 11/26/2024 [facility] DATE CREATED AUTHOR AUTHOR'S ORGANIZ ATION 12/12/2024 [facility] DATE CREATED AUTHOR AUTHOR'S ORGANIZ ATION 12/24/2024 [facility] EPIC Goals (unrecognized section and content) Goals may be documented in a n alternate sectionNo InformationGoals may be documented in an alternate sectionGoals may be documented in an alternate sectionNo InformationNo InformationNo InformationGoals may be documented in an alternate sectionGoals may be documented in an alternate section No data available for this sectionGoals may be documented in an alternate section REASON FOR VISIT (unrecogniz ed section and content) Reason Comments Hypothyroidism She is wanting to ge t her thyroid labs checked d/t she exhausted, gaining weight and feels swollen all the time. Reason Comments Pain Reason Onset Date Comments Med Refill 11/07/2024 Reason Comments Graves Disease Hypothyroid s/p radi ation Reason Comments Med Refill [facility] Care Teams (unrecognized sec tion and content) Team Status: Active Member Role Status Nikolay Castañeda MD Primary Care Provider Active Team Status: Active Member Role Status Nikolay Castañeda MD Primary Care Provider Active S tart: December 11, 2024 Miguel Jalloh MD Attending Provider Active Start: December 11, 2024 Team Status: Inactive Member Role Status Nikolay Castañeda MD Primary Care Provider Active S tart: December 25, 2024 End: December 25, 2024 Cathy Gallardo APRN Attending Provider Active S tart: December 25, 2024 End: December 25, 2024 Team Status: Inactive Member Role Status Nikolay Castañeda MD Primary Care Provider Active Stephanie Edward DO Attending Provider Active Team Status: Inactive Member [...] 2023 Team Status: Inactive Member Role Status Dates Katarzyna Castañeda MD Primary Care Provider Active S tart: December 08, 2023 End: December 11, 2023 Larry Rankin DO Emergency Provider Active Sta rt: December 08, 2023 End: December 11, 2023 Miguel Jalloh MD Attending Provider Active Start: December [...] March 09, 2024 End: March 09, 2024 PIERRE Lockwood Attending Provider Active S tart: March 09, 2024 End: March 09, 2024 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 Operator 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 Relationship Specialty Start Date End Date Katarzyna Castañeda MD [address] [place] [id number] PCP - General Family Medicine 06/13/23 Abelardo Bolanos MD [address] [place] [address] (Fax) PCP - [facility] 08/13/24 Drier Operator Helper Relationship Specialty Start Date End Date Katarzyna Castañeda MD [address] [place] [address] PCP - General Family Medicine 06/13/23 Abelardo Bolanos MD [address] [place] [address] (Fax) [facility] 08/13[facility]24 Drier Operator Helper Relationship Specialty Start Date End Date Katarzyna Castañeda MD [address] [place] [address] PCP - General Family Medicine 06/13/23 Abelardo Bolanos MD [address] [place] [address] (Fax) PCP [facility] 08/13/24 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 Operator Helper Relationship Specialty Start Date End Date Katarzyna Castañeda MD [address] [place] [address] PCP - General Family Medicine 06/13/23 Abelardo Bolanos MD [address] [place] [address] (Fax) PCP - [facility] [facility] 08/13/24 Drier Operator Helper Relationship Specialty Start Date End Date Katarzyna Castañeda MD [address] [facility] [address] [place] [address] PCP - General Family Medicine 06/13/23 Abelardo Bolanos MD [address] [place] [address] PCP - [facility] [employer] [facility] 08/13/24 Drier Operator Helper Relationship Specialty Start Date End Date Katarzyna Castañeda MD [address] [place] [address] PCP - General Family Medicine 06/13/23 Abelardo Bolanos MD [address] [place] [address] PCP - [facility] [facility] 08/13/24 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 Operator Helper Relationship Specialty Start Date End Date Katarzyna Castañeda MD [address] [place] [address] PCP - General Family Medicine 06/13/23 Abelardo Bolanos MD [address] [place] [address] PCP - [facility] [employer] [facility] 08/13/24 Drier Operator Helper Relationship Specialty Start Date End Date Katarzyna Castañeda MD [address] [place] [address] PCP - General Family Medicine 06/13/23 Abelardo Bolanos MD [address] [place] [address] PCP - [facility] [employer] [facility] 08/13/24 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 Operator Helper Relationship Specialty Start Date End Date Katarzyna Castañeda MD [address] [place] [address] PCP - General Family Medicine 06/13/23 Abelardo Bolanos MD [address] [place] [address] (Fax) PCP - ADE Holman [facility] 08/13/24 Drier Operator Helper Relationship Specialty Start Date End Date Katarzyna Castañeda MD [address] [place] [address] PCP - General Family Medicine 06/13/23 Abelardo Bolanos MD [address] [place] [address] (Fax) PCP - N[facility] 08/13/24 Drier Operator Helper Relationship Specialty Start Date End Date Dandre Robles MD PCP - General Family Medicine 12/18/17 Drier Operator Helper Relationship Specialty Start Date End Date Katarzyna Castañeda MD [address] [place] [address] PCP - General Family Medicine 06/13/23 Abelardo Bolanos MD [address] [place] [address] PCP - NOMAmanda Holman [facility] 08/13/24 Drier Operator Helper Relationship Specialty Start Date End Date Dandre Robles MD PCP - General Family Medicine 12/18/17 Drier Operator Helper Relationship Specialty Start Date End Date Katarzyna Castañeda MD [address] [place] [address] PCP - General Family Medicine 06/13/23 Abelardo Bolanos MD [address] [place] [address] PCP - [facility] 08/13/24 Drier Operator Helper Relationship Specialty Start Date End Date Katarzyna Castañeda MD [address] [facility] [address] [place] [address] PCP - General Family Medicine 06/13/23 Abelardo Bolanos MD [address] [facility] [address] [place] [address] PCP - NOMAmanda Holman [facility] 08/13/24 Drier Operator Helper Relationship Specialty Start Date End Date Katarzyna Castañeda MD [address] [facility] [address] [place] [address] PCP - General Family Medicine 06/13/23 Abelardo Bolanos MD [address] [facility] [address] [place] [address] PCP - [facility] 08/13/24 Source Comments (unrecognize d section and content) In the event this informatio n is protected by the Federal Confidentiality of Alcohol and Drug Abuse Patient Records regulations: The Federal rules restrict any use of the information to criminally investigate or prosecute any alcohol or drug abuse patient.[facility] the event this information is protected by the Federal Confidentiality of Alcohol and Drug Abuse Patient Records regulations: The Federal rules restrict any use of the information to criminally investigate or prosecute any alcohol or drug abuse patient.[facility] FOR RECORDS PERTAINING TO PATIENTS WHO ARE [...] BE BASED ON THE PRIMARY CLINICAL RECORDS. [facility] [employer] [facility]. provides no warranty or guarantee of the accuracy or completeness of information in this document.
--- NOTE | 2024-12-25 23:57 | ED_ITS ---
HPI HPI - General Adult General Chief complaint: Skin/Abscess/Foreign Body Stated complaint: POSSIBLE ALLERGIC REACTION Time Seen by Provider: 12/25/24 23:39 Source: patient Mode of arrival: walk-in Limitations: no limitations History of Present Illness HPI narrative: This 29-year-old female who was started on amoxicillin for a sinus infection and has taken 2 doses of it today for evaluation of a pruritic skin rash on her chest and arms. She states she has had amoxicillin in the past and did not react to it but she has had similar reactions when she took sulfa drugs. She denies any chest pain or shortness of breath. She denies any difficulty breathing or swallowing. She denies any sensation in her throat. No medications were taken prior to arrival. Related Data Home Medications ?Medication ?Instructions ?Recorded ?Confirmed cholecalciferol (vitamin D3) 125 12/25/24 mcg (5,000 unit) tablet dextroamphetamine-amphetamine ER PO 12/25/24 20 mg 24hr capsule,extend release folic acid 400 mcg tablet 12/25/24 levothyroxine 100 mcg tablet mcg 12/25/24 venlafaxine 150 mg tablet,extended mg PO 12/25/24 release 24 hr Allergies Allergy/AdvReac Type Severity Reaction Status Date / Time sulfamethoxazole (From AdvReac Hives Verified 12/25/24 23:09 Bactrim) trimethoprim (From Bactrim) AdvReac Hives Verified 12/25/24 23:09 Opioid HPI Opioid Management Most Recent Opioid Data: Last Pain Scale 2 02/04/24 18:40 02/04/24 Review of Systems ROS Status of ROS 10 or more systems reviewed and unremark able except as noted in history and below PFSH PFSH Social History Little interest or pleasure in doing things: not at all Feeling down, depressed, or hopeless: not at all Exam Narrative Exam Narrative: Vital signs and Nursing Notes reviewed: Patient is afebrile, mildly tachycardic with a pulse of 107, she has a normal blood pressure, she is not hypoxic with pulse ox of 97% on room air General: Awake, alert, oriented, no acute distress, sitting comfortably in a chair HEENT: Normocephalic atraumatic, mucous membranes are moist and pink, eyes are clear, normal conjunctiva, vision is grossly intact, posterior pharynx is normal in appearance. There is no swelling of the tongue, uvula or pharyngeal soft tissues Neck: Supple, no stridor Chest: Lungs are clear to auscultation with good air entry, there is no wheezing rhonchi or rales appreciated no accessory muscle use, patient is speaking in c omplete sentences- CVS: Regular rate and rhythm S1-S2, no murmurs rubs or gallops, pulses are brisk and equal bilaterally ABD: Soft, nondistended, nontender, no rebound guarding or rigidity, bowel keli nds are normal, no pulsatile masses appreciated Extremities: Moving all extremities, no lower extremity tenderness or swelling noted, negative Homans' sign, pulses are brisk and equal bilaterally Skin: Flat erythematous rash with some urticarial wheals on anterior chest wall, no petechia or purpura noted no areas of excoriation. Small amount of erythema on the upper back Neuro: No focal deficits Constitutional Vital Signs, click to edit/add: Last Vital Signs Temp 98.3 F 12/25/24 23:05 Pulse 107 H 12/25/24 23:05 Resp 18 12/25/24 23:05 BP 128/87 12/25/24 23:05 Pulse Ox 97 12/25/24 23:05 O2 Del Method Room Air 12/25/24 23:05 Course Vital Signs Vital signs: Vital Signs Temperature 98.3 F 12/25/24 23:05 Pulse Rate 107 H 12/25/24 23:05 Respiratory Rate 18 12/25/24 23:05 Blood Pressure 128/87 12/25/24 23:05 Pulse Oximetry 97 12/25/24 23:05 Oxygen Delivery Method Room Air 12/25/24 23:05 Temperature 98.3 F 12/25/24 23:05 Pulse Rate 107 H 12/25/24 23:05 Respiratory Rate 18 12/25/24 23:05 Blood Pressure 128/87 12/25/24 23:05 Pulse Oximetry 97 12/25/24 23:05 Oxygen Delivery Method Room Air 12/25/24 23:05 Medical Decision Making MDM Narrative Medical decision making narrative: This 29-year-old female presents for evaluation of a pruritic rash after taking 2 doses of amoxicillin earlier today. She has had amoxicillin in the past. She is not having difficulty breathing or swallowing. She has had a similar reaction to Bactrim in the past. The patient was medicated with IM Solu-Medrol, Pepcid and Benadryl in the emergency department. She will be given a pr escription for Zithromax to take instead of the amoxicillin for her sinus infection. She will also be given a prescription for Medrol Dosepak and Pepcid with recommendation to get Benadryl [id number] at the pharmacy tomorrow. She was encouraged return the emergency department for difficulty breathing swallowing swelling of her tongue, uvula or any concerns. She was also instructed to name penicillins as an allergy in the future. Discharge Plan Discharge Chief Complaint: Skin/Abscess/Foreign Body Clinical Impression: Allergic reaction to drug Patient Disposition: Home, Self-Care Time of Disposition Decision: 00:01 Condition: Good Prescriptions / Home Meds: No Action folic acid 400 mcg tablet levothyroxine 100 mcg tablet dextroamphetamine-amphetamine 20 mg capsule,extended release 24hr PO venlafaxine 150 mg tablet extended release 24hr PO cholecalciferol (vitamin D3) 125 mcg (5,000 unit) tablet Print Language: Sierra Leonean Instructions: Antibiotic Medication Allergy (ED) Referrals: KATARZYNA CASTAÑEDA [Primary Care Provider] - 1 week
[2024-12-26] MEDS: FAMOTIDINE 20 MG TABLET 40 MG PO (00:13)
[2024-12-26] MEDS: DIPHENHYDRAMINE HCL 25 MG CAPSULE PO (00:13)
[2024-12-26] MEDS: METHYLPREDNISOLONE SOD SUCC PF 125 MG/2 ML VIAL IM (00:14)
== END 2024-12-26 00:25 | disposition home or self-care (01) ==
PROVIDERS: Emergency Provider Emergency Medicine; PCP Family Medicine
DX: L27.0 Generalized skin eruption due to drugs and medicaments taken internally (principal); T36.0X5A Adverse effect of penicillins, initial encounter
CPT/HCPCS: 96372; 99284; J2919